=== PATIENT | male | born 1990 | race Caucasian/White ===

== ENCOUNTER 2022-04-08 22:04 | Inpatient (IN) ==
[2022-04-08] MEDS ORDERED: DICYCLOMINE HCL 10 MG/ML 2 ML AMP/VIAL IM ONE (22:18)
[2022-04-08] MEDS ORDERED: FAMOTIDINE 20MG IV PUSH 20 MG/5 ML SYR IV STA (22:18)
[2022-04-08] MEDS ORDERED: ONDANSETRON INJ 2 MG/ML 2 ML VIAL IV STA (22:18)
[2022-04-08] MEDS ORDERED: SODIUM CHLORIDE 0.9% 1000ML 1,000 ML IV STA (22:18)
--- NOTE | 2022-04-08 23:01 | Emergency Department Note ---
History of Present Illness General Chief complaint: Abdominal Pain Stated complaint: ABDOM PAIN, GETTING WORSE Time Seen by Provider: 04/08/22 22:13 History of Present Illness Maximum Pain Intensity: 9 This 31-year-old HIV male presents to the ER complaining of nausea vomiting upset stomach who was seen earlier today Location: Abdomen Quality: Discomfort Severity: Moderate Duration: Today Timing: Today Context: Patient continued to vomit and came back in Modifying factors: better with nothing; worse with activity Patient denies chest pain, dyspnea, fevers, urinary symptoms, flulike illness. Home Medications Medication Instructions Recorded Confirmed Type pantoprazole 40 mg tablet,delayed 40 mg PO QAM 05/07/19 04/08/22 History release (Protonix) bupropion HCl 150 mg tablet,12 hr 150 mg PO BID 10/12/20 04/08/22 History sustained-release dolutegravir 50 mg-lamivudine 300 1 tab PO QAM 10/12/20 04/08/22 History mg tablet (Dovato) betamethasone dipropionate 0.05 % 1 applic topical DAILY 12/10/21 04/08/22 History topical cream cetirizine 10 mg tablet (Zyrtec) 10 mg PO DAILY 12/10/21 04/08/22 History potassium chloride 20 mEq 20 meq PO QAM 12/10/21 04/08/22 History tablet,extended release(part/cryst) famotidine 20 mg tablet 20 mg PO BID #20 tabs 04/08/22 04/08/22 Rx ondansetron 4 mg disintegrating 4 mg PO Q6H PRN nausea and 04/08/22 04/08/22 Rx tablet vomiting #14 tabs sucralfate 100 mg/mL oral 10 ml PO QID #420 mL 04/08/22 04/08/22 Rx suspension (Carafate) Allergies Allergy/AdvReac Type Severity Reaction Status Date / Time latex Allergy Intermediate Rash Verified 04/08/22 23:18 benzonatate AdvReac Intermediate Hypertensio Verified 04/08/22 23:18 [From Justin Benitez] n Past Med/Surg History Medical History (Updated 04/09/22 @ 03:33 by Svetlana Piedra PA-C) Anxiety GERD (gastroesophageal reflux disease) HIV disease Surgical History S/P cholecystectomy Family History Other No pertinent family history in first degree relatives Social History Smoking Status: Current every day smoker Tobacco Type: Cigarettes Hx Alcohol Use: No Hx Substance Use: No Preferred Language: Chinese marital status: current occupational status: employed current occupation: Works at [employer] Safe at Home: Yes Review of Systems A total of 10 systems reviewed and were otherwise negative Physical Exam Vital Signs Vital Signs - 24 hr 04/08/22 22:06 04/08/22 22:19 04/08/22 22:04 Temperature 36.3 C L Temperature Source Temporal Artery Scan Pulse Rate 64 Pulse Rate [Left Finger] Respiratory Rate 18 Respiratory Effort / Characteristics Non-Labored Respiratory Depth Normal Normal Blood Pressure 154/81 H Blood Pressure [Right Arm] Blood Pressure Mean 105 Blood Pressure Mean [Right Arm] Pulse Oximetry 99 98 Oxygen Delivery Method Room Air Room Air Sepsis New/Unexplained Change in Mental Status N/A Sepsis Action Taken by Nursing No Action Required 04/09/22 01:00 04/09/22 03:00 Temperature Temperature Source Pulse Rate Pulse Rate [Left Finger] 74 Respiratory Rate 16 Respiratory Effort / Characteristics Non-Labored Respiratory Depth Normal Blood Pressure Blood Pressure [Right Arm] 124/78 Blood Pressure Mean Blood Pressure Mean [Right Arm] 93 Pulse Oximetry 98 99 Oxygen Delivery Method Sepsis New/Unexplained Change in Mental Status Sepsis Action Taken by Nursing VITALS: Vitals are noted on the nurse's note and reviewed by myself. Vital signs stable. GENERAL: Pleasant male, in no acute distress, nondiaphoretic, well-developed well-nourished. SKIN: The skin was without rashes, erythema, edema, or bruising. There is no tenting of the skin. Capillary reflex less than 2 seconds. HEAD: Normocephalic atraumatic. EARS: External auditory canals clear, EYES: Pupils equal round and reactive to light and accommodation. Conjunctivae without injection, sclerae without icterus. Extraocular movements intact. NOSE: Patent, turbinates without inflammation or discharge. MOUTH: Mucous membranes moist. Pharynx without erythema or exudate. Uvula midline. Airway patent. Tongue does not deviate. NECK: Supple without nuchal rigidity. No lymphadenopathy. No thyromegaly. Cervical spine is nontender. No JVD. HEART: Regular rate and rhythm LUNGS: Clear to auscultation bilaterally without wheezes, rales or rhonchi. No retractions or accessory muscle use. ABDOMEN: Positive bowel sounds x 4. Normal tympanic percussion. Soft, diffusely tender, without masses or organomegaly. Chavarria sign negative. No guarding or rebound tenderness. No CVA tenderness MUSCULOSKELETAL: No muscle atrophy, erythema, or edema noted. NEURO: Patient was alert and oriented to person place and time. Normal sensation to light and sharp touch. No focal neurological deficits. Course Administered Medications Discontinued Medications Dicyclomine HCl (Dicyclomine Hcl 10 Mg/Ml 2 Ml Amp/Vial) 20 mg IM NOW ONE Stop: 04/08/22 22:19 Last Admin: 04/08/22 23:02 Dose: 20 mg Documented By: YURIY Sodium Chloride (Nss 1000ml) 1,000 mls @ 999 mls/hr IV .Q1H1M STA Stop: 04/08/22 23:18 Last Infusion: 04/09/22 00:00 Dose: 0 mls/hr Documented By: Admin: 04/08/22 23:02 Dose: 999 mls/hr Documented By: YURIY Famotidine (Pepcid 20mg Iv Push) 20 mg in 5 mls @ 2.5 mls/min IV NOW STA Stop: 04/08/22 22:19 Last Admin: 04/08/22 23:02 Dose: 2.5 mls/min Documented By: YURIY Sodium Chloride (Nss 1000ml) 1,000 mls @ 999 mls/hr IV .Q1H1M ONE Stop: 04/09/22 02:24 Last Admin: 04/09/22 01:57 Dose: 999 mls/hr Documented By: YURIY Ioversol (Optiray 300 100ml) 93 ml IV ONCE ONE Stop: 04/09/22 00:34 Last Admin: 04/09/22 00:24 Dose: 93 ml Documented By: ZOHAIB Ondansetron HCl (Ondansetron Inj 2 Mg/Ml 2 Ml Vial) 4 mg IV NOW STA Stop: 04/08/22 22:19 Last Admin: 04/08/22 23:02 Dose: 4 mg Documented By: YURIY Medical Decision Making Medical Records Attestation: I reviewed the patient's medical records. Home Medications Current Medication List: was personally reviewed by me Laboratory Data Attestation: I reviewed the patient's lab results. Result diagrams: 04/08/22 22:55 04/08/22 22:55 Lab Results 04/08/22 04/08/22 04/08/22 Range/Units 22:55 22:55 22:55 WBC 9.84 (4.8-10.8) K/ul RBC 3.81 L (4.63-6.08) M/uL Hgb 13.6 L (14.0-18.0) g/dl Hct 37.9 L (40.1-51.0) % MCV 99.5 (80.0-100.0) fL MCH 35.7 H (25.0-34.0) pg MCHC 35.9 (32.0-36.0) g/dL RDW Std Deviation 43.3 (36.4-46.3) fL RDW Coeff of Dio 11.8 (11.5-14.5) % Plt Count 234 (130-400) K/uL MPV 10.0 (9.4-12.4) fL Immature Gran % (Auto) 0.1 % Neut % (Auto) 84.4 % Lymph % (Auto) 8.8 % [place] % (Auto) 6.3 % Eos % (Auto) 0.1 % Baso % (Auto) 0.3 % Neut # (Auto) 8.30 H (1.4-6.5) K/uL Lymph # (Auto) 0.87 L (1.2-3.4) K/uL [place] # (Auto) 0.62 (0.24-0.82) K/uL Eos # (Auto) 0.01 (0-0.50) K/uL Baso # (Auto) 0.03 (0-0.2) K/uL Immature Gran # (Auto) 0.01 (0.00-0.02) K/uL Sodium 134 L (136-145) mmol/L Potassium 3.6 (3.5-5.1) mmol/L Chloride 97 L (98-107) mmol/L Carbon Dioxide 27 (21-32) mmol/L Anion Gap 10 (3-11) BUN 4 L (6-23) mg/dl Creatinine 0.84 (0.6-1.4) mg/dl Est Cr Clr Drug Dosing 107.7 ml/min Est GFR ( Amer) 136.2 ml/min Est GFR (Non-Af Amer) 117.5 ml/min BUN/Creatinine Ratio 4.8 L (10-20) Glucose 101 H (70-99(Fasting)) mg/dl Calcium 9.2 (8.5-10.1) mg/dl Total Bilirubin 1.1 H (0.2-1.0) mg/dl AST 24 (13-39) U/L ALT 20 (7-52) U/L Alkaline Phosphatase 104 (34-104) U/L Total Protein 6.6 (6.0-8.3) gm/dl Albumin 4.1 (3.4-5.0) gm/dl Globulin 2.5 (2.5-4.0) gm/dl Albumin/Globulin Ratio 1.6 (0.9-2) Lipase 1124 H (11-82) U/L Urine Color Dark Yellow Urine Appearance Clear (Clear) Urine pH 5.5 (4.5-7.5) Ur Specific [place] 1.021 (1.000-1.030) Urine Protein 1+ H (Negative) Urine Glucose (UA) Negative (Negative) Urine Ketones 3+ H (Negative) Urine Blood Negative (Negative) Urine Nitrite Negative (Negative) Urine Bilirubin Negative (Negative) Urine Urobilinogen Negative (Negative) Ur Leukocyte Esterase Negative (Negative) Urine WBC (Auto) 1-5 (0-5) /hpf Urine RBC (Auto) 0-4 (0-4) /hpf U Hyaline Cast (Auto) 10-30 H (0-5) /lpf U Epithel Cells (Auto) 20-30 H (0-5) /lpf Urine Bacteria (Auto) Negative (Negative) Urine Opiates Screen (Neg) Ur Methadone, Qual (Neg) Urine Barbiturates (Neg) Ur Phencyclidine (PCP) (Neg) U Amphetamin/Meth Scrn (Neg) MDMA (Ecstasy) Screen (Neg) U Benzodiazepines Scrn (Neg) Ur Cocaine Metabolite (Neg) U Marijuana (THC) Screen (Neg) Ethyl Alcohol mg/dL (<10.0) mg/dl SARS-CoV-2, RNA, NAAT (NEGATIVE) 04/08/22 04/09/22 04/09/22 Range/Units 22:55 01:55 02:22 WBC (4.8-10.8) K/ul RBC (4.63-6.08) M/uL Hgb (14.0-18.0) g/dl Hct (40.1-51.0) % MCV (80.0-100.0) fL MCH (25.0-34.0) pg MCHC (32.0-36.0) g/dL RDW Std Deviation (36.4-46.3) fL RDW Coeff of Dio (11.5-14.5) % Plt Count (130-400) K/uL MPV (9.4-12.4) fL Immature Gran % (Auto) % Neut % (Auto) % Lymph % (Auto) % [place] % (Auto) % Eos % (Auto) % Baso % (Auto) % Neut # (Auto) (1.4-6.5) K/uL Lymph # (Auto) (1.2-3.4) K/uL [place] # (Auto) (0.24-0.82) K/uL Eos # (Auto) (0-0.50) K/uL Baso # (Auto) (0-0.2) K/uL Immature Gran # (Auto) (0.00-0.02) K/uL Sodium (136-145) mmol/L Potassium (3.5-5.1) mmol/L Chloride (98-107) mmol/L Carbon Dioxide (21-32) mmol/L Anion Gap (3-11) BUN (6-23) mg/dl Creatinine (0.6-1.4) mg/dl Est Cr Clr Drug Dosing ml/min Est GFR ( Amer) ml/min Est GFR (Non-Af Amer) ml/min BUN/Creatinine Ratio (10-20) Glucose (70-99(Fasting)) mg/dl Calcium (8.5-10.1) mg/dl Total Bilirubin (0.2-1.0) mg/dl AST (13-39) U/L ALT (7-52) U/L Alkaline Phosphatase (34-104) U/L Total Protein (6.0-8.3) gm/dl Albumin (3.4-5.0) gm/dl Globulin (2.5-4.0) gm/dl Albumin/Globulin Ratio (0.9-2) Lipase (11-82) U/L Urine Color Urine Appearance (Clear) Urine pH (4.5-7.5) Ur Specific [place] (1.000-1.030) Urine Protein (Negative) Urine Glucose (UA) (Negative) Urine Ketones (Negative) Urine Blood (Negative) Urine Nitrite (Negative) Urine Bilirubin (Negative) Urine Urobilinogen (Negative) Ur Leukocyte Esterase (Negative) Urine WBC (Auto) (0-5) /hpf Urine RBC (Auto) (0-4) /hpf U Hyaline Cast (Auto) (0-5) /lpf U Epithel Cells (Auto) (0-5) /lpf Urine Bacteria (Auto) (Negative) Urine Opiates Screen Neg (Neg) Ur Methadone, Qual Neg (Neg) Urine Barbiturates Neg (Neg) Ur Phencyclidine (PCP) Neg (Neg) U Amphetamin/Meth Scrn Neg (Neg) MDMA (Ecstasy) Screen Pos H (Neg) U Benzodiazepines Scrn Neg (Neg) Ur Cocaine Metabolite Neg (Neg) U Marijuana (THC) Screen Pos H (Neg) Ethyl Alcohol mg/dL < 10.0 (<10.0) mg/dl SARS-CoV-2, RNA, NAAT NEGATIVE (NEGATIVE) Imaging Data Attestation: I personally reviewed and interpreted this imaging study as follows: MDM Narrative Prior records/ancillary studies reviewed. Triage Nursing notes reviewed. Additional history obtained from the family. The patient's history was concerning for nausea, vomiting, and abdominal pain. Differential diagnosis: Etiologies such as gastroenteritis, food borne illness, infections, appendicitis, diverticulitis, inflammatory bowel disease, obstruction, GI bleed, biliary pathology, as well as others were entertained. Physical examination findings: As above. Abdominal examination revealed diffuse tenderness. Vital signs reviewed and revealed stable. ER treatment provided: IV hydration 1 L NSS. Zofran Pepcid Bentyl On reassessment the patient felt better. Patient was tolerating p.o. intake. Diagnostics interpretation by me: The labs revealed elevated lipase Imaging studies: Preliminary Findings Only See Final Report For Complete Findings CT ABDOMEN & PELVIS With Contrast: There is inflammatory stranding surrounding the head of the pancreas concerning for acute pancreatitis. No evidence of necrosis. No hemorrhage or organized peripancreatic fluid collection. The adjacent duodenum is thickened with surrou nding inflammatory stranding and this is likely reactive although nonspecific. The ascending and transverse colon are thickened with adjacent inflammatory stranding. There is most likely represents nonspecific colitis. There is a focus of gas adjacent to the transverse colon which appears within the lumen, there is no other free air to suggest perforation. The remaining solid organs are within normal limits. No bowel obstruction. No fracture. Radiologist: Lennie Mclean MD Study ready at 00:54 and initial results transmitted at 01:24 Consultation: A consultation was placed with the hospitalist. The case was discussed and fifi gnostics were reviewed. The patient was evaluated in the ER for further treatment. This appears to be consistent with pancreatitis with colitis. Medicine was consulted. He will be admitted. By the evaluation outlined above emergent etiologies such as appendicitis, diverticulitis, obstruction, cardiac sources, mesenteric ischemia, aortic pathology, inflammatory bowel disease, renal colic, PUD, biliary pathology, UTI, as well as others were deemed relatively unlikely. The pt informed about the findings as listed above. All questions were answered and pleased with the treatment. The chart was completed utilizing [employer] Speech voice recognition software. Grammatical errors, random word insertions, pronoun errors, and incomplete sentences are an occassional consequence of this system due to software limitations, ambient noise, and hardware issues. Any formal questions or rosas rns about the content, text, or information contained within the body of this dictation should be directly addressed to the physician home health assistant for clarification. Impression & Plan Pancreatitis, Colitis Discharge Plan Visit Data Chief Complaint: Abdominal Pain Stated Complaint: ABDOM PAIN, GETTING WORSE ED Provider: Darell Younger ED Midlevel Provider: Svetlana Piedra Discharge Problem: Pancreatitis, Colitis Patient Disposition: Admitted As Inpatient Condition: Fair Discharge Instructions Interventions: ED Discharge Assessment Last Done: 04/09/22 03:29 Forms Stand Alone Forms: [id number] Prescriptions Prescriptions: No Action pantoprazole [Protonix] 40 mg tablet,delayed release (DR/EC) 40 mg PO QAM cetirizine [Zyrtec] 10 mg Tablet 10 mg PO DAILY potassium chloride 20 mEq tablet,ER particles/crystals 20 meq PO QAM betamethasone dipropionate 0.05 % cream 1 applic TOPICAL DAILY sucralfate [Carafate] 100 mg/mL suspension 10 ml PO QID Qty: 420 0RF Rx Instructions: swish in mouth and swallow; use after food/drink: May substitute tablets as a slurry. famotidine 20 mg tablet 20 mg PO BID Qty: 20 0RF ondansetron 4 mg tablet,disintegrating 4 mg PO Q6H PRN (Reason: nausea and vomiting) Qty: 14 0RF bupropion HCl 150 mg Tablet Sustained-Release 12 Hr 150 mg PO BID Dovato 50-300 mg Tablet 1 tab PO QAM Referrals Referrals: Santhosh Kent DO [Primary Care Provider] - : Pancreatitis Qualifiers: Chronicity: acute Pancreatitis type: other Acute pancreatitis complication: unspecified Qualified Code(s): K85.80 - Other acute pancreatitis without necrosis or infection
[2022-04-08 23:07] LABS: Basophils # (auto) 0.03 K/uL (0-0.2); Basophils % (auto) 0.3 %; Eosinophils # (auto) 0.01 K/uL (0-0.50); Eosinophils % (auto) 0.1 %; Hematocrit (blood only) 37.9 % (40.1-51.0); Hemoglobin 13.6 g/dl (14.0-18.0); Immature Granulocytes # (auto) 0.01 K/uL (0.00-0.02); Immature Granulocytes % (auto) 0.1 %; Lymphocytes # (auto) 0.87 K/uL (1.2-3.4); Lymphocytes % (auto) 8.8 %; Mean Corpuscular Hemoglobin 35.7 pg (25.0-34.0); Mean Corpuscular Hgb Conc 35.9 g/dL (32.0-36.0); Mean Corpuscular Volume 99.5 fL (80.0-100.0); Monocytes # (auto) 0.62 K/uL (0.24-0.82); Monocytes % (auto) 6.3 %; Neutrophils % (auto) 84.4 %; Platelet Count 234 K/uL (130-400); RDW Coefficient of Variation 11.8 % (11.5-14.5); RDW Standard Deviation 43.3 fL (36.4-46.3); Red Blood Count 3.81 M/uL (4.63-6.08); White Blood Count 9.84 K/ul (4.8-10.8)
[2022-04-08 23:16] LABS: Appearance Urine Clear (Clear); Bacteria Urine Automated Negative (Negative); Bilirubin Urine Negative (Negative); Blood Urine Negative (Negative); Color Urine Dark Yellow; Epithelial Cell Urine Auto 20-30 /lpf (0-5); Glucose Urine UA Negative (Negative); Ketones Urine 3+ (Negative); Leukocyte Esterase Urine Negative (Negative); Nitrite Urine Negative (Negative); Protein Urine 1+ (Negative); RBC Urine Automated 0-4 /hpf (0-4); Specific Gravity Urine 1.021 (1.000-1.030); Urobilinogen Urine Negative (Negative); pH Urine 5.5 (4.5-7.5)
[2022-04-08 23:26] LABS: BUN Creatinine Ratio 4.8 (10-20); Calcium 9.2 mg/dl (8.5-10.1); Creatinine Clr Calc Pharmacy 107.7 ml/min; Est GFR (African American) 136.2 ml/min; Est GFR (Non-African American) 117.5 ml/min; Potassium 3.6 mmol/L (3.5-5.1)
[2022-04-08 23:40] LABS: Albumin Globulin Ratio 1.6 (0.9-2); Albumin Level 4.1 gm/dl (3.4-5.0); Bilirubin,Total 1.1 mg/dl (0.2-1.0); Globulin 2.5 gm/dl (2.5-4.0); Total Protein 6.6 gm/dl (6.0-8.3)
[2022-04-09] MEDS ORDERED: OPTIRAY 300 100mL IV ONE (00:33)
[2022-04-09] MEDS ORDERED: SODIUM CHLORIDE 0.9% 1000ML 1,000 ML IV ONE (01:24)
--- NOTE | 2022-04-09 01:56 | History & Physical Report ---
Date of Service April 09, 2022 Assessment & Plan (1) Pancreatitis: Plan: Mallory Trevizo is a 31-year-old male with past medical history of HIV on HAART who presented to [facility] due to upper abdominal pain with associated nausea and vomiting since last night. Found to have acute pancreatitis. Pancreatitis Unclear cause potentially related to moderate alcohol intake of 3-4 drinks night before admission CT abdomen/pelvis showing inflammatory stranding surrounding head of pancreas concerning for acute pancreatitis, no evidence of necrosis. See CT A/P results above. Lipase 1124 on admission Alcohol level, UDS ordered N.p.o. plan to restart enteral nutrition as soon as able Received NSS 1 L bolus x2 in ED Continue aggressive IV hydration with LR at 250 cc/h Graduated pain regimen with IV acetaminophen, Dilaudid Admit to med telemetry HIV Diagnosed in 2013, on HAART Hold dolutegravirlamivudine at this time while n.p.o. restart as soon as able Depression Hold home bupropion while n.p.o. restart as soon as able GERD Hold home pantoprazole, famotidine, sucralfate IV pantoprazole while admitted Allergic rhinitis Hold home cetirizine while n.p.o. DVT prophylaxis: SCDs Diet: N.p.o. for now, restart enteral nutrition as soon as able Dispo: Admit to med telemetry CODE STATUS: Full (2) HIV disease: (3) Depression: History of Present Illness Primary Care Provider: Santhosh Kent DO Mallory Trevizo is a 31-year-old male with past medical history of HIV on HAART who presented to [facility] due to upper abdominal pain with associated nausea and vomiting since last night. He had taken a dose of his bupropion and potassium and then accidentally took a second dose of each. At that time he induced vomiting and was unable to stop ever since. He has had no prior history of pancreatitis. Denies illicit drug use. He did have 3 or 4 total drinks last night (1 beer and 2-3 shots of liquor). He states he drinks socially, does not consume significant amounts of alcohol on a regular basis. Earlier tonight he had been evaluated in our emergency department and pain had been somewhat better controlled and nausea was controlled with Pepcid, Zofran, and GI cocktail. He was able to tolerate sips of clear liquids, at which point it was decided that he would try to continue with symptomatic management at home. However, patient states that symptoms seem to get worse at home and he decided to return for reevaluation. CT abdomen and pelvis per stat rad: Inflammatory stranding surrounding the head of the pancreas concerning for acute pancreatitis. No evidence of necrosis. Adjacent duodenum is thickened with surrounding inflammatory stranding and is likely reactive although nonspecific. The ascending and transverse colon are thickened with adjacent inflammatory stranding. Most likely represents nonspecific colitis. There is a focus of gas adjacent to the transverse colon which appears within the lumen, there is no other free air to suggest perforation. Lab work significant for mild anemia with hemoglobin of 13.6, mild hyponatremia with sodium of 134, T bili of 1.1, lipase elevated to 1124. Patient was given NSS 1 L bolus x2, Zofran 4 mg x 1, Pepcid 20 mg x 1, Bentyl 20 mg x 1. At the time of my evaluation, patient states that his nausea is well c ontrolled but he does still have some mild discomfort to the epigastrium. He denies chest pain, palpitations, back pain, shortness of breath, cough, headache, dizziness, weakness, numbness, rashes, urinary symptoms, fever, chills. Allergies Allergy/AdvReac Type Severity Reaction Status Date / Time latex Allergy Intermediate Rash Verified 04/08/22 23:18 benzonatate AdvReac Intermediate Hypertensio Verified 04/08/22 23:18 [From Justin Benitez] n Home Medications Medication Instructions Recorded Confirmed Type pantoprazole 40 mg tablet,delayed 40 mg PO QAM 05/07/19 04/08/22 History release (Protonix) bupropion HCl 150 mg tablet,12 hr 150 mg PO BID 10/12/20 04/08/22 History sustained-release dolutegravir 50 mg-lamivudine 300 1 tab PO QAM 10/12/20 04/08/22 History mg tablet (Dovato) betamethasone dipropionate 0.05 % 1 applic topical DAILY 12/10/21 04/08/22 History topical cream cetirizine 10 mg tablet (Zyrtec) 10 mg PO DAILY 12/10/21 04/08/22 History potassium chloride 20 mEq 20 meq PO QAM 12/10/21 04/08/22 History tablet,extended release(part/cryst) famotidine 20 mg tablet 20 mg PO BID #20 tabs 04/08/22 04/08/22 Rx ondansetron 4 mg disintegrating 4 mg PO Q6H PRN nausea and 04/08/22 04/08/22 Rx tablet vomiting #14 tabs sucralfate 100 mg/mL oral 10 ml PO QID #420 mL 04/08/22 04/08/22 Rx suspension (Carafate) Past Med/Surg History Medical History (Updated 04/09/22 @ 03:33 by Svetlana Piedra PA-C) Anxiety GERD (gastroesophageal reflux disease) HIV disease Surgical History S/P cholecystectomy Family History Other No pertinent family history in first degree relatives Social History Smoking Status: Current every day smoker Tobacco Type: Cigarettes Hx Alcohol Use: Yes Alcohol type: beer and hard liquor Hx Substance Use: Yes Preferred Language: Peruvian Communication Ability: Effective Cake Icer Required: No Beliefs That Will Affect Care: None marital status: Current Living Situation: Spouse Current Living Situation Comment: [place] current occupational status: employed current occupation: Works at [employer] Other Information That Helps Us Care for You: No Feels Safe at Home: Yes Assistive Devices: Glasses Review of Systems Review of Systems: Per HPI Physical Exam Physical Exam: GENERAL: A&Ox3. NAD. HEENT: PERRL, EOMI. Moist mucous membranes. NECK: No JVD. No lymphadenopathy. CHEST/LUNGS: CTAB A/P. No crackles, wheezes, rales, rhonchi. HEART: RRR. No m/g/r. No carotid bruits. ABDOMEN: Tender to palpation in mid epigastric region, nondistended, soft. BS+ x4. EXTREMITIES: No cyanosis, no clubbing, no edema SKIN: Warm and dry. No rashes or lesions. PSYCHIATRIC: Euthymic affect, no SI, no pressured speech, no hallucinations NEUROLOGIC: No FND. Results & Data Results & Data ([facility]) Vital Signs (Past 12 Hours) Vital Signs Temp Pulse Pulse Resp BP BP Pulse Ox 04/09/22 01:00 74 16 124/78 98 04/08/22 22:19 98 04/08/22 22:06 36.3 C L 64 18 154/81 H 99 O2 Del Method 04/09/22 01:00 04/08/22 22:19 Room Air 04/08/22 22:06 Room Air Supervising Physician Co-Signing Physician Notes Attending addendum: I have physically seen this patient, have supervised the medical residents activities, and agree with the H&P unless as otherwise noted. Assessment and Plan: Pancreatitis- Lipase 1124 Idiopathic versus associate with moderate alcohol intake as noted, versus medication related CT abdomen pelvis suggest acute pancreatitis involving head of pancreas, without evidence of necrosis Admit to medical telemetry NPO Status post 2 L NSS bolus in the ED LR at 2050 mils per hour x2 L Acetaminophen 1 g IV every 8 hours as needed pain or fever Dilaudid 0.25 mg IV every 3 hours as needed severe pain Order alcohol and urine drug screen levels MRCP HIV- Diagnosed 2013, on HAART Continue dolutegravir-lamivudine GERD- Pantoprazole 40 mg IV every 12 hours admitted Remaining orders and notations as noted Resident Activity Tracking Resident Involvement: Resident Care Provided Care Provided: Adult Hospital Medicine
[2022-04-09 03:08] LABS: Amphetamines+Metham, Urine Neg (Neg); Barbiturates, Urine Neg (Neg); Benzodiazepine, Urine Neg (Neg); Cocaine, Urine Neg (Neg); MDMA (Ecstacy), Urine Pos (Neg); Methadone, Urine Neg (Neg); Opiate, Urine Neg (Neg); Phencyclidine, Urine Neg (Neg)
[2022-04-09] MEDS ORDERED: ONDANSETRON INJ 2 MG/ML 2 ML VIAL IV PRN (03:46)
[2022-04-09] MEDS ORDERED: ACETAMINOPHEN 1,000 MG/100 ML VIAL IV PRN (03:46)
[2022-04-09] MEDS: HYDROmorphone INJ 0.5 MG/0.5 ML SYR IV PRN ×4 (04:14→21:07)
[2022-04-09] MEDS: LACTATED RINGER'S 1,000 ML IV SCH ×5 (04:51→20:53)
[2022-04-09 07:53] LABS: Basophils # (auto) 0.03 K/uL (0-0.2); Basophils % (auto) 0.3 %; Eosinophils # (auto) 0.01 K/uL (0-0.50); Eosinophils % (auto) 0.1 %; Hematocrit (blood only) 32.7 % (40.1-51.0); Hemoglobin 11.7 g/dl (14.0-18.0); Immature Granulocytes # (auto) 0.02 K/uL (0.00-0.02); Immature Granulocytes % (auto) 0.2 %; Lymphocytes # (auto) 1.32 K/uL (1.2-3.4); Lymphocytes % (auto) 14.1 %; Mean Corpuscular Hemoglobin 35.7 pg (25.0-34.0); Mean Corpuscular Hgb Conc 35.8 g/dL (32.0-36.0); Mean Corpuscular Volume 99.7 fL (80.0-100.0); Mean Platelet Volume 10.2 fL (9.4-12.4); Monocytes # (auto) 0.78 K/uL (0.24-0.82); Monocytes % (auto) 8.3 %; Neutrophils # (auto) 7.22 K/uL (1.4-6.5); Platelet Count 199 K/uL (130-400); RDW Coefficient of Variation 11.8 % (11.5-14.5); RDW Standard Deviation 43.2 fL (36.4-46.3); Red Blood Count 3.28 M/uL (4.63-6.08); White Blood Count 9.38 K/ul (4.8-10.8)
[2022-04-09 08:20] LABS: Albumin Globulin Ratio 1.8 (0.9-2); Albumin Level 3.4 gm/dl (3.4-5.0); BUN Creatinine Ratio 5.7 (10-20); Calcium 8.4 mg/dl (8.5-10.1); Creatinine Clr Calc Pharmacy 129.2 ml/min; Est GFR (African American) 146.8 ml/min; Est GFR (Non-African American) 126.6 ml/min; Globulin 1.9 gm/dl (2.5-4.0); Potassium 3.5 mmol/L (3.5-5.1); Total Protein 5.3 gm/dl (6.0-8.3)
[2022-04-09] MEDS: BETAMETHASONE DIP AUG (DIPROLENE) 0.05% CR 15 GM TUBE EXT SCH (09:18)
[2022-04-09] MEDS: CETIRIZINE HCL 10 MG TABLET PO SCH (09:18)
[2022-04-09] MEDS: PANTOprazole 40 MG in SYRINGE 0 ML IV SCH (11:15)
[2022-04-09] MEDS ORDERED: Nursing to Pharmacy Communication SCH (17:00)
--- NOTE | 2022-04-09 17:03 | Communication Note ---
Date of Service: April 09, 2022 Patient was seen and examined but admitted the same day therefore I will not be billing for this encounter. Alcohol vs. idiopathic pancreatitis. Patient with controlled pain throughout the day and good urine output. Can reduce IV fluids to 150ml/hr and start clear liquids. Go back to NPO if patient has any pain with clear liquids.
--- NOTE | 2022-04-09 18:46 | CT Scan Report ---
CT abd pelvis IV con only CLINICAL HISTORY: mid abd pain TECHNIQUE: Helical axial images of the abdomen and pelvis were obtained and displayed. Automated dose lowering techniques and/or adjustment according to patient size were utilized for this exam. This e xam was performed with intravenous contrast. CT DOSE: 287.54 mGy.cm COMPARISON: Comparison is made to CT abdomen pelvis 09/26/2021 FINDINGS: Lower chest: No acute abnormality Liver: Unremarkable. No focal lesions are seen. Gallbladder and biliary tree: Patient is status post cholecystectomy. Physiologic prominence of the b iliary ducts is noted. Pancreas: The pancreas is edematous and demonstrates surrounding fat stranding. Spleen: Unremarkable. Adrenals: Unremarkable. Kidneys and ureters: Unremarkable. Bladder: Limited evaluation due to underdistention. Reproductive organs: Unremarkable. Bowel: A hiatal hernia is seen. The appendix is normal. There is thickening of the duodenum and trans verse and ascending colon, likely reactive. Lymph nodes Retroperitoneal: Unremarkable. Pelvic: Unremarkable. Mesenteric: Unremarkable. Peritoneum: Normal. Vessels: Unremarkable. Abdominal wall: A fat-containing umbilical hernia is seen. Bones: Unremarkable. IMPRESSION: 1. Pancreatic edema and peripancreatic stranding compatible with acute pancreatitis without evidence of necrosis or well-defined fluid collection. 2. Thickening of the duodenum and transverse and ascending colon likely represents reactive changes. Infectious/inflammatory colitis and/or duodenitis is considered less likely. 3. Status post cholecystomy. There is physiologic dilation of the bile ducts without abnormal ductal dilation. ACT 112: Negative or not required by law. Electronically signed by: El Coughlin M.D. 04/09/2022 6:44 PM
[2022-04-09] MEDS ORDERED: ZOLPIDEM TARTRATE 5 MG TAB PO PRN (19:01)
[2022-04-09] MEDS: FAMOTIDINE 20 MG TAB PO SCH (21:07)
[2022-04-09] MEDS: buPROPion SR 150 MG TABCR PO SCH (21:07)
[2022-04-10] MEDS: LACTATED RINGER'S 1,000 ML IV SCH ×2 (00:59→08:16)
[2022-04-10] MEDS: HYDROmorphone INJ 0.5 MG/0.5 ML SYR IV PRN (01:05)
--- NOTE | 2022-04-10 05:04 | Billing Data ---
Date of Service April 10, 2022 Coding Level of Care Code 44640 Initial Inpt Care Lvl 3
[2022-04-10] MEDS: CETIRIZINE HCL 10 MG TABLET PO SCH (08:15)
[2022-04-10] MEDS: BETAMETHASONE DIP AUG (DIPROLENE) 0.05% CR 15 GM TUBE EXT SCH (08:16)
[2022-04-10] MEDS: FAMOTIDINE 20 MG TAB PO SCH (08:16)
[2022-04-10] MEDS: buPROPion SR 150 MG TABCR PO SCH (08:16)
[2022-04-10] MEDS ORDERED: LAMIVUDINE PO SCH (09:00)
[2022-04-10] MEDS ORDERED: DOLUTEGRAVIR PO SCH (09:00)
[2022-04-10] MEDS: PANTOprazole 40 MG in SYRINGE 0 ML IV SCH (11:11)
--- NOTE | 2022-04-10 13:13 | Discharge Summary ---
Date of Service April 10, 2022 Admission HPI Per Admitting Provider Mallory Trevizo is a 31-year-old male with past medical history of HIV on HAART who presented to [facility] due to upper abdominal pain with associated nausea and vomiting since last night. He had taken a dose of his bupropion and potassium and then accidentally took a second dose of each. At that time he induced vomiting and was unable to stop ever since. He has had no prior history of pancreatitis. Denies illicit drug use. He did have 3 or 4 total drinks last night (1 beer and 2-3 shots of liquor). He states he drinks socially, does not consume significant amounts of alcohol on a regular basis. Earlier tonight he had been evaluated in our emergency department and pain had been somewhat better controlled and nausea was controlled with Pepcid, Zofran, and GI cocktail. He was able to tolerate sips of clear liquids, at which point it was decided that he would try to continue with symptomatic management at home. However, patient states that symptoms seem to get worse at home and he d ecided to return for reevaluation. CT abdomen and pelvis per stat rad: Inflammatory stranding surrounding the head of the pancreas concerning for acute pancreatitis. No evidence of necrosis. Adjacent duodenum is thickened with surrounding inflammatory stranding and is likely reactive although nonspecific. The ascending and transverse colon are thickened with adjacent inflammatory stranding. Most likely represents nonspecific colitis. There is a focus of gas adjacent to the transverse colon which appears within the lumen, there is no other free air to suggest perforation. Lab work significant for mild anemia with hemoglobin of 13.6, mild hyponatremia with sodium of 134, T bili of 1.1, lipase elevated to 1124. Patient was given NSS 1 L bolus x2, Zofran 4 mg x 1, Pepcid 20 mg x 1, Bentyl 20 mg x 1. At the time of my evaluation, patient states that his nausea is well controlled but he does still have some mild discomfort to the epigastrium. He denies chest pain, palpitations, back pain, shortness of breath, cough, headache, dizziness, weakness, numbness, rashes, urinary symptoms, fever, chills. Principal Diagnosis Acute pancreatitis Discharge Exam Constitutional WD/WN, vitals as above Respiratory normal respiratory effort, lungs clear to auscultation Cardiovascular RRR, no murmur, no edema Gastrointestinal (Abdomen) normal bowel sounds, soft, nontender, no hepatosplenomegaly Discharge Data Allergies Allergy/AdvReac Type Severity Reaction Status Date / Time latex Allergy Intermediate Rash Verified 04/08/22 23:18 benzonatate AdvReac Intermediate Hypertensio Verified 04/08/22 23:18 [From Justin Benitez] n Consultations 04/09/22 01:56 ED Decision to Admit Stat Ordered Studies 04/08/22 22:18 CT abd pelvis IV con only Urgent IMPRESSION: 1. Pancreatic edema and peripancreatic stranding compatible with acute pancreatitis without evidence of necrosis or well-defined fluid collection. 2. Thickening of the duodenum and transverse and ascending colon likely represents reactive changes. Infectious/inflammatory colitis and/or duodenitis is considered less likely. 3. Status post cholecystomy. There is physiologic dilation of the bile ducts without abnormal ductal dilation. Hospital Course (1) Pancreatitis: Mallory Trevizo is a 31-year-old male admitted to [facility] from April 092021 due to epigastric pain. He was diagnosed with pancreatitis on CT imaging, epigastric pain and elevated lipase. This resolved overnight with intravenous fluids, pain and nausea medications. Patient is status postcholecystectomy, no CBD dilatation seen on CT abdomen pelvis and LFTs were normal therefore do not suspect gallstones or sludge. He does report moderate alcohol intake and marijuana use. He was recommend cessation of marijuana and alcohol for the next month of these have both been associated with pancreatitis. If pancreatitis recurs in the future recommend complete cessation of marijuana and alcohol to see if it recurs without these. Calcium and triglycerides were within normal limits. He is HIV positive however his CD4 count is greater than 400 and viral load undetectable therefore do not suspect atypical infections. (2) HIV disease: (3) Depression: Total Time Total Time Spent Total Time Spent (In Minutes): 35 Discharge Plan Discharge Items Patient Disposition: Home - Self-Care Reason For Visit: PANCREATITIS Discharge Diagnosis: Acute pancreatitis Condition on Discharge: Fair Activity: Resume your previous activity Non-emergency contact: Primary Care Provider Call non-emergency contact if: you have any medication questions and your symptoms worsen Follow-up/Referrals: Santhosh Kent DO [Primary Care Provider] - Diet: Low Fat Addtl Attending Provider Instructions: You were admitted to [facility] from April 092021 due to epigastric pain. You were diagnosed with pancreatitis on imaging, epigastric pain and elevated lipase. This resolved overnight with intravenous fluids, pain and nausea medication. You will be prescribed nausea medications to use just as needed on discharge. Recommend cessation of marijuana and alcohol for the next month as both of these are associated with pancreatitis. Pending Studies at Discharge: No Stand-Alone Forms: My [facility], Work/School Release, Smoking Cessation Medications and DC Order Prescriptions: New ondansetron 4 mg tablet,disintegrating 4 mg PO Q6H PRN (Reason: nausea and vomiting) Qty: 14 0RF Continued pantoprazole [Protonix] 40 mg tablet,delayed release (DR/EC) 40 mg PO QAM cetirizine [Zyrtec] 10 mg Tablet 10 mg PO DAILY potassium chloride 20 mEq tablet,ER particles/crystals 20 meq PO QAM betamethasone dipropionate 0.05 % cream 1 applic TOPICAL DAILY sucralfate [Carafate] 100 mg/mL suspension 10 ml PO QID Qty: 420 0RF Rx Instructions: swish in mouth and swallow; use after food/drink: May substitute tablets as a slurry. famotidine 20 mg tablet 20 mg PO BID Qty: 20 0RF ondansetron 4 mg tablet,disintegrating 4 mg PO Q6H PRN (Reason: nausea and vomiting) Qty: 14 0RF bupropion HCl 150 mg Tablet Sustained-Release 12 Hr 150 mg PO BID Dovato 50-300 mg Tablet 1 tab PO QAM Discharge Orders: Discharge Order (Routine); Ordered 04/10/22 Ordered By: Carlos Manuel Sanabria/Other Patient Handouts: Pancreatitis Acute Dc Admission Data Admit Date/Time: 04/09/22 02:01 Attending Provider: Carlos Manuel Wagner Admit Provider: Kennedy Price Primary Care Provider: Santhosh Kent Other Providers: Benjamin Mckeon Other Interventions: Discharge Summary Assessment (RN) Last Done: 04/10/22 13:24 Coding Level of Care Code D/C DAY MANAGEMENT >30 MINS Diagnoses Pancreatitis K85.80 Acute pancreatitis complication: unspecified Chronicity: acute Pancreatitis type: other HIV disease B20 Depression F32.A
[2022-04-14 12:56] LABS: MDA negative; MDEA negative; MDMA (Ecstasy) Urine, Confirm negative; Marijuana Quant, GCMS Urine 344 ng/mL (<5)
== END 2022-04-10 14:00 | disposition home or self-care (01) | DRG 439 ==
LOC: ED 22:04 → SUATTDRO 04-09 02:01 → 2W 04-09 02:01

== ENCOUNTER 2022-06-07 13:13 | Observation (INO) ==
[2022-06-07] MEDS ORDERED: MoRPHine SULFATE 4 MG/ML 1 ML CARP\\VIAL IV PRN (15:31)
[2022-06-07] MEDS ORDERED: SODIUM CHLORIDE 0.9% 1000ML 1,000 ML IV STA (15:31)
[2022-06-07] MEDS ORDERED: ONDANSETRON INJ 2 MG/ML 2 ML VIAL IV STA (15:31)
--- NOTE | 2022-06-07 15:42 | Emergency Department Note ---
Impression & Plan Acute upper abdominal pain, Acute pancreatitis ED Provider Note NAME: CHRISTIAN BLAIR AGE: 31 SEX: M : 1990 ARRIVES VIA: Walk-In INFORMANT: Patient, ED PROVIDER(S): Paul Grace DO CHIEF COMPLAINT: Abdominal pain HPI: The patient is a 31-year-old male who presented to the emergency department for upper abdominal pain. He tried to call his primary care physician but was unable to get an appointment. He notices upper abdominal pain nausea vomiting. The pain started yesterday. He has a history of pancreatitis and feels that this is consistent with his previous episode of pancreatitis. Patient denies having any fever. He denies having any hematemesis. He has no black or bloody bowel moods. He states his pain is moderate and worsens with eating. He has been unable to eat for the last few hours as well. ROS: See above HPI for pertinent positives & negatives. A total of 10 systems reviewed and were otherwise negative. PAST MEDICAL HISTORY: See Below PAST SURGICAL HISTORY: See Below FAMILY HISTORY: See Below SOCIAL HISTORY: See Below HOME MEDICATIONS: See Below ALLERGIES: See Below VITALS: See Below PHYSICAL EXAMINATION: GENERAL: Patient is awake alert in no acute distress patient is resting comfortably and showing no signs of anxiety EYES: The conjunctivae are clear. The pupils are round and reactive. EARS, NOSE, MOUTH AND THROAT: The nose is without any evidence of any deformity. Mucous membranes are moist. Tongue is midline. NECK: The neck is nontender and supple. RESPIRATORY: Normal respiratory effort is noted there is no evidence of wheezing rhonchi or rales CARDIOVASCULAR: Regular rate and rhythm noted there no murmurs rubs or gallops normal S1 normal S2. GASTROINTESTINAL: The abdomen was soft and mildly distended. There is diffuse tenderness to palpation but no guarding rigidity. MUSCULOSKELETAL/EXTREMITIES: There is no evidence of gross deformity full range of motion is noted in the hips and shoulders. SKIN: There is no obvious evidence of any rash. There are no petechiae, pallor or cyanosis noted. NEUROLOGIC: Patient is awake alert and oriented x3 strength is symmetric patellar reflexes are 2+ bilaterally MEDICAL DECISION MAKING: The patient is a 31-year-old male who presented to the emergency department for an evaluation of upper abdominal pain. The patient does have a history of pancreatitis. He has been able to go without alcohol for a long period of time but last evening did have some alcohol. He thinks that this is what caused his symptoms. I discussed the patient's laboratory and radiographic studies with him. He was treated with IV fluids and IV pain medication in the emergency department. He was also treated with IV antiemetics. On reevaluation he was not significantly improved. I discussed the patient's condition with the on- call [facility] hospitalist. They have agreed to evaluate the patient in the emergency department for further management and disposition. Triage Nursing notes reviewed. Prior medical records reviewed Vital Signs: reviewed and remarkable for elevated blood pressure. Differential diagnosis: Etiologies such as appendicitis, diverticulitis, obstruction, inflammatory bowel disease, renal colic, PUD, biliary pathology, pancreatitis, mesenteric ischemia, aortic pathology, infections, genitourinary, UTI, perforated viscus, as well as others were entertained. ER treatment provided: See below Diagnostics interpreted by me: ECG: none Cardiac Monitoring: An order was placed for continuous cardiac monitoring. The monitor shows a rate of 58 bpm with sinus bradycardia. Laboratory studies: As stated above and show below. Imaging studies: See below Consultation(s): I discussed this case with Dr. Wagner. Past Med/Surg History Medical History Anxiety GERD (gastroesophageal reflux disease) HIV disease Surgical History S/P cholecystectomy Family History Other No pertinent family history in first degree relatives Social History Smoking Status: Never smoker Tobacco Type: Cigarettes Hx Alcohol Use: Yes Alcohol type: beer and hard liquor Hx Substance Use: Yes Preferred Language: Ethiopian Communication Ability: Effective Slot Editor Required: No Beliefs That Will Affect Care: None marital status: Current Living Situation: Spouse Current Living Situation Comment: [place] current occupational status: employed current occupation: Works at [employer] Feels Safe at Home: Yes Assistive Devices: Glasses Allergies Allergies Allergy/AdvReac Type Severity Reaction Status Date / Time latex Allergy Intermediate Rash Verified 06/07/22 16:37 benzonatate AdvReac Intermediate Hypertensio Verified 06/07/22 16:37 [From Tessalon Perles] n Home Meds Home Medications Medication Instructions Recorded Confirmed pantoprazole 40 mg tablet,delayed 40 mg PO QAM 05/07/19 06/07/22 release (Protonix) bupropion HCl 150 mg tablet,12 hr 150 mg PO BID 10/12/20 06/07/22 sustained-release dolutegravir 50 mg-lamivudine 300 1 tab PO QAM 10/12/20 06/07/22 mg tablet (Dovato) betamethasone dipropionate 0.05 % 1 applic topical DAILY PRN Skin 12/10/21 06/07/22 topical cream Irritation cetirizine 10 mg tablet (Zyrtec) 10 mg PO DAILY 12/10/21 06/07/22 potassium chloride 20 mEq 20 meq PO QAM 12/10/21 06/07/22 tablet,extended release(part/cryst) Previous Rx's Medication Instructions Recorded famotidine 20 mg tablet 20 mg PO BID #20 tabs 04/08/22 ondansetron 4 mg disintegrating 4 mg PO Q6H PRN nausea and 04/10/22 tablet vomiting #14 tabs Results & Data (ED) Vital Signs Vital Signs - 24 hr 06/07/22 13:25 06/07/22 17:53 06/07/22 17:54 Temperature 36.5 C Temperature Source Oral Pulse Rate 67 66 Pulse Rate [Left Finger] 66 Pulse Rhythm Regular Regular Pulse Rhythm [Left Finger] Regular Pulse Strength Normal Pulse Strength [Left Finger] Normal Respiratory Rate 18 20 20 Respiratory Effort / Characteristics Non-Labored Spontaneous Non-Labored Spontaneous Respiratory Depth Normal Normal Respiratory Pattern Regular Regular Blood Pressure 114/75 Blood Pressure [Right Arm] 150/97 H Blood Pressure Mean 88 Blood Pressure Mean [Right Arm] 114 Blood Pressure Position Sitting Blood Pressure Position [Right Arm] Sitting Pulse Oximetry 100 97 97 Oxygen Delivery Method Room Air Room Air Room Air Sepsis Recent Fever Within 48 Hours No Sepsis New/Unexplained Change in Mental Status N/A Sepsis Action Taken by Nursing No Action Required 06/07/22 19:47 Temperature Temperature Source Pulse Rate Pulse Rate [Left Finger] 58 L Pulse Rhythm Pulse Rhythm [Left Finger] Regular Pulse Strength Pulse Strength [Left Finger] Normal Respiratory Rate 16 Respiratory Effort / Characteristics Non-Labored Spontaneous Respiratory Depth Normal Respiratory Pattern Blood Pressure Blood Pressure [Right Arm] 165/91 H Blood Pressure Mean Blood Pressure Mean [Right Arm] 115 Blood Pressure Position Blood Pressure Position [Right Arm] Pulse Oximetry 100 Oxygen Delivery Method Room Air Sepsis Recent Fever Within 48 Hours Sepsis New/Unexplained Change in Mental Status Sepsis Action Taken by [facility] Medications Current Medication List: was personally reviewed by me Laboratory Data Attestation: I reviewed the patient's lab results. Result diagrams: 06/07/22 16:04 06/07/22 16:04 Lab Results 06/07/22 06/07/22 06/07/22 Range/Units 15:00 16:04 16:04 WBC 14.77 H (4.8-10.8) K/ul RBC 4.02 L (4.63-6.08) M/uL Hgb 13.6 L (14.0-18.0) g/dl Hct 37.8 L (40.1-51.0) % MCV 94.0 (80.0-100.0) fL MCH 33.8 (25.0-34.0) pg MCHC 36.0 (32.0-36.0) g/dL RDW Std Deviation 44.5 (36.4-46.3) fL RDW Coeff of Dio 12.8 (11.5-14.5) % Plt Count 226 (130-400) K/uL MPV 10.1 (9.4-12.4) fL Immature Gran % (Auto) 0.5 % Neut % (Auto) 88.5 % Lymph % (Auto) 4.7 % [place] % (Auto) 6.0 % Eos % (Auto) 0.0 % Baso % (Auto) 0.3 % Neut # (Auto) 13.08 H (1.4-6.5) K/uL Lymph # (Auto) 0.70 L (1.2-3.4) K/uL [place] # (Auto) 0.88 H (0.24-0.82) K/uL Eos # (Auto) 0.00 (0-0.50) K/uL Baso # (Auto) 0.04 (0-0.2) K/uL Immature Gran # (Auto) 0.07 H (0.00-0.02) K/uL Sodium 134 L (136-145) mmol/L Potassium 3.7 (3.5-5.1) mmol/L Chloride 103 (98-107) mmol/L Carbon Dioxide 23 (21-32) mmol/L Anion Gap 8 (3-11) BUN 7 (6-23) mg/dl Creatinine 0.70 (0.6-1.4) mg/dl Est Cr Clr Drug Dosing 141.8 ml/min Est GFR ( Amer) 146.8 ml/min Est GFR (Non-Af Amer) 126.6 ml/min BUN/Creatinine Ratio 10.0 (10-20) Glucose 103 H (70-99(Fasting)) mg/dl Calcium 8.2 L (8.5-10.1) mg/dl Total Bilirubin 0.5 (0.2-1.0) mg/dl AST 20 (13-39) U/L ALT 16 (7-52) U/L Alkaline Phosphatase 81 (34-104) U/L Total Protein 6.2 (6.0-8.3) gm/dl Albumin 3.7 (3.4-5.0) gm/dl Globulin 2.5 (2.5-4.0) gm/dl Albumin/Globulin Ratio 1.5 (0.9-2) Lipase 2896 H (11-82) U/L Urine Color Urine Appearance (Clear) Urine pH (4.5-7.5) Ur Specific [place] (1.000-1.030) Urine Protein (Negative) Urine Glucose (UA) (Negative) Urine Ketones (Negative) Urine Blood (Negative) Urine Nitrite (Negative) Urine Bilirubin (Negative) Urine Urobilinogen (Negative) Ur Leukocyte Esterase (Negative) Urine WBC (Auto) (0-5) /hpf Urine RBC (Auto) (0-4) /hpf U Hyaline Cast (Auto) (0-5) /lpf U Epithel Cells (Auto) (0-5) /lpf Urine Bacteria (Auto) (Negative) SARS-CoV-2, RNA, NAAT NEGATIVE (NEGATIVE) 06/07/22 Range/Units 17:45 WBC (4.8-10.8) K/ul RBC (4.63-6.08) M/uL Hgb (14.0-18.0) g/dl Hct (40.1-51.0) % MCV (80.0-100.0) fL MCH (25.0-34.0) pg MCHC (32.0-36.0) g/dL RDW Std Deviation (36.4-46.3) fL RDW Coeff of Dio (11.5-14.5) % Plt Count (130-400) K/uL MPV (9.4-12.4) fL Immature Gran % (Auto) % Neut % (Auto) % Lymph % (Auto) % [place] % (Auto) % Eos % (Auto) % Baso % (Auto) % Neut # (Auto) (1.4-6.5) K/uL Lymph # (Auto) (1.2-3.4) K/uL [place] # (Auto) (0.24-0.82) K/uL Eos # (Auto) (0-0.50) K/uL Baso # (Auto) (0-0.2) K/uL Immature Gran # (Auto) (0.00-0.02) K/uL Sodium (136-145) mmol/L Potassium (3.5-5.1) mmol/L Chloride (98-107) mmol/L Carbon Dioxide (21-32) mmol/L Anion Gap (3-11) BUN (6-23) mg/dl Creatinine (0.6-1.4) mg/dl Est Cr Clr Drug Dosing ml/min Est GFR ( Amer) ml/min Est GFR (Non-Af Amer) ml/min BUN/Creatinine Ratio (10-20) Glucose (70-99(Fasting)) mg/dl Calcium (8.5-10.1) mg/dl Total Bilirubin (0.2-1.0) mg/dl AST (13-39) U/L ALT (7-52) U/L Alkaline Phosphatase (34-104) U/L Total Protein (6.0-8.3) gm/dl Albumin (3.4-5.0) gm/dl Globulin (2.5-4.0) gm/dl Albumin/Globulin Ratio (0.9-2) Lipase (11-82) U/L Urine Color Dark Yellow Urine Appearance Clear (Clear) Urine pH 5.0 (4.5-7.5) Ur Specific [place] > 1.045 H (1.000-1.030) Urine Protein Trace H (Negative) Urine Glucose (UA) Negative (Negative) Urine Ketones 1+ H (Negative) Urine Blood Negative (Negative) Urine Nitrite Negative (Negative) Urine Bilirubin Negative (Negative) Urine Urobilinogen Negative (Negative) Ur Leukocyte Esterase Negative (Negative) Urine WBC (Auto) 1-5 (0-5) /hpf Urine RBC (Auto) 0-4 (0-4) /hpf U Hyaline Cast (Auto) 1-5 (0-5) /lpf U Epithel Cells (Auto) 5-10 H (0-5) /lpf Urine Bacteria (Auto) Negative (Negative) SARS-CoV-2, RNA, NAAT (NEGATIVE) Administered Medications Discontinued Medications Hydromorphone HCl (Hydromorphone Inj 1 Mg/Ml Syringe) 1 mg IV NOW STA Stop: 06/07/22 15:54 Last Admin: 06/07/22 15:59 Dose: 1 mg Documented By: [id number] Hydromorphone HCl (Hydromorphone Inj 1 Mg/Ml Syringe) 1 mg IV NOW STA Stop: 06/07/22 17:34 Last Admin: 06/07/22 17:51 Dose: 1 mg Documented By: IRAM Sodium Chloride (Nss 1000ml) 1,000 mls @ 999 mls/hr IV .Q1H1M STA Stop: 06/07/22 16:31 Last Infusion: 06/07/22 16:49 Dose: 0 mls/hr Documented By: Admin: 06/07/22 15:48 Dose: 999 mls/hr Documented By: [id number] Lactated Ringer's (Lr) 1,000 mls @ 999 mls/hr IV .Q1H1M ONE Stop: 06/07/22 19:19 Last Infusion: 06/07/22 20:02 Dose: 0 mls/hr Documented By: Admin: 06/07/22 18:52 Dose: 999 mls/hr Documented By: [id number] Ioversol (Optiray 350 100ml) 85 ml IV ONCE ONE Stop: 06/07/22 17:18 Last Admin: 06/07/22 17:17 Dose: 85 ml Documented By: DANIELLE Morphine Sulfate (Morphine Sulfate 4 Mg/Ml 1 Ml Carp\Vial) Confirm Administered Dose 4 mg .ROUTE .STK-MED ONE Stop: 06/07/22 19:56 Last Admin: 06/07/22 20:01 Dose: 4 mg Documented By: KATHLEEN Ondansetron HCl (Ondansetron Inj 2 Mg/Ml 2 Ml Vial) 4 mg IV NOW STA Stop: 06/07/22 15:32 Last Admin: 06/07/22 15:48 Dose: 4 mg Documented By: [id number] Ondansetron HCl (Ondansetron Inj 2 Mg/Ml 2 Ml Vial) Confirm Administered Dose 4 mg .ROUTE .STK-MED ONE Stop: 06/07/22 19:59 Last Admin: 06/07/22 19:58 Dose: 4 mg Documented By: KATHLEEN Imaging Data Radiologist's Impression: Abdomen/Pelvis CT 06/07/22 15:[address] WITH IV CONTRAST CT DOSE: 281.90 mGy.cm HISTORY: Upper abdominal pain. TECHNIQUE: Multiaxial CT images of the abdomen and pelvis were performed following the use of intravenous contrast. A dose lowering technique was utilized adhering to the principles of ALARA. COMPARISON STUDY: Abdomen and pelvis CT 04/09/2022. FINDINGS: The lung bases are clear. Bilateral L5 spondylolysis again noted. No pneumoperitoneum. No pneumatosis. Tiny fat-containing umbilical hernia. Prior cholecystectomy. Mild hepatic steatosis. The main portal vein is patent. The spleen, adrenal glands, and kidneys are unremarkable. No hydronephrosis. Extensive peripancreatic inflammatory change and edema/fluid consistent with acute pancreatitis. This has progressed in the interval. Small amount of ascites is present. This has also progressed. No evidence for pancreatic necrosis or loculated fluid collections at this time. No retroperitoneal lymphadenopathy. Normal caliber abdominal aorta. The bladder is unremarkable. No bowel wall thickening or obstruction. The visualized appendix is unremarkable. IMPRESSION: 1. Interval progression of the peripancreatic edema/inflammatory change consistent with acute pancreatitis. There is also a small amount of ascites which has progressed. 2. Prior cholecystectomy. 3. No evidence for pancreatic necrosis at this time. ACT 112: Negative or not required by law. Electronically signed by: Miller Bueno M.D. 06/07/2022 5:39 PM Discharge Plan Visit Data Chief Complaint: Abdominal Pain Stated Complaint: ABD PAIN ED Provider: Paul Grace Discharge Problem: Acute upper abdominal pain, Acute pancreatitis Patient Disposition: Being Evaluated by Hospitalist Forms Stand Alone Forms: My [facility] See[employer] Prescriptions Prescriptions: No Action pantoprazole [Protonix] 40 mg tablet,delayed release (DR/EC) 40 mg PO QAM cetirizine [Zyrtec] 10 mg Tablet 10 mg PO DAILY potassium chloride 20 mEq tablet,ER particles/crystals 20 meq PO QAM betamethasone dipropionate 0.05 % cream 1 applic TOPICAL DAILY PRN (Reason: Skin Irritation) famotidine 20 mg tablet 20 mg PO BID Qty: 20 0RF ondansetron 4 mg tablet,disintegrating 4 mg PO Q6H PRN (Reason: nausea and vomiting) Qty: 14 0RF bupropion HCl 150 mg Tablet Sustained-Release 12 Hr 150 mg PO BID Dovato 50-300 mg Tablet 1 tab PO QAM Referrals Referrals: Santhosh Kent DO [Primary Care Provider] -
[2022-06-07] MEDS ORDERED: HYDROmorphone INJ 1 MG/ML SYRINGE IV STA ×3 (15:53→22:18)
[2022-06-07 16:43] LABS: Basophils # (auto) 0.04 K/uL (0-0.2); Basophils % (auto) 0.3 %; Hematocrit (blood only) 37.8 % (40.1-51.0); Hemoglobin 13.6 g/dl (14.0-18.0); Immature Granulocytes # (auto) 0.07 K/uL (0.00-0.02); Immature Granulocytes % (auto) 0.5 %; Lymphocytes % (auto) 4.7 %; Mean Corpuscular Hemoglobin 33.8 pg (25.0-34.0); Mean Platelet Volume 10.1 fL (9.4-12.4); Monocytes # (auto) 0.88 K/uL (0.24-0.82); Neutrophils # (auto) 13.08 K/uL (1.4-6.5); Neutrophils % (auto) 88.5 %; Platelet Count 226 K/uL (130-400); RDW Coefficient of Variation 12.8 % (11.5-14.5); RDW Standard Deviation 44.5 fL (36.4-46.3); Red Blood Count 4.02 M/uL (4.63-6.08); White Blood Count 14.77 K/ul (4.8-10.8)
[2022-06-07 17:05] LABS: Calcium 8.2 mg/dl (8.5-10.1); Creatinine Clr Calc Pharmacy 141.8 ml/min; Est GFR (African American) 146.8 ml/min; Est GFR (Non-African American) 126.6 ml/min; Potassium 3.7 mmol/L (3.5-5.1)
[2022-06-07] MEDS ORDERED: OPTIRAY 350 100ml IV ONE (17:17)
[2022-06-07 17:23] LABS: Albumin Globulin Ratio 1.5 (0.9-2); Albumin Level 3.7 gm/dl (3.4-5.0); Bilirubin,Total 0.5 mg/dl (0.2-1.0); Globulin 2.5 gm/dl (2.5-4.0); Total Protein 6.2 gm/dl (6.0-8.3)
--- NOTE | 2022-06-07 17:40 | CT Scan Report ---
ABDOMEN AND PELVIS CT WITH IV CONTRAST CT DOSE: 281.90 mGy.cm HISTORY: Upper abdominal pain. TECHNIQUE: Multiaxial CT images of the abdomen and pelvis were performed following the use of intrave nous contrast. A dose lowering technique was utilized adhering to the principles of ALARA. COMPARISON STUDY: Abdomen and pelvis CT 04/09/2022. FINDINGS: The lung bases are clear. Bilateral L5 spondylolysis again noted. No pneumoperitoneum. No p neumatosis. Tiny fat-containing umbilical hernia. Prior cholecystectomy. Mild hepatic steatosis. The main portal vein is patent. The spleen, adrenal glands, and kidneys are unremarkable. No hydronephros is. Extensive peripancreatic inflammatory change and edema/fluid consistent with acute pancreatitis. This has progressed in the interval. Small amount of ascites is present. This has also progressed. No evidence for pancreatic necrosis or loculated fluid collections at this time. No retroperitoneal lym phadenopathy. Normal caliber abdominal aorta. The bladder is unremarkable. No bowel wall thickening o r obstruction. The visualized appendix is unremarkable. IMPRESSION: 1. Interval progression of the peripancreatic edema/inflammatory change consistent with acute pancrea titis. There is also a small amount of ascites which has progressed. 2. Prior cholecystectomy. 3. No evidence for pancreatic necrosis at this time. ACT 112: Negative or not required by law. Electronically signed by: Miller Bueno M.D. 06/07/2022 5:39 PM
[2022-06-07 18:05] LABS: Appearance Urine Clear (Clear); Bacteria Urine Automated Negative (Negative); Bilirubin Urine Negative (Negative); Blood Urine Negative (Negative); Color Urine Dark Yellow; Glucose Urine UA Negative (Negative); Ketones Urine 1+ (Negative); Leukocyte Esterase Urine Negative (Negative); Nitrite Urine Negative (Negative); Protein Urine Trace (Negative); RBC Urine Automated 0-4 /hpf (0-4); Specific Gravity Urine > 1.045 (1.000-1.030); Urobilinogen Urine Negative (Negative)
[2022-06-07] MEDS ORDERED: LACTATED RINGER'S 1,000 ML IV ONE (18:19)
--- NOTE | 2022-06-07 18:35 | History & Physical Report ---
Date of Service June 07, 2022 Assessment & Plan (1) Pancreatitis: Plan: Suspect secondary to alcohol - much clearer correlation on this occasion Recommend complete cessation of alcohol. Triglycerides taken with previous episode, will not repeat Normal saline 1 L bolus given in ER, will give additional lactated Ringer's bolus now LR @ 250ml/hr overnight, consider dropping rate in the morning Acetaminophen and morphine for pain relief Ondansetron for nausea (2) HIV disease: Plan: Continue Dovato 1 tab p.o. every morning Patient has a CD4 count is greater than 400 (3) Depression: Plan: Bupropion 150 mg p.o. twice daily (4) GERD (gastroesophageal reflux disease): Plan: Famotidine 20 mg p.o. twice daily Pantoprazole 40 mg p.o. every morning Plan VTE prophylaxis - deferred due to low risk Diet - clear liquid, advance as tolerated Disposition - observation status to [facility] [place] Admission and Anticipated Discharge Date Admission Date: June 07, 2022 History of Present Illness Chief Complaint: Epigastric pain Primary Care Provider: DO Mallory Feliciano Joseline is a 31 year old male with recent history of pancreatitis who presents to the ER with epigastric pain. He reports this episode is very similar to the episode he was admitted for in April. After this episode he stuck by my discharge instructions and abstained from alcohol for a month. His last episode was not definitively alcohol induced therefore was not advised for complete sensation indefinitely and he started to drink a little bit more without recurrence and pancreatitis. However last night he reports drinking a little more than he should have. Woke up this morning with severity 8 out of 10 epigastric pain, radiating to the back. Associated nausea and vomiting. Worse with eating. No fevers, chills or hematemesis. In the ER CT abdomen pelvis was concerning for pancreatitis with lipase 2896 U/L. He was referred to medicine for admission ongoing management of acute pancreatitis. Allergies Allergy/AdvReac Type Severity Reaction Status Date / Time latex Allergy Intermediate Rash Verified 06/07/22 16:37 benzonatate AdvReac Intermediate Hypertensio Verified 06/07/22 16:37 [From Justin Benitez] n Home Medications Medication Instructions Recorded Confirmed Type pantoprazole 40 mg tablet,delayed 40 mg PO QAM 05/07/19 06/07/22 History release (Protonix) bupropion HCl 150 mg tablet,12 hr 150 mg PO BID 10/12/20 06/07/22 History sustained-release dolutegravir 50 mg-lamivudine 300 1 tab PO QAM 10/12/20 06/07/22 History mg tablet (Dovato) betamethasone dipropionate 0.05 % 1 applic topical DAILY PRN Skin 12/10/2109/27 History topical cream Irritation cetirizine 10 mg tablet (Zyrtec) 10 mg PO DAILY 12/10/21 06/07/22 History potassium chloride 20 mEq 20 meq PO QAM 12/10/21 06/07/22 History tablet,extended release(part/cryst) famotidine 20 mg tablet 20 mg PO BID #20 tabs 04/08/22 06/07/22 Rx ondansetron 4 mg disintegrating 4 mg PO Q6H PRN nausea and 04/10/22 06/07/22 Rx tablet vomiting #14 tabs Past Med/Surg History Medical History Anxiety GERD (gastroesophageal reflux disease) HIV disease Surgical History S/P cholecystectomy Family History Other No pertinent family history in first degree relatives Social History Smoking Status: Never smoker Tobacco Type: Cigarettes Hx Alcohol Use: Yes Alcohol type: beer and hard liquor Hx Substance Use: Yes Preferred Language: Hungarian Communication Ability: Effective Kitchen Clerk Required: No Beliefs That Will Affect Care: None marital status: Current Living Situation: Spouse Current Living Situation Comment: Ramiro current occupational status: employed current occupation: Works at [employer] Safe at Home: Yes Assistive Devices: Glasses Review of Systems Review of Systems: All systems reviewed & are unremarkable except as noted in HPI & below Physical Exam Constitutional: WD/WN, vitals as above Respiratory: normal respiratory effort, lungs clear to auscultation Cardiovascular: RRR, no murmur, no edema Gastrointestinal (Abdomen): Inspection/Auscultation: normal bowel sounds Percussion/Palpation: + abdomen tender (Epigastric) and abdomen soft; no guarding and abdomen not rigid Musculoskeletal: no cyanosis or clubbing, extremities motor strength 5/5 Skin: no rashes, warm and dry Neurologic: moves all extremities and awake; not confused Psychiatric: A+Ox3, euthymic affect Genitourinary: no CVA tenderness Results & Data Results & Data ([facility]) Vital Signs (Past 12 Hours) Vital Signs Temp Pulse Pulse Resp BP BP Pulse Ox 06/07/22 17:54 66 20 97 06/07/22 17:53 66 20 150/97 H 97 06/07/22 13:25 36.5 C 67 18 114/75 100 O2 Del Method 06/07/22 17:54 Room Air 06/07/22 17:53 Room Air 06/07/22 13:25 Room Air Laboratory Results Abnormal lab results 06/07/22 06/07/22 06/07/22 Range/Units 16:04 16:04 17:45 WBC 14.77 H (4.8-10.8) K/ul RBC 4.02 L (4.63-6.08) M/uL Hgb 13.6 L (14.0-18.0) g/dl Hct 37.8 L (40.1-51.0) % Neut # (Auto) 13.08 H (1.4-6.5) K/uL Lymph # (Auto) 0.70 L (1.2-3.4) K/uL [place] # (Auto) 0.88 H (0.24-0.82) K/uL Immature Gran # (Auto) 0.07 H (0.00-0.02) K/uL Sodium 134 L (136-145) mmol/L Glucose 103 H (70-99(Fasting)) mg/dl Calcium 8.2 L (8.5-10.1) mg/dl Lipase 2896 H (11-82) U/L Ur Specific [place] > 1.045 H (1.000-1.030) Urine Protein Trace H (Negative) Urine Ketones 1+ H (Negative) U Epithel Cells (Auto) 5-10 H (0-5) /lpf Diagnostic Findings ABDOMEN AND PELVIS CT WITH IV CONTRAST CT DOSE: 281.90 mGy.cm HISTORY: Upper abdominal pain. TECHNIQUE: Multiaxial CT images of the abdomen and pelvis were performed following the use of intravenous contrast. A dose lowering technique was utilized adhering to the principles of ALARA. COMPARISON STUDY: Abdomen and pelvis CT 04/09/2022. FINDINGS: The lung bases are clear. Bilateral L5 spondylolysis again noted. No pneumoperitoneum. No pneumatosis. Tiny fat-containing umbilical hernia. Prior cholecystectomy. Mild hepatic steatosis. The main portal vein is patent. The spleen, adrenal glands, and kidneys are unremarkable. No hydronephrosis. Extensive peripancreatic inflammatory change and edema/fluid consistent with acute pancreatitis. This has progressed in the interval. Small amount of ascites is present. This has also progressed. No evidence for pancreatic necrosis or loculated fluid collections at this time. No retroperitoneal lymphadenopathy. Normal caliber abdominal aorta. The bladder is unremarkable. No bowel wall t hickening or obstruction. The visualized appendix is unremarkable. IMPRESSION: 1. Interval progression of the peripancreatic edema/inflammatory change consistent with acute pancreatitis. There is also a small amount of ascites which has progressed. 2. Prior cholecystectomy. 3. No evidence for pancreatic necrosis at this time. Medications Administered ER medications given: Normal saline 1L bolus Ondansetron 4 mg IV Dilaudid 1 mg IV x2 Code Status & VTE Plan Code Status Full VTE Prophylaxis Plan VTE Prophylaxis will be ordered: No Reason for no VTE drug order: Treatment not indicated Reason for no VTE mechanical prophylaxis: Treatment not indicated PG Care Time/CCT Total # of Minutes Spent Total Time Spent with Patient: Total time spent is greater than 50% in coordination of care (as documented) at patient's floor/unit and/or counseling patient: Coding Level of Care Code INT OBSERVATION CARE 50M LVL 2 Diagnoses Pancreatitis K85.80 Acute pancreatitis complication: unspecified Chronicity: acute Pancreatitis type: other HIV disease B20 Depression F32.A GERD (gastroesophageal reflux disease) K21.9 (1) Pancreatitis Acute pancreatitis complication: unspecified Chronicity: acute Pancreatitis type: other Qualified Code(s): K85.80 - Other acute pancreatitis without necrosis or infection
[2022-06-07] MEDS ORDERED: MoRPHine SULFATE 4 MG/ML 1 ML CARP\\VIAL ONE (19:55)
[2022-06-07] MEDS ORDERED: ONDANSETRON INJ 2 MG/ML 2 ML VIAL ONE (19:58)
[2022-06-07] MEDS ORDERED: ACETAMINOPHEN 325 MG TAB ONE (20:27)
[2022-06-07] MEDS ORDERED: MoRPHine SULFATE 2 MG/ML CARP IV PRN (21:22)
[2022-06-07] MEDS ORDERED: ONDANSETRON INJ 2 MG/ML 2 ML VIAL IV PRN (21:22)
[2022-06-07] MEDS ORDERED: ACETAMINOPHEN 325 MG TAB PO PRN (21:22)
[2022-06-07] MEDS: LACTATED RINGER'S 1,000 ML IV SCH (22:10)
[2022-06-07] MEDS: buPROPion SR 150 MG TABCR PO SCH (22:29)
[2022-06-07] MEDS: FAMOTIDINE 20 MG TAB PO SCH (22:29)
[2022-06-08] MEDS: MoRPHine SULFATE 4 MG/ML 1 ML CARP\\VIAL IV PRN ×4 (00:53→20:07)
[2022-06-08] MEDS: LACTATED RINGER'S 1,000 ML IV SCH ×4 (02:01→14:11)
[2022-06-08] MEDS ORDERED: FLUARIX QUADRIVALENT 0.5 ML SYR IM ONE (02:21)
[2022-06-08] MEDS: MELATONIN 3 MG TAB PO PRN ×2 (03:38→20:06)
[2022-06-08 08:12] LABS: Basophils # (auto) 0.01 K/uL (0-0.2); Basophils % (auto) 0.1 %; Eosinophils # (auto) 0.01 K/uL (0-0.50); Eosinophils % (auto) 0.1 %; Hematocrit (blood only) 35.4 % (40.1-51.0); Hemoglobin 12.8 g/dl (14.0-18.0); Immature Granulocytes # (auto) 0.04 K/uL (0.00-0.02); Immature Granulocytes % (auto) 0.4 %; Lymphocytes # (auto) 0.82 K/uL (1.2-3.4); Lymphocytes % (auto) 7.2 %; Mean Corpuscular Hemoglobin 33.6 pg (25.0-34.0); Mean Corpuscular Hgb Conc 36.2 g/dL (32.0-36.0); Mean Corpuscular Volume 92.9 fL (80.0-100.0); Mean Platelet Volume 10.3 fL (9.4-12.4); Monocytes # (auto) 0.91 K/uL (0.24-0.82); Neutrophils % (auto) 84.2 %; Platelet Count 173 K/uL (130-400); RDW Coefficient of Variation 12.7 % (11.5-14.5); RDW Standard Deviation 43.3 fL (36.4-46.3); Red Blood Count 3.81 M/uL (4.63-6.08); White Blood Count 11.39 K/ul (4.8-10.8)
[2022-06-08] MEDS: CETIRIZINE HCL 10 MG TABLET PO SCH (08:14)
[2022-06-08] MEDS: POTASSIUM CHLORIDE CRTAB 20 MEQ TABCR PO SCH (08:14)
[2022-06-08] MEDS: FAMOTIDINE 20 MG TAB PO SCH ×2 (08:14→20:07)
[2022-06-08] MEDS: buPROPion SR 150 MG TABCR PO SCH ×2 (08:14→20:07)
[2022-06-08] MEDS: DOLUTEGRAVIR LAMIVUDINE EXT SCH (08:15)
[2022-06-08 08:38] LABS: Alanine Aminotransferase 12 U/L (7-52); Albumin Globulin Ratio 1.5 (0.9-2); Albumin Level 3.2 gm/dl (3.4-5.0); Alkaline Phosphatase 68 U/L (34-104); Anion Gap 5 (3-11); Aspartate Aminotransferase 14 U/L (13-39); BUN Creatinine Ratio 7.6 (10-20); Bilirubin,Total 0.9 mg/dl (0.2-1.0); Blood Urea Nitrogen 5 mg/dl (6-23); Calcium 8.2 mg/dl (8.5-10.1); Carbon Dioxide 27 mmol/L (21-32); Chloride 102 mmol/L (98-107); Creatinine Clr Calc Pharmacy 152.3 ml/min; Est GFR (African American) > 150.0 ml/min; Est GFR (Non-African American) 129.7 ml/min; Globulin 2.2 gm/dl (2.5-4.0); Glucose 95 mg/dl (70-99(Fasting)); Sodium 134 mmol/L (136-145); Total Protein 5.4 gm/dl (6.0-8.3)
--- NOTE | 2022-06-08 08:59 | Hospitalist Progress Note ---
Date of Service June 08, 2022 Assessment & Plan (1) Pancreatitis: Plan: Suspect secondary to alcohol - much clearer correlation on this occasion. Upon review of labs, does have episodic elevations in AST without elevation in ALT in alcoholic pattern Did endorse drinking more than he should, bringing about recurrence of pancreatitis CTAP on admission with interval progression of the peripancreatic edema/inflammatory change consistent with acute pancreatitis. There is also a small amount of ascites which has progressed. No evidence for pancreatic necrosis at this time Triglycerides normal last admission, no need for repeat. Suspect etoh related Lipase 2896 Lipase decreased to 1462 LR @ 250cc/hr ordered on admission, decreased to 150cc/hr for now. WBC 14.7k--> 11.39k. 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 every morning Patient has a CD4 count is greater than 400 (3) Depression: Plan: Bupropion 150 mg p.o. twice daily (4) GERD (gastroesophageal reflux disease): Plan: Famotidine 20 mg p.o. twice daily Pantoprazole 40 mg p.o. every morning --> increased to BID for reflux symptoms -- ? could have component of gastritis from etoh use --> consider adding Carafate empirically Plan VTE prophylaxis - deferred due to low risk Diet - clear liquid, advance as tolerated Disposition - observation status to [facility] Admission and Anticipated Discharge Date Admission Date: June 07, 2022 Supervising Physician Co-Signing Physician Notes PORFIRIO Supervision Note: I did not personally see or examine the patient today, but I verified all dickey points of PORFIRIO Finn's assessment and plan with the following exceptions/additions: None Subjective evaluated this afternoon pain improved slightly but still present to epigastric region, bandlike sensation across epigastric area through the back No nausea/vomiting and has been on clear liquid diet pain controlled with ordered medications, discussed B12/folate and likely link with alcohol use and recommended complete cessation to prevent recurrence. Denies passing gas, no BM. Does have active BS and recommended ambulation and will order stool softener. recommended to increase ambulation, he would like medicated prior to ambulating when arrives this evening Discussed continuing IVF overnight/supportive care and possible advancement of diet in AM. If tolerates, possible dc later tomorrow evening w/ advancement of diet. Did state some shortness of breath with inspiration due to pain in the epigastric region. Not hypotensive or hypoxic. Also with some reflux/discomfort sensation but no chest pain. Is on protonix daily, will increase to BID and monitor response. Incentive spirometer ordered to prevent atelectasis. Questions/concerns addressed at this time. Review of Systems Review of Systems: All systems reviewed & are unremarkable except as noted in HPI & below Physical Exam Physical Exam: General: WD/WN male sitting up in bed, NAD HEENT: head normocephalic, atraumatic, mmm, trachea midline without deviation Resp: CTAB, diminished in the bases due to inspiratory effort, no w/c, 99% on RA CV: RRR, no m/r/g, no pitting edema/calf tenderness GI: +BS, slightly hypoactive, +tenderness to palpation epigastric region, voluntary guarding without rigidity : no amaya MSK/Neuro: moves all extremities, no focal deficit Psych: AOx3, cooperative, quiet, withdrawn affect at times but pleasant Results & Data Results & Data ([facility]) Vital Signs (Past 12 Hours) Vital Signs Temp Pulse Resp BP Pulse Ox O2 Del Method 06/08/22 07:31 36.6 C 93 H 16 141/88 H 99 Room Air 06/07/22 22:41 36.7 C 60 16 148/82 H 98 Room Air 06/07/22 21:14 36.8 C 60 16 155/95 H 99 Room Air Laboratory Results 06/08/22 06/08/22 06/07/22 Range/Units 07:44 07:44 17:45 WBC 11.39 H (4.8-10.8) K/ul RBC 3.81 L (4.63-6.08) M/uL Hgb 12.8 L (14.0-18.0) g/dl Hct 35.4 L (40.1-51.0) % MCV 92.9 (80.0-100.0) fL MCH 33.6 (25.0-34.0) pg MCHC 36.2 H (32.0-36.0) g/dL RDW Std Deviation 43.3 (36.4-46.3) fL RDW Coeff of Dio 12.7 (11.5-14.5) % Plt Count 173 (130-400) K/uL MPV 10.3 (9.4-12.4) fL Immature Gran % (Auto) 0.4 % Neut % (Auto) 84.2 % Lymph % (Auto) 7.2 % [place] % (Auto) 8.0 % Eos % (Auto) 0.1 % Baso % (Auto) 0.1 % Neut # (Auto) 9.60 H (1.4-6.5) K/uL Lymph # (Auto) 0.82 L (1.2-3.4) K/uL [place] # (Auto) 0.91 H (0.24-0.82) K/uL Eos # (Auto) 0.01 (0-0.50) K/uL Baso # (Auto) 0.01 (0-0.2) K/uL Immature Gran # (Auto) 0.04 H (0.00-0.02) K/uL Sodium 134 L (136-145) mmol/L Potassium 4.0 (3.5-5.1) mmol/L Chloride 102 (98-107) mmol/L Carbon Dioxide 27 (21-32) mmol/L Anion Gap 5 (3-11) BUN 5 L (6-23) mg/dl Creatinine 0.66 (0.6-1.4) mg/dl Est Cr Clr Drug Dosing 152.3 ml/min Est GFR ( Amer) > 150.0 ml/min Est GFR (Non-Af Amer) 129.7 ml/min BUN/Creatinine Ratio 7.6 L (10-20) Glucose 95 (70-99(Fasting)) mg/dl Calcium 8.2 L (8.5-10.1) mg/dl Total Bilirubin 0.9 (0.2-1.0) mg/dl AST 14 (13-39) U/L ALT 12 (7-52) U/L Alkaline Phosphatase 68 (34-104) U/L Total Protein 5.4 L (6.0-8.3) gm/dl Albumin 3.2 L (3.4-5.0) gm/dl Globulin 2.2 L (2.5-4.0) gm/dl Albumin/Globulin Ratio 1.5 (0.9-2) Lipase (11-82) U/L Urine Color Dark Yellow Urine Appearance Clear (Clear) Urine pH 5.0 (4.5-7.5) Ur Specific [place] > 1.045 H (1.000-1.030) Urine Protein Trace H (Negative) Urine Glucose (UA) Negative (Negative) Urine Ketones 1+ H (Negative) Urine Blood Negative (Negative) Urine Nitrite Negative (Negative) Urine Bilirubin Negative (Negative) Urine Urobilinogen Negative (Negative) Ur Leukocyte Esterase Negative (Negative) Urine WBC (Auto) 1-5 (0-5) /hpf Urine RBC (Auto) 0-4 (0-4) /hpf U Hyaline Cast (Auto) 1-5 (0-5) /lpf U Epithel Cells (Auto) 5-10 H (0-5) /lpf Urine Bacteria (Auto) Negative (Negative) SARS-CoV-2, RNA, NAAT (NEGATIVE) 06/07/22 06/07/22 06/07/22 Range/Units 16:04 16:04 15:00 WBC 14.77 H (4.8-10.8) K/ul RBC 4.02 L (4.63-6.08) M/uL Hgb 13.6 L (14.0-18.0) g/dl Hct 37.8 L (40.1-51.0) % MCV 94.0 (80.0-100.0) fL MCH 33.8 (25.0-34.0) pg MCHC 36.0 (32.0-36.0) g/dL RDW Std Deviation 44.5 (36.4-46.3) fL RDW Coeff of Dio 12.8 (11.5-14.5) % Plt Count 226 (130-400) K/uL MPV 10.1 (9.4-12.4) fL Immature Gran % (Auto) 0.5 % Neut % (Auto) 88.5 % Lymph % (Auto) 4.7 % [place] % (Auto) 6.0 % Eos % (Auto) 0.0 % Baso % (Auto) 0.3 % Neut # (Auto) 13.08 H (1.4-6.5) K/uL Lymph # (Auto) 0.70 L (1.2-3.4) K/uL [place] # (Auto) 0.88 H (0.24-0.82) K/uL Eos # (Auto) 0.00 (0-0.50) K/uL Baso # (Auto) 0.04 (0-0.2) K/uL Immature Gran # (Auto) 0.07 H (0.00-0.02) K/uL Sodium 134 L (136-145) mmol/L Potassium 3.7 (3.5-5.1) mmol/L Chloride 103 (98-107) mmol/L Carbon Dioxide 23 (21-32) mmol/L Anion Gap 8 (3-11) BUN 7 (6-23) mg/dl Creatinine 0.70 (0.6-1.4) mg/dl Est Cr Clr Drug Dosing 141.8 ml/min Est GFR ( Amer) 146.8 ml/min Est GFR (Non-Af Amer) 126.6 ml/min BUN/Creatinine Ratio 10.0 (10-20) Glucose 103 H (70-99(Fasting)) mg/dl Calcium 8.2 L (8.5-10.1) mg/dl Total Bilirubin 0.5 (0.2-1.0) mg/dl AST 20 (13-39) U/L ALT 16 (7-52) U/L Alkaline Phosphatase 81 (34-104) U/L Total Protein 6.2 (6.0-8.3) gm/dl Albumin 3.7 (3.4-5.0) gm/dl Globulin 2.5 (2.5-4.0) gm/dl Albumin/Globulin Ratio 1.5 (0.9-2) Lipase 2896 H (11-82) U/L Urine Color Urine Appearance (Clear) Urine pH (4.5-7.5) Ur Specific [place] (1.000-1.030) Urine Protein (Negative) Urine Glucose (UA) (Negative) Urine Ketones (Negative) Urine Blood (Negative) Urine Nitrite (Negative) Urine Bilirubin (Negative) Urine Urobilinogen (Negative) Ur Leukocyte Esterase (Negative) Urine WBC (Auto) (0-5) /hpf Urine RBC (Auto) (0-4) /hpf U Hyaline Cast (Auto) (0-5) /lpf U Epithel Cells (Auto) (0-5) /lpf Urine Bacteria (Auto) (Negative) SARS-CoV-2, RNA, NAAT NEGATIVE (NEGATIVE) Diagnostic Findings Abdomen/Pelvis CT 06/07/22 15:[address] WITH IV CONTRAST CT DOSE: 281.90 mGy.cm HISTORY: Upper abdominal pain. TECHNIQUE: Multiaxial CT images of the abdomen and pelvis were performed following the use of intravenous contrast. A dose lowering technique was utili zed adhering to the principles of ALARA. COMPARISON STUDY: Abdomen and pelvis CT 04/09/2022. FINDINGS: The lung bases are clear. Bilateral L5 spondylolysis again noted. No pneumoperitoneum. No pneumatosis. Tiny fat-containing umbilical hernia. Prior cholecystectomy. Mild hepatic steatosis. The main portal vein is patent. The spleen, adrenal glands, and kidneys are unremarkable. No hydronephrosis. Extensive peripancreatic inflammatory change and edema/fluid consistent with acute pancreatitis. This has progressed in the interval. Small amount of ascites is present. This has also progressed. No evidence for pancreatic necrosis or loculated fluid collections at this time. No retroperitoneal lymphadenopathy. Normal caliber abdominal aorta. The bladder is unremarkable. No bowel wall thickening or obstruction. The visualized appendix is unremarkable. IMPRESSION: 1. Interval progression of the peripancreatic edema/inflammatory change consistent with acute pancreatitis. There is also a small amount of ascites which has progressed. 2. Prior cholecystectomy. 3. No evidence for pancreatic necrosis at this time. ACT 112: Negative or not required by law. Electronically signed by: Miller Bueno M.D. 06/07/2022 5:39 PM PG Care Time/CCT Total # of Minutes Spent Total Time Spent with Patient: Total time spent is greater than 50% in coordination of care (as documented) at patient's floor/unit and/or counseling patient: Coding Level of Care Code 46536 Subseq Obs Care Lvl 3 Diagnoses Pancreatitis K85.80 Acute pancreatitis complication: unspecified Chronicity: acute Pancreatitis type: other HIV disease B20 Depression F32.A GERD (gastroesophageal reflux disease) K21.9 (1) Pancreatitis Acute pancreatitis complication: unspecified Chronicity: acute Pancreatitis type: other Qualified Code(s): K85.80 - Other acute pancreatitis without necrosis or infection
[2022-06-08] MEDS ORDERED: PANTOprazole 40 MG TAB PO SCH (09:00)
[2022-06-08] MEDS ORDERED: MULTI-VITAMIN INFUSION 10 ML, THIAMINE HCL 100 MG, FOLIC ACID 1 MG in SODIUM CHLORIDE 0... IV ONE (13:30)
[2022-06-08] MEDS: CYANOCOBALAMIN 1000 MCG/ML VIAL IM SCH (14:52)
[2022-06-08] MEDS: DOCUSATE SODIUM/SENNA 50/8.6MG TAB PO SCH (14:52)
[2022-06-08] MEDS: PANTOprazole 40 MG TAB PO SCH (20:06)
[2022-06-09] MEDS: LACTATED RINGER'S 1,000 ML IV SCH (00:03)
[2022-06-09 06:59] LABS: BUN Creatinine Ratio 3.9 (10-20); Calcium 8.6 mg/dl (8.5-10.1); Creatinine Clr Calc Pharmacy 132.3 ml/min; Est GFR (African American) 141.9 ml/min; Est GFR (Non-African American) 122.4 ml/min; Potassium 3.9 mmol/L (3.5-5.1)
[2022-06-09 07:00] LABS: Magnesium 1.8 mg/dl (1.7-2.4)
[2022-06-09 07:18] LABS: Thyroid Stimulating Hormone 3.547 uIu/ml (0.300-4.500)
[2022-06-09 07:20] LABS: T4 Free Thyroxine 0.96 ng/dl (0.61-1.60)
[2022-06-09 07:40] LABS: Hematocrit (blood only) 34.6 % (40.1-51.0); Hemoglobin 11.8 g/dl (14.0-18.0); Mean Corpuscular Hemoglobin 33.7 pg (25.0-34.0); Mean Corpuscular Hgb Conc 34.1 g/dL (32.0-36.0); Mean Corpuscular Volume 98.6 fL (80.0-100.0); Mean Platelet Volume 10.5 fL (9.4-12.4); Platelet Count 148 K/uL (130-400); RDW Coefficient of Variation 13.2 % (11.5-14.5); RDW Standard Deviation 47.3 fL (36.4-46.3); White Blood Count 7.53 K/ul (4.8-10.8)
--- NOTE | 2022-06-09 08:24 | Hospitalist Progress Note ---
Date of Service June 09, 2022 Assessment & Plan Admission and Anticipated Discharge Date Admission Date: June 07, 2022 Results & Data Results & Data ([facility]) Vital Signs (Past 12 Hours) Vital Signs Temp Pulse Resp BP Pulse Ox O2 Del Method 06/09/22 07:57 37.2 C 76 16 128/76 96 Room Air 06/08/22 22:40 37.5 C 67 16 136/78 96 Room Air PG Care Time/CCT Total # of Minutes Spent Total Time Spent with Patient: Total time spent is greater than 50% in coordination of care (as documented) at patient's floor/unit and/or counseling patient: Coding
[2022-06-09] MEDS: DOCUSATE SODIUM/SENNA 50/8.6MG TAB PO SCH (08:31)
[2022-06-09] MEDS: PANTOprazole 40 MG TAB PO SCH (08:32)
[2022-06-09] MEDS: POTASSIUM CHLORIDE CRTAB 20 MEQ TABCR PO SCH (08:32)
[2022-06-09] MEDS: DOLUTEGRAVIR LAMIVUDINE EXT SCH (08:32)
[2022-06-09] MEDS: buPROPion SR 150 MG TABCR PO SCH (08:32)
[2022-06-09] MEDS: FAMOTIDINE 20 MG TAB PO SCH (08:32)
[2022-06-09] MEDS: CETIRIZINE HCL 10 MG TABLET PO SCH (08:32)
[2022-06-09] MEDS: CYANOCOBALAMIN 1000 MCG/ML VIAL IM SCH (08:34)
[2022-06-09] MEDS ORDERED: FOLIC ACID 400 MCG TAB PO SCH (09:00)
[2022-06-09] MEDS ORDERED: THIAMINE HCL 100 MG TAB PO SCH (09:00)
--- NOTE | 2022-06-09 10:04 | Discharge Summary ---
Date of Service June 09, 2022 Admission HPI Per Admitting Provider Mallory Trevizo is a 31 year old male with recent history of pancreatitis who presents to the ER with epigastric pain. He reports this episode is very similar to the episode he was admitted for in April. After this episode he stuck by my discharge instructions and abstained from alcohol for a month. His last episode was not definitively alcohol induced therefore was not advised for complete sensation indefinitely and he started to drink a little bit more without recurrence and pancreatitis. However last night he reports drinking a little more than he should have. Woke up this morning with severity 8 out of 10 epigastric pain, radiating to the back. Associated nausea and vomiting. Worse with eating. No fevers, chills or hematemesis. In the ER CT abdomen pelvis was concerning for pancreatitis with lipase 2896 U/L. He was referred to medicine for admission ongoing management of acute pancreatitis. Admission Exam Per Admitting Provider GENERAL: A&Ox3. NAD. HEENT: PERRL, EOMI. Moist mucous membranes. NECK: No JVD. No lymphadenopathy. CHEST/LUNGS: CTAB A/P. No crackles, wheezes, rales, rhonchi. HEART: RRR. No m/g/r. No carotid bruits. ABDOMEN: Tender to palpation in mid epigastric region, nondistended, soft. BS+ x4. EXTREMITIES: No cyanosis, no clubbing, no edema SKIN: Warm and dry. No rashes or lesions. PSYCHIATRIC: Euthymic affect, no SI, no pressured speech, no hallucinations NEUROLOGIC: No FND. Principal Diagnosis Pancreatitis, Alcohol Induced Discharge Exam General: WD/WN male sitting up in bed, NAD HEENT: head normocephalic, atraumatic, mmm, trachea midline without deviation Resp: CTAB, diminished in the bases due to inspiratory effort, no w/c, 99% on RA CV: RRR, no m/r/g, no pitting edema/calf tenderness GI: +BS, slightly hypoactive, no tenderness to palpation but reporting cramp iness to epigastric region, no guarding/rigidity, : no amaya MSK/Neuro: moves all extremities, no focal deficit Psych: AOx3, cooperative, quiet, withdrawn affect at times but pleasant Discharge Data Allergies Allergy/AdvReac Type Severity Reaction Status Date / Time latex Allergy Intermediate Rash Verified 06/07/22 16:37 benzonatate AdvReac Intermediate Hypertensio Verified 06/07/22 16:37 [From Justin Benitez] n Consultations 06/07/22 18:07 ED Decision to Admit Stat Ordered Studies Abdomen/Pelvis CT 06/07/22 15:[address] WITH IV CONTRAST CT DOSE: 281.90 mGy.cm HISTORY: Upper abdominal pain. TECHNIQUE: Multiaxial CT images of the abdomen and pelvis were performed following the use of intravenous contrast. A dose lowering technique was utilized adhering to the principles of ALARA. COMPARISON STUDY: Abdomen and pelvis CT 04/09/2022. FINDINGS: The lung bases are clear. Bilateral L5 spondylolysis again noted. No pneumoperitoneum. No pneumatosis. Tiny fat-containing umbilical hernia. Prior cholecystectomy. Mild hepatic steatosis. The main portal vein is patent. The spleen, adrenal glands, and kidneys are unremarkable. No hydronephrosis. Extensive peripancreatic inflammatory change and edema/fluid consistent with acute pancreatitis. This has progressed in the interval. Small amount of ascites is present. This has also progressed. No evidence for pancreatic necrosis or loculated fluid collections at this time. No retroperitoneal lymphadenopathy. Normal caliber abdominal aorta. The bladder is unremarkable. No bowel wall thickening or obstruction. The visualized appendix is unremarkable. IMPRESSION: 1. Interval progression of the peripancreatic edema/inflammatory change consistent with acute pancreatitis. There is also a small amount of ascites which has progressed. 2. Prior cholecystectomy. 3. No evidence for pancreatic necrosis at this time. ACT 112: Negative or not required by law. Electronically signed by: Miller Bueno M.D. 06/07/2022 5:39 PM Hospital Course (1) Pancreatitis: Suspect secondary to alcohol - much clearer correlation on this occasion. Upon review of labs, does have episodic elevations in AST without elevation in ALT in alcoholic pattern. mild hepatic steatosis on imaging (hx HIV as well) Did endorse drinking more than he should, bringing about recurrence of pancreatitis CTAP on admission with interval progression of the peripancreatic edema/inflammatory change consistent with acute pancreatitis. There is also a small amount of ascites which has progressed. No evidence for pancreatic necrosis at this time Triglycerides normal last admission, no need for repeat. Suspect etoh related, and also likely cause of prior admission. B12/folate deficiency on labs Lipase 2986--> 972 prior to discharge IVF/supportive care/electrolyte replacement/pain control/antiemetics prn Given banana bag as well for alcohol use, no evidence for DTs. 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 Did offer to get patient new PCP but he prefers to follow w/ ID specialist Dr Kent for his HIV as not many providers familiar with medications. Encouraged continued discussion for other medical issues (2) HIV disease: Continue Dovato 1 tab p.o. every morning Patient has a CD4 count is greater than 400 continue f/u Dr Kent outpatient (3) Depression: Bupropion 150 mg p.o. twice daily continued (4) GERD (gastroesophageal reflux disease): Famotidine 20 mg p.o. twice daily, protonix once daily --> increased to BID given likely component of gastritis from etoh/n/v and continued at discharge no further issues reported Plan discharged home Total Time Total Time Spent Total Time Spent (In Minutes): 45 Discharge Plan Discharge Items Patient Disposition: Home - Self-Care Reason For Visit: ACUTE PANCREATITIS Discharge Diagnosis: Pancreatitis Goals: You have been hospitalized for an acute medical problem. During your stay at [facility], we have made an effort to correct the problem that brought you to the hospital while keeping you as comfortable as possible. Medications were used to bring your condition under control and your discharge instructions will include directions for any medications you should take after leaving the hospital. Please make sure you see your Primary Care Provider as part of your follow up plan. Activity: As commented below Non-emergency contact: Primary Care Provider Call non-emergency contact if: you have any medication questions, your symptoms worsen and your pain is not controlled Follow-up/Referrals: Santhosh Ketn DO [Primary Care Provider] - 06/13/22 9:30 am Diet: Heart Healthy and Low Fat Addtl Attending Provider Instructions: You have been hospitalized for pancreatitis. This is likely due to alcohol consumption given prior hospitalizations and use with resulting pancreatitis. You were treated with IV fluids, pain control, medications for nausea. Your labs returned to normal, and have remained without a fever. Your diet has been advanced to low fat and you should continue this for two weeks and then advance as tolerated. You should ABSTAIN from ALL ALCOHOL as this will likely cause a recurrence of the pancreatitis. We have increased your Protonix to twice a day to help with reflux symptoms. I also checked a B12 and folate given alcohol use, and these were low. You were started on supplementation and should continue this at discharge. Please follow up with your primary care provider in the next 7-10 days to monitor your progress after discharge. Please return to the ER with any worsening abdominal pain, fever, inability to keep up with oral intake, or for any other symptoms concerning for you. Take care! Pending Studies at Discharge: No Stand-Alone Forms: My [facility], Work/School Release Medications and DC Order Prescriptions: New folic acid 400 mcg Tablet 400 mcg PO QAM Qty: 30 0RF cyanocobalamin (vitamin B-12) 1,000 mcg capsule 1,000 mcg PO DAILY Qty: 30 3RF Continued cetirizine [Zyrtec] 10 mg Tablet 10 mg PO DAILY potassium chloride 20 mEq tablet,ER particles/crystals 20 meq PO QAM betamethasone dipropionate 0.05 % cream 1 applic TOPICAL DAILY PRN (Reason: Skin Irritation) famotidine 20 mg tablet 20 mg PO BID Qty: 20 0RF ondansetron 4 mg tablet,disintegrating 4 mg PO Q6H PRN (Reason: nausea and vomiting) Qty: 14 0RF bupropion HCl 150 mg Tablet Sustained-Release 12 Hr 150 mg PO BID Dovato 50-300 mg Tablet 1 tab PO QAM Changed pantoprazole [Protonix] 40 mg tablet,delayed release (DR/EC) 40 mg PO BID Qty: 60 0RF Discharge Orders: Discharge Order (Routine); Ordered 06/09/22 Ordered By: April Finn Admission Data Admit Date/Time: 06/07/22 18:19 Attending Provider: Alivia Stewart Admit Provider: Carlos Manuel Wagner Primary Care Provider: Santhosh Kent Other Providers: Carlos Manuel Wagner Other Interventions: Discharge Summary Assessment (RN) Last Done: 06/09/22 12:55 Supervising Physician Co-Signing Physician Notes PORFIRIO Supervision Note: I did not personally see or examine the patient today, but I verified all dickey points of PORFIRIO Finn's assessment and plan with the following exceptions/additions: None Coding Level of Care Code 50060 OBS Care - Discharge Diagnoses Pancreatitis K85.80 Acute pancreatitis complication: unspecified Chronicity: acute Pancreatitis type: other HIV disease B20 Depression F32.A GERD (gastroesophageal reflux disease) K21.9
== END 2022-06-09 13:41 | disposition home or self-care (01) ==
LOC: ED 13:13 → 3W 13:13 → SUATTDRO 18:19 → 3W 20:47

== ENCOUNTER 2023-02-21 16:43 | Inpatient (IN) ==
[2023-02-21] MEDS ORDERED: SODIUM CHLORIDE 0.9% 1000ML 2,000 ML IV ONE (16:59)
--- NOTE | 2023-02-21 17:01 | Emergency Department Note ---
Impression & Plan Acute pancreatitis, Alcohol use, Abdominal pain ED Provider Note NAME: CHRISTIAN BLAIR AGE: 32 SEX: M : 1990 ARRIVES VIA: Walk-In INFORMANT: Patient ED PROVIDER(S): Sheng Edmond DO CHIEF COMPLAINT: abdominal pain HPI: Patient is a 32-year-old male with a past medical history of GERD, depression and pancreatitis as well as HIV that presents to the ER for periumbilical abdominal pain. He notes that he has not urinated since 5 AM. He does not feel like he has to. He came in as he is having pain and has not urinated. He admits to nausea with this. He later admits to drinking alcohol last night and notes that this feels somewhat like his pancreatitis. Denies any headache or change in vision. No chest pain or shortness of breath. No dysuria urgency or frequency. No other exacerbating or remitting factors. PAST MEDICAL HISTORY:See Below PAST SURGICAL HISTORY:See Below FAMILY HISTORY:See Below SOCIAL HISTORY:See Below HOME MEDICATIONS:See Below ALLERGIES:See Below VITALS:See Below PHYSICAL EXAMINATION: GENERAL: Sitting up in bed, alert, well appearing, well nourished, no distress, non-toxic EYE EXAM: normal conjunctiva. OROPHARYNX: no exudate, no erythema, lips, buccal mucosa, and tongue normal and mucous membranes are moist NECK: supple, no nuchal rigidity, no adenopathy, non-tender LUNGS: Clear to auscultation. Normal chest wall mechanics HEART: no murmurs, S1 normal and S2 normal ABDOMEN: abdomen soft, non-tender, normo-active bowel sounds, no masses, no rebound or guarding. UPPER EXTREMITIES: upper extremities are grossly normal. LOWER EXTREMITIES: No pitting edema. NEURO EXAM: Normal sensorium, cranial nerves II-XII grossly intact, normal speech, no gross weakness of arms, no gross weakness of legs. MEDICAL DECISION MAKING: Patient is a 32-year-old male who presents ER with a past medical history of alcohol use and pancreatitis as well as HIV with above-stated complaint. IV was established blood work is obtained. External records reviewed. Labs show no significant leukocytosis or anemia. BMP with a metabolic acidosis with a CO2 of 18 and a gap of 19. LFTs bilirubin was unremarkable. Lipase was elevated at nearly 300. Alcohol was negative. COVID-negative. UA was clean. CT abdomen pelvis confirms pancreatitis. Patient was given IV fluids and IV narcotics as well as IV Zofran. Discussed the case with the hospitalist for further management and evaluation Triage Nursing notes reviewed. Limited review of prior medical records performed Vital Signs: reviewed and remarkable for Tachy Differential diagnosis: Differential diagnoses includes but is not limited to gastritis, peptic ulcer disease, GERD, gallbladder disease, pancreatitis, small bowel obstruction, appendicitis, diverticulitis, hernia, urinary tract infection, torsion, perforation, trauma, infectious. ER treatment provided: See below Diagnostics interpreted by me include EKG and cardiac monitoring as listed below: -Cardiac Monitoring: An order was placed for continuous cardiac monitoring. The monitor shows a rate of 80 with sinus rhythm. -ECG: none -Laboratory studies:Interpreted by me as stated above in MDM and shown below. Imaging studies: Xrays: As interpreted by me:none CTs show: CT abdomen pelvis shows no obvious obstruction per my read CT abdomen pelvis per radiology shows acute pancreatitis Consultation(s): As described in MDM Procedures:none Critical Care: None Past Med/Surg History Medical History (Updated 02/21/23 @ 22:53 by Sheng Edmond DO) Acute pancreatitis Anxiety GERD (gastroesophageal reflux disease) HIV disease Surgical History S/P cholecystectomy Family History Other No pertinent family history in first degree relatives Social History Smoking Status: Current every day smoker Tobacco Type: Cigarettes Second Hand Exposure: Yes; Do You Dip or Chew Tobacco: No; Hx Alcohol Use: Yes Alcohol type: beer and hard liquor Hx Substance Use: Yes Last Used Substance: Days (ago) Last Used Substance Other:: not medical but smokes for medical reasons last smoked night 02/20 Preferred Language: Chilean Communication Ability: Effective 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: No Beliefs That Will Affect Care: None marital status: Current Living Situation: Spouse Current Living Situation Comment: [place] current occupational status: employed current occupation: Works at [employer] Other Information That Helps Us Care for You: No Feels Safe at Home: Yes Safety Concerns: Feels Safe At This Time Assistive Devices: Glasses Allergies Allergies Allergy/AdvReac Type Severity Reaction Status Date / Time latex Allergy Intermediate Rash Verified 06/07/22 16:37 benzonatate AdvReac Intermediate Hypertensio Verified 06/07/22 16:37 [From Justin Benitez] n Home Meds Home Medications Medication Instructions Recorded Confirmed bupropion HCl 150 mg tablet,12 hr 150 mg PO BID 10/12/20 02/21/23 sustained-release dolutegravir 50 mg-lamivudine 300 1 tab PO QAM 10/12/20 02/21/23 mg tablet (Dovato) cetirizine 10 mg tablet (Zyrtec) 10 mg PO DAILY 12/10/21 02/21/23 potassium chloride 20 mEq 20 meq PO QAM 12/10/21 02/21/23 tablet,extended release(part/cryst) Vitamin D3 1 cap PO DAILY 02/21/23 02/21/23 pantoprazole 40 mg tablet,delayed 40 mg PO DAILY 02/21/23 02/21/23 release (Protonix) Previous Rx's Medication Instructions Recorded ondansetron 4 mg disintegrating 4 mg PO Q6H PRN nausea and 04/10/22 tablet vomiting #14 tabs cyanocobalamin (vitamin B-12) 1,000 mcg PO DAILY #30 caps 06/09/22 1,000 mcg capsule folic acid 400 mcg tablet 400 mcg PO QAM #30 tabs 06/09/22 Results & Data (ED) Vital Signs Vital Signs - 24 hr 02/21/23 16:47 02/21/23 17:23 02/21/23 17:28 Temperature 36.4 C L Temperature Source Temporal Artery Scan Pulse Rate 102 H 80 Respiratory Rate 18 Respiratory Effort / Characteristics Non-Labored Spontaneous Respiratory Depth Normal Respiratory Pattern Regular Blood Pressure 116/83 Blood Pressure Mean 94 Blood Pressure Position Sitting Pulse Oximetry 99 97 Oxygen Delivery Method Room Air Room Air Sepsis Recent Fever Within 48 Hours No Sepsis New/Unexplained Change in Mental Status No Sepsis Action Taken by Nursing No Action Required 02/21/23 17:26 02/21/23 17:30 02/21/23 17:30 Temperature Temperature Source Pulse Rate 83 84 Respiratory Rate 22 20 Respiratory Effort / Characteristics Respiratory Depth Respiratory Pattern Blood Pressure 118/73 Blood Pressure Mean 88 Blood Pressure Position Pulse Oximetry Oxygen Delivery Method Sepsis Recent Fever Within 48 Hours Sepsis New/Unexplained Change in Mental Status Sepsis Action Taken by Nursing 02/21/23 18:00 02/21/23 18:00 02/21/23 18:30 Temperature Temperature Source Pulse Rate 87 Respiratory Rate 18 Respiratory Effort / Characteristics Respiratory Depth Respiratory Pattern Blood Pressure 135/82 125/74 Blood Pressure Mean 99 91 Blood Pressure Position Pulse Oximetry Oxygen Delivery Method Sepsis Recent Fever Within 48 Hours Sepsis New/Unexplained Change in Mental Status Sepsis Action Taken by Nursing 02/21/23 18:30 02/21/23 19:00 Temperature Temperature Source Pulse Rate 90 91 H Respiratory Rate 17 19 Respiratory Effort / Characteristics Respiratory Depth Respiratory Pattern Blood Pressure 126/79 Blood Pressure Mean 94 Blood Pressure Position Pulse Oximetry 97 Oxygen Delivery Method Room Air Sepsis Recent Fever Within 48 Hours Sepsis New/Unexplained Change in Mental Status Sepsis Action Taken by Nursing Laboratory Data 02/21/23 17:03 02/21/23 17:03 Lab Results 02/21/23 02/21/23 02/21/23 Range/Units 17:03 17:03 18:22 WBC 9.86 (4.8-10.8) K/ul RBC 4.48 L (4.70-6.10) M/uL Hgb 14.5 (14.0-18.0) g/dl Hct 40.3 L (42.0-52.0) % MCV 90.0 (80.0-100.0) fL MCH 32.4 (25.0-34.0) pg MCHC 36.0 (32.0-36.0) g/dL RDW Std Deviation 39.9 (36.4-46.3) fL RDW Coeff of Dio 12.1 (11.5-14.5) % Plt Count 255 (130-400) K/uL MPV 10.1 (9.4-12.4) fL Immature Gran % (Auto) 0.3 % Neut % (Auto) 79.5 % Lymph % (Auto) 13.5 % Briscoe % (Auto) 5.8 % Eos % (Auto) 0.2 % Baso % (Auto) 0.7 % Neut # (Auto) 7.84 H (1.40-6.50) K/uL Lymph # (Auto) 1.33 (1.2-3.4) K/uL Briscoe # (Auto) 0.57 (0.11-0.59) K/uL Eos # (Auto) 0.02 (0-0.50) K/uL Baso # (Auto) 0.07 (0-0.2) K/uL Immature Gran # (Auto) 0.03 (0.01-0.20) K/uL Sodium 135 L (136-145) mmol/L Potassium 3.7 (3.5-5.1) mmol/L Chloride 98 (98-107) mmol/L Carbon Dioxide 18 L (21-32) mmol/L Anion Gap 19 H (3-11) BUN 10 (6-23) mg/dl Creatinine 1.02 (0.6-1.4) mg/dl Est Cr Clr Drug Dosing 87.9 ml/min Est GFR ( Amer) 113.0 ml/min Est GFR (Non-Af Amer) 97.5 ml/min BUN/Creatinine Ratio 9.8 L (10-20) Glucose 94 (70-99(Fasting)) mg/dl Calcium 9.3 (8.6-10.3) mg/dl Total Bilirubin 0.5 (0.2-1.0) mg/dl AST 48 H (13-39) U/L ALT 39 (7-52) U/L Alkaline Phosphatase 92 (34-104) U/L Total Protein 7.3 (6.0-8.3) gm/dl Albumin 4.5 (3.4-5.0) gm/dl Globulin 2.8 (2.5-4.0) gm/dl Albumin/Globulin Ratio 1.6 (0.9-2) Lipase 276 H (11-82) U/L Urine Color Yellow Urine Appearance Clear (Clear) Urine pH 5.0 (4.5-7.5) Ur Specific Maben > 1.045 H (1.000-1.030) Urine Protein Trace H (Negative) Urine Glucose (UA) Negative (Negative) Urine Ketones 1+ H (Negative) Urine Blood Negative (Negative) Urine Nitrite Negative (Negative) Urine Bilirubin Negative (Negative) Urine Urobilinogen Negative (Negative) Ur Leukocyte Esterase Negative (Negative) Urine WBC (Auto) 1-5 (0-5) /hpf Urine RBC (Auto) 0-4 (0-4) /hpf U Hyaline Cast (Auto) 5-10 H (0-5) /lpf U Epithel Cells (Auto) 5-10 H (0-5) /lpf Urine Bacteria (Auto) Negative (Negative) Ethyl Alcohol mg/dL (<10.0) mg/dl SARS-CoV-2, RNA, NAAT (NEGATIVE) 02/21/23 02/21/23 Range/Units 18:41 18:45 WBC (4.8-10.8) K/ul RBC (4.70-6.10) M/uL Hgb (14.0-18.0) g/dl Hct (42.0-52.0) % MCV (80.0-100.0) fL MCH (25.0-34.0) pg MCHC (32.0-36.0) g/dL RDW Std Deviation (36.4-46.3) fL RDW Coeff of Dio (11.5-14.5) % Plt Count (130-400) K/uL MPV (9.4-12.4) fL Immature Gran % (Auto) % Neut % (Auto) % Lymph % (Auto) % Briscoe % (Auto) % Eos % (Auto) % Baso % (Auto) % Neut # (Auto) (1.40-6.50) K/uL Lymph # (Auto) (1.2-3.4) K/uL Briscoe # (Auto) (0.11-0.59) K/uL Eos # (Auto) (0-0.50) K/uL Baso # (Auto) (0-0.2) K/uL Immature Gran # (Auto) (0.01-0.20) K/uL Sodium (136-145) mmol/L Potassium (3.5-5.1) mmol/L Chloride (98-107) mmol/L Carbon Dioxide (21-32) mmol/L Anion Gap (3-11) BUN (6-23) mg/dl Creatinine (0.6-1.4) mg/dl Est Cr Clr Drug Dosing ml/min Est GFR ( Amer) ml/min Est GFR (Non-Af Amer) ml/min BUN/Creatinine Ratio (10-20) Glucose (70-99(Fasting)) mg/dl Calcium (8.6-10.3) mg/dl Total Bilirubin (0.2-1.0) mg/dl AST (13-39) U/L ALT (7-52) U/L Alkaline Phosphatase (34-104) U/L Total Protein (6.0-8.3) gm/dl Albumin (3.4-5.0) gm/dl Globulin (2.5-4.0) gm/dl Albumin/Globulin Ratio (0.9-2) Lipase (11-82) U/L Urine Color Urine Appearance (Clear) Urine pH (4.5-7.5) Ur Specific Mab[place] (1.000-1.030) Urine Protein (Negative) Urine Glucose (UA) (Negative) Urine Ketones (Negative) Urine Blood (Negative) Urine Nitrite (Negative) Urine Bilirubin (Negative) Urine Urobilinogen (Negative) Ur Leukocyte Esterase (Negative) Urine WBC (Auto) (0-5) /hpf Urine RBC (Auto) (0-4) /hpf U Hyaline Cast (Auto) (0-5) /lpf U Epithel Cells (Auto) (0-5) /lpf Urine Bacteria (Auto) (Negative) Ethyl Alcohol mg/dL < 10.0 (<10.0) mg/dl SARS-CoV-2, RNA, NAAT NEGATIVE (NEGATIVE) Administered Medications Hydromorphone HCl (Hydromorphone Inj 1 Mg/Ml Syringe) 1 mg IV Q6H PRN PRN Reason: Severe Pain (Scale 7, 8, 9,10) Stop: 03/07/23 21:07 Last Admin: 02/21/23 21:24 Dose: 1 mg Documented By: AKILAH Lactated Ringer's (Lr) 1,000 mls @ 110 mls/hr IV .Q9H6M RASHEL Stop: 03/23/23 20:55 Last Admin: 02/21/23 21:29 Dose: 110 mls/hr Documented By: AKILAH Discontinued Medications Fentanyl Citrate (Fentanyl Citrate Pf 100 Mcg/2 Ml Vial) 50 mcg IV NOW STA Stop: 02/21/23 19:44 Last Admin: 02/21/23 19:49 Dose: 50 mcg Documented By: POWER Sodium Chloride (Nss 1000ml) 2,000 mls @ 999 mls/hr IV .Q2H1M ONE Stop: 02/21/23 18:59 Last Infusion: 02/21/23 19:54 Dose: 0 mls/hr Documented By: Admin: 02/21/23 17:18 Dose: 999 mls/hr Documented By: ROCIO Ioversol (Optiray 320 100ml) 93 ml IV ONCE ONE Stop: 02/21/23 17:41 Last Admin: 02/21/23 17:40 Dose: 93 ml Documented By: KRISTINE Morphine Sulfate (Morphine Sulfate 4 Mg/Ml 1 Ml Carp\Vial) 4 mg IV NOW STA Stop: 02/21/23 18:27 Last Admin: 02/21/23 18:43 Dose: 4 mg Documented By: ROCIO Ondansetron HCl (Ondansetron Inj 2 Mg/Ml 2 Ml Vial) 4 mg IV NOW STA Stop: 02/21/23 18:50 Last Admin: 02/21/23 18:58 Dose: 4 mg Documented By: ROCIO Imaging Data Radiologist's Impression: Abdomen/Pelvis CT 02/21/23 16:[address] WITH IV CONTRAST CT DOSE: 626.41 mGy.cm HISTORY: abd pain periumbilical TECHNIQUE: Multiaxial CT images of the abdomen and pelvis were performed following the use of intravenous contrast. A dose lowering technique was utilized adhering to the principles of ALARA. COMPARISON STUDY: Abdomen and pelvis CT 06/07/2022. FINDINGS: The lung bases are clear. No pneumoperitoneum. No pneumatosis. 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 Bilateral L5 spondylolysis again noted. Tiny fat-containing umbilical hernia. Prior cholecystectomy. Hepatic steatosis again noted. The main portal vein and splenic vein are patent. The spleen, adrenal glands, and kidneys are unremarkable. Normal caliber abdominal aorta. No retroperitoneal or pelvic lymphadenopathy. No pelvic free fluid. Mild bladder wall thickening. There is edema both within and surrounding the majority the pancreas consistent with acute pancreatitis. No evidence for pancreatic necrosis at this time. No bowel wall thickening or obstruction. Normal appendix. The colon is decompressed. IMPRESSION: 1. Acute pancreatitis. 2. Hepatic steatosis. 3. Cholecystectomy. 4. No bowel wall thickening or obstruction. 5. Bladder wall thickening. This could be due to underdistention. Recommend correlation with urinalysis. ACT 112: Negative or not required by law. Electronically signed by: Miller Bueno M.D. 02/21/2023 6:13 PM Discharge Plan Visit Data Chief Complaint: Unable to Void Stated Complaint: UNABLE TO USE BATHROOM,BLADDER PAIN ED Provider: Sheng Edmond Discharge Problem: Acute pancreatitis, Alcohol use, Abdominal pain Patient Disposition: Admitted As Inpatient Discharge Instructions Interventions: ED Discharge Assessment Last Done: 02/21/23 20:32
[2023-02-21 17:20] LABS: Basophils # (auto) 0.07 K/uL (0-0.2); Basophils % (auto) 0.7 %; Eosinophils # (auto) 0.02 K/uL (0-0.50); Eosinophils % (auto) 0.2 %; Hematocrit (blood only) 40.3 % (42.0-52.0); Hemoglobin 14.5 g/dl (14.0-18.0); Immature Granulocytes # (auto) 0.03 K/uL (0.01-0.20); Immature Granulocytes % (auto) 0.3 %; Lymphocytes # (auto) 1.33 K/uL (1.2-3.4); Lymphocytes % (auto) 13.5 %; Mean Corpuscular Hemoglobin 32.4 pg (25.0-34.0); Mean Platelet Volume 10.1 fL (9.4-12.4); Monocytes # (auto) 0.57 K/uL (0.11-0.59); Monocytes % (auto) 5.8 %; Neutrophils # (auto) 7.84 K/uL (1.40-6.50); Neutrophils % (auto) 79.5 %; Platelet Count 255 K/uL (130-400); RDW Coefficient of Variation 12.1 % (11.5-14.5); RDW Standard Deviation 39.9 fL (36.4-46.3); Red Blood Count 4.48 M/uL (4.70-6.10); White Blood Count 9.86 K/ul (4.8-10.8)
[2023-02-21 17:31] LABS: Albumin Globulin Ratio 1.6 (0.9-2); Albumin Level 4.5 gm/dl (3.4-5.0); BUN Creatinine Ratio 9.8 (10-20); Bilirubin,Total 0.5 mg/dl (0.2-1.0); Calcium 9.3 mg/dl (8.6-10.3); Creatinine Clr Calc Pharmacy 87.9 ml/min; Est GFR (Non-African American) 97.5 ml/min; Globulin 2.8 gm/dl (2.5-4.0); Potassium 3.7 mmol/L (3.5-5.1); Total Protein 7.3 gm/dl (6.0-8.3)
[2023-02-21] MEDS ORDERED: OPTIRAY 320 100ml IV ONE (17:40)
--- NOTE | 2023-02-21 18:15 | CT Scan Report ---
ABDOMEN AND PELVIS CT WITH IV CONTRAST CT DOSE: 626.41 mGy.cm HISTORY: abd pain periumbilical TECHNIQUE: Multiaxial CT images of the abdomen and pelvis were performed following the use of intrave nous contrast. A dose lowering technique was utilized adhering to the principles of ALARA. COMPARISON STUDY: Abdomen and pelvis CT 06/07/2022. FINDINGS: The lung bases are clear. No pneumoperitoneum. No pneumatosis. There is left femoral head a vascular necrosis without articular collapse. Bilateral L5 spondylolysis again noted. Tiny fat-contai galdino umbilical hernia. Prior cholecystectomy. Hepatic steatosis again noted. The main portal vein and splenic vein are patent. The spleen, adrenal glands, and kidneys are unremarkable. Normal caliber ab dominal aorta. No retroperitoneal or pelvic lymphadenopathy. No pelvic free fluid. Mild bladder wall thickening. There is edema both within and surrounding the majority the pancreas consistent with acut e pancreatitis. No evidence for pancreatic necrosis at this time. No bowel wall thickening or obstruc tion. Normal appendix. The colon is decompressed. IMPRESSION: 1. Acute pancreatitis. 2. Hepatic steatosis. 3. Cholecystectomy. 4. No bowel wall thickening or obstruction. 5. Bladder wall thickening. This could be due to underdistention. Recommend correlation with urinalys is. ACT 112: Negative or not required by law. Electronically signed by: Miller Bueno M.D. 02/21/2023 6:13 PM
[2023-02-21] MEDS ORDERED: MoRPHine SULFATE 4 MG/ML 1 ML CARP\\VIAL IV STA (18:26)
[2023-02-21 18:35] LABS: Appearance Urine Clear (Clear); Bacteria Urine Automated Negative (Negative); Bilirubin Urine Negative (Negative); Blood Urine Negative (Negative); Color Urine Yellow; Glucose Urine UA Negative (Negative); Ketones Urine 1+ (Negative); Leukocyte Esterase Urine Negative (Negative); Nitrite Urine Negative (Negative); Protein Urine Trace (Negative); RBC Urine Automated 0-4 /hpf (0-4); Specific Gravity Urine > 1.045 (1.000-1.030); Urobilinogen Urine Negative (Negative)
--- NOTE | 2023-02-21 18:38 | History & Physical Report ---
Date of Service February 21, 2023 Assessment & Plan (1) HIV disease: Plan: Well-controlled at this time. Had labs done on 02/19/2023 which showed an absolute CD4 count of 1038. HIV RNA not detected in the blood. Continue Dovato (2) GERD (gastroesophageal reflux disease): Plan: Hold home pantoprazole. (3) Depression: Plan: Currently takes Bupropion We will hold her meds at this time (4) Acute pancreatitis: Plan: Patient patient with acute pancreatitis with a lipase of [address] abdomen pelvis showing acute pancreatitis. Most likely stemming from drinking the night prior. Has had multiple bouts of acute pancreatitis in the past. Status post 1 L NSS in the ED. LR at 1.5X maintenance given euvolemic appearance of patient on exam. Pain control with IV morphine. Antinausea meds ordered. We will start with clear liquid diet in the a.m. and advance as tolerated. (5) Low urine output: Plan: - PV scan showed no urinary retention. UA showed trace proteins, 1+ ketones. No CVA tenderness on physical exam. Most likely secondary to dehydration in the setting of drinking alcohol and acute pancreatitis. We will monitor I's and O's Admission and Anticipated Discharge Date Admission Date: Fluids: LR at 110 mL/h Nutrition: Clear liquids, advance as tolerated Code status: full code] PT/OT: None Case management: none Dispo: med/surg Thank you for allowing me to participate in the care of your patient. -Dr. Jose Manuel Vázquez PGY2 History of Present Illness Chief Complaint: Acute pancreatitis Primary Care Provider: Santhosh Kent DO Patient is a 32-year-old male with past medical history of HIV, GERD, depression, cholecystectomy, and pancreatitis. Coming to the hospital with c/o epigastric abdominal pain that radiates to the back. The pain started this morning. He also c/o not being able to urinate since this AM at 0500. Patient admits to drinking alcohol last night. 6-7 shots of vodka and 2 beers. Denies any h/o of alcohol withdrawal. Patient states that he uses marijuana regularly, last time being last night. In the ED: Lipase of 276, CBC benign, CMP showed a CO of 18 with an anion gap of 19, as well as elevated AST. UA showing trace protein, 1+ ketones. CT abdomen and pelvis showed acute pancreatitis, hepatic steatosis, and bladder wall thickening. VSS at time of admission. Allergies Allergy/AdvReac Type Severity Reaction Status Date / Time latex Allergy Intermediate Rash Verified 06/07/22 16:37 benzonatate AdvReac Intermediate Hypertensio Verified 06/07/22 16:37 [From Justin Benitez] n Home Medications Medication Instructions Recorded Confirmed Type bupropion HCl 150 mg tablet,12 hr 150 mg PO BID 10/12/20 02/21/23 History sustained-release dolutegravir 50 mg-lamivudine 300 1 tab PO QAM 10/12/20 02/21/23 History mg tablet (Dovato) cetirizine 10 mg tablet (Zyrtec) 10 mg PO DAILY 12/10/21 02/21/23 History potassium chloride 20 mEq 20 meq PO QAM 12/10/21 02/21/23 History tablet,extended release(part/cryst) ondansetron 4 mg disintegrating 4 mg PO Q6H PRN nausea and 04/10/22 02/21/23 Rx tablet vomiting #14 tabs cyanocobalamin (vitamin B-12) 1,000 mcg PO DAILY #30 caps 06/09/22 02/21/23 Rx 1,000 mcg capsule folic acid 400 mcg tablet 400 mcg PO QAM #30 tabs 06/09/22 02/21/23 Rx Vitamin D3 1 cap PO DAILY 02/21/23 02/21/23 History pantoprazole 40 mg tablet,delayed 40 mg PO DAILY 02/21/23 02/21/23 History release (Protonix) Past Med/Surg History Medical History (Updated 02/21/23 @ 19:28 by Jose Manuel Vázquez DO) Acute pancreatitis Anxiety GERD (gastroesophageal reflux disease) HIV disease Surgical History S/P cholecystectomy Family History Other No pertinent family history in first degree relatives Social History Smoking Status: Current every day smoker Tobacco Type: Cigarettes Second Hand Exposure: No; Do You Dip or Chew Tobacco: No; Hx Alcohol Use: Yes Alcohol type: hard liquor Hx Substance Use: No Preferred Language: Indonesian Communication Ability: Effective Screen Writer Required: No Beliefs That Will Affect Care: None marital status: Current Living Situation: Spouse Current Living Situation Comment: , Ramiro current occupational status: employed current occupation: Works at [employer] Feels Safe at Home: Yes Assistive Devices: None Review of Systems Review of Systems: All systems reviewed & are unremarkable except as noted in Subjective Physical Exam Constitutional: WD/WN, vitals as above Eyes: PERRL, conjunctivae normal, anicteric sclerae Respiratory: normal respiratory effort, lungs clear to auscultation Cardiovascular: RRR, no murmur, no edema Gastrointestinal (Abdomen): Inspection/Auscultation: abdomen normal to inspection and normal bowel sounds; abdomen not distended Percussion/Palpation: + abdomen tender (epigastric ) and abdomen soft; no abdominal mass Musculoskeletal: no cyanosis or clubbing, extremities motor strength 5/5 Skin: no rashes, warm and dry Psychiatric: A+Ox3, euthymic affect Results & Data Results & Data Vital Signs (Past 12 Hours) Vital Signs Temp Pulse Resp BP Pulse Ox O2 Del Method 02/21/23 18:00 87 18 02/21/23 18:00 135/82 02/21/23 17:30 84 20 02/21/23 17:30 118/73 02/21/23 17:26 83 22 02/21/23 17:28 80 02/21/23 17:23 97 Room Air 02/21/23 16:47 36.4 C L 102 H 18 116/83 99 Room Air Supervising Physician Co-Signing Physician Notes Patient seen and examined, chart reviewed, case discussed with Jose Manuel Vázquez DO and I agree with the assessment and plan as above except as otherwise noted Labs and images reviewed Mallory Trevizo is a 32-year-old male with GERD, depression, past history of HIV who presents with periumbilical pain. CTA/P shows acute pancreatitis, hepatic steatosis, s/p cholecystectomy. Bladder wall thickening is noted. UA is with ketones but no leukocyte esterase, bacteria, or leukocyte esterase. Creatinine is 1.02 on admission. Patient has past history of pancreatitis in the setting of alcohol use. Current pain after binge alcohol use consistent with ETOH pancreatitis. Ab soft for + periumbilical tenderness on admit. HR RRR. Near euvolemic. CTAB. ETOH Pancreatitis: 2 beers, 6-7 shot last evening and subsequent epigastric pain this morning. Lipase 276. Hx cholecystectomy. Ca normal. Agree w/ tx with fluids, pain control, NPO. Defer aggressive fluids, agree w LR 100-125cc/hr. Med Surg. HIV: Dovato continued, last CD4 count 02/19/2023 1030. HIV not detectable at that time. Urinary retention: Bladder scan, cath for PVR >350. UA uninfected. (4) Acute pancreatitis Acute pancreatitis complication: unspecified Pancreatitis type: unspecified pancreatitis type Qualified Code(s): K85.90 - Acute pancreatitis without necrosis or infection, unspecified
[2023-02-21] MEDS ORDERED: ONDANSETRON INJ 2 MG/ML 2 ML VIAL IV STA (18:49)
[2023-02-21] MEDS ORDERED: fentaNYL citrate PF 100 MCG/2 ML VIAL IV STA (19:43)
[2023-02-21] MEDS ORDERED: MoRPHine SULFATE 2 MG/ML CARP IV PRN (20:56)
[2023-02-21] MEDS ORDERED: PROMETHAZINE HCL 25 MG in SODIUM CHLORIDE 0.9% 50 ML IV PRN (20:56)
[2023-02-21] MEDS ORDERED: ONDANSETRON INJ 2 MG/ML 2 ML VIAL IV PRN (20:56)
[2023-02-21] MEDS ORDERED: MoRPHine SULFATE 4 MG/ML 1 ML CARP\\VIAL IV PRN (20:56)
[2023-02-21] MEDS ORDERED: HYDROmorphone INJ 0.5 MG/0.5 ML SYR IV PRN (21:08)
[2023-02-21] MEDS: HYDROmorphone INJ 1 MG/ML SYRINGE IV PRN (21:24)
[2023-02-21] MEDS: LACTATED RINGER'S 1,000 ML IV SCH (21:29)
[2023-02-21] MEDS: ACETAMINOPHEN 325 MG TAB PO PRN (22:53)
[2023-02-21] MEDS: buPROPion SR 150 MG TABCR PO SCH (22:54)
[2023-02-21] MEDS ORDERED: HYDROmorphone INJ 0.5 MG/0.5 ML SYR IV STA (23:58)
[2023-02-22] MEDS ORDERED: NALOXONE HCL 0.4 MG/1 ML VIAL/CARP IV PRN
[2023-02-22] MEDS: HYDROmorphone INJ 1 MG/ML SYRINGE IV PRN ×6 (03:12→23:00)
[2023-02-22] MEDS: ACETAMINOPHEN 325 MG TAB PO PRN (05:27)
[2023-02-22] MEDS ORDERED: HYDROmorphone INJ 0.5 MG/0.5 ML SYR IV STA (06:10)
[2023-02-22] MEDS: LACTATED RINGER'S 1,000 ML IV SCH ×4 (07:05→22:57)
[2023-02-22 08:05] LABS: Basophils # (auto) 0.04 K/uL (0-0.2); Basophils % (auto) 0.4 %; Eosinophils # (auto) 0.01 K/uL (0-0.50); Eosinophils % (auto) 0.1 %; Hematocrit (blood only) 36.4 % (42.0-52.0); Hemoglobin 13.2 g/dl (14.0-18.0); Immature Granulocytes # (auto) 0.04 K/uL (0.01-0.20); Immature Granulocytes % (auto) 0.4 %; Lymphocytes # (auto) 0.81 K/uL (1.2-3.4); Lymphocytes % (auto) 7.7 %; Mean Corpuscular Hemoglobin 32.3 pg (25.0-34.0); Mean Corpuscular Hgb Conc 36.3 g/dL (32.0-36.0); Mean Platelet Volume 10.4 fL (9.4-12.4); Monocytes # (auto) 0.93 K/uL (0.11-0.59); Monocytes % (auto) 8.9 %; Neutrophils # (auto) 8.66 K/uL (1.40-6.50); Neutrophils % (auto) 82.5 %; Platelet Count 184 K/uL (130-400); RDW Standard Deviation 39.1 fL (36.4-46.3); Red Blood Count 4.09 M/uL (4.70-6.10); White Blood Count 10.49 K/ul (4.8-10.8)
[2023-02-22 08:28] LABS: Albumin Globulin Ratio 1.6 (0.9-2); Albumin Level 3.6 gm/dl (3.4-5.0); BUN Creatinine Ratio 8.2 (10-20); Bilirubin,Total 0.9 mg/dl (0.2-1.0); Calcium 8.3 mg/dl (8.6-10.3); Creatinine Clr Calc Pharmacy 122.8 ml/min; Est GFR (African American) 143.3 ml/min; Est GFR (Non-African American) 123.6 ml/min; Globulin 2.3 gm/dl (2.5-4.0); Potassium 4.1 mmol/L (3.5-5.1); Total Protein 5.9 gm/dl (6.0-8.3)
[2023-02-22] MEDS ORDERED: PANTOprazole 40 MG TAB PO SCH (08:30)
--- NOTE | 2023-02-22 08:30 | Hospitalist Progress Note ---
Date of Service February 22, 2023 Assessment & Plan (1) Acute pancreatitis: Plan: Attending: Dr. Moore Impression: 32-year-old male admitted last evening for acute abdominal pain. CT of the abdomen pelvis showed acute pancreatitis. Patient is currently receiving lactated Ringer's at 110 mL/h. Continues with increased abdominal pain and requesting narcotic pain relief. 1. Acute pancreatitis: * Secondary to binge drinking * No evidence of necrosis * Labs currently are pending this morning * IV fluids increased to 200 mL/h yesterday. Good urine output. * Dilaudid for pain relief was increased yesterday to 1 mg every 3 hours as needed This morning, patient was doing fairly well. He had no complaints of acute pain. Unexpectedly and unprovoked, patient came out of his room and demanded to be discharged. It is reported to me by nursing that he left the nursing henry and was intercepted [facility] where the nurse was able to successfully remove it as indwelling peripheral IV prior to him leaving. Staff attempted to have the patient wait until he could be seen by provider. He said he was not going to wait and left AGAINST MEDICAL ADVICE. (2) GERD (gastroesophageal reflux disease): Plan: Patiently typically takes pantoprazole 40 mg p.o. daily. This will be continued during his inpatient stay (3) Alcohol use: Plan: Currently no evidence of withdrawal Encourage patient to abstain from binge drinking (4) Abdominal pain: Plan: Secondary to acute pancreatitis No other significant abnormalities on CT abdomen pelvis Continue with analgesics and attempt to convert to oral meds for discharge Aggressive bowel regimen including Colace, senna, MiraLAX, fleets enema was initiated as needed (5) HIV disease: Plan: Labs drawn 02/19/2023 which showed an absolute CD4 count of 1038. HIV RNA not detected in the blood. Continue Dovato (6) HTN (hypertension): Plan: Patient denies any prior history of hypertension as an outpatient and reports he is not on any antihypertensives Etiology is most likely secondary to acute pain from pancreatitis Will order as needed hydralazine for systolic blood pressure greater than 180 Change vital signs from every shift to every 4 hours Plan Patient left AGAINST MEDICAL ADVICE. He was not seen by any providers on the day of discharge Admission and Anticipated Discharge Date Admission Date: February 21, 2023 Subjective Attending: Dr. Moore This is a 32-year-old male with GERD, depression, past history of HIV who presents with periumbilical pain. CTA/P shows acute pancreatitis, hepatic steatosis, s/p cholecystectomy. Bladder wall thickening is noted. UA is with ketones but no leukocyte esterase, bacteria, or leukocyte esterase. Creatinine is 1.02 on admission. Patient has past history of pancreatitis in the setting of alcohol use. Current pain after binge alcohol use consistent with ETOH pancreatitis. Patient continues to complain of pain this morning. Nursing reported that he requested that frequency of Dilaudid be increased. In addition to his 1 mg of Dilaudid every 6 hours, patient got 2 additional doses overnight of 0.25 mg IV. Labs are currently pending. Patient is afebrile. Blood pressure slightly elevated with a systolic pressure of 161. Patient is currently receiving lactated Ringer's at 110 mL/h Patient reports persistent abdominal pain. He does report some nausea but no vomiting. No diarrhea. Patient is concerned that he is getting constipated due to narcotics. Denies any fever. No other acute complaints at this time Review of Systems Review of Systems: A total of 10 systems was reviewed and is negative other than as listed in the HPI Physical Exam Physical Exam: GENERAL : No acute distress EYES: No icterus, gaze conjugate NOSE: No evidence of epistaxis MOUTH: No lesions or candidiasis NECK: Supple LUNGS: CTA B/L, no wheezes, rales or rhonchi HEART: Regular, rate controlled ABDOMEN: Soft, ND, BS Present. Mild tenderness with deep palpation. No rebound tenderness EXTREMITIES: No LE edema, pedal pulses intact NEURO: A&OX3 Results & Data Results & Data Vital Signs (Past 12 Hours) Vital Signs Temp Pulse Pulse Resp BP BP Pulse Ox 02/22/23 07:24 36.4 C L 56 L 16 161/91 H 98 02/22/23 06:20 74 18 148/93 H 97 02/22/23 02:25 36.7 C 78 18 149/92 H 98 02/22/23 00:21 80 18 136/87 98 02/21/23 20:40 36.7 C 80 18 151/82 H 100 02/21/23 21:30 36.7 C 80 18 151/82 H 100 02/21/23 20:30 90 19 124/89 97 O2 Del Method 02/22/23 07:24 Room Air 02/22/23 06:20 Room Air 02/22/23 02:25 Room Air 02/22/23 00:21 Room Air 02/21/23 20:40 Room Air 02/21/23 21:30 Room Air 02/21/23 20:30 Room Air Diagnostic Findings PG Care Time/CCT Total # of Minutes Spent Total Time Spent with Patient: Total time spent is greater than 50% in coordination of care (as documented) at patient's floor/unit and/or counseling patient:40 minutes Coding Level of Care Code 21104 SUB INP/OBS CARE 2/35MIN Diagnoses Acute pancreatitis K85.90 GERD (gastroesophageal reflux disease) K21.9 Alcohol use Z78.9 Abdominal pain R10.9 HIV disease B20 HTN (hypertension) I10 Hypertension type: unspecified (6) HTN (hypertension) Hypertension type: unspecified Qualified Code(s): I10 - Essential (primary) hypertension
[2023-02-22] MEDS: buPROPion SR 150 MG TABCR PO SCH ×2 (08:58→20:55)
[2023-02-22] MEDS: DOVATO PO SCH (08:59)
[2023-02-22] MEDS ORDERED: POLYETHYLENE (MIRALAX) 17 GM PACK PO PRN (12:41)
[2023-02-22] MEDS: SENNA 8.6 MG TAB PO SCH (13:40)
[2023-02-22] MEDS: DOCUSATE SODIUM 100 MG CAP PO SCH ×2 (13:40→20:55)
[2023-02-22] MEDS ORDERED: SOD PHOSPHATE/SOD BIPHOSPHATE ENEMA 132 ML BTL PR PRN (16:23)
[2023-02-22] MEDS ORDERED: hydrALAZINE HCL 20 MG/ML VIAL IV PRN (16:32)
[2023-02-22] MEDS ORDERED: bisacodyL 10 MG SUPP PR STA (20:01)
[2023-02-22] MEDS ORDERED: oxyBUTYnin chloride 5 MG TAB PO STA (23:31)
[2023-02-23] MEDS ORDERED: CALCIUM CARBONATE 500 MG CHEWABLE TAB PO PRN (00:54)
[2023-02-23] MEDS: HYDROmorphone INJ 1 MG/ML SYRINGE IV PRN ×3 (01:28→06:22)
[2023-02-23] MEDS: LACTATED RINGER'S 1,000 ML IV SCH (04:07)
[2023-02-23] MEDS ORDERED: PANTOprazole 40 MG TAB PO SCH (06:15)
[2023-02-23 07:43] LABS: Basophils # (auto) 0.02 K/uL (0-0.2); Basophils % (auto) 0.2 %; Eosinophils # (auto) 0.01 K/uL (0-0.50); Eosinophils % (auto) 0.1 %; Hemoglobin 12.6 g/dl (14.0-18.0); Immature Granulocytes # (auto) 0.03 K/uL (0.01-0.20); Immature Granulocytes % (auto) 0.3 %; Lymphocytes # (auto) 0.89 K/uL (1.2-3.4); Lymphocytes % (auto) 8.5 %; Mean Corpuscular Hemoglobin 32.2 pg (25.0-34.0); Mean Corpuscular Volume 89.5 fL (80.0-100.0); Mean Platelet Volume 10.5 fL (9.4-12.4); Monocytes % (auto) 7.7 %; Neutrophils # (auto) 8.69 K/uL (1.40-6.50); Neutrophils % (auto) 83.2 %; Platelet Count 152 K/uL (130-400); RDW Standard Deviation 39.1 fL (36.4-46.3); Red Blood Count 3.91 M/uL (4.70-6.10); White Blood Count 10.44 K/ul (4.8-10.8)
[2023-02-23 07:57] LABS: Anion Gap 7 (3-11); BUN Creatinine Ratio 4.8 (10-20); Blood Urea Nitrogen 3 mg/dl (6-23); Calcium 8.6 mg/dl (8.6-10.3); Carbon Dioxide 26 mmol/L (21-32); Chloride 97 mmol/L (98-107); Creatinine Clr Calc Pharmacy 144.6 ml/min; Est GFR (African American) > 150.0 ml/min; Est GFR (Non-African American) 132.2 ml/min; Glucose 88 mg/dl (70-99(Fasting)); Potassium 3.8 mmol/L (3.5-5.1); Sodium 130 mmol/L (136-145)
[2023-02-23 07:58] LABS: Alanine Aminotransferase 21 U/L (7-52); Albumin Globulin Ratio 1.4 (0.9-2); Albumin Level 3.4 gm/dl (3.4-5.0); Alkaline Phosphatase 73 U/L (34-104); Aspartate Aminotransferase 31 U/L (13-39); Bilirubin,Total 0.6 mg/dl (0.2-1.0); Globulin 2.4 gm/dl (2.5-4.0); Total Protein 5.8 gm/dl (6.0-8.3)
[2023-02-23] MEDS: SENNA 8.6 MG TAB PO SCH (08:00)
[2023-02-23] MEDS: buPROPion SR 150 MG TABCR PO SCH (08:00)
[2023-02-23] MEDS: DOCUSATE SODIUM 100 MG CAP PO SCH (08:00)
[2023-02-23] MEDS: DOVATO PO SCH (08:01)
[2023-02-23] MEDS ORDERED: oxyBUTYnin chloride 5 MG TAB PO SCH (09:00)
--- NOTE | 2023-02-23 12:10 | Hospitalist Progress Note ---
Date of Service February 23, 2023 Assessment & Plan Admission and Anticipated Discharge Date Admission Date: February 21, 2023 Subjective Attending: Dr. Moore He is a Tuckerman text message from the nurse taking care of the patient at 09:37 AM requesting me to report to bedside. She reported that he suddenly without provocation became extremely irritable screaming and yelling in his room. He then moved into the hallway continued the same attitude. She reported that he was very tangential was having difficulty interpreting what his actual complaint was. She indicated that he was adamant about signing himself AMA and did not want to wait for provider. I was progressing to the room when I got a repeat Tuckerman text at 09:42 stating that he had just walked out. I was unable to see or examine the patient. Patient indicated that she would document clearly in the chart what had occurred Dr. Moore notified Results & Data Results & Data Vital Signs (Past 12 Hours) Vital Signs Temp Pulse Resp BP Pulse Ox O2 Del Method 02/23/23 07:47 36.9 C 80 16 136/87 96 Room Air 02/23/23 03:00 36.7 C 61 18 145/82 H 98 Room Air PG Care Time/CCT Total # of Minutes Spent Total Time Spent with Patient: Total time spent is greater than 50% in coordination of care (as documented) at patient's floor/unit and/or counseling patient: Coding Level of Care Code None Diagnoses Comment Patient left AMA before being seen
--- NOTE | 2023-02-23 12:43 | Discharge Summary ---
Date of Service February 23, 2023 Admission HPI Per Admitting Provider Patient is a 32-year-old male with past medical history of HIV, GERD, depression, cholecystectomy, and pancreatitis. Coming to the hospital with c/o epigastric abdominal pain that radiates to the back. The pain started this morning. He also c/o not being able to urinate since this AM at 0500. Patient admits to drinking alcohol last night. 6-7 shots of vodka and 2 beers. Denies any h/o of alcohol withdrawal. Patient states that he uses marijuana regularly, last time being last night. In the ED: Lipase of 276, CBC benign, CMP showed a CO of 18 with an anion gap of 19, as well as elevated AST. UA showing trace protein, 1+ ketones. CT abdomen and pelvis showed acute pancreatitis, hepatic steatosis, and bladder wall thickening. VSS at time of admission. Admission Exam Per Admitting Provider Constitutional: WD/WN, vitals as above Eyes: PERRL, conjunctivae normal, anicteric sclerae Respiratory: normal respiratory effort, lungs clear to auscultation Cardiovascular: RRR, no murmur, no edema Gastrointestinal (Abdomen): Inspection/Auscultation: abdomen normal to inspection and normal bowel sounds; abdomen not distended Percussion/Palpation: + abdomen tender (epigastric ) and abdomen soft; no abdominal mass Musculoskeletal: no cyanosis or clubbing, extremities motor strength 5/5 Skin: no rashes, warm and dry Psychiatric: A+Ox3, euthymic affect Principal Diagnosis pancreatitis Discharge Exam Patient left a gets medical advice before he was able to be seen. No physical examination was performed on the day of discharge Discharge Data Allergies Allergy/AdvReac Type Severity Reaction Status Date / Time latex Allergy Intermediate Rash Verified 06/07/22 16:37 benzonatate AdvReac Intermediate Hypertensio Verified 06/07/22 16:37 [From Justin Benitez] n Consultations 02/21/23 18:33 ED Decision to Admit Stat Ordered Studies 02/21/23 16:59 CT Abd and Pelvis [CT abd pelvis IV con only] Stat ABDOMEN AND PELVIS CT WITH IV CONTRAST CT DOSE: 626.41 mGy.cm HISTORY: abd pain periumbilical TECHNIQUE: Multiaxial CT images of the abdomen and pelvis were performed following the use of intravenous contrast. A dose lowering technique was utilized adhering to the principles of ALARA. COMPARISON STUDY: Abdomen and pelvis CT 06/07/2022. FINDINGS: The lung bases are clear. No pneumoperitoneum. No pneumatosis. 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 Bilateral L5 spondylolysis again noted. Tiny fat-containing umbilical hernia. Prior cholecystectomy. Hepatic steatosis again noted. The main portal vein and splenic vein are patent. The spleen, adrenal glands, and kidneys are unremarkable. Normal caliber abdominal aorta. No retroperitoneal or pelvic lymphadenopathy. No pelvic free fluid. Mild bladder wall thickening. There is edema both within and surrounding the majority the pancreas consistent with acute pancreatitis. No evidence for pancreatic necrosis at this time. No bowel wall thickening or o bstruction. Normal appendix. The colon is decompressed. IMPRESSION: 1. Acute pancreatitis. 2. Hepatic steatosis. 3. Cholecystectomy. 4. No bowel wall thickening or obstruction. 5. Bladder wall thickening. This could be due to underdistention. Recommend correlation with urinalysis. ACT 112: Negative or not required by law. Electronically signed by: Miller Bueno M.D. 02/21/2023 6:13 PM Hospital Course (1) Acute pancreatitis: Attending: Dr. Moore Impression: 32-year-old male admitted last evening for acute abdominal pain. CT of the abdomen pelvis showed acute pancreatitis. Patient is currently receiving lactated Ringer's at 110 mL/h. Continues with increased abdominal pain and requesting narcotic pain relief. 1. Acute pancreatitis: * Secondary to binge drinking * No evidence of necrosis * Labs currently are pending this morning * IV fluids increased to 200 mL/h yesterday. Good urine output. * Dilaudid for pain relief was increased yesterday to 1 mg every 3 hours as needed This morning, patient was doing fairly well. He had no complaints of acute pain. Unexpectedly and unprovoked, patient came out of his room and demanded to be discharged. It is reported to me by nursing that he left the nursing henry and was intercepted at the [facility] where the nurse was able to successfully remove it as indwelling peripheral IV prior to him leaving. Staff attempted to have the patient wait until he could be seen by provider. He said he was not going to wait and left AGAINST MEDICAL ADVICE. (2) GERD (gastroesophageal reflux disease): Patiently typically takes pantoprazole 40 mg p.o. daily. This will be continued during his inpatient stay (3) Alcohol use: Currently no evidence of withdrawal Encourage patient to abstain from binge drinking (4) Abdominal pain: Secondary to acute pancreatitis No other significant abnormalities on CT abdomen pelvis Continue with analgesics and attempt to convert to oral meds for discharge Aggressive bowel regimen including Colace, senna, MiraLAX, fleets enema was initiated as needed (5) HIV disease: Labs drawn 02/19/2023 which showed an absolute CD4 count of 1038. HIV RNA not detected in the blood. Continue Dovato (6) HTN (hypertension): Patient denies any prior history of hypertension as an outpatient and reports he is not on any antihypertensives Etiology is most likely secondary to acute pain from pancreatitis Will order as needed hydralazine for systolic blood pressure greater than 180 Change vital signs from every shift to every 4 hours Plan Patient left AGAINST MEDICAL ADVICE. He was not seen by any providers on the day of discharge Total Time Total Time Spent Total Time Spent (In Minutes): pt left ama but process required less than 30 minutes Discharge Plan Discharge Items Patient Disposition: Against Medical Advice Reason For Visit: ACUTE PANCREATITIS Activity: Resume your previous activity Non-emergency contact: Primary Care Provider Follow-up/Referrals: Santhosh Kent DO [Primary Care Provider] - Pending Studies at Discharge: No Stand-Alone Forms: My [facility] Medications and DC Order Prescriptions: Continued cetirizine [Zyrtec] 10 mg Tablet 10 mg PO DAILY potassium chloride 20 mEq tablet,ER particles/crystals 20 meq PO QAM ondansetron 4 mg tablet,disintegrating 4 mg PO Q6H PRN (Reason: nausea and vomiting) Qty: 14 0RF folic acid 400 mcg Tablet 400 mcg PO QAM Qty: 30 0RF cyanocobalamin (vitamin B-12) 1,000 mcg capsule 1,000 mcg PO DAILY Qty: 30 3RF bupropion HCl 150 mg Tablet Sustained-Release 12 Hr 150 mg PO BID Dovato 50-300 mg Tablet 1 tab PO QAM Vitamin D3 1 cap PO DAILY pantoprazole [Protonix] 40 mg tablet,delayed release (DR/EC) 40 mg PO DAILY Discharge Orders: Left Against Medical Advice (Routine); Ordered 02/23/23 Ordered By: Jose Manuel Marroquin Admission Data Admit Date/Time: 02/21/23 19:09 Attending Provider: Srini Moore Admit Provider: Jose Manuel Vázquez Primary Care Provider: Santhosh Kent Other Providers: Tom Manning Coding Level of Care Code 75063 IN/OBS DISCH 30 MIN/LESS Diagnoses Acute pancreatitis K85.90 GERD (gastroesophageal reflux disease) K21.9 Alcohol use Z78.9 Abdominal pain R10.9 HIV disease B20 HTN (hypertension) I10 Hypertension type: unspecified
== END 2023-02-23 09:45 | disposition left against medical advice (07) | DRG 439 ==
LOC: ED 16:43 → 3W 19:09 → SUATTDRO 19:09 → 3W 20:32
DX: Z20.822 Contact with and (suspected) exposure to COVID-19; B20 Human immunodeficiency virus [HIV] disease; K85.20 Alcohol induced acute pancreatitis without necrosis or infection; Z88.8 Allergy status to other drugs, medicaments and biological substances; R34 Anuria and oliguria; K76.0 Fatty (change of) liver, not elsewhere classified; E87.20 Acidosis, unspecified; Z53.29 Procedure and treatment not carried out because of patient's decision for other reasons; I10 Essential (primary) hypertension; F17.210 Nicotine dependence, cigarettes, uncomplicated; Z91.040 Latex allergy status; Z79.899 Other long term (current) drug therapy; K21.9 Gastro-esophageal reflux disease without esophagitis; F32.A Depression, unspecified; R45.4 Irritability and anger; E86.0 Dehydration

== ENCOUNTER 2023-02-24 15:06 | Inpatient (IN) ==
--- NOTE | 2023-02-24 15:41 | Emergency Department Note ---
Impression & Plan Hallucinations, Hypokalemia, Hypomagnesemia, Alcohol withdrawal ED Provider Note Provider: Jh Mccartney MD DATE OF SERVICE: 02/24/2023 CHIEF COMPLAINT: Hallucinations HISTORY OF PRESENT ILLNESS: Patient is a 32-year-old gentleman history of depression, GERD, HIV on Galvez therapy, and recent episode of pancreatitis hospitalized here presenting today stating that since he left the hospital (from records more clearly eloped) he has been having episodes of auditory hallucinations stating may be a vibrating humming type sound as well as having visual hallucinations. Reports that he has been seeing his friends walk around particular last night and continuing today at work. Denies any significant headache. Denies abdominal pain at this time. States in the evenings maybe he has had a bit of fever. No clear new head injury but states he did fall and scraped his right forearm a little bit. States he had a shot of alcohol last night but denies significant alcohol use. Uses marijuana from a dispensary but denies other drug use. Denies a history of similar hallucinations. Very a nxious and concerned about why he is having these auditory and visual hallucinations now. Again no history of similar in the past by his report. Has some concern that possibly this could be related to the Dilaudid he received for pain here several days ago. Has been working long hours at [employer]. Significant reduction of alcohol use since his previous admission. PAST MEDICAL HISTORY: As noted above MEDICATIONS: Reviewed home medications SOCIAL HISTORY: , smoker, marijuana from a dispensary, denies other drugs, occasional alcohol reported PHYSICAL EXAM: GENERAL: alert and oriented seated on the stretcher appears somewhat anxious and tremulous Head: normocephalic and atraumatic EYES: No injection, discharge or icterus. PERRL, EOMI. NECK: Trachea midline. Supple. ENT: Mucous membranes pink and moist. LUNGS: Airway patent. No retractions or tachycardia HEART: Regular tachycardic rate and rhythm. No chest wall tenderness ABDOMEN: Soft and non-tender, without guarding or rebound. SKIN: Acyanotic, warm, dry EXTREMITIES: Without swelling, tenderness or deformity with a few very superficial faint abrasions to the left forearm. NEUROLOGICAL: No focal deficits. No aphasia. No facial droop or slurred speech. Ambulatory. EK bpm normal sinus rhythm. No PVC or PAC. No acute ST segment elevation or depression with a QTc of 442. CONTINUOUS CARDIAC MONITORING: was ordered and showed a heart rate of 80s-100s bpm in normal sinus rhythm to sinus tachycardia Patient's laboratory studies and imaging reviewed. Differential includes infection, hypoglycemia, electrolyte abnormalities, cardiac sources, intracerebral event/neurologic, toxicologic, trauma, as well as other pathologies. IMPRESSION/MEDICAL DECISION MAKING: Seems to have resolved symptoms of his pancreatitis. Does relay some intake and little bit of alcohol last night but denies to any extreme. Marijuana from dispensary but denies other drugs. Did scrape his arm a little bit but denies significant head trauma. We will complete a CT of the head for any acute cranial abnormality to explain his symptoms. The combination of both auditory and visual hallucinations without any associated headache is somewhat odd. Afebrile here. Reviewed recent blood work and admission here for pancreatitis. Again the symptoms seem to have abated. Is on HAART therapy and recent CD4 count from 5 days ago more than 1000 and doubt opportunistic infection given this. Basic blood work and cultures were sent. We will send toxicologic studies including alcohol UDS to look for any possible adulterant. Would seem atypical for him to be having persistent symptoms days after receiving the Dilaudid. Doubt meningitis he is freely moving his head and again has no significant head or neck pain. Afebrile here. Could have some component of alcohol withdrawal given history of alcohol use from the chart and is somewhat hypertensive and tachycardic here. No seizures reported. Given some IV fluids. Blood work without significant leukocytosis. Stable slight anemia. Some hypokalemia today and hypomagnesemia noted. Repletion ordered. Lipase is somewhat more elevated today at 434 but not having significant symptoms of pancreatitis at this time. No bilirubin elevation. Alcohol undetectable. CT of the head report reassuring per radiology. I again feel that likely given the clinical history of stopping heavy drinking more or less 5 days ago with a visual auditory hallucinations but this is more alcohol withdrawal. Discussed with the patient and recommended we trial some benzodiazepine. Feel he needs further observation given his significant symptoms and hallucinations. DIAGNOSIS: Hallucinations, alcohol withdrawal, hypokalemia, hypomagnesemia DISPOSITION: Hospitalist will evaluate Patient was agreeable with this plan. Past Med/Surg History Medical History Acute pancreatitis Anxiety GERD (gastroesophageal reflux disease) HIV disease Surgical History S/P cholecystectomy Family History Other No pertinent family history in first degree relatives Social History Smoking Status: Current every day smoker Tobacco Type: Cigarettes Second Hand Exposure: Yes; Do You Dip or Chew Tobacco: No; Hx Alcohol Use: Yes Alcohol type: beer and hard liquor Hx Substance Use: Yes Last Used Substance: Days (ago) Last Used Substance Other:: not medical but smokes for medical reasons last smoked night 02/20 Preferred Language: Irish Communication Ability: Effective Regional Telecommunications Specialist Required: No Beliefs That Will Affect Care: None marital status: Current Living Situation: Spouse Current Living Situation Comment: Ramiro current occupational status: employed current occupation: Works at [employer] Feels Safe at Home: Yes Assistive Devices: None Allergies Allergies Allergy/AdvReac Type Severity Reaction Status Date / Time latex Allergy Intermediate Rash Verified 06/07/22 16:37 benzonatate AdvReac Intermediate Hypertensio Verified 06/07/22 16:37 [From Justin Benitez] n Home Meds Home Medications Medication Instructions Recorded Confirmed bupropion HCl 150 mg tablet,12 hr 150 mg PO BID 10/12/20 02/24/23 sustained-release dolutegravir 50 mg-lamivudine 300 1 tab PO QAM 10/12/20 02/24/23 mg tablet (Dovato) cetirizine 10 mg tablet (Zyrtec) 10 mg PO DAILY 12/10/21 02/24/23 potassium chloride 20 mEq 20 meq PO QAM 12/10/21 02/24/23 tablet,extended release(part/cryst) Vitamin D3 1 cap PO DAILY 02/21/23 02/24/23 pantoprazole 40 mg tablet,delayed 40 mg PO DAILY 02/21/23 02/24/23 release (Protonix) Previous Rx's Medication Instructions Recorded ondansetron 4 mg disintegrating 4 mg PO Q6H PRN nausea and 04/10/22 tablet vomiting #14 tabs cyanocobalamin (vitamin B-12) 1,000 mcg PO DAILY #30 caps 06/09/22 1,000 mcg capsule folic acid 400 mcg tablet 400 mcg PO QAM #30 tabs 06/09/22 Results & Data (ED) Vital Signs Vital Signs - 24 hr 02/24/23 15:09 02/24/23 16:35 02/24/23 17:00 Temperature 37.2 C Temperature Source Oral Pulse Rate 105 H 90 99 H Pulse Rate from SpO2 Sensor 99 H Respiratory Rate 18 19 Respiratory Effort / Characteristics Non-Labored Respiratory Depth Normal Respiratory Pattern Regular Blood Pressure 148/94 H 154/89 H Blood Pressure Mean 112 110 Pulse Oximetry 98 99 Oxygen Delivery Method Room Air Sepsis Recent Fever Within 48 Hours No Sepsis New/Unexplained Change in Mental Status N/A Sepsis Action Taken by Nursing No Action Required 02/24/23 17:30 02/24/23 18:00 Temperature Temperature Source Pulse Rate 82 103 H Pulse Rate from SpO2 Sensor 82 98 H Respiratory Rate 22 18 Respiratory Effort / Characteristics Respiratory Depth Respiratory Pattern Blood Pressure 137/73 141/86 H Blood Pressure Mean 94 104 Pulse Oximetry 97 100 Oxygen Delivery Method Sepsis Recent Fever Within 48 Hours Sepsis New/Unexplained Change in Mental Status Sepsis Action Taken by Nursing Laboratory Data 02/24/23 15:54 02/24/23 15:54 Lab Results 02/24/23 02/24/23 02/24/23 Range/Units 15:54 15:54 15:54 WBC 7.04 (4.8-10.8) K/ul RBC 3.79 L (4.70-6.10) M/uL Hgb 12.2 L (14.0-18.0) g/dl Hct 33.8 L (42.0-52.0) % MCV 89.2 (80.0-100.0) fL MCH 32.2 (25.0-34.0) pg MCHC 36.1 H (32.0-36.0) g/dL RDW Std Deviation 38.4 (36.4-46.3) fL RDW Coeff of Dio 11.9 (11.5-14.5) % Plt Count 156 (130-400) K/uL MPV 11.0 (9.4-12.4) fL Immature Gran % (Auto) 0.3 % Neut % (Auto) 75.7 % Lymph % (Auto) 14.8 % [place] % (Auto) 8.8 % Eos % (Auto) 0.1 % Baso % (Auto) 0.3 % Neut # (Auto) 5.33 (1.40-6.50) K/uL Lymph # (Auto) 1.04 L (1.2-3.4) K/uL [place] # (Auto) 0.62 H (0.11-0.59) K/uL Eos # (Auto) 0.01 (0-0.50) K/uL Baso # (Auto) 0.02 (0-0.2) K/uL Immature Gran # (Auto) 0.02 (0.01-0.20) K/uL ESR (0-15) mm/hr Sodium 136 (136-145) mmol/L Potassium 3.0 L D (3.5-5.1) mmol/L Chloride 96 L (98-107) mmol/L Carbon Dioxide 29 (21-32) mmol/L Anion Gap 11 (3-11) BUN 2 L (6-23) mg/dl Creatinine 0.74 (0.6-1.4) mg/dl Est Cr Clr Drug Dosing 130.8 ml/min Est GFR ( Amer) 142.5 ml/min Est GFR (Non-Af Amer) 122.9 ml/min BUN/Creatinine Ratio 2.7 L (10-20) Glucose 86 (70-99(Fasting)) mg/dl Calcium 9.4 (8.6-10.3) mg/dl Magnesium 1.4 L (1.7-2.4) mg/dl Total Bilirubin 0.7 (0.2-1.0) mg/dl AST 57 H (13-39) U/L ALT 27 (7-52) U/L Alkaline Phosphatase 81 (34-104) U/L Troponin I High Sens 4.5 (0-20) pg/ml C-Reactive Protein 14.18 H (0-0.5) mg/dl Total Protein 7.1 D (6.0-8.3) gm/dl Albumin 4.2 (3.4-5.0) gm/dl Globulin 2.9 (2.5-4.0) gm/dl Albumin/Globulin Ratio 1.4 (0.9-2) Lipase 434 H (11-82) U/L Procalcitonin (0-0.5) ng/ml TSH 3.018 (0.300-4.500) uIu/ml Salicylates (3.0-30) mg/dl Acetaminophen (10-30) ug/ml Ethyl Alcohol mg/dL (<10.0) mg/dl 02/24/23 02/24/23 02/24/23 Range/Units 15:54 15:54 15:54 WBC (4.8-10.8) K/ul RBC (4.70-6.10) M/uL Hgb (14.0-18.0) g/dl Hct (42.0-52.0) % MCV (80.0-100.0) fL MCH (25.0-34.0) pg MCHC (32.0-36.0) g/dL RDW Std Deviation (36.4-46.3) fL RDW Coeff of Dio (11.5-14.5) % Plt Count (130-400) K/uL MPV (9.4-12.4) fL Immature Gran % (Auto) % Neut % (Auto) % Lymph % (Auto) % [place] % (Auto) % Eos % (Auto) % Baso % (Auto) % Neut # (Auto) (1.40-6.50) K/uL Lymph # (Auto) (1.2-3.4) K/uL [place] # (Auto) (0.11-0.59) K/uL Eos # (Auto) (0-0.50) K/uL Baso # (Auto) (0-0.2) K/uL Immature Gran # (Auto) (0.01-0.20) K/uL ESR 59 H (0-15) mm/hr Sodium (136-145) mmol/L Potassium (3.5-5.1) mmol/L Chloride (98-107) mmol/L Carbon Dioxide (21-32) mmol/L Anion Gap (3-11) BUN (6-23) mg/dl Creatinine (0.6-1.4) mg/dl Est Cr Clr Drug Dosing ml/min Est GFR ( Amer) ml/min Est GFR (Non-Af Amer) ml/min BUN/Creatinine Ratio (10-20) Glucose (70-99(Fasting)) mg/dl Calcium (8.6-10.3) mg/dl Magnesium (1.7-2.4) mg/dl Total Bilirubin (0.2-1.0) mg/dl AST (13-39) U/L ALT (7-52) U/L Alkaline Phosphatase (34-104) U/L Troponin I High Sens (0-20) pg/ml C-Reactive Protein (0-0.5) mg/dl Total Protein (6.0-8.3) gm/dl Albumin (3.4-5.0) gm/dl Globulin (2.5-4.0) gm/dl Albumin/Globulin Ratio (0.9-2) Lipase (11-82) U/L Procalcitonin 0.06 (0-0.5) ng/ml TSH (0.300-4.500) uIu/ml Salicylates < 3.0 L (3.0-30) mg/dl Acetaminophen < 3 L (10-30) ug/ml Ethyl Alcohol mg/dL (<10.0) mg/dl 02/24/23 Range/Units 16:10 WBC (4.8-10.8) K/ul RBC (4.70-6.10) M/uL Hgb (14.0-18.0) g/dl Hct (42.0-52.0) % MCV (80.0-100.0) fL MCH (25.0-34.0) pg MCHC (32.0-36.0) g/dL RDW Std Deviation (36.4-46.3) fL RDW Coeff of Dio (11.5-14.5) % Plt Count (130-400) K/uL MPV (9.4-12.4) fL Immature Gran % (Auto) % Neut % (Auto) % Lymph % (Auto) % [place] % (Auto) % Eos % (Auto) % Baso % (Auto) % Neut # (Auto) (1.40-6.50) K/uL Lymph # (Auto) (1.2-3.4) K/uL [place] # (Auto) (0.11-0.59) K/uL Eos # (Auto) (0-0.50) K/uL Baso # (Auto) (0-0.2) K/uL Immature Gran # (Auto) (0.01-0.20) K/uL ESR (0-15) mm/hr Sodium (136-145) mmol/L Potassium (3.5-5.1) mmol/L Chloride (98-107) mmol/L Carbon Dioxide (21-32) mmol/L Anion Gap (3-11) BUN (6-23) mg/dl Creatinine (0.6-1.4) mg/dl Est Cr Clr Drug Dosing ml/min Est GFR ( Amer) ml/min Est GFR (Non-Af Amer) ml/min BUN/Creatinine Ratio (10-20) Glucose (70-99(Fasting)) mg/dl Calcium (8.6-10.3) mg/dl Magnesium (1.7-2.4) mg/dl Total Bilirubin (0.2-1.0) mg/dl AST (13-39) U/L ALT (7-52) U/L Alkaline Phosphatase (34-104) U/L Troponin I High Sens (0-20) pg/ml C-Reactive Protein (0-0.5) mg/dl Total Protein (6.0-8.3) gm/dl Albumin (3.4-5.0) gm/dl Globulin (2.5-4.0) gm/dl Albumin/Globulin Ratio (0.9-2) Lipase (11-82) U/L Procalcitonin (0-0.5) ng/ml TSH (0.300-4.500) uIu/ml Salicylates (3.0-30) mg/dl Acetaminophen (10-30) ug/ml Ethyl Alcohol mg/dL < 10.0 (<10.0) mg/dl Administered Medications Acyclovir Sodium 650 mg/ (Dextrose) 263 mls @ 250 mls/hr IV Q8H RASHEL; Protocol Stop: 03/06/23 20:29 Last Admin: 02/24/23 21:19 Dose: 250 mls/hr Documented By: IZZY Ampicillin Sodium 2,000 mg/ (Sodium Chloride) 100 mls @ 200 mls/hr IV Q4H RASHEL Stop: 03/06/23 19:59 Last Infusion: 02/24/23 20:54 Dose: 0 mls/hr Documented By: Admin: 02/24/23 20:23 Dose: 200 mls/hr Documented By: ORTIZ Ceftriaxone Sodium 2,000 mg/ (Dextrose) 70 mls @ 100 mls/hr IV Q12H RASHEL; Protocol Stop: 03/06/23 19:59 Last Admin: 02/24/23 21:19 Dose: 100 mls/hr Documented By: IZZY Discontinued Medications Diazepam (Diazepam 5 Mg/Ml Inj 10ml Vial) 5 mg IV NOW STA Stop: 02/24/23 17:07 Last Admin: 02/24/23 17:19 Dose: 5 mg Documented By: NRB Sodium Chloride (Nss 1000ml) 1,000 mls @ 999 mls/hr IV .Q1H1M ONE Stop: 02/24/23 17:03 Last Infusion: 02/24/23 17:37 Dose: 0 mls/hr Documented By: Admin: 02/24/23 16:35 Dose: 999 mls/hr Documented By: MONIQUE Potassium Chloride (K Artur / Wtr) 10 meq in 100 mls @ 100 mls/hr IV ONE ONE Stop: 02/24/23 17:59 Last Infusion: 02/24/23 19:40 Dose: 0 mls/hr Documented By: Admin: 02/24/23 18:38 Dose: 100 mls/hr Documented By: ANNIE Magnesium Sulfate/Dextrose (Magnesium Sulfate / D5w) 1 gm in 100 mls @ 200 mls/hr IV Q30M RASHEL Stop: 02/24/23 18:00 Last Infusion: 02/24/23 18:37 Dose: 0 mls/hr Documented By: NRVitaliy Admin: 02/24/23 18:02 Dose: 200 mls/hr Documented By: Infusion: 02/24/23 17:48 Dose: 200 mls/hr Documented By: NRVitaliy Admin: 02/24/23 17:18 Dose: 200 mls/hr Documented By: ANNIE Lidocaine HCl (Xylocaine 1%/Sod Bicarb 20 Ml Vial) 20 ml INFIL NOW ONE Stop: 02/24/23 18:34 Last Admin: 02/24/23 19:06 Dose: 20 ml Documented By: PB Potassium Chloride (Potassium Chloride Crtab 20 Meq Tabcr) 40 meq PO NOW STA Stop: 02/24/23 17:01 Last Admin: 02/24/23 17:17 Dose: 40 meq Documented By: NRB Imaging Data Radiologist's Impression: Head CT 02/24/23 15:33 CT OF THE HEAD WITHOUT CONTRAST CLINICAL HISTORY: hallucinations COMPARISON STUDY: Head CT December 10, 2021. CT DOSE: 547.75 mGy.cm TECHNIQUE: Helical axial images of the head were obtained without IV contrast. Automated exposure control was utilized for the study. A dose lowering technique was utilized adhering to the principles of ALARA. FINDINGS: No acute intracranial hemorrhage, midline shift or mass effect is present. The ventricular system is unremarkable. The basal cisterns are patent. No extra-axial collections are present. There are no findings to suggest acute dural sinus thrombosis or acute territorial infarct. No significant calvarial abnormalities are present. Visualized portions of the sinuses and mastoid air cells are clear. IMPRESSION: No acute intracranial findings. ACT 112: Negative or not required by law. Electronically signed by: Bin Whiteside M.D. 02/24/2023 4:32 PM Discharge Plan Visit Data Chief Complaint: Altered Mental Status Stated Complaint: HALLUCINATIONS, FEVER ED Provider: Jh Mccartney Discharge Problem: Hallucinations, Hypokalemia, Hypomagnesemia, Alcohol withdrawal Patient Disposition: Admitted As Inpatient Discharge Instructions Interventions: ED Discharge Assessment Last Done: 02/24/23 20:59
[2023-02-24] MEDS ORDERED: SODIUM CHLORIDE 0.9% 1000ML 1,000 ML IV ONE (16:03)
[2023-02-24 16:31] LABS: Basophils # (auto) 0.02 K/uL (0-0.2); Basophils % (auto) 0.3 %; Eosinophils # (auto) 0.01 K/uL (0-0.50); Eosinophils % (auto) 0.1 %; Hematocrit (blood only) 33.8 % (42.0-52.0); Hemoglobin 12.2 g/dl (14.0-18.0); Immature Granulocytes # (auto) 0.02 K/uL (0.01-0.20); Immature Granulocytes % (auto) 0.3 %; Lymphocytes # (auto) 1.04 K/uL (1.2-3.4); Lymphocytes % (auto) 14.8 %; Mean Corpuscular Hemoglobin 32.2 pg (25.0-34.0); Mean Corpuscular Hgb Conc 36.1 g/dL (32.0-36.0); Mean Corpuscular Volume 89.2 fL (80.0-100.0); Monocytes # (auto) 0.62 K/uL (0.11-0.59); Monocytes % (auto) 8.8 %; Neutrophils # (auto) 5.33 K/uL (1.40-6.50); Neutrophils % (auto) 75.7 %; Platelet Count 156 K/uL (130-400); RDW Coefficient of Variation 11.9 % (11.5-14.5); RDW Standard Deviation 38.4 fL (36.4-46.3); Red Blood Count 3.79 M/uL (4.70-6.10); White Blood Count 7.04 K/ul (4.8-10.8)
--- NOTE | 2023-02-24 16:34 | CT Scan Report ---
CT OF THE HEAD WITHOUT CONTRAST CLINICAL HISTORY: hallucinations COMPARISON STUDY: Head CT December 10, 2021. CT DOSE: 547.75 mGy.cm TECHNIQUE: Helical axial images of the head were obtained without IV contrast. Automated exposure con trol was utilized for the study. A dose lowering technique was utilized adhering to the principles o f ALARA. FINDINGS: No acute intracranial hemorrhage, midline shift or mass effect is present. The ventricular system is unremarkable. The basal cisterns are patent. No extra-axial collections are present. There are no findings to suggest acute dural sinus thrombosis or acute territorial infarct. No significant calvarial abnormalities are present. Visualized portions of the sinuses and mastoid air cells are compa ar. IMPRESSION: No acute intracranial findings. ACT 112: Negative or not required by law. Electronically signed by: Bin Whiteside M.D. 02/24/2023 4:32 PM
[2023-02-24 16:54] LABS: Albumin Globulin Ratio 1.4 (0.9-2); Albumin Level 4.2 gm/dl (3.4-5.0); BUN Creatinine Ratio 2.7 (10-20); Bilirubin,Total 0.7 mg/dl (0.2-1.0); Calcium 9.4 mg/dl (8.6-10.3); Creatinine Clr Calc Pharmacy 130.8 ml/min; Est GFR (African American) 142.5 ml/min; Est GFR (Non-African American) 122.9 ml/min; Globulin 2.9 gm/dl (2.5-4.0); Magnesium 1.4 mg/dl (1.7-2.4); Total Protein 7.1 gm/dl (6.0-8.3)
[2023-02-24 16:58] LABS: Troponin I High Sensitivity 4.5 pg/ml (0-20)
[2023-02-24] MEDS ORDERED: POTASSIUM CHLORIDE / WTR 10 MEQ/100 ML PLCT IV ONE (17:00)
[2023-02-24] MEDS ORDERED: POTASSIUM CHLORIDE CRTAB 20 MEQ TABCR PO STA (17:00)
[2023-02-24] MEDS: MAGNESIUM SULFATE / D5W 1 GM/100 ML BAG IV SCH ×2 (17:18→18:02)
[2023-02-24 17:53] LABS: Acetaminophen < 3 ug/ml (10-30); Salicylate < 3.0 mg/dl (3.0-30)
[2023-02-24 18:07] LABS: C Reactive Protein 14.18 mg/dl (0-0.5)
[2023-02-24] MEDS ORDERED: XYLOCAINE 1%/SOD BICARB 20 ML VIAL INFIL ONE (18:33)
--- NOTE | 2023-02-24 18:55 | History & Physical Report ---
Date of Service February 24, 2023 Assessment & Plan (1) Encephalitis: Plan: Possible, undergoing evaluation, present on admission With auditory and visual hallucinations, and reported fever 101F at home CTH without evidence of acute pathology, Mri brain ordered Blood cultures sent by ER provider Given possible concern for encephalitis, lumbar puncture was performed, see procedure note CSF testing for encephalitis was sent including cephalitis panel, EBV, Lyme, West Nile, CMV, VDRL, Cryptococcus, fungal and bacterial cultures, and cytology were sent Patient was empirically started on Amp/Rocephin/acyclovir Patient is non-toxic appearing, less suspicious of septic encephalitis however given immunocompromised status will continue to monitor on empiric coverage Neurology consulted, appreciate recommendations (2) Alcohol use disorder: Plan: History of, with last regular use around 4 days ago Alcohol level undetectable on admission No nausea, tremors, some anxiety during history taking and LP, but otherwise euthymic AWSS at risk protocol ordered (3) HIV disease: Plan: Last CD4 count 1038 this month On Dovato, can continue (4) Depression: Plan: Continue bupropion (5) GERD (gastroesophageal reflux disease): Plan: Continue PPI (6) Hypokalemia: Plan: K 3.0, received KRiders/KCl by ER provider Repeat BMP in AM (7) Hypomagnesemia: Plan: Mg 1.4, s/p 22g Magnesium Sulfate IV Repeat with AM labs Plan Dispo:tele, elevate HOB, neuro consult AM, regular diet ok, AWSS monitoring as necessary History of Present Illness Chief Complaint: visual and auditory hallucinations, fever Primary Care Provider: Santhosh Kent, DO 32 yo M Hx HIV, alcohol use disorder, depression presented for two days of intermittent auditory and visual hallucinations and fevers. He was recently admitted for alcohol related pancreatitis, and received Iv Fluids and dilaudid. He left [place] due to concerns about missing work and losing his job. He notes fevers at home up to 101F. No known sick contacts. He notes that he drinks as much as 6 to 8 alcoholic beverages on a typical night after work, does not always drink at home, and in last 2 days has only had 2-4 alcoholic drinks. He denies tremors. He denies neck pain, chest pain, Sob, nausea. He endorses, at times, that he is hearing music or voices even if there is no music playing or people talking. He also endorses that he was looking out his windows last night and was sure there were people outside. In Er patient noted to be anxious, tachycardic. Wbc count normal. Ct head without acute pathology. Hospitalist service consulted for admission for Ams. After my interview with patient, ordered inflammatory markers which were noted to be elevated. Patient denies abdominal pain or GI symptoms. Allergies Allergy/AdvReac Type Severity Reaction Status Date / Time latex Allergy Intermediate Rash Verified 06/07/22 16:37 benzonatate AdvReac Intermediate Hypertensio Verified 06/07/22 16:37 [From Justin Benitez] n Home Medications Medication Instructions Recorded Confirmed Type bupropion HCl 150 mg tablet,12 hr 150 mg PO BID 10/12/20 02/24/23 History sustained-release dolutegravir 50 mg-lamivudine 300 1 tab PO QAM 10/12/20 02/24/23 History mg tablet (Dovato) cetirizine 10 mg tablet (Zyrtec) 10 mg PO DAILY 12/10/21 02/24/23 History potassium chloride 20 mEq 20 meq PO QAM 12/10/21 02/24/23 History tablet,extended release(part/cryst) ondansetron 4 mg disintegrating 4 mg PO Q6H PRN nausea and 04/10/22 02/24/23 Rx tablet vomiting #14 tabs cyanocobalamin (vitamin B-12) 1,000 mcg PO DAILY #30 caps 06/09/22 02/24/23 Rx 1,000 mcg capsule folic acid 400 mcg tablet 400 mcg PO QAM #30 tabs 06/09/22 02/24/23 Rx Vitamin D3 1 cap PO DAILY 02/21/23 02/24/23 History pantoprazole 40 mg tablet,delayed 40 mg PO DAILY 02/21/23 02/24/23 History release (Protonix) Past Med/Surg History Medical History Acute pancreatitis Anxiety GERD (gastroesophageal reflux disease) HIV disease Surgical History S/P cholecystectomy Family History Other No pertinent family history in first degree relatives Social History Smoking Status: Current every day smoker Tobacco Type: Cigarettes Second Hand Exposure: Yes; Do You Dip or Chew Tobacco: No; Hx Alcohol Use: Yes Alcohol type: beer and hard liquor Hx Substance Use: Yes Last Used Substance: Days (ago) Last Used Substance Other:: not medical but smokes for medical reasons last smoked night 02/20 Preferred Language: Kiswahili Communication Ability: Effective 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 Beliefs That Will Affect Care: None marital status: Current Living Situation: Spouse Current Living Situation Comment: Ramiro current occupational status: employed current occupation: Works at [employer] Feels Safe at Home: Yes Assistive Devices: None Review of Systems Review of Systems: All systems reviewed & are unremarkable except as noted in Subjective Physical Exam Constitutional: WD/WN, vitals as above Neck: negative Kernig's sign and no nuchal rigidity Respiratory: normal respiratory effort, lungs clear to auscultation Cardiovascular: RRR, no murmur, no edema Gastrointestinal (Abdomen): normal bowel sounds, soft, nontender, no hepatosplenomegaly Skin: no rashes, warm and dry Neurologic: no meningitic signs, gross vision normal. no sensory of motor deficits. Psychiatric: alert and oriented, anxious tearful affect Results & Data Results & Data Vital Signs (Past 12 Hours) Vital Signs Temp Pulse Resp BP Pulse Ox O2 Del Method 02/24/23 16:35 90 02/24/23 15:09 37.2 C 105 H 18 148/94 H 98 Room Air PG Care Time/CCT Total # of Minutes Spent Total Time Spent with Patient: Total time spent is greater than 50% in coordination of care (as documented) at patient's floor/unit and/or counseling patient: Coding Level of Care Code 54856 INT INP/OBS CARE 3/75MIN Diagnoses Encephalitis G04.90 Alcohol use disorder F10.90 HIV disease B20 Depression F32.A GERD (gastroesophageal reflux disease) K21.9 Hypokalemia E87.6 Hypomagnesemia E83.42
--- NOTE | 2023-02-24 19:43 | Procedure Note ---
Procedure Note Date of Service February 24, 2023 Note PROCEDURE SUMMARY: Procedure was performed with supervision of Dr. Tom Manning. A time-out was performed. My hands were washed immediately prior to the procedure. I wore a surgical cap, mask with protective eyewear, sterile gown and sterile gloves throughout the procedure. The patient was placed in the lateral decubitus position with help from Dr. Manning. The area was cleansed and draped in usual sterile fashion using chlorhexidine. Anesthesia was achieved with 1% lidocaine. At time of anesthesia injection, patient was repositioned due to moving during first anesthesia attempt. Following adequate anesthesia, a 20- gauge 3.5-inch spinal needle was placed in the L4-L5 lumbar interspace. On the 2nd attempt, pink tinged cerebral spinal fluid was obtained, which cleared progressively and become champagne-colored through tap. The opening pressure was not measured. CSF was collected into 4 tubes. These were sent for the usual tests. The spinal needle was withdrawn, and pressure was applied for hemostasis. A sterile band-aid was placed over the puncture site. The patient had no immediate complications and tolerated the procedure well. Estimated blood loss was <1cc. Patient did not experience any numbness, paresthesias during procedure or afterward. Coding CPT Codes Lumbar Puncture - Lumbar Puncture, Diagnostic: 51614 Lumbar Puncture, Diagnostic ([id number]) [facility] [place] (Charges) Lumbar Puncture Lumbar Puncture, Diagnostic: 26243 Lumbar Puncture, Diagnostic
[2023-02-24 20:13] LABS: Total Protein CSF 46.9 mg/dl (15-45)
[2023-02-24] MEDS: AMPICILLIN 2,000 MG in SODIUM CHLOR 0.9% AD-VAN 100 ML IV SCH ×2 (20:23→23:35)
[2023-02-24 20:41] LABS: Appearance CSF Clear; CSF Count Tube # 3
[2023-02-24 20:42] LABS: CSF Xanthrochromic No xanthochromia; Color CSF Colorless; Red Blood Cell CSF Auto 2 /uL (0-)
[2023-02-24 20:43] LABS: White Blood Cell CSF Auto 0 /uL (0-5)
[2023-02-24] MEDS ORDERED: ACETAMINOPHEN 325 MG TAB PO PRN (21:16)
[2023-02-24] MEDS ORDERED: LORazepam 2 MG/1 ML VIAL IV PRN ×3 (21:16→22:33)
[2023-02-24] MEDS ORDERED: ONDANSETRON INJ 2 MG/ML 2 ML VIAL IV PRN (21:16)
[2023-02-24] MEDS ORDERED: ONDANSETRON 4 MG OD TAB PO PRN (21:16)
[2023-02-24] MEDS: cefTRIAXone SODIUM 2,000 MG in DEXTROSE 5% 50 ML IV SCH (21:19)
[2023-02-24] MEDS: ACYCLOVIR SOD IV SCH (21:19)
[2023-02-24] MEDS: DEXTROSE 5% IV SCH (21:19)
[2023-02-24 21:39] LABS: Cryptococcus neoformans/ga PCR Not Detected (NotDetected); Cytomegalovirus PCR Not Detected (NotDetected); Enterovirus PCR Not Detected (NotDetected); Escherichia coli K1 PCR Not Detected (NotDetected); Haemophilius influenzae PCR Not Detected (NotDetected); Herpes Simplex Virus 1 PCR Not Detected (NotDetected); Herpes Simplex Virus 2 PCR Not Detected (NotDetected); Human Herpes Virus 6 PCR Not Detected (NotDetected); Human Parechovirus PCR Not Detected (NotDetected); Listeria monocytogenes PCR Not Detected (NotDetected); Neisseria meningitidis PCR Not Detected (NotDetected); Streptococcus agalactiae PCR Not Detected (NotDetected); Streptococcus pneumoniae PCR Not Detected (NotDetected); Varicella Zoster Virus PCR Not Detected (NotDetected)
[2023-02-24] MEDS: buPROPion SR 150 MG TABCR PO SCH (22:10)
[2023-02-24] MEDS ORDERED: Ativan IV Alcohol Withdrawal--Active Protocol IV PRN (22:33)
[2023-02-24] MEDS: LORazepam 2 MG/1 ML VIAL IV PRN (23:23)
[2023-02-25] MEDS: LORazepam 2 MG/1 ML VIAL IV PRN ×3 (01:34→20:13)
[2023-02-25] MEDS: AMPICILLIN 2,000 MG in SODIUM CHLOR 0.9% AD-VAN 100 ML IV SCH ×3 (04:01→11:57)
[2023-02-25] MEDS: ACYCLOVIR SOD IV SCH ×2 (04:02→13:12)
[2023-02-25] MEDS: DEXTROSE 5% IV SCH ×2 (04:02→13:12)
--- NOTE | 2023-02-25 07:12 | Hospitalist Progress Note ---
Date of Service February 25, 2023 Assessment & Plan (1) Hallucinations: Plan: With auditory and visual hallucinations, and reported fever 101F at home, in patient with HIV history Encephalitis less likely given findings below CTH without evidence of acute pathology, MRI brain ordered, unable to be performed so far Neurology consulted, appreciate recommendations, no other offerings post- encephalitis work up Psychiatry consulted, most suspicious of alcohol withdrawal as source of paranoia/hallucinations at this time as opposed to primary psych disorder given age and presentation (2) Alcohol withdrawal: Plan: History of alcohol use disorder, with last regular use around 5 days ago Alcohol level undetectable on admission No nausea, notable for anxiety, tremor, hallucinations AWSS active protocol onboard High dose thiamine 500mg IV given, continue 100mg PO daily tomorrow Folic acid 1mg PO daily With hallucinations and encephalopathy patient lacks decision making capacity to leave AMA. He also expressed SI earlier this admission. Psych to continue following Marijuana-associated psychosis on differential, [facility] marijuana +, has medical card (3) Encephalitis: Plan: Unlikely,still with some evaluation still pending LP fortunately without evidence of bacterial infection, Cryptococcus PCR negative CSF EBV, Lyme, West Nile, CMV, VDRL pending Patient was empirically started on Amp/Rocephin/acyclovir, these have since been discontinued (4) HIV disease: Plan: Last CD4 count 1038 this month On Dovato, can continue HIV psychosis on differential, however more typical in patients with lower CD4 counts (5) Depression: Plan: Continue bupropion (6) GERD (gastroesophageal reflux disease): Plan: Continue PPI (7) Hypokalemia: Plan: K 3.4; KCl ordered for this evening after Mg supplementation Repeat BMP in AM (8) Hypomagnesemia: Plan: Mg 1.4, Mag Sulfate repletion ordered Repeat with AM labs Plan Dispo: tele for close monitoring in acute withdrawal, Psych following along Admission and Anticipated Discharge Date Admission Date: February 24, 2023 Subjective Overnight with some concern from regarding patient expressing SI. Also concerns from overnight staff of patient's worsening mental status and agitatio n. On my interview today patient is more calm than overnight, reports that he is upset about "all of the dust and cobwebs I can see". Per Psych report, patient was reporting that people were coming to his house and then would hide in his attic, having ideas of reference, thinking that he has "been convicted" and the mob is out to get him. He denies chest, abdominal, or low back pain from LP. He denies SOB. He is tearful in the room. Review of Systems Review of Systems: All systems reviewed & are unremarkable except as noted in Subjective Physical Exam Constitutional: WD/WN, vitals as above Respiratory: normal respiratory effort, lungs clear to auscultation Cardiovascular: RRR, no murmur, no edema Gastrointestinal (Abdomen): normal bowel sounds, soft, nontender, no hepatosplenomegaly Skin: no rashes, warm and dry Neurologic: no meningitic signs, gross vision normal. no sensory of motor deficits Psychiatric: alert and oriented to self and location, anxious tearful affect Results & Data Results & Data Vital Signs (Past 12 Hours) Vital Signs Temp Pulse Pulse Resp BP BP Pulse Ox 02/25/23 04:50 36.7 C 88 16 143/91 H 99 02/25/23 02:58 36.8 C 90 20 134/84 98 02/24/23 23:10 87 02/24/23 21:15 86 02/25/23 01:25 37.2 C 93 H 17 147/94 H 98 02/24/23 23:16 37.1 C 85 20 151/90 H 95 02/24/23 21:42 37.1 C 97 H 17 160/99 H 98 02/24/23 20:00 86 20 144/81 H 99 O2 Del Method 02/25/23 04:50 Room Air 02/25/23 02:58 Room Air 02/24/23 23:10 02/24/23 21:15 02/25/23 01:25 Room Air 02/24/23 23:16 Room Air 02/24/23 21:42 Room Air 02/24/23 20:00 Room Air PG Care Time/CCT Total # of Minutes Spent Total Time Spent with Patient: Total time spent is greater than 50% in coordination of care (as documented) at patient's floor/unit and/or counseling patient: Coding Level of Care Code 34008 SUB INP/OBS CARE 3/50MIN Diagnoses Hallucinations R44.3 Alcohol withdrawal F10.939 Encephalitis G04.90 HIV disease B20 Depression F32.A GERD (gastroesophageal reflux disease) K21.9 Hypokalemia E87.6 Hypomagnesemia E83.42
[2023-02-25 08:00] LABS: Basophils # (auto) 0.03 K/uL (0-0.2); Basophils % (auto) 0.7 %; Eosinophils # (auto) 0.09 K/uL (0-0.50); Hematocrit (blood only) 30.4 % (42.0-52.0); Hemoglobin 10.8 g/dl (14.0-18.0); Lymphocytes # (auto) 1.05 K/uL (1.2-3.4); Mean Corpuscular Hemoglobin 32.8 pg (25.0-34.0); Mean Corpuscular Hgb Conc 35.5 g/dL (32.0-36.0); Mean Corpuscular Volume 92.4 fL (80.0-100.0); Mean Platelet Volume 10.7 fL (9.4-12.4); Monocytes % (auto) 13.1 %; Neutrophils % (auto) 61.2 %; Platelet Count 151 K/uL (130-400); RDW Coefficient of Variation 12.1 % (11.5-14.5); Red Blood Count 3.29 M/uL (4.70-6.10); White Blood Count 4.57 K/ul (4.8-10.8)
[2023-02-25] MEDS: PANTOprazole 40 MG TAB PO SCH (08:10)
[2023-02-25] MEDS: POTASSIUM CHLORIDE CRTAB 20 MEQ TABCR PO SCH (08:11)
[2023-02-25] MEDS: buPROPion SR 150 MG TABCR PO SCH (08:11)
[2023-02-25] MEDS: THIAMINE HCL 100 MG TAB PO SCH (08:11)
[2023-02-25] MEDS: CETIRIZINE HCL 10 MG TABLET PO SCH (08:11)
[2023-02-25] MEDS: CYANOCOBALAMIN (B-12) 500 MCG TABLET PO SCH (08:11)
[2023-02-25] MEDS: cefTRIAXone SODIUM 2,000 MG in DEXTROSE 5% 50 ML IV SCH (08:13)
--- NOTE | 2023-02-25 08:14 | Electrocardiogram Report ---
Test Reason : Blood Pressure : / mmHG Vent. Rate : 086 BPM Atrial Rate : 086 BPM P-R Int : 160 ms QRS Dur : 088 ms QT Int : 370 ms P-R-T Axes : 066 019 044 degrees QTc Int : 442 ms Normal sinus rhythm Incomplete right bundle branch block Normal ECG When compared with ECG of 04-FEB-2022 13:50, No significant change Confirmed by Emeka Hcetor ([id number]) on 02/25/2023 8:14:11 AM Referred By: REFERRED SELF Confirmed By:Emeka Hector
[2023-02-25 08:15] LABS: Calcium 8.5 mg/dl (8.6-10.3); Creatinine Clr Calc Pharmacy 133.8 ml/min; Est GFR (African American) 148.4 ml/min; Potassium 3.4 mmol/L (3.5-5.1)
[2023-02-25] MEDS ORDERED: FOLIC ACID 400 MCG TAB PO SCH (09:00)
--- NOTE | 2023-02-25 10:31 | Neurology Consultation ---
Date of Consultation February 25, 2023 Assessment & Plan (1) Alcohol withdrawal: (2) HIV disease: (3) Acute pancreatitis: Plan 32-year-old male with alcohol use disorder, HIV, very recent elopement from the hospital in the context of treatment for acute pancreatitis, now presenting with both visual and auditory hallucinations, no prior history of psychosis although does have a history of depression for which he has been prescribed bupropion. No evidence of meningoencephalitis. Intact neurological examination. I suspect patient's reported hallucinations are at least in part related to alcohol withdrawal, and occurring in the context of acute pancreatitis. There is no evidence of seizure disorder or dementia. A CT of the head completed yesterday was normal. Follow-up with results of brain MRI when available. An EEG is not necessary at this time. I do not have any further recommendations from a neurologic standpoint at this time. Would recommend treatment for alcohol withdrawal. Consider consultation with psychiatry. History of Present Illness Reason for Consultation: Hallucinations, reported fever, concern for encephalitis Requesting Physician: Chuckie Attending Physician: Elysia Noguera, DO History of Present Illness The patient is a 32-year-old male with a history of alcohol use disorder and HIV who recently eloped from the hospital on February 23 in the context of care for pancreatitis. He presented to the emergency department the following afternoon, on February 24 with a complaint of both auditory and visual hallucinations which she describes as incomprehensible sounds and speech as well as seeing people and things in his environment that he knows are not there. He endorses a history of heavy alcohol consumption including both beer and hard liquor with discontinuation about 4 or 5 days ago. He has been afebrile and modestly hypertensive. A CT of the head completed yesterday was negative for hemorrhage or acute process. I independently reviewed these images and agree with the findings as described by radiology. A CT of the abdomen and pelvis completed previously, on February 21 had revealed findings consistent with acute pancreatitis and hepatic steatosis. Labs reviewed. WBC 4.57, hemoglobin 10.8, hematocrit 3 0.4, platelet count 151, ESR 59, sodium 138, potassium 3.4, BUN 2, creatinine 0.67, glucose 90, calcium 8.5, magnesium 1.4, AST 57, ALT 27, troponin 4.5, CRP 14.18, lipase 434, TSH 3.018. A lumbar puncture was completed yesterday, results reviewed. CSF clear, colorless, no xanthochromia, CSF WBC 0, RBC 2, glucose 57, CSF total protein 46.9, [employer] meningoencephalitis panel unremarkable, ethyl alcohol level less than 10.0, SARS-CoV-2 RNA negative. An electrocardiogram completed yesterday revealed a normal sinus rhythm and incomplete right bundle branch block. The patient is currently sitting up in bed, he is on one-to-one observation, he is not grossly agitated or encephalopathic. He appears somewhat inattentive at times. He does not have any specific or focal neurologic complaint. He denies headache, neck stiffness or pain, weakness, muscle pain, or sensory loss. Allergies Allergy/AdvReac Type Severity Reaction Status Date / Time latex Allergy Intermediate Rash Verified 06/07/22 16:37 benzonatate AdvReac Intermediate Hypertensio Verified 06/07/22 16:37 [From Justin Benitez] n Home Medications Medication Instructions Recorded Confirmed Type bupropion HCl 150 mg tablet,12 hr 150 mg PO BID 10/12/20 02/24/23 History sustained-release dolutegravir 50 mg-lamivudine 300 1 tab PO QAM 10/12/20 02/24/23 History mg tablet (Dovato) cetirizine 10 mg tablet (Zyrtec) 10 mg PO DAILY 12/10/21 02/24/23 History potassium chloride 20 mEq 20 meq PO QAM 12/10/21 02/24/23 History tablet,extended release(part/cryst) ondansetron 4 mg disintegrating 4 mg PO Q6H PRN nausea and 04/10/22 02/24/23 Rx tablet vomiting #14 tabs cyanocobalamin (vitamin B-12) 1,000 mcg PO DAILY #30 caps 06/09/22 02/24/23 Rx 1,000 mcg capsule folic acid 400 mcg tablet 400 mcg PO QAM #30 tabs 06/09/22 02/24/23 Rx Vitamin D3 1 cap PO DAILY 02/21/23 02/24/23 History pantoprazole 40 mg tablet,delayed 40 mg PO DAILY 02/21/23 02/24/23 History release (Protonix) Patient History Medical History Acute pancreatitis Anxiety GERD (gastroesophageal reflux disease) HIV disease Surgical History S/P cholecystectomy Family History Other No pertinent family history in first degree relatives Social History Smoking Status: Current some day smoker Tobacco Type: Cigarettes Second Hand Exposure: Yes; Do You Dip or Chew Tobacco: No; Hx Alcohol Use: Yes Alcohol type: beer and hard liquor Hx Substance Use: Yes Last Used Substance: Hours (ago) Last Used Substance Other:: not medical but smokes for medical reasons last smoked night 02/20 Preferred Language: [place] Communication Ability: Effective 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 Beliefs That Will Affect Care: None marital status: Current Living Situation: Spouse Current Living Situation Comment: [place] current occupational status: employed current occupation: Works at [employer] Feels Safe at Home: Yes Assistive Devices: Glasses Review of Systems Constitutional: no fever and no chills Eyes: no blind spots and no diplopia Ear, Nose, Mouth, Throat: no hearing loss Respiratory: no cough and no dyspnea Cardiovascular: no chest pain and no palpitations Gastrointestinal: no nausea and no vomiting Genitourinary: no dysuria Musculoskeletal: no neck pain and no myalgia Integumentary: no rash and no lesions Neurologic: + behavioral changes; no gait abnormality, no localized weakness, no loss of sensation, no tremor(s), no abnormal movements, no seizure-like activity, no syncope and no headache(s) Psychiatric: as per Subjective / HPI and + hallucinations Hematologic / Lymphatic: no easy bleeding and no easy bruising Exam (Neuro) Constitutional: well developed and well nourished; no acute distress Eyes: normal visual vieira by confrontation, PERRL and EOM intact bilaterally Cardiovascular: Vessels: no carotid bruit Neurologic: Oriented to:: Person, Place and Time Memory: Short Term Intact and Remote Intact Attention: Span Intact and Concentration Intact Speech Fluency: negative Dysarthria or Dysfluency Speech Aphasia: negative Aphasia Fund of Knowledge: Current Events, Past History and Vocabulary Cranial Nerves: Normal II, III, IV, , V, VII, VIII, IX, X, XI and XII Motor Strength: Normal Lower Extremities and Normal Upper Extremities Motor Tone: Normal Lower Extremities and Normal Upper Extremities Rigidity: None Spasticity: None Muscle Bulk/Involuntary Movements: No Involuntary Movements; negative Muscle Atrophy Sensation: Light Touch Intact, Pain/Temperature Intact and Proprioception Intact Coordination: Normal; negative Limited Balance, Dysdiadochokinesia, Finger-Nose Abnormal or Heel-Moran Abnormal Deep Tendon Reflexes: Rt Triceps: 2+, Lt Triceps: 2+, Rt Biceps: 2+, Lt Biceps: 2+, Rt Brachioradialis: 2+, Lt Brachioradialis: 2+, Rt Patellar: 2+, Lt Patellar: 2+, Rt Ankle: 1+ and Lt Ankle: 1+ Special Tests: negative Babinski Present Gait: Normal Station and Gait Results & Data Vital Signs (Past 12 Hours) Vital Signs Temp Pulse Pulse Resp BP Pulse Ox O2 Del Method 02/25/23 07:29 36.4 C L 104 H 16 127/85 95 Room Air 02/25/23 07:17 81 02/25/23 04:50 36.7 C 88 16 143/91 H 99 Room Air 02/25/23 02:58 36.8 C 90 20 134/84 98 Room Air 02/24/23 23:10 87 02/25/23 01:25 37.2 C 93 H 17 147/94 H 98 Room Air 02/24/23 23:16 37.1 C 85 20 151/90 H 95 Room Air Coding Level of Care Code 41965 INT INP/OBS CARE 2/55MIN Diagnoses Alcohol withdrawal F10.939 HIV disease B20 Acute pancreatitis K85.90
[2023-02-25 11:49] LABS: Appearance Urine Clear (Clear); Bilirubin Urine Negative (Negative); Blood Urine Negative (Negative); Color Urine Yellow; Glucose Urine UA Negative (Negative); Ketones Urine 1+ (Negative); Leukocyte Esterase Urine Negative (Negative); Nitrite Urine Negative (Negative); Protein Urine Negative (Negative); Specific Gravity Urine 1.011 (1.000-1.030); Urobilinogen Urine Negative (Negative)
--- NOTE | 2023-02-25 12:00 | Psychiatric Consultation ---
Date of Consultation February 25, 2023 Impression / Recommendations Impression Diagnostically consistent with acute delirium, seems most likely driven by alcohol withdrawal given timing of emergence of new onset hallucinations, paranoia, delusions at about 72hours following last consumption of alcohol and significant use over the last 3.5 months (7-10 shots of hard liquor nightly and 1-2 beers per day). Differential including delirium due to alternative causes versus alternative substance-induced psychosis (UDS pending) versus HIV-induced psychosis (but much less likely given good disease control) versus primary psychiatric disorder (but much less likely given vivid-ness of VH, no recent mood symptoms, abrupt onset, and no current signs of acute marco a and no signs of negative symptoms of schizophrenia). Given his delirium and waxing and waning confusion he does not have decision making capacity to leave AMA. For now agree with management of alcohol withdrawal, thiamine and folic acid and use of ativan for agitation/withdrawal symptoms. Discontinued Wellbutrin as this can lower the seizure threshold and dopaminergic activity can worsen delusions/paranoia and hallucinations. (1) Alcohol withdrawal: (2) Hallucinations: (3) Alcohol use disorder: (4) Encephalitis: Plan -Agree with AWSS, thiamine and folic acid -Recommend use of ativan for acute behavioral emergency: ativan 2mg IM or IV q2h prn for acue agitation (would not exceed 12mg total in 24 hours) -Bupropion discontinued -Doesn't have decision making capacity to leave AMA, security should be called if he attempts to leave -While he is now denying SI, given his waxing and waning delirium recommend continuation of suicide precautions and 1-on-1 for now to ensure mood stabilization -Discussed [id number] with Dr. Noguera Psych History Identifying Data 32 yo man who lives in [place] with his with a history of depression, alcohol-induced pancreatitis, alcohol use disorder, HIV, and GERD admitted medically for altered mental status with hallucinations. Psychiatry consulted for recommendations regarding agitation management/behavioral emergencies. Chief Complaint "No just the music they're playing all through the hospital on the speakers". History of Present Illness Mallory was recently admitted medically for pancreatitis, felt to be due to alcohol use, and left AMA on 02/23/2023. He was re-admitted medically on 02/24/2023 after presenting for auditory and visual hallucinations and distress related to this. He was noted to have periods of significant confusion and has been agitated with care intermittently including unable to tolerate brain MRI imaging and overnight was confused, trying to pull out IV lines and with no memory of events leading to his hospitalization. Yesterday he also texted his reporting SI and was placed on suicide precautions. Today Mallory is oriented but initially slightly confused about the date stating "" and then correcting himself to "february 25" after looking at his cell phone. His is at bedside and he is comfortable with him being present during our conversation. Mallory reports regret about leaving the hospital AMA after admission for pancreatitis but that he felt better and felt a need to get to his afternoon shift at work at the day. However after his work shift he felt more physically ill and started to hear music playing and that evening saw his co- workers "come into the house, had a dance republican and then hid in the attic". The next day he saw them at work and felt very confused about how they could have left his home undetected. He also speaks about concerns that the Mob was controlling the MRI machine and that someone whispered they were experimenting on him and they tried to "scratch my eyes" while he was in the machine. He also references concerns that people in the hospital think he committed a crime or could be involved in some type of serial murders. He denies current auditory hallucinations but then references hearing music playing throughout the hospital, his clarifies that the song he references is from a TV show Lucifer. He also expresses concern about the ED running an undercover operation" testing large samples of body tissue and blood from individuals coming into the ED for substance use. Mallory feels his mood has been stable recently, denies any depression nor anxiety. He denies current SI, is tearful in discussing SI yesterday which he attributes to feeling guilty about being back in the hospital after he left AMA. No history of prior psychosis or bipolar disorder. Had one prior suicide attempt when he was around age 22 and was psychiatrically hospitalized following this. Has been on Wellbutrin 150mg BID for the last few years with good effect prescribed by his PCP. No access to guns. No known family psychiatric history. Has been drinking alcohol 7-10 shots of liquor every night in addition to 1-2 beers for the last 3.5 months. 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 Uses cannabis but no recent changes in amount or type of use. Allergies Allergy/AdvReac Type Severity Reaction Status Date / Time latex Allergy Intermediate Rash Verified 06/07/22 16:37 benzonatate AdvReac Intermediate Hypertensio Verified 06/07/22 16:37 [From Justin Benitez] n Home Medications Medication Instructions Recorded Confirmed Type bupropion HCl 150 mg tablet,12 hr 150 mg PO BID 10/12/20 02/24/23 History sustained-release dolutegravir 50 mg-lamivudine 300 1 tab PO QAM 10/12/20 02/24/23 History mg tablet (Dovato) cetirizine 10 mg tablet (Zyrtec) 10 mg PO DAILY 12/10/21 02/24/23 History potassium chloride 20 mEq 20 meq PO QAM 12/10/21 02/24/23 History tablet,extended release(part/cryst) ondansetron 4 mg disintegrating 4 mg PO Q6H PRN nausea and 04/10/22 02/24/23 Rx tablet vomiting #14 tabs cyanocobalamin (vitamin B-12) 1,000 mcg PO DAILY #30 caps 06/09/22 02/24/23 Rx 1,000 mcg capsule folic acid 400 mcg tablet 400 mcg PO QAM #30 tabs 06/09/22 02/24/23 Rx Vitamin D3 1 cap PO DAILY 02/21/23 02/24/23 History pantoprazole 40 mg tablet,delayed 40 mg PO DAILY 02/21/23 02/24/23 History release (Protonix) Patient History Medical History Acute pancreatitis Anxiety GERD (gastroesophageal reflux disease) HIV disease Surgical History S/P cholecystectomy Family History Other No pertinent family history in first degree relatives Social History Smoking Status: Current some day smoker Tobacco Type: Cigarettes Second Hand Exposure: Yes; Do You Dip or Chew Tobacco: No; Hx Alcohol Use: Yes Alcohol type: beer and hard liquor Hx Substance Use: Yes Last Used Substance: Hours (ago) Last Used Substance Other:: not medical but smokes for medical reasons last smoked night 02/20 Preferred Language: Luxembourger Communication Ability: Effective Checker/Stocker Required: No Beliefs That Will Affect Care: None marital status: Current Living Situation: Spouse Current Living Situation Comment: [place] current occupational status: employed current occupation: Works at [employer] Feels Safe at Home: Yes Assistive Devices: Glasses Physical Exam Psychiatric: Orientation: alert and oriented x 3 Eye Contact: good eye contact Motor Behavior: no abnormal motor movements Speech: normal rate/rhythm/volume of speech Affect: + constricted affect Mood: + anxious mood Thought Process: + circumstantial thought process Thought Content: + paranoid, + delusions and + ideas of reference Suicidal Thoughts: denies suicidal thoughts Homicidal Thoughts: denies homicidal thoughts Hallucinations: + auditory hallucinations and + visual hallucinations Insight: + limited insight Judgment: + limited judgement Vital Signs (Past 24 Hours): Last Vital Signs Temp 36.5 C 02/25/23 10:48 Pulse 82 02/25/23 10:48 Resp 16 02/25/23 10:48 BP 145/93 H 02/25/23 10:48 Pulse Ox 100 02/25/23 10:48 O2 Del Method Room Air 02/25/23 10:48 Review of Systems All systems reviewed & are unremarkable except as noted in HPI & below Results & Data (PSY) Laboratory Results low K+ on admission Diagnostic Findings QTc 442 ms on EKG head CT non-contrast showing no acute abnormalities per radiologist read Medications Administered Cetirizine HCl (Cetirizine Hcl 10 Mg Tablet) 10 mg PO DAILY [facility] Stop: 03/27/23 08:59 Last Admin: 02/25/23 08:11 Dose: 10 mg Documented By: DTT Cyanocobalamin (Cyanocobalamin (B-12) 500 Mcg Tablet) 1,000 mcg PO DAILY [facility] Stop: 03/27/23 08:59 Last Admin: 02/25/23 08:11 Dose: 1,000 mcg Documented By: DTT Folic Acid (Folic Acid 400 Mcg Tab) 400 mcg PO QAM [facility] Stop: 03/27/23 08:59 Last Admin: 02/25/23 08:11 Dose: 400 mcg Documented By: DTT Acyclovir Sodium 650 mg/ (Dextrose) 263 mls @ 250 mls/hr IV Q8H [facility]; Protocol Stop: 03/06/23 20:29 Last Infusion: 02/25/23 05:07 Dose: 0 mls/hr Documented By: Admin: 02/25/23 04:02 Dose: 250 mls/hr Documented By: Infusion: 02/24/23 23:32 Dose: 0 mls/hr Documented By: Admin: 02/24/23 21:19 Dose: 250 mls/hr Documented By: IZZY Ampicillin Sodium 2,000 mg/ (Sodium Chloride) 100 mls @ 200 mls/hr IV Q4H [facility] Stop: 03/06/23 19:59 Last Admin: 02/25/23 11:57 Dose: 200 mls/hr Documented By: Infusion: 02/25/23 08:55 Dose: 0 mls/hr Documented By: Admin: 02/25/23 08:13 Dose: 200 mls/hr Documented By: Infusion: 02/25/23 04:33 Dose: 0 mls/hr Documented By: Admin: 02/25/23 04:01 Dose: 200 mls/hr Documented By: Infusion: 02/25/23 00:06 Dose: 0 mls/hr Documented By: Admin: 02/24/23 23:35 Dose: 200 mls/hr Documented By: Infusion: 02/24/23 20:54 Dose: 0 mls/hr Documented By: Admin: 02/24/23 20:23 Dose: 200 mls/hr Documented By: ORTIZ Ceftriaxone Sodium 2,000 mg/ (Dextrose) 70 mls @ 100 mls/hr IV Q12H [facility]; Protocol Stop: 03/06/23 19:59 Last Infusion: 02/25/23 09:12 Dose: 0 mls/hr Documented By: Admin: 02/25/23 08:13 Dose: 100 mls/hr Documented By: Infusion: 02/24/23 22:42 Dose: 0 mls/hr Documented By: Admin: 02/24/23 21:19 Dose: 100 mls/hr Documented By: IZZY Lorazepam (Lorazepam 2 Mg/1 Ml Vial) 2 mg IV UD PRN; Protocol PRN Reason: EtOH Withdrawal AWSS Score 8,9 Stop: 03/26/23 22:32 Last Admin: 02/25/23 01:34 Dose: 2 mg Documented By: Admin: 02/24/23 23:23 Dose: 2 mg Documented By: IZZY Miscellaneous (Dolutegravir-Lamivudine [Dovato] 50-300 Mg - Order Awaiting Action) 1 each N/A QS [facility] Stop: 03/27/23 00:00 Last Admin: 02/25/23 09:12 Dose: Not Given Documented By: Admin: 02/24/23 23:33 Dose: Not Given Documented By: IZZY Pantoprazole Sodium (Pantoprazole 40 Mg Tab) 40 mg PO DAILY [facility] Stop: 03/27/23 08:59 Last Admin: 02/25/23 08:10 Dose: 40 mg Documented By: KILLIAN Potassium Chloride (Potassium Chloride Crtab 20 Meq Tabcr) 20 meq PO QAM [facility] Stop: 03/27/23 08:59 Last Admin: 02/25/23 08:11 Dose: 20 meq Documented By: KILLIAN Thiamine HCl (Thiamine Hcl 100 Mg Tab) 100 mg PO QAM [facility] Stop: 03/27/23 08:59 Last Admin: 02/25/23 08:11 Dose: 100 mg Documented By: KILLIAN Coding Level of Care Code 03665 IN/OBS CONSULT LVL 5,80M Diagnoses Alcohol withdrawal F10.939 Hallucinations R44.3 Alcohol use disorder F10.90 Encephalitis G04.90 Time Spent (min) 90
[2023-02-25 12:11] LABS: Amphetamines+Metham, Urine Neg (Neg); Barbiturates, Urine Neg (Neg); Benzodiazepine, Urine Neg (Neg); Cocaine, Urine Neg (Neg); MDMA (Ecstacy), Urine Neg (Neg); Methadone, Urine Neg (Neg); Opiate, Urine Neg (Neg); Phencyclidine, Urine Neg (Neg)
[2023-02-25] MEDS: NICOTINE 21 MG/24 HR TDSY TD SCH (14:42)
[2023-02-25] MEDS ORDERED: OLANZapine 10 MG/2.1 ML SDV IM PRN (14:48)
[2023-02-25] MEDS ORDERED: HALOPERIDOL LACTATE 5 MG/ML 1 ML VIAL IM PRN (15:01)
[2023-02-25] MEDS ORDERED: LORazepam 2 MG/1 ML VIAL IV PRN (15:02)
[2023-02-25] MEDS ORDERED: Ativan IV Alcohol Withdrawal--Active Protocol IV PRN (15:02)
[2023-02-25] MEDS ORDERED: THIAMINE HCL 500 MG in SODIUM CHLORIDE 0.9% 50 ML IV ONE (15:30)
[2023-02-25] MEDS: MAGNESIUM SULFATE / D5W 1 GM/100 ML BAG IV SCH ×4 (16:05→22:20)
[2023-02-25] MEDS ORDERED: POTASSIUM CHLORIDE CRTAB 20 MEQ TABCR PO ONE (19:00)
[2023-02-26 06:30] LABS: Basophils # (auto) 0.04 K/uL (0-0.2); Basophils % (auto) 1.1 %; Eosinophils # (auto) 0.12 K/uL (0-0.50); Eosinophils % (auto) 3.2 %; Hematocrit (blood only) 31.2 % (42.0-52.0); Hemoglobin 10.9 g/dl (14.0-18.0); Immature Granulocytes # (auto) 0.01 K/uL (0.01-0.20); Immature Granulocytes % (auto) 0.3 %; Lymphocytes # (auto) 1.08 K/uL (1.2-3.4); Lymphocytes % (auto) 28.9 %; Mean Corpuscular Hemoglobin 32.4 pg (25.0-34.0); Mean Corpuscular Hgb Conc 34.9 g/dL (32.0-36.0); Mean Corpuscular Volume 92.9 fL (80.0-100.0); Mean Platelet Volume 9.9 fL (9.4-12.4); Monocytes # (auto) 0.43 K/uL (0.11-0.59); Monocytes % (auto) 11.5 %; Neutrophils # (auto) 2.06 K/uL (1.40-6.50); Platelet Count 161 K/uL (130-400); RDW Coefficient of Variation 12.3 % (11.5-14.5); RDW Standard Deviation 42.2 fL (36.4-46.3); Red Blood Count 3.36 M/uL (4.70-6.10); White Blood Count 3.74 K/ul (4.8-10.8)
[2023-02-26 06:52] LABS: Anion Gap 5 (3-11); BUN Creatinine Ratio 4.8 (10-20); Blood Urea Nitrogen 3 mg/dl (6-23); Calcium 8.2 mg/dl (8.6-10.3); Carbon Dioxide 29 mmol/L (21-32); Chloride 106 mmol/L (98-107); Creatinine Clr Calc Pharmacy 156.7 ml/min; Est GFR (African American) > 150.0 ml/min; Est GFR (Non-African American) 131.3 ml/min; Glucose 86 mg/dl (70-99(Fasting)); Magnesium 2.3 mg/dl (1.7-2.4); Potassium 3.7 mmol/L (3.5-5.1); Sodium 140 mmol/L (136-145)
[2023-02-26] MEDS: CYANOCOBALAMIN (B-12) 500 MCG TABLET PO SCH (07:38)
[2023-02-26] MEDS: FOLIC ACID 1 MG TAB PO SCH (07:38)
[2023-02-26] MEDS: THIAMINE HCL 100 MG TAB PO SCH (07:39)
[2023-02-26] MEDS: POTASSIUM CHLORIDE CRTAB 20 MEQ TABCR PO SCH (07:39)
[2023-02-26] MEDS: NICOTINE 21 MG/24 HR TDSY TD SCH (07:40)
[2023-02-26] MEDS: PANTOprazole 40 MG TAB PO SCH (07:40)
[2023-02-26] MEDS: CETIRIZINE HCL 10 MG TABLET PO SCH (09:18)
[2023-02-26 10:53] LABS: Lipase 425 U/L (11-82)
[2023-02-26] MEDS: DOLUTEGRAVIR SODIUM PO SCH (13:48)
[2023-02-26] MEDS: LAMIVUDINE PO SCH (13:48)
--- NOTE | 2023-02-26 13:53 | Psychiatric Progress Note ---
Date of Service February 26, 2023 Impression / Recommendations Impression Diagnostically consistent with acute delirium, seems most likely driven by alcohol withdrawal given timing of emergence of new onset hallucinations, paranoia, delusions at about 72hours following last consumption of alcohol and significant use over the last 3.5 months (7-10 shots of hard liquor nightly and 1-2 beers per day). Differential including delirium due to alternative causes versus alternative substance-induced psychosis (UDS pending) versus HIV-induced psychosis (but much less likely given good disease control) versus primary psychiatric disorder (but much less likely given vivid-ness of VH, no recent mood symptoms, abrupt onset, and no current signs of acute marco a and no signs of negative symptoms of schizophrenia). Given his delirium and waxing and waning confusion he does not have decision ma tito capacity to leave AMA. For now agree with management of alcohol withdrawal, thiamine and folic acid and use of ativan for agitation/withdrawal symptoms. Discontinued Wellbutrin as this can lower the seizure threshold and dopaminergic activity can worsen delusions/paranoia and hallucinations. 02/26/2023: Ongoing waxing and waning of delirium which was worsened overnight. Responded well to haldol for behavioral emergency as ativan seemed to cause increased agitation yesterday. Still seems most consistent with alcohol withdrawal induced psychosis and delirium. (1) Alcohol withdrawal: (2) Hallucinations: (3) Alcohol use disorder: (4) Encephalitis: Plan -Agree with AWSS, thiamine and folic acid -Recommend use of ativan for acute behavioral emergency: ativan 2mg IM or IV q2h prn for acute agitation (would not exceed 12mg total in 24 hours). If not effective can utilize haldol 5mg IM QID prn (Do not exceed 20mg in 24 hours) and follow QTc closely if IM doses required to ensure QTc remains <500ms. -Bupropion discontinued -Doesn't have decision making capacity to leave AMA, security should be called if he attempts to leave given ongoing waxing and waning delirium -Now denying SI so no longer requires suicide precautions nor 1-on-1 for suicide but 1-on-1 prn recommended at discretion of hospitalist given potential for in creased confusion/agitation/potential elopement attempts should delirium worsen again -MRI brain when he is able to tolerate this (likely could if remains calm and well oriented this afternoon) Interval History Identifying Information 32 yo man who lives in [place] with his with a history of depression, alcohol-induced pancreatitis, alcohol use disorder, HIV, and GERD admitted medically for altered mental status with hallucinations. Psychiatry consulted for recommendations regarding agitation management/behavioral emergencies. Chief Complaint "Much better today". Subjective Subjective Patient was seen & assessed and interval progress reviewed. Last evening became more confused with agitation and attempted to leave. Aggressive toward 1-on-1. Required dose of IM haldol in addition to ativan. Required soft restraints overnight but since this morning has been calm and oriented. On assessment this afternoon reports feeling "much better" and fully oriented. Cannot recall events of overnight. Denies hallucinations today, still unsure if when he came in he was targeted in the ED for "their narcotics division" and if MRI brain at the time was to determine if he was "involved with the Mob". Was able to reality-test around this and agrees that likely beliefs were part of delirium. Motivational interviewing regarding alcohol use. Had extended period of sobriety in the past which he credits to being away from any environment cues. Isn't interested in residential treatment but possibly outpatient substance use resources such as dual diagnosis therapy. Reports his also drinks alcohol daily, but thinks he would be supportive in stopping his use and removing from the home. Denies SI. Physical Exam Psychiatric Orientation: alert and oriented x 3 Eye Contact: good eye contact Motor Behavior: no abnormal motor movements Speech: normal rate/rhythm/volume of speech Affect: + constricted affect (but with a small smile ) Mood: no depressed mood and no anxious mood Thought Process: clear/coherent thought process Thought Content: + paranoid and + delusions Suicidal Thoughts: denies suicidal thoughts Homicidal Thoughts: denies homicidal thoughts Hallucinations: no auditory hallucinations (but overnight responding) and no visual hallucinations Insight: + limited insight Judgment: + limited judgement Vital Signs (Past 24 Hours) Last Vital Signs Temp 36.7 C 02/26/23 11:07 Pulse 87 02/26/23 11:07 Resp 16 02/26/23 11:07 BP 149/88 H 02/26/23 11:07 Pulse Ox 98 02/26/23 11:07 O2 Del Method Room Air 02/26/23 11:07 Results & Data ([facility]) Laboratory Results Laboratory Results - last 24 hr 02/26/23 02/26/23 06:02 06:02 WBC 3.74 L RBC 3.36 L Hgb 10.9 L Hct 31.2 L MCV 92.9 MCH 32.4 MCHC 34.9 RDW Std Deviation 42.2 RDW Coeff of Dio 12.3 Plt Count 161 MPV 9.9 Immature Gran % (Auto) 0.3 Neut % (Auto) 55.0 Lymph % (Auto) 28.9 [place] % (Auto) 11.5 Eos % (Auto) 3.2 Baso % (Auto) 1.1 Neut # (Auto) 2.06 Lymph # (Auto) 1.08 L [place] # (Auto) 0.43 Eos # (Auto) 0.12 Baso # (Auto) 0.04 Immature Gran # (Auto) 0.01 Sodium 140 Potassium 3.7 Chloride 106 Carbon Dioxide 29 Anion Gap 5 BUN 3 L Creatinine 0.63 Est Cr Clr Drug Dosing 156.7 Est GFR ( Amer) > 150.0 Est GFR (Non-Af Amer) 131.3 BUN/Creatinine Ratio 4.8 L Glucose 86 Calcium 8.2 L Magnesium 2.3 Lipase 425 H Current Inpatient Medications Current Inpatient Medications: Current Inpatient Medications Acetaminophen (Acetaminophen 325 Mg Tab) 650 mg PO Q4H PRN PRN Reason: Pain or Fever Stop: 03/26/23 21:15 Cetirizine HCl (Cetirizine Hcl 10 Mg Tablet) 10 mg PO DAILY [facility] Stop: 03/27/23 08:59 Last Admin: 02/26/23 09:18 Dose: 10 mg Cyanocobalamin (Cyanocobalamin (B-12) 500 Mcg Tablet) 1,000 mcg PO DAILY [facility] Stop: 03/27/23 08:59 Last Admin: 02/26/23 07:38 Dose: 1,000 mcg Dolutegravir/Lamivudine (Dolutegravir Sodium/Lamivudine 50-300mg Tab) 1 each PO QAM [facility] Stop: 03/28/23 12:59 Last Admin: 02/26/23 13:48 Dose: 1 each Folic Acid (Folic Acid 1 Mg Tab) 1 mg PO QAM [facility] Stop: 03/28/23 08:59 Last Admin: 02/26/23 07:38 Dose: 1 mg Haloperidol Lactate (Haloperidol Lactate 5 Mg/Ml 1 Ml Vial) 5 mg IM Q6H PRN PRN Reason: severe agitation, risk to self Stop: 03/27/23 15:00 Last Admin: 02/25/23 16:34 Dose: 5 mg Lorazepam (Lorazepam 2 Mg/1 Ml Vial) 2 mg IV UD PRN; Protocol PRN Reason: EtOH Withdrawal AWSS Score 8,9 Stop: 03/26/23 22:32 Last Admin: 02/25/23 20:13 Dose: 2 mg Lorazepam (Lorazepam 2 Mg/1 Ml Vial) 1 mg IV UD PRN; Protocol PRN Reason: EtOH Withdrawal AWSS Score 6,7 Stop: 03/26/23 22:32 Lorazepam (Lorazepam 2 Mg/1 Ml Vial) 3 mg IV ONCE PRN; Protocol PRN Reason: EtOH Withdrawal AWSS Score 10+ Miscellaneous (Remove Nicoderm Patch) 1 each N/A DAILY@0859 [facility] Stop: 03/28/23 08:58 Last Admin: 02/26/23 07:41 Dose: 1 each Nicotine (Nicotine 21 Mg/24 Hr Tdsy) [facility] Stop: 03/27/23 13:59 Last Admin: 02/26/23 07:40 Dose: 21 mg Ondansetron HCl (Ondansetron 4 Mg Od Tab) 4 mg PO Q6H PRN PRN Reason: nausea and vomiting Stop: 03/26/23 21:15 Ondansetron HCl (Ondansetron Inj 2 Mg/Ml 2 Ml Vial) 4 mg IV Q6H PRN PRN Reason: Nausea Stop: 03/26/23 21:15 Pantoprazole Sodium (Pantoprazole 40 Mg Tab) 40 mg PO DAILY [facility] Stop: 03/27/23 08:59 Last Admin: 02/26/23 07:40 Dose: 40 mg Potassium Chloride (Potassium Chloride Crtab 20 Meq Tabcr) 20 meq PO QAM [facility] Stop: 03/27/23 08:59 Last Admin: 02/26/23 07:39 Dose: 20 meq Thiamine HCl (Thiamine Hcl 100 Mg Tab) 100 mg PO QAM [facility] Stop: 03/27/23 08:59 Last Admin: 02/26/23 07:39 Dose: 100 mg
[2023-02-26] MEDS ORDERED: LORazepam 1 MG TAB PO STA (14:14)
--- NOTE | 2023-02-26 15:23 | Hospitalist Progress Note ---
Date of Service February 26, 2023 Assessment & Plan (1) Hallucinations: Plan: Now resolved. Psychiatry consultation and recommendations appreciated. His symptoms appear to be due to alcohol withdrawal. Neurology consultation appreciated. Brain MRI scan is pending with auditory and visual hallucinations, and reported fever 101F at home, in patient with HIV history Encephalitis less likely given findings below CTH without evidence of acute pathology, MRI brain ordered, unable to be performed so far Neurology consulted, appreciate recommendations, no other offerings post- encephalitis work up Psychiatry consulted, most suspicious of alcohol withdrawal as source of paranoia/hallucinations at this time as opposed to primary psych disorder given age and presentation (2) Alcohol withdrawal: Plan: Supportive care. Visual hallucinations have resolved. Alcohol level undetectable on admission. Continue KAVON S protocol, thiamine, folic acid. (3) Encephalitis: Plan: Ruled out. LP fortunately without evidence of bacterial infection, Cryptococcus PCR negative. CSF EBV, Lyme, West Nile, CMV, VDRL pending. Patient was empirically started on Amp/Rocephin/acyclovir, these have since been discontinued (4) HIV disease: Plan: Last CD4 count 1038 this month. Currently on Dovato. (5) Depression: Plan: Stable. Continue bupropion (6) GERD (gastroesophageal reflux disease): Plan: Stable. Continue PPI (7) Hypokalemia: Plan: Corrected. Serial labs (8) Hypomagnesemia: Plan: Corrected. Serial labs Plan Hopeful discharge to home tomorrow, February 27 Admission and Anticipated Discharge Date Admission Date: February 24, 2023 Subjective Alert and pleasant. Psychiatry entry noted. He is agreeable to attempt to the brain MRI scan today. One-on-one observation has been discontinued. Lipase is minimally elevated and stable. He has no acute symptoms of pancreatitis. Psychiatry entry noted. His current symptoms are probably all due to alcohol withdrawal. Hopefully he can go home tomorrow, February 27 Review of Systems Review of Systems: Constitutional-no fever or chills ENT-no blurred vision, no double vision, no epistaxis, no sore throat Respiratory-no cough, no wheezing, no shortness of breath Cardiac-no palpitations, no chest pain, no syncope GI-no nausea, vomiting, diarrhea, melena, hematochezia -no urinary retention, no urinary incontinence, no dysuria, no hematuria Musculoskeletal-no joint pain, no muscle tenderness Skin-no bruising, no rashes, no pruritus Neuro-no isolated weakness, no paresthesia, no weakness Psych-no depression, no anxiety Physical Exam Physical Exam: General-alert and oriented x3, no fevers, no chills HEENT-head atraumatic and normocephalic, pupils equal and reactive to light, extraocular muscles intact Neck-no lymphadenopathy or thyromegaly, trachea midline Chest-clear to auscultation percussion. No rales wheezing or rhonchi Cardiac-regular rate and rhythm, normal S1 and S2 Abdomen-normal bowel sounds, nontender, no hepatosplenomegaly Extremities-no cyanosis, clubbing, or edema Neuro-cranial nerves II through XII intact, motor and sensory function within normal limits, strength symmetrical , no focal deficits Psych-normal affect, normal mood. Alert and oriented x3 Results & Data Results & Data Vital Signs (Past 12 Hours) Vital Signs Temp Pulse Pulse Resp BP Pulse Ox O2 Del Method 02/26/23 11:07 36.7 C 87 16 149/88 H 98 Room Air 02/26/23 07:15 71 02/26/23 07:25 36.5 C 88 16 142/91 H 98 Room Air Laboratory Results 02/26/23 06:02 02/26/23 06:02 PG Care Time/CCT Total # of Minutes Spent Total Time Spent with Patient: Total time spent is greater than 50% in coordination of care (as documented) at patient's floor/unit and/or counseling patient: Coding Level of Care Code 54800 SUB INP/OBS CARE 3/50MIN Diagnoses Hallucinations R44.3 Alcohol withdrawal F10.939 Encephalitis G04.90 HIV disease B20 Depression F32.A GERD (gastroesophageal reflux disease) K21.9 Hypokalemia E87.6 Hypomagnesemia E83.42
[2023-02-26] MEDS ORDERED: MELATONIN 3 MG TAB PO PRN (19:50)
[2023-02-26] MEDS ORDERED: LORazepam 1 MG TAB ONE (21:03)
--- NOTE | 2023-02-26 22:04 | Magnetic Resonance Report ---
Exam(s): MRI HEAD Without Contrast EXAM: MR Head Without Intravenous Contrast CLINICAL HISTORY: Reason for exam: encephalopathy. TECHNIQUE: Magnetic resonance images of the head/brain without intravenous contrast in multiple planes. COMPARISON: No relevant prior studies available. FINDINGS: No acute territorial infarct. No acute intracranial hemorrhage. No midline shift or mass effect. The ventricles and sulci are commensurate with age. The visualized orbits appear grossly unremarkable. The calvarium is intact. The visualized paranasal sinuses and mastoid air cells are grossly clear. IMPRESSION: No acute territorial infarct. No acute intracranial hemorrhage, midline shift, or mass effect. Electronically signed by: Ady Lopes MD 02/26/23 22:03 PM
[2023-02-27] MEDS ORDERED: LORazepam 0.5 MG TAB PO STA (04:14)
[2023-02-27 06:11] LABS: Basophils # (auto) 0.04 K/uL (0-0.2); Basophils % (auto) 0.8 %; Eosinophils # (auto) 0.16 K/uL (0-0.50); Eosinophils % (auto) 3.2 %; Hematocrit (blood only) 31.2 % (42.0-52.0); Hemoglobin 11.1 g/dl (14.0-18.0); Immature Granulocytes # (auto) 0.01 K/uL (0.01-0.20); Immature Granulocytes % (auto) 0.2 %; Lymphocytes # (auto) 1.53 K/uL (1.2-3.4); Lymphocytes % (auto) 30.3 %; Mean Corpuscular Hemoglobin 32.3 pg (25.0-34.0); Mean Corpuscular Hgb Conc 35.6 g/dL (32.0-36.0); Mean Corpuscular Volume 90.7 fL (80.0-100.0); Mean Platelet Volume 10.1 fL (9.4-12.4); Monocytes # (auto) 0.61 K/uL (0.11-0.59); Monocytes % (auto) 12.1 %; Neutrophils % (auto) 53.4 %; Platelet Count 177 K/uL (130-400); RDW Coefficient of Variation 11.9 % (11.5-14.5); RDW Standard Deviation 39.4 fL (36.4-46.3); Red Blood Count 3.44 M/uL (4.70-6.10); White Blood Count 5.05 K/ul (4.8-10.8)
[2023-02-27 06:13] LABS: Albumin Globulin Ratio 1.4 (0.9-2); Albumin Level 3.3 gm/dl (3.4-5.0); BUN Creatinine Ratio 5.9 (10-20); Bilirubin,Total 0.2 mg/dl (0.2-1.0); Calcium 8.6 mg/dl (8.6-10.3); Creatinine Clr Calc Pharmacy 145.2 ml/min; Est GFR (African American) 147.5 ml/min; Est GFR (Non-African American) 127.3 ml/min; Globulin 2.3 gm/dl (2.5-4.0); Potassium 3.5 mmol/L (3.5-5.1); Total Protein 5.6 gm/dl (6.0-8.3)
[2023-02-27] MEDS: CETIRIZINE HCL 10 MG TABLET PO SCH (08:29)
[2023-02-27] MEDS: PANTOprazole 40 MG TAB PO SCH (08:29)
[2023-02-27] MEDS: FOLIC ACID 1 MG TAB PO SCH (08:30)
[2023-02-27] MEDS: CYANOCOBALAMIN (B-12) 500 MCG TABLET PO SCH (08:30)
[2023-02-27] MEDS: DOLUTEGRAVIR SODIUM PO SCH (08:30)
[2023-02-27] MEDS: NICOTINE 21 MG/24 HR TDSY TD SCH (08:30)
[2023-02-27] MEDS: THIAMINE HCL 100 MG TAB PO SCH (08:30)
[2023-02-27] MEDS: POTASSIUM CHLORIDE CRTAB 20 MEQ TABCR PO SCH (08:30)
[2023-02-27] MEDS: LAMIVUDINE PO SCH (08:30)
--- NOTE | 2023-02-27 11:34 | Psychiatric Progress Note ---
Date of Service February 27, 2023 Impression / Recommendations Impression Diagnostically consistent with acute delirium, seems most likely driven by alcohol withdrawal given timing of emergence of new onset hallucinations, paranoia, delusions at about 72hours following last consumption of alcohol and significant use over the last 3.5 months (7-10 shots of hard liquor nightly and 1-2 beers per day). Differential including delirium due to alternative causes versus alternative substance-induced psychosis (UDS pending) versus HIV-induced psychosis (but much less likely given good disease control) versus primary psychiatric disorder (but much less likely given vivid-ness of VH, no recent mood symptoms, abrupt onset, and no current signs of acute marco a and no signs of negative symptoms of schizophrenia). Given his delirium and waxing and waning confusion he does not have decision ma tito capacity to leave AMA. For now agree with management of alcohol withdrawal, thiamine and folic acid and use of ativan for agitation/withdrawal symptoms. Discontinued Wellbutrin as this can lower the seizure threshold and dopaminergic activity can worsen delusions/paranoia and hallucinations. 02/27/2023: Delirium seems to have resolved. Continues to deny SI, acute risk of self-harm is low given improvement in mood, plan to avoid alcohol use, denial of SI and future-oriented. Motivational interviewing regarding alcohol use, he's interested in local therapy resources and has a free therapist through his HIV/AIDS clinic that he can see until health insurance takes effect. Discussed option for naltrexone in future should he find that avoiding alcohol is difficult or cravings emerge. (1) Alcohol withdrawal: (2) Hallucinations: (3) Alcohol use disorder: (4) Encephalitis: Plan -safe for discharge from psychiatric standpoint once medically stable -Reviewed option for naltrexone in the future, would start at 50mg qd if LFTs are normal -Provided with local substance use disorder IOP/therapy resource Interval History Identifying Information 32 yo man who lives in [place] with his with a history of depression, alcohol-induced pancreatitis, alcohol use disorder, HIV, and GERD admitted medically for altered mental status with hallucinations. Psychiatry consulted for recommendations regarding agitation management/behavioral emergencies. Chief Complaint "I feel like myself again". Subjective Subjective Patient was seen & assessed and interval progress reviewed. No episodes of confusion or agitation overnight. This morning reports upbeat mood, smiling, with at bedside. His also represents significant improvement and that Mallory is acting like himself again. He tolerated the brain MRI without any issues. Denies any hallucinations, no paranoia nor delusions. Physical Exam Psychiatric Orientation: alert and oriented x 3 Eye Contact: good eye contact Motor Behavior: no abnormal motor movements Speech: normal rate/rhythm/volume of speech Affect: euthymic affect Mood: no depressed mood and no anxious mood Thought Process: clear/coherent thought process Thought Content: reality based without delusions; not paranoid and no delusions Suicidal Thoughts: denies suicidal thoughts Homicidal Thoughts: denies homicidal thoughts Hallucinations: no auditory hallucinations and no visual hallucinations Insight: + fair insight Judgment: + fair judgement Vital Signs (Past 24 Hours) Last Vital Signs Temp 36.6 C 02/27/23 07:43 Pulse 75 02/27/23 07:43 Resp 18 02/27/23 07:43 BP 151/96 H 02/27/23 07:43 Pulse Ox 97 02/27/23 07:43 O2 Del Method Room Air 02/27/23 07:43 Results & Data ([facility]) Laboratory Results Laboratory Results - last 24 hr 02/27/23 02/27/23 05:44 05:44 WBC 5.05 RBC 3.44 L Hgb 11.1 L Hct 31.2 L MCV 90.7 MCH 32.3 MCHC 35.6 RDW Std Deviation 39.4 RDW Coeff of Dio 11.9 Plt Count 177 MPV 10.1 Immature Gran % (Auto) 0.2 Neut % (Auto) 53.4 Lymph % (Auto) 30.3 Lipscomb % (Auto) 12.1 Eos % (Auto) 3.2 Baso % (Auto) 0.8 Neut # (Auto) 2.70 Lymph # (Auto) 1.53 Lipscomb # (Auto) 0.61 H Eos # (Auto) 0.16 Baso # (Auto) 0.04 Immature Gran # (Auto) 0.01 Sodium 138 Potassium 3.5 Chloride 105 Carbon Dioxide 27 Anion Gap 6 BUN 4 L Creatinine 0.68 Est Cr Clr Drug Dosing 145.2 Est GFR ( Amer) 147.5 Est GFR (Non-Af Amer) 127.3 BUN/Creatinine Ratio 5.9 L Glucose 108 H Calcium 8.6 Total Bilirubin 0.2 AST 25 ALT 20 Alkaline Phosphatase 54 Total Protein 5.6 L Albumin 3.3 L Globulin 2.3 L Albumin/Globulin Ratio 1.4 Lipase 502 H Current Inpatient Medications Current Inpatient Medications: Current Inpatient Medications Acetaminophen (Acetaminophen 325 Mg Tab) 650 mg PO Q4H PRN PRN Reason: Pain or Fever Stop: 03/26/23 21:15 Cetirizine HCl (Cetirizine Hcl 10 Mg Tablet) 10 mg PO DAILY [facility] Stop: 03/27/23 08:59 Last Admin: 02/27/23 08:29 Dose: 10 mg Cyanocobalamin (Cyanocobalamin (B-12) 500 Mcg Tablet) 1,000 mcg PO DAILY [facility] Stop: 03/27/23 08:59 Last Admin: 02/27/23 08:30 Dose: 1,000 mcg Dolutegravir/Lamivudine (Dolutegravir Sodium/Lamivudine 50-300mg Tab) 1 each PO QAM [facility] Stop: 03/28/23 12:59 Last Admin: 02/27/23 08:30 Dose: 1 each Folic Acid (Folic Acid 1 Mg Tab) 1 mg PO QAM [facility] Stop: 03/28/23 08:59 Last Admin: 02/27/23 08:30 Dose: 1 mg Haloperidol Lactate (Haloperidol Lactate 5 Mg/Ml 1 Ml Vial) 5 mg IM Q6H PRN PRN Reason: severe agitation, risk to self Stop: 03/27/23 15:00 Last Admin: 02/25/23 16:34 Dose: 5 mg Lorazepam (Lorazepam 2 Mg/1 Ml Vial) 2 mg IV UD PRN; Protocol PRN Reason: EtOH Withdrawal AWSS Score 8,9 Stop: 03/26/23 22:32 Last Admin: 02/25/23 20:13 Dose: 2 mg Lorazepam (Lorazepam 2 Mg/1 Ml Vial) 1 mg IV UD PRN; Protocol PRN Reason: EtOH Withdrawal AWSS Score 6,7 Stop: 03/26/23 22:32 Lorazepam (Lorazepam 2 Mg/1 Ml Vial) 3 mg IV ONCE PRN; Protocol PRN Reason: EtOH Withdrawal AWSS Score 10+ Melatonin (Melatonin 3 Mg Tab) 3 mg PO HS PRN PRN Reason: Sleep Stop: 03/28/23 19:49 Last Admin: 02/26/23 22:26 Dose: 3 mg Miscellaneous (Remove Nicoderm Patch) 1 each N/A DAILY@0859 [facility] Stop: 03/28/23 08:58 Last Admin: 02/27/23 08:29 Dose: 1 each Nicotine (Nicotine 21 Mg/24 Hr Tdsy) 21 mg TD QAM [facility] Stop: 03/27/23 13:59 Last Admin: 02/27/23 08:30 Dose: 21 mg Ondansetron HCl (Ondansetron 4 Mg Od Tab) 4 mg PO Q6H PRN PRN Reason: nausea and vomiting Stop: 03/26/23 21:15 Ondansetron HCl (Ondansetron Inj 2 Mg/Ml 2 Ml Vial) 4 mg IV Q6H PRN PRN Reason: Nausea Stop: 03/26/23 21:15 Pantoprazole Sodium (Pantoprazole 40 Mg Tab) 40 mg PO DAILY [facility] Stop: 03/27/23 08:59 Last Admin: 02/27/23 08:29 Dose: 40 mg Potassium Chloride (Potassium Chloride Crtab 20 Meq Tabcr) 20 meq PO QAM [facility] Stop: 03/27/23 08:59 Last Admin: 02/27/23 08:30 Dose: 20 meq Thiamine HCl (Thiamine Hcl 100 Mg Tab) 100 mg PO QAM [facility] Stop: 03/27/23 08:59 Last Admin: 02/27/23 08:30 Dose: 100 mg
--- NOTE | 2023-02-27 13:02 | Discharge Summary ---
Date of Service February 27, 2023 Admission HPI Per Admitting Provider 32 yo M Hx HIV, alcohol use disorder, depression presented for two days of intermittent auditory and visual hallucinations and fevers. He was recently admitted for alcohol related pancreatitis, and received Iv Fluids and dilaudid. He left [facility] due to concerns about missing work and losing his job. He notes fevers at home up to 101F. No known sick contacts. He notes that he drinks as much as 6 to 8 alcoholic beverages on a typical night after work, does not always drink at home, and in last 2 days has only had 2-4 alcoholic drinks. He denies tremors. He denies neck pain, chest pain, Sob, nausea. He endorses, at times, that he is hearing music or voices even if there is no music playing or people talking. He also endorses that he was looking out his windows last night and was sure there were people outside. In Er patient noted to be anxious, tachycardic. Wbc count normal. Ct head without acute pathology. Hospitalist service consulted for admission for Ams. After my interview with patient, ordered inflammatory markers which were noted to be elevated. Patient denies abdominal pain or GI symptoms. Principal Diagnosis Encephalopathy due to alcohol withdrawal Discharge Exam General-alert and oriented x3, no fevers, no chills HEENT-head atraumatic and normocephalic, pupils equal and reactive to light, e xtraocular muscles intact Neck-no lymphadenopathy or thyromegaly, trachea midline Chest-clear to auscultation percussion. No rales wheezing or rhonchi Cardiac-regular rate and rhythm, normal S1 and S2 Abdomen-normal bowel sounds, nontender, no hepatosplenomegaly Extremities-no cyanosis, clubbing, or edema Neuro-cranial nerves II through XII intact, motor and sensory function within normal limits, strength symmetrical , no focal deficits Psych-normal affect, normal mood. Alert and oriented x3 Discharge Data Allergies Allergy/AdvReac Type Severity Reaction Status Date / Time latex Allergy Intermediate Rash Verified 06/07/22 16:37 benzonatate AdvReac Intermediate Hypertensio Verified 06/07/22 16:37 [From Justin Benitez] n Consultations 02/24/23 17:29 ED Decision to Admit Stat 02/24/23 19:58 Consult Neurology Routine 02/25/23 07:08 Consult Psychiatry Routine Ordered Studies 02/24/23 15:33 CT head/brain wo con Stat 02/26/23 14:07 MRI Brain [MR brain wo con] Urgent Hospital Course (1) Hallucinations: Now resolved. Psychiatry consultation and recommendations appreciated. His symptoms appear to be due to alcohol withdrawal. Neurology consultation appreciated. Psychiatry consultation appreciated. Brain MRI scan is negative. (2) Alcohol withdrawal: Supportive care. Visual hallucinations have resolved. Alcohol level undetectable on admission. Treated while hospitalized with AWSS protocol, thiamine, folic acid. (3) Encephalitis: Ruled out. LP fortunately without evidence of bacterial or fungal infection. Patient was empirically started on Amp/Rocephin/acyclovir, these have since been discontinued (4) HIV disease: Last CD4 count 1038 this month. Currently on Dovato. (5) Depression: Stable. Continue bupropion (6) GERD (gastroesophageal reflux disease): Stable. Continue PPI (7) Hypokalemia: Corrected. Serial labs (8) Hypomagnesemia: Corrected. Serial labs Plan He has been seen by psychiatry today, February 27, and has been cleared for discharge to home. Total Time Total Time Spent Total Time Spent (In Minutes): 45 minutes Discharge Plan Discharge Items Patient Disposition: Home - Self-Care Reason For Visit: AMS,FEVER Discharge Diagnosis: Acute alcohol withdrawal with encephalopathy and hallucinations Activity: Resume your previous activity Non-emergency contact: Primary Care Provider Call non-emergency contact if: your symptoms worsen Follow-up/Referrals: Santhosh Kent DO [Primary Care Provider] - Diet: Regular Addtl Attending Provider Instructions: No new medications at this time. You may return to work without restriction this March 02. Primary care provider should consider addition of naltrexone 50 mg daily if alcohol craving recurs Pending Studies at Discharge: No Stand-Alone Forms: My [facility] Element ID, Smoking Cessation Medications and DC Order Prescriptions: Continued cetirizine [Zyrtec] 10 mg Tablet 10 mg PO DAILY potassium chloride 20 mEq tablet,ER particles/crystals 20 meq PO QAM ondansetron 4 mg tablet,disintegrating 4 mg PO Q6H PRN (Reason: nausea and vomiting) Qty: 14 0RF folic acid 400 mcg Tablet 400 mcg PO QAM Qty: 30 0RF cyanocobalamin (vitamin B-12) 1,000 mcg capsule 1,000 mcg PO DAILY Qty: 30 3RF bupropion HCl 150 mg Tablet Sustained-Release 12 Hr 150 mg PO BID Dovato 50-300 mg Tablet 1 tab PO QAM Vitamin D3 1 cap PO DAILY pantoprazole [Protonix] 40 mg tablet,delayed release (DR/EC) 40 mg PO DAILY Discharge Orders: Discharge Order (Routine); Ordered 02/27/23 Ordered By: Red uSh Admission Data Admit Date/Time: 02/24/23 18:35 Attending Provider: Red Suh Admit Provider: Elysia Noguera Primary Care Provider: Santhosh Kent Other Providers: Cassius Hancock ; Elysia Noguera ; Stephenie Arnold ; Mora Chinchilla ; Jonel Olivia Coding Level of Care Code 20178 INP/OBS DISCH >30 MIN Diagnoses Hallucinations R44.3 Alcohol withdrawal F10.939 Encephalitis G04.90 HIV disease B20 Depression F32.A GERD (gastroesophageal reflux disease) K21.9 Hypokalemia E87.6 Hypomagnesemia E83.42
--- NOTE | 2023-02-27 13:09 | Discharge Summary ---
Date of Service February 27, 2023 Admission HPI Per Admitting Provider 32 yo M Hx HIV, alcohol use disorder, depression presented for two days of intermittent auditory and visual hallucinations and fevers. He was recently admitted for alcohol related pancreatitis, and received Iv Fluids and dilaudid. He left [facility] due to concerns about missing work and losing his job. He notes fevers at home up to 101F. No known sick contacts. He notes that he drinks as much as 6 to 8 alcoholic beverages on a typical night after work, does not always drink at home, and in last 2 days has only had 2-4 alcoholic drinks. He denies tremors. He denies neck pain, chest pain, Sob, nausea. He endorses, at times, that he is hearing music or voices even if there is no music playing or people talking. He also endorses that he was looking out his windows last night and was sure there were people outside. In Er patient noted to be anxious, tachycardic. Wbc count normal. Ct head without acute pathology. Hospitalist service consulted for admission for Ams. After my interview with patient, ordered inflammatory markers which were noted to be elevated. Patient denies abdominal pain or GI symptoms. Principal Diagnosis Acute alcohol withdrawal with visual hallucinations and encephalopathy Discharge Data Allergies Allergy/AdvReac Type Severity Reaction Status Date / Time latex Allergy Intermediate Rash Verified 06/07/22 16:37 benzonatate AdvReac Intermediate Hypertensio Verified 06/07/22 16:37 [From Justin Benitez] n Consultations 02/24/23 17:29 ED Decision to Admit Stat 02/24/23 19:58 Consult Neurology Routine 02/25/23 07:08 Consult Psychiatry Routine Ordered Studies 02/24/23 15:33 CT head/brain wo con Stat 02/26/23 14:07 MRI Brain [MR brain wo con] Urgent Total Time Total Time Spent Total Time Spent (In Minutes): 45 minutes Discharge Plan Discharge Items Patient Disposition: Home - Self-Care Reason For Visit: AMS,FEVER Discharge Diagnosis: Acute alcohol withdrawal with encephalopathy and hallucinations Activity: Resume your previous activity Non-emergency contact: Primary Care Provider Call non-emergency contact if: your symptoms worsen Follow-up/Referrals: Santhosh Kent DO [Primary Care Provider] - Diet: Regular Addtl Attending Provider Instructions: No new medications at this time. You may return to work without restriction this March 02. Primary care provider should consider addition of naltrexone 50 mg daily if alcohol craving recurs Pending Studies at Discharge: No Stand-Alone Forms: My [facility], Work/School Release, Smoking Cessation Medications and DC Order Prescriptions: Continued cetirizine [Zyrtec] 10 mg Tablet 10 mg PO DAILY potassium chloride 20 mEq tablet,ER particles/crystals 20 meq PO QAM ondansetron 4 mg tablet,disintegrating 4 mg PO Q6H PRN (Reason: nausea and vomiting) Qty: 14 0RF folic acid 400 mcg Tablet 400 mcg PO QAM Qty: 30 0RF cyanocobalamin (vitamin B-12) 1,000 mcg capsule 1,000 mcg PO DAILY Qty: 30 3RF bupropion HCl 150 mg Tablet Sustained-Release 12 Hr 150 mg PO BID Dovato 50-300 mg Tablet 1 tab PO QAM Vitamin D3 1 cap PO DAILY pantoprazole [Protonix] 40 mg tablet,delayed release (DR/EC) 40 mg PO DAILY Discharge Orders: Discharge Order (Routine); Ordered 02/27/23 Ordered By: Red Suh Admission Data Admit Date/Time: 02/24/23 18:35 Attending Provider: Red Suh Admit Provider: Elysia Noguera Primary Care Provider: Santhosh Kent Other Providers: Cassius Hancock ; Elysia Noguera ; Stephenie Arnold ; Mora Chinchilla ; Jonel Olivia Coding Level of Care Code 31708 INP/OBS DISCH >30 MIN Diagnoses
[2023-02-28 09:32] LABS: Marijuana Quant, GCMS Urine 170 ng/mL (<5)
[2023-03-02 20:47] LABS: Cryptococcal Antigen Not Detected (Not Detected); EBV DNA Quant PCR Not Detected copies/mL; EBV DNA Quant Source CSF; Lyme IgG Band Pattern CSF DNR; Lyme IgG CSF NO BANDS DETECTED; Lyme IgM Band Pattern CSF DNR; Lyme IgM CSF NO BANDS DETECTED; Source CSF
[2023-03-03 18:37] LABS: CSF, LDH 37 U/L (<=25); Lyme DNA PCR CSF or Synovial Not Detected (Not Detected); Lyme DNA Source CSF; VDRL Qualitative CSF Nonreactive (Nonreactive)
== END 2023-02-27 13:23 | disposition home or self-care (01) | DRG 896 ==
LOC: ED 15:06 → SUATTDRO 18:35 → 2E 18:35

== ENCOUNTER 2023-04-03 19:05 | Inpatient (IN) ==
[2023-04-03 19:40] LABS: Basophils # (auto) 0.05 K/uL (0.00-0.20); Basophils % (auto) 0.3 %; Hematocrit (blood only) 43.4 % (42.0-52.0); Hemoglobin 15.6 g/dl (14.0-18.0); Immature Granulocytes # (auto) 0.07 K/uL (0.01-0.20); Immature Granulocytes % (auto) 0.4 %; Lymphocytes # (auto) 1.53 K/uL (1.20-3.40); Lymphocytes % (auto) 8.4 %; Mean Corpuscular Hemoglobin 32.2 pg (25.0-34.0); Mean Corpuscular Hgb Conc 35.9 g/dL (32.0-36.0); Mean Corpuscular Volume 89.7 fL (80.0-100.0); Mean Platelet Volume 9.7 fL (9.4-12.4); Monocytes % (auto) 5.5 %; Neutrophils # (auto) 15.65 K/uL (1.40-6.50); Neutrophils % (auto) 85.4 %; Platelet Count 299 K/uL (130-400); RDW Coefficient of Variation 12.4 % (11.5-14.5); RDW Standard Deviation 40.5 fL (36.4-46.3); Red Blood Count 4.84 M/uL (4.70-6.10)
[2023-04-03 19:53] LABS: BUN Creatinine Ratio 13.6 (10-20); Calcium 9.6 mg/dl (8.6-10.3); Creatinine Clr Calc Pharmacy 101.8 ml/min; Est GFR (African American) 132.7 ml/min; Est GFR (Non-African American) 114.5 ml/min; Potassium 3.6 mmol/L (3.5-5.1)
[2023-04-03 20:02] LABS: Troponin I High Sensitivity 3.9 pg/ml (0-20)
--- NOTE | 2023-04-03 20:10 | XRay Report ---
SINGLE VIEW CHEST CLINICAL HISTORY: Atypical chest pain. FINDINGS: A PA chest radiograph is compared to study dated 02/04/2022. The cardiomediastinal silhouette is unremarkable. The lungs and pleural spaces are clear. No pneumothorax is seen. The bony thorax is grossly intact. IMPRESSION: No active disease in the chest. ACT 112: Negative or not required by law. Electronically signed by: Jose Manuel Mello M.D. 04/03/2023 8:08 PM
[2023-04-03 20:12] LABS: Albumin Globulin Ratio 1.9 (0.9-2); Albumin Level 4.5 gm/dl (3.4-5.0); Bilirubin,Total 0.7 mg/dl (0.2-1.0); Globulin 2.4 gm/dl (2.5-4.0); Total Protein 6.9 gm/dl (6.0-8.3)
[2023-04-03 21:14] LABS: Appearance Urine Clear (Clear); Bacteria Urine Automated Negative (Negative); Blood Urine Negative (Negative); Color Urine Dark Yellow; Glucose Urine UA Negative (Negative); Ketones Urine Trace (Negative); Leukocyte Esterase Urine Negative (Negative); Nitrite Urine Negative (Negative); Protein Urine 1+ (Negative); RBC Urine Automated 0-4 /hpf (0-4); Specific Gravity Urine 1.038 (1.000-1.030); Urobilinogen Urine Negative (Negative); pH Urine 5.5 (4.5-7.5)
[2023-04-03 21:15] LABS: Bilirubin Urine 1+ (Negative)
[2023-04-03] MEDS ORDERED: MoRPHine SULFATE 4 MG/ML 1 ML CARP\\VIAL IV STA ×2 (22:13→23:21)
[2023-04-03] MEDS ORDERED: SODIUM CHLORIDE 0.9% 1,000 ML IV ONE (22:13)
[2023-04-03] MEDS ORDERED: ONDANSETRON INJ 2 MG/ML 2 ML VIAL IV STA (22:13)
[2023-04-03] MEDS ORDERED: PANTOprazole 40 MG in SYRINGE 0 ML IV ONE (22:15)
--- NOTE | 2023-04-03 22:15 | Emergency Department Note ---
History of Present Illness General Chief complaint: Chest Pain Stated complaint: CHEST PAIN Time Seen by Provider: 04/03/23 22:04 History of Present Illness Maximum Pain Intensity: 7 Home Medications Medication Instructions Recorded Confirmed Type bupropion HCl 150 mg tablet,12 hr 150 mg PO BID 10/12/20 04/03/23 History sustained-release dolutegravir 50 mg-lamivudine 300 1 tab PO QAM 10/12/20 04/03/23 History mg tablet (Dovato) cetirizine 10 mg tablet (Zyrtec) 10 mg PO DAILY 12/10/21 04/03/23 History potassium chloride 20 mEq 20 meq PO QAM 12/10/21 04/03/23 History tablet,extended release(part/cryst) ondansetron 4 mg disintegrating 4 mg PO Q6H PRN nausea and 04/10/22 04/03/23 Rx tablet vomiting #14 tabs cyanocobalamin (vitamin B-12) 1,000 mcg PO DAILY #30 caps 06/09/22 04/03/23 Rx 1,000 mcg capsule folic acid 400 mcg tablet 400 mcg PO QAM #30 tabs 06/09/22 04/03/23 Rx pantoprazole 40 mg tablet,delayed 40 mg PO DAILY 02/21/23 04/03/23 History release (Protonix) bacitracin 500 unit/gram topical 1 applic topical DIRECTED 04/03/23 04/03/23 History ointment cefdinir 300 mg capsule 300 mg PO Q12H 04/03/23 04/03/23 History cholecalciferol (vitamin D3) 25 0 mcg PO DAILY 04/03/23 04/03/23 History mcg (1,000 unit) capsule (Vitamin D3) Allergies Allergy/AdvReac Type Severity Reaction Status Date / Time latex Allergy Intermediate Rash Verified 04/03/23 22:36 benzonatate AdvReac Intermediate Hypertensio Verified 04/03/23 22:36 [From Justin eBnitez] n Past Med/Surg History Medical History Acute pancreatitis Anxiety GERD (gastroesophageal reflux disease) HIV disease Surgical History S/P cholecystectomy Family History Other No pertinent family history in first degree relatives Social History Smoking Status: Never smoker Tobacco Type: Cigarettes Second Hand Exposure: Yes; Do You Dip or Chew Tobacco: No; Hx Alcohol Use: Yes Alcohol type: beer and hard liquor Hx Substance Use: Yes Last Used Substance: Hours (ago) Last Used Substance Other:: not medical but smokes for medical reasons last smoked night 02/20 Preferred Language: Kazakh Communication Ability: Effective Java Designer Required: No Beliefs That Will Affect Care: None marital status: Current Living Situation: Spouse Current Living Situation Comment: Ramiro current occupational status: employed current occupation: Works at [employer] Feels Safe at Home: Yes Assistive Devices: None Physical Exam Vital Signs Vital Signs - 24 hr 04/03/23 19:09 04/03/23 20:50 04/03/23 20:51 Temperature 36.7 C Temperature Source Oral Pulse Rate 66 Respiratory Rate 16 Blood Pressure 145/92 H Blood Pressure Mean 109 Pulse Oximetry 100 98 98 Oxygen Delivery Method Room Air Room Air Room Air Oxygen Flow Rate 0 Sepsis Recent Fever Within 48 Hours No Sepsis New/Unexplained Change in Mental Status N/A Sepsis Action Taken by Nursing No Action Required 04/03/23 21:21 04/03/23 21:30 04/03/23 21:30 Temperature Temperature Source Pulse Rate 74 63 Respiratory Rate 18 18 Blood Pressure 164/81 H Blood Pressure Mean 108 Pulse Oximetry Oxygen Delivery Method Oxygen Flow Rate Sepsis Recent Fever Within 48 Hours Sepsis New/Unexplained Change in Mental Status Sepsis Action Taken by Nursing 04/03/23 21:40 04/03/23 21:21 04/03/23 21:50 Temperature Temperature Source Pulse Rate 61 65 60 Respiratory Rate 16 16 Blood Pressure Blood Pressure Mean Pulse Oximetry Oxygen Delivery Method Oxygen Flow Rate Sepsis Recent Fever Within 48 Hours Sepsis New/Unexplained Change in Mental Status Sepsis Action Taken by Nursing 04/03/23 22:00 04/03/23 22:00 04/03/23 22:10 Temperature Temperature Source Pulse Rate 62 61 Respiratory Rate 19 15 Blood Pressure 149/95 H Blood Pressure Mean 113 Pulse Oximetry Oxygen Delivery Method Oxygen Flow Rate Sepsis Recent Fever Within 48 Hours Sepsis New/Unexplained Change in Mental Status Sepsis Action Taken by Nursing GENERAL: Patient is awake alert in no acute distress patient is resting comfortably and showing no signs of anxiety EYES: The conjunctivae are clear. The pupils are round and reactive. EARS, NOSE, MOUTH AND THROAT: The nose is without any evidence of any deformity. Mucous membranes are moist. Tongue is midline. NECK: The neck is nontender and supple. RESPIRATORY: Normal respiratory effort is noted there is no evidence of wheezing rhonchi or rales CARDIOVASCULAR: Regular rate and rhythm noted there no murmurs rubs or gallops normal S1 normal S2. GASTROINTESTINAL: The abdomen is soft. Abdomen is tender in the midepigastrium, no rebound rigidity guarding BACK: No midline tenderness or or step-off noted range of motion in flexion extension as well as rotation no signs of muscle spasm noted MUSCULOSKELETAL/EXTREMITIES: There is no evidence of gross deformity full range of motion is noted in the hips and shoulders. SKIN: There is no obvious evidence of any rash. There are no petechiae, pallor or cyanosis noted. NEUROLOGIC: Patient is awake alert and oriented x3 strength is symmetric Course Reevaluation(s) Reevaluation #1: Patient was started on IV fluids IV morphine Zofran Protonix. Patient will be admitted for pancreatitis patient does not have a surgical abdomen at this time Time: 22:31 Consultations Consultation #1: Case was discussed with Dr. Kaiser for admission Time: 22:31 Administered Medications Sodium Chloride (Nss 1000ml) 1,000 mls @ 999 mls/hr IV .Q1H1M ONE Stop: 04/03/23 23:13 Last Admin: 04/03/23 22:17 Dose: 999 mls/hr Documented By: CRYSTAL Discontinued Medications Morphine Sulfate (Morphine Sulfate 4 Mg/Ml 1 Ml Carp\Vial) 4 mg IV NOW STA Stop: 04/03/23 22:14 Last Admin: 04/03/23 22:18 Dose: 4 mg Documented By: CRYSTAL Ondansetron HCl (Ondansetron Inj 2 Mg/Ml 2 Ml Vial) 4 mg IV NOW STA Stop: 04/03/23 22:14 Last Admin: 04/03/23 22:18 Dose: 4 mg Documented By: CRYSTAL Medical Decision Making Medical Records Attestation: I reviewed the patient's medical records. Home Medications Current Medication List: was personally reviewed by me Laboratory Data Attestation: I reviewed the patient's lab results. Lab work shows an elevated white blood cell count, and elevated lipase 04/03/23 19:15 04/03/23 19:15 Lab Results 04/03/23 04/03/23 04/03/23 Range/Units 19:15 19:15 19:16 WBC 18.30 H (4.8-10.8) K/ul RBC 4.84 (4.70-6.10) M/uL Hgb 15.6 (14.0-18.0) g/dl Hct 43.4 (42.0-52.0) % MCV 89.7 (80.0-100.0) fL MCH 32.2 (25.0-34.0) pg MCHC 35.9 (32.0-36.0) g/dL RDW Std Deviation 40.5 (36.4-46.3) fL RDW Coeff of Dio 12.4 (11.5-14.5) % Plt Count 299 (130-400) K/uL MPV 9.7 (9.4-12.4) fL Immature Gran % (Auto) 0.4 % Neut % (Auto) 85.4 % Lymph % (Auto) 8.4 % [place] % (Auto) 5.5 % Eos % (Auto) 0.0 % Baso % (Auto) 0.3 % Neut # (Auto) 15.65 H (1.40-6.50) K/uL Lymph # (Auto) 1.53 (1.20-3.40) K/uL [place] # (Auto) 1.00 H (0.11-0.59) K/uL Eos # (Auto) 0.00 (0.00-0.50) K/uL Baso # (Auto) 0.05 (0.00-0.20) K/uL Immature Gran # (Auto) 0.07 (0.01-0.20) K/uL Sodium 134 L (136-145) mmol/L Potassium 3.6 (3.5-5.1) mmol/L Chloride 96 L (98-107) mmol/L Carbon Dioxide 25 (21-32) mmol/L Anion Gap 13 H (3-11) BUN 12 (6-23) mg/dl Creatinine 0.88 (0.6-1.4) mg/dl Est Cr Clr Drug Dosing 101.8 ml/min Est GFR ( Amer) 132.7 ml/min Est GFR (Non-Af Amer) 114.5 ml/min BUN/Creatinine Ratio 13.6 (10-20) Glucose 123 H (70-99(Fasting)) mg/dl Calcium 9.6 (8.6-10.3) mg/dl Total Bilirubin 0.7 (0.2-1.0) mg/dl AST 37 (13-39) U/L ALT 42 (7-52) U/L Alkaline Phosphatase 88 (34-104) U/L Troponin I High Sens 3.9 (0-20) pg/ml Total Protein 6.9 (6.0-8.3) gm/dl Albumin 4.5 (3.4-5.0) gm/dl Globulin 2.4 L (2.5-4.0) gm/dl Albumin/Globulin Ratio 1.9 (0.9-2) Lipase 724 H (11-82) U/L Urine Color Dark Yellow Urine Appearance Clear (Clear) Urine pH 5.5 (4.5-7.5) Ur Specific [place] 1.038 H (1.000-1.030) Urine Protein 1+ H (Negative) Urine Glucose (UA) Negative (Negative) Urine Ketones Trace H (Negative) Urine Blood Negative (Negative) Urine Nitrite Negative (Negative) Urine Bilirubin 1+ H (Negative) Urine Urobilinogen Negative (Negative) Ur Leukocyte Esterase Negative (Negative) Urine WBC (Auto) 1-5 (0-5) /hpf Urine RBC (Auto) 0-4 (0-4) /hpf U Hyaline Cast (Auto) 5-10 H (0-5) /lpf U Epithel Cells (Auto) 10-20 H (0-5) /lpf Urine Bacteria (Auto) Negative (Negative) Imaging Data Attestation: I personally reviewed and interpreted this imaging study as follows: My Impression: Chest x-ray interpreted by me negative for infiltrate Radiologist's Impression: Chest X-Ray 04/03/23 19:10 SINGLE VIEW CHEST CLINICAL HISTORY: Atypical chest pain. FINDINGS: A PA chest radiograph is compared to study dated 02/04/2022. The cardiomediastinal silhouette is unremarkable. The lungs and pleural spaces are clear. No pneumothorax is seen. The bony thorax is grossly intact. IMPRESSION: No active disease in the chest. ACT 112: Negative or not required by law. Electronically signed by: Jose Manuel Mello M.D. 04/03/2023 8:08 PM ECG Data Attestation: I personally reviewed and interpreted this ECG as follows: Additional Comments: EKG interpreted by me normal sinus rhythm rate of 64 poor R wave progression the precordium no obvious ST segment elevation or depression Telemetry was ordered by me interpreted as normal sinus rhythm rate of 64 MDM Narrative Medical decision making differential diagnosis includes gastritis, gastroenteritis, pancreatitis, colitis, alcohol withdrawal, acute coronary syndrome, metabolic derangement, dehydration, electrolyte abnormality Plan is to check labs which were started in the triage process, give IV fluids IV Zofran IV pain medicine, admit External medical records were reviewed by me Patient's heart score is a 3 Patient will be admitted for acute pancreatitis Patient is not septic at the time of admission Impression & Plan Pancreatitis, Alcohol use Discharge Plan Visit Data Chief Complaint: Chest Pain Stated Complaint: CHEST PAIN ED Provider: Andrés George Discharge Problem: Pancreatitis, Alcohol use Patient Disposition: Admitted As Inpatient Forms Stand Alone Forms: [facility] Prescriptions Prescriptions: No Action cetirizine [Zyrtec] 10 mg Tablet 10 mg PO DAILY potassium chloride 20 mEq tablet,ER particles/crystals 20 meq PO QAM ondansetron 4 mg tablet,disintegrating 4 mg PO Q6H PRN (Reason: nausea and vomiting) Qty: 14 0RF folic acid 400 mcg Tablet 400 mcg PO QAM Qty: 30 0RF cyanocobalamin (vitamin B-12) 1,000 mcg capsule 1,000 mcg PO DAILY Qty: 30 3RF bupropion HCl 150 mg Tablet Sustained-Release 12 Hr 150 mg PO BID Dovato 50-300 mg Tablet 1 tab PO QAM pantoprazole [Protonix] 40 mg tablet,delayed release (DR/EC) 40 mg PO DAILY bacitracin 500 unit/gram Ointment 1 applic TOPICAL DIRECTED Rx Instructions: APPLY TO AREA ON STOMACH DIRECTED. cefdinir 300 mg capsule 300 mg PO Q12H Rx Instructions: STARTED 03/28/23 FOR 7 DAYS. cholecalciferol (vitamin D3) [Vitamin D3] 25 mcg (1,000 unit) Capsule 0 mcg PO DAILY Rx Instructions: PT UNSURE OF STRENGTH Referrals Referrals: Santhosh Kent DO [Primary Care Provider] -
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
[2023-04-04] MEDS ORDERED: KETOROLAC TROMETHAMINE 15 MG/ML VIAL IV PRN ×2 (00:39→02:02)
[2023-04-04] MEDS ORDERED: ACETAMINOPHEN 1,000 MG/100 ML VIAL IV PRN (00:39)
[2023-04-04] MEDS ORDERED: ONDANSETRON INJ 2 MG/ML 2 ML VIAL IV PRN (02:02)
[2023-04-04] MEDS ORDERED: ONDANSETRON 4 MG OD TAB PO PRN (02:02)
[2023-04-04] MEDS ORDERED: BACITRACIN OINT 14 GM TUBE TOP PRN (02:02)
[2023-04-04] MEDS ORDERED: ACETAMINOPHEN 325 MG TAB PO PRN (02:02)
[2023-04-04] MEDS ORDERED: NSS + 20MEQ KCL 20 MEQ/1,000 ML BAG IV SCH (02:30)
[2023-04-04] MEDS: CEFDINIR 300 MG CAP PO SCH ×3 (02:56→15:50)
[2023-04-04] MEDS ORDERED: KETOROLAC TROMETHAMINE 15 MG/ML VIAL IV ONE (02:57)
[2023-04-04] MEDS ORDERED: LIDOCAINE 5% 1 PATCH TD STA (05:21)
[2023-04-04 07:15] LABS: Basophils # (auto) 0.02 K/uL (0.00-0.20); Basophils % (auto) 0.1 %; Hematocrit (blood only) 37.9 % (42.0-52.0); Hemoglobin 13.6 g/dl (14.0-18.0); Immature Granulocytes # (auto) 0.08 K/uL (0.01-0.20); Immature Granulocytes % (auto) 0.5 %; Lymphocytes # (auto) 1.12 K/uL (1.20-3.40); Lymphocytes % (auto) 6.8 %; Mean Corpuscular Hemoglobin 32.4 pg (25.0-34.0); Mean Corpuscular Hgb Conc 35.9 g/dL (32.0-36.0); Mean Corpuscular Volume 90.2 fL (80.0-100.0); Mean Platelet Volume 9.8 fL (9.4-12.4); Monocytes # (auto) 1.25 K/uL (0.11-0.59); Monocytes % (auto) 7.6 %; Neutrophils # (auto) 13.89 K/uL (1.40-6.50); Platelet Count 189 K/uL (130-400); RDW Coefficient of Variation 12.7 % (11.5-14.5); RDW Standard Deviation 41.3 fL (36.4-46.3); White Blood Count 16.36 K/ul (4.8-10.8)
[2023-04-04 07:57] LABS: Albumin Globulin Ratio 1.5 (0.9-2); Albumin Level 3.6 gm/dl (3.4-5.0); BUN Creatinine Ratio 13.4 (10-20); Bilirubin,Total 1.3 mg/dl (0.2-1.0); Calcium 8.5 mg/dl (8.6-10.3); Creatinine Clr Calc Pharmacy 109.3 ml/min; Est GFR (African American) 136.6 ml/min; Est GFR (Non-African American) 117.8 ml/min; Globulin 2.4 gm/dl (2.5-4.0); Magnesium 1.5 mg/dl (1.7-2.4); Potassium 3.9 mmol/L (3.5-5.1)
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
[2023-04-04] MEDS ORDERED: LORazepam 2 MG/1 ML VIAL IV PRN (08:12)
[2023-04-04] MEDS: ACETAMINOPHEN 1,000 MG/100 ML VIAL IV SCH ×2 (08:23→15:46)
[2023-04-04] MEDS: HYDROmorphone INJ 1 MG/ML SYRINGE IV PRN ×3 (08:25→20:22)
[2023-04-04] MEDS: LACTATED RINGER'S 1,000 ML IV SCH ×3 (08:30→19:10)
[2023-04-04] MEDS: KETOROLAC TROMETHAMINE 15 MG/ML VIAL IV PRN ×2 (10:01→17:40)
[2023-04-04] MEDS: FOLIC ACID 400 MCG TAB PO SCH (10:05)
[2023-04-04] MEDS: PANTOprazole 40 MG TAB PO SCH (10:05)
[2023-04-04] MEDS: LAMIVUDINE PO SCH (10:06)
[2023-04-04] MEDS: POTASSIUM CHLORIDE CRTAB 20 MEQ TABCR PO SCH (10:06)
[2023-04-04] MEDS: CYANOCOBALAMIN (B-12) 500 MCG TABLET PO SCH (10:06)
[2023-04-04] MEDS: CHOLECALCIFEROL 1,000 UNITS 25 MCG TAB PO SCH (10:06)
[2023-04-04] MEDS: CETIRIZINE HCL 10 MG TABLET PO SCH (10:06)
[2023-04-04] MEDS: DOLUTEGRAVIR SODIUM PO SCH (10:06)
[2023-04-04] MEDS: buPROPion SR 150 MG TABCR PO SCH ×2 (10:06→20:22)
[2023-04-04] MEDS ORDERED: METOCLOPRAMIDE HCL INJ 5 MG/ML 2 ML VIAL IV PRN (11:51)
[2023-04-05] MEDS: LACTATED RINGER'S 1,000 ML IV SCH ×3 (00:10→08:53)
[2023-04-05] MEDS: ACETAMINOPHEN 1,000 MG/100 ML VIAL IV SCH ×3 (00:11→16:30)
[2023-04-05] MEDS: HYDROmorphone INJ 1 MG/ML SYRINGE IV PRN (02:32)
[2023-04-05] MEDS: KETOROLAC TROMETHAMINE 15 MG/ML VIAL IV PRN ×2 (05:07→11:49)
[2023-04-05] MEDS ORDERED: HYDROmorphone INJ 1 MG/ML SYRINGE IV PRN (08:01)
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
[2023-04-05 08:44] LABS: Basophils # (auto) 0.02 K/uL (0.00-0.20); Basophils % (auto) 0.2 %; Eosinophils # (auto) 0.04 K/uL (0.00-0.50); Eosinophils % (auto) 0.4 %; Hematocrit (blood only) 33.8 % (42.0-52.0); Hemoglobin 12.1 g/dl (14.0-18.0); Immature Granulocytes # (auto) 0.03 K/uL (0.01-0.20); Immature Granulocytes % (auto) 0.3 %; Lymphocytes # (auto) 1.33 K/uL (1.20-3.40); Lymphocytes % (auto) 12.9 %; Mean Corpuscular Hemoglobin 32.4 pg (25.0-34.0); Mean Corpuscular Hgb Conc 35.8 g/dL (32.0-36.0); Mean Corpuscular Volume 90.4 fL (80.0-100.0); Mean Platelet Volume 10.3 fL (9.4-12.4); Monocytes # (auto) 0.76 K/uL (0.11-0.59); Monocytes % (auto) 7.3 %; Neutrophils # (auto) 8.17 K/uL (1.40-6.50); Neutrophils % (auto) 78.9 %; Platelet Count 138 K/uL (130-400); RDW Coefficient of Variation 12.5 % (11.5-14.5); RDW Standard Deviation 41.1 fL (36.4-46.3); Red Blood Count 3.74 M/uL (4.70-6.10); White Blood Count 10.35 K/ul (4.8-10.8)
[2023-04-05] MEDS: CYANOCOBALAMIN (B-12) 500 MCG TABLET PO SCH (08:52)
[2023-04-05] MEDS: FOLIC ACID 400 MCG TAB PO SCH (08:52)
[2023-04-05] MEDS: PANTOprazole 40 MG TAB PO SCH (08:52)
[2023-04-05] MEDS: CHOLECALCIFEROL 1,000 UNITS 25 MCG TAB PO SCH (08:52)
[2023-04-05] MEDS: buPROPion SR 150 MG TABCR PO SCH (08:52)
[2023-04-05] MEDS: POTASSIUM CHLORIDE CRTAB 20 MEQ TABCR PO SCH (08:53)
[2023-04-05] MEDS: DOLUTEGRAVIR SODIUM PO SCH (08:53)
[2023-04-05] MEDS: LAMIVUDINE PO SCH (08:53)
[2023-04-05 09:07] LABS: Alanine Aminotransferase 27 U/L (7-52); Albumin Globulin Ratio 1.3 (0.9-2); Albumin Level 3.1 gm/dl (3.4-5.0); Alkaline Phosphatase 87 U/L (34-104); Anion Gap 7 (3-11); Aspartate Aminotransferase 49 U/L (13-39); BUN Creatinine Ratio 6.7 (10-20); Bilirubin,Total 0.8 mg/dl (0.2-1.0); Blood Urea Nitrogen 4 mg/dl (6-23); Calcium 8.4 mg/dl (8.6-10.3); Carbon Dioxide 26 mmol/L (21-32); Chloride 100 mmol/L (98-107); Creatinine Clr Calc Pharmacy 149.4 ml/min; Est GFR (African American) > 150.0 ml/min; Globulin 2.3 gm/dl (2.5-4.0); Glucose 87 mg/dl (70-99(Fasting)); Lipase 572 U/L (11-82); Magnesium 1.5 mg/dl (1.7-2.4); Potassium 3.7 mmol/L (3.5-5.1); Sodium 133 mmol/L (136-145); Total Protein 5.4 gm/dl (6.0-8.3)
[2023-04-05] MEDS: CETIRIZINE HCL 10 MG TABLET PO SCH (09:21)
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
--- NOTE | 2023-04-07 21:43 | Electrocardiogram Report ---
Test Reason : Blood Pressure : / mmHG Vent. Rate : 064 BPM Atrial Rate : 064 BPM P-R Int : 154 ms QRS Dur : 088 ms QT Int : 430 ms P-R-T Axes : 057 039 049 degrees QTc Int : 443 ms Normal sinus rhythm Possible Septal infarct (cited on or before 03-APR-2023) Abnormal ECG When compared with ECG of 24-FEB-2023 15:44, Questionable change in initial forces of Septal leads Confirmed by Stevo Juárez ([id number]) on 04/07/2023 9:42:37 PM Referred By: REFERRED SELF Confirmed By:Stevo Juárez
== END 2023-04-05 18:28 | disposition home or self-care (01) | DRG 439 ==
LOC: ED 19:05 → 3W 19:05 → SUATTDRO 23:21 → 3W 04-04 01:42

== ENCOUNTER 2023-09-18 18:50 | Inpatient (IN) ==
[2023-09-18 20:22] LABS: Basophils # (auto) 0.06 K/uL (0.00-0.20); Basophils % (auto) 0.8 %; Eosinophils # (auto) 0.05 K/uL (0.00-0.50); Eosinophils % (auto) 0.6 %; Hematocrit (blood only) 40.4 % (42.0-52.0); Hemoglobin 14.4 g/dl (14.0-18.0); Immature Granulocytes # (auto) 0.02 K/uL (0.01-0.20); Immature Granulocytes % (auto) 0.3 %; Lymphocytes % (auto) 15.1 %; Mean Corpuscular Hemoglobin 31.6 pg (25.0-34.0); Mean Corpuscular Hgb Conc 35.6 g/dL (32.0-36.0); Mean Corpuscular Volume 88.6 fL (80.0-100.0); Mean Platelet Volume 10.8 fL (9.4-12.4); Monocytes # (auto) 0.51 K/uL (0.11-0.59); Monocytes % (auto) 6.4 %; Neutrophils # (auto) 6.13 K/uL (1.40-6.50); Neutrophils % (auto) 76.8 %; Platelet Count 213 K/uL (130-400); RDW Coefficient of Variation 12.8 % (11.5-14.5); RDW Standard Deviation 41.5 fL (36.4-46.3); Red Blood Count 4.56 M/uL (4.70-6.10); White Blood Count 7.97 K/ul (4.8-10.8)
[2023-09-18 21:00] LABS: Albumin Globulin Ratio 1.8 (0.9-2); Albumin Level 4.6 gm/dl (3.4-5.0); Bilirubin,Total 0.5 mg/dl (0.2-1.0); Calcium 9.4 mg/dl (8.6-10.3); Creatinine Clr Calc Pharmacy 88.8 ml/min; Est GFR (African American) 114.9 ml/min; Est GFR (Non-African American) 99.1 ml/min; Globulin 2.6 gm/dl (2.5-4.0); Potassium 3.8 mmol/L (3.5-5.1); Total Protein 7.2 gm/dl (6.0-8.3)
--- NOTE | 2023-09-18 21:12 | Emergency Department Note ---
Impression & Plan Acute upper abdominal pain, Acute pancreatitis ED Provider Note NAME: CHRISTIAN BLAIR AGE: 33 SEX: M : 1990 ARRIVES VIA: Walk-In INFORMANT: Patient, ED PROVIDER(S): Nolan Coy MD CHIEF COMPLAINT: Abdominal pain, concern for pancreatitis MEDICAL DECISION MAKING: Patient presents for abdominal pain and concern for pancreatitis. IV was established and blood work was obtained. Patient was provided fluids and IV Zofran. The patient was noted to have an elevated lipase of CT abdomen pelvis was performed. Patient CT does show concern for pancreatitis. As the patient's is an acute pancreatitis flare and has been off his naltrexone with associated pain the patient was ordered IV Dilaudid Zofran and fluids. I did speak with the on-call hospital service Dr. Kimball patient was admitted to medicine service. Discussion w/ other healthcare providers: Dr. Kimball inpatient medicine service Prior /Outside records reviewed: I reviewed a discharge summary from April 05, [address] Miller. Patient was admitted at that time due to concern for pancreatitis Differential diagnosis: Appendicitis, testicular torsion, UTI, diverticulitis, obstruction, renal colic, mesenteric adenitis, enteririts, PUD, pancreatitis, biliary pathology, hernia, volvulus, constipation, as well as other pathologies were considered. Diagnostics, as interpreted by me: ECG: None Cardiac monitoring: An order was placed for continuous cardiac monitoring. The monitor shows a rate of 75 with sinus rhythm. Patient was placed on pulse oximetry Medical decision rules: None Imaging studies: I informally interpreted the patient's CT abdomen pelvis which does not show obvious pneumoperitoneum with formal report to follow. HPI: Patient presents due to concern for abdominal pain and concern for pancreatitis. The patient states that he has been drinking over the last week and does have a known history of alcohol abuse. The patient is typically on naltrexone but has been out of that for about 10 days. Patient did just recently receive his prescription within the last day but is yet to take it. Patient did take 10 shots last evening. The patient had increased amount that he was drinking over the last several days. Patient states that his pain initially began in his left upper quadrant with no more prominent in the epigastrium. Patient denies any falls or trauma. Patient has had nausea but no vomiting. Patient does follow with Dr. Kent. Patient does smoke tobacco but denies any drug use. No changes in diet. Patient denies any blood in urine or stool but does state that his "kidneys are hurting." Patient denies any blood in the urine. PAST MEDICAL HISTORY: See Below PAST SURGICAL HISTORY: See Below SOCIAL HISTORY: See Below HOME MEDICATIONS: See Below ALLERGIES: See Below VITALS: See Below PHYSICAL EXAMINATION: GENERAL: NAD, non-toxic. Wearing glasses. EYE EXAM: Normal conjunctiva. PERRL, no anisocoria and EOM's grossly intact w/o pain. OROPHARYNX: Moist mucus membranes, grossly normal dentition. NECK: Trachea midline, no stridor. Supple, no nuchal rigidity, no adenopathy, non-tender. No signs of meningismus. FROM of the neck with good chin to chest and neck extension. LUNGS: Clear to auscultation. Normal chest wall mechanics. HEART: NSR, no MRG. ABDOMEN: Abdomen soft, n epigastric and left upper quadrant pain, no lower abdominal pain, no masses, no rebound or guarding. BACK: No CVA TTP. SKIN: No rashes and no bruising. UPPER EXTREMITIES: Upper extremities are grossly normal. LOWER EXTREMITIES: Grossly normal, no edema. NEURO EXAM: A&O x3, cranial nerves II-XII grossly intact, normal speech, moves all 4 extremities. Past Med/Surg History Medical History Alcohol withdrawal Acute pancreatitis Pancreatitis Anxiety GERD (gastroesophageal reflux disease) HIV disease Surgical History S/P cholecystectomy Family History Other No pertinent family history in first degree relatives Social History Smoking Status: Current every day smoker Tobacco Type: Cigarettes Cigarettes Per Day: 1/2 to full pack; Second Hand Exposure: Yes (spouse); Do You Dip or Chew Tobacco: No; Hx Alcohol Use: Yes Alcohol type: beer and hard liquor Hx Substance Use: Yes Last Used Substance: Days (ago) Last Used Substance Other:: 04/02 Preferred Language: Korean Communication Ability: Effective Passport Application Examiner Required: No Beliefs That Will Affect Care: None marital status: Current Living Situation: Spouse Current Living Situation Comment: , Ramiro current occupational status: employed current occupation: Works at [employer] Safe at Home: Yes Assistive Devices: None Allergies Allergies Allergy/AdvReac Type Severity Reaction Status Date / Time latex Allergy Intermediate Rash Verified 09/18/23 22:26 benzonatate AdvReac Intermediate Hypertensio Verified 09/18/23 22:26 [From Justin Benitez] n Home Meds Home Medications Medication Instructions Recorded Confirmed bupropion HCl 150 mg tablet,12 hr 150 mg PO BID 10/12/20 09/18/23 sustained-release dolutegravir 50 mg-lamivudine 300 1 tab PO QAM 10/12/20 09/18/23 mg tablet (Dovato) cetirizine 10 mg tablet (Zyrtec) 10 mg PO DAILY 12/10/21 09/18/23 potassium chloride 20 mEq 20 meq PO QAM 12/10/21 09/18/23 tablet,extended release(part/cryst) pantoprazole 40 mg tablet,delayed 40 mg PO DAILY 02/21/23 09/18/23 release (Protonix) bacitracin 500 unit/gram topical 1 applic topical DIRECTED PRN 04/03/23 09/18/23 ointment Skin Irritation cholecalciferol (vitamin D3) 25 1,000 mcg PO DAILY 04/03/23 09/18/23 mcg (1,000 unit) capsule (Vitamin D3) naltrexone 50 mg tablet 50 mg PO DAILY 09/18/23 09/18/23 Results & Data (ED) Vital Signs Vital Signs - 24 hr 09/18/23 19:04 09/18/23 22:15 09/18/23 22:50 Temperature 36.7 C Temperature Source Oral Pulse Rate 78 88 Respiratory Rate 18 Respiratory Effort / Characteristics Non-Labored Spontaneous Non-Labored Respiratory Depth Normal Normal Blood Pressure 121/72 Blood Pressure Mean 88 Pulse Oximetry 99 Oxygen Delivery Method Room Air Sepsis Recent Fever Within 48 Hours No Sepsis New/Unexplained Change in Mental Status No Sepsis Action Taken by Nursing No Action Required Home Medications Current Medication List: was personally reviewed by me Laboratory Data Attestation: I reviewed the patient's lab results. 09/18/23 20:05 09/18/23 20:05 Lab Results 09/18/23 Range/Units 20:05 WBC 7.97 (4.8-10.8) K/ul RBC 4.56 L (4.70-6.10) M/uL Hgb 14.4 (14.0-18.0) g/dl Hct 40.4 L (42.0-52.0) % MCV 88.6 (80.0-100.0) fL MCH 31.6 (25.0-34.0) pg MCHC 35.6 (32.0-36.0) g/dL RDW Std Deviation 41.5 (36.4-46.3) fL RDW Coeff of Dio 12.8 (11.5-14.5) % Plt Count 213 (130-400) K/uL MPV 10.8 (9.4-12.4) fL Immature Gran % (Auto) 0.3 % Neut % (Auto) 76.8 % Lymph % (Auto) 15.1 % [place] % (Auto) 6.4 % Eos % (Auto) 0.6 % Baso % (Auto) 0.8 % Neut # (Auto) 6.13 (1.40-6.50) K/uL Lymph # (Auto) 1.20 (1.20-3.40) K/uL [place] # (Auto) 0.51 (0.11-0.59) K/uL Eos # (Auto) 0.05 (0.00-0.50) K/uL Baso # (Auto) 0.06 (0.00-0.20) K/uL Immature Gran # (Auto) 0.02 (0.01-0.20) K/uL Sodium 137 (136-145) mmol/L Potassium 3.8 (3.5-5.1) mmol/L Chloride 101 (98-107) mmol/L Carbon Dioxide 24 (21-32) mmol/L Anion Gap 12 H (3-11) BUN 6 (6-23) mg/dl Creatinine 1.00 (0.6-1.4) mg/dl Est Cr Clr Drug Dosing 88.8 ml/min Est GFR ( Amer) 114.9 ml/min Est GFR (Non-Af Amer) 99.1 ml/min BUN/Creatinine Ratio 6.0 L (10-20) Glucose 98 (70-99(Fasting)) mg/dl Calcium 9.4 (8.6-10.3) mg/dl Total Bilirubin 0.5 (0.2-1.0) mg/dl AST 34 (13-39) U/L ALT 29 (7-52) U/L Alkaline Phosphatase 69 (34-104) U/L Total Protein 7.2 (6.0-8.3) gm/dl Albumin 4.6 (3.4-5.0) gm/dl Globulin 2.6 (2.5-4.0) gm/dl Albumin/Globulin Ratio 1.8 (0.9-2) Lipase 202 H (11-82) U/L Administered Medications Discontinued Medications Hydromorphone HCl (Hydromorphone Inj 0.5 Mg/0.5 Ml Syr) 0.5 mg IV NOW STA Stop: 09/18/23 22:43 Last Admin: 09/18/23 22:50 Dose: 0.5 mg Documented By: YURIY Hydromorphone HCl (Hydromorphone Inj 1 Mg/Ml Syringe) 1 mg IV NOW STA Stop: 09/18/23 23:45 Last Admin: 09/19/23 00:10 Dose: 1 mg Documented By: YURIY Sodium Chloride (Nss) 1,000 mls @ 999 mls/hr IV .Q1H1M ONE Stop: 09/18/23 23:42 Last Infusion: 09/19/23 00:00 Dose: Infused Documented By: Admin: 09/18/23 22:50 Dose: 999 mls/hr Documented By: YURIY Ioversol (Optiray 320 500ml) 84 ml IV ONCE ONE Stop: 09/18/23 21:42 Last Admin: 09/18/23 21:42 Dose: 84 ml Documented By: DANIELLE Ondansetron HCl (Ondansetron Inj 2 Mg/Ml 2 Ml Vial) 4 mg IV NOW STA Stop: 09/18/23 22:43 Last Admin: 09/18/23 22:50 Dose: 4 mg Documented By: YURIY Imaging Data Radiologist's Impression: Abdomen/Pelvis CT 09/18/23 21:09 Exam(s): CT ABDOMEN + PELVIS With Contrast IV Amt: 84 ml optiray 320 EXAM: CT Abdomen and Pelvis With Intravenous Contrast CLINICAL HISTORY: Reason for exam: ab pain, elevated lipase, h/o pancreatitis. TECHNIQUE: Axial computed tomography images of the abdomen and pelvis with intravenous contrast. CTDI is 13.9 mGy and DLP is 588.6 mGy-cm. Automated exposure control was utilized for the study. A dose lowering technique was utilized adhering to the principles of ALARA. CONTRAST: Patient received 84 ml optiray 320 of IV contrast COMPARISON: No relevant prior studies available. FINDINGS: Lung bases: Unremarkable. No mass. No consolidation. ABDOMEN: Liver: Unremarkable. No mass. Gallbladder and bile ducts: Unremarkable. No calcified stones. No ductal dilation. Pancreas: Edema surrounding the pancreas, consistent with pancreatitis. No ductal dilation. Spleen: Unremarkable. No splenomegaly. Adrenals: Unremarkable. No mass. Kidneys and ureters: Unremarkable. No solid mass. No hydronephrosis. Stomach and bowel: Diverticulosis, without acute diverticulitis. No small bowel obstruction. No free intraperitoneal air. PELVIS: Appendix: No findings to suggest acute appendicitis. Bladder: Unremarkable. No mass. Reproductive: Unremarkable as visualized. ABDOMEN and PELVIS: Intraperitoneal space: Unremarkable. No free air. No significant fluid collection. Bones/joints: Degenerative changes of the spine. No acute fracture. No dislocation. Soft tissues: Unremarkable. Vasculature: Atherosclerotic changes of the aorta. No abdominal aortic aneurysm. Lymph nodes: Unremarkable. No enlarged lymph nodes. IMPRESSION: 1. Edema surrounding the pancreas, consistent with pancreatitis. 2. Diverticulosis, without acute diverticulitis. No small bowel obstruction. No free intraperitoneal air. Electronically signed by: Ady Lopes MD 09/18/23 22:38 PM Discharge Plan Visit Data Chief Complaint: Illness Stated Complaint: PACREATITIS FLAIR UP ED Provider: Nolan Coy Discharge Problem: Acute upper abdominal pain, Acute pancreatitis Patient Disposition: Admitted As Inpatient Discharge Instructions Interventions: ED Discharge Assessment Last Done: 09/19/23 00:58 Discharge Problem: Acute pancreatitis Qualifiers: Pancreatitis type: alcohol induced Acute pancreatitis complication: no infection or necrosis Qualified Code(s): K85.20 - Alcohol induced acute pancreatitis without necrosis or infection
[2023-09-18] MEDS: OPTIRAY 320 500ml IV ONE (21:42)
--- NOTE | 2023-09-18 22:39 | CT Scan Report ---
Exam(s): CT ABDOMEN + PELVIS With Contrast IV Amt: 84 ml optiray 320 EXAM: CT Abdomen and Pelvis With Intravenous Contrast CLINICAL HISTORY: Reason for exam: ab pain, elevated lipase, h/o pancreatitis. TECHNIQUE: Axial computed tomography images of the abdomen and pelvis with intravenous contrast. CTDI is 13.9 mGy and DLP is 588.6 mGy-cm. Automated exposure control was utilized for the study. A dose lowering technique was utilized adhering to the principles of ALARA. CONTRAST: Patient received 84 ml optiray 320 of IV contrast COMPARISON: No relevant prior studies available. FINDINGS: Lung bases: Unremarkable. No mass. No consolidation. ABDOMEN: Liver: Unremarkable. No mass. Gallbladder and bile ducts: Unremarkable. No calcified stones. No ductal dilation. Pancreas: Edema surrounding the pancreas, consistent with pancreatitis. No ductal dilation. Spleen: Unremarkable. No splenomegaly. Adrenals: Unremarkable. No mass. Kidneys and ureters: Unremarkable. No solid mass. No hydronephrosis. Stomach and bowel: Diverticulosis, without acute diverticulitis. No small bowel obstruction. No free intraperitoneal air. PELVIS: Appendix: No findings to suggest acute appendicitis. Bladder: Unremarkable. No mass. Reproductive: Unremarkable as visualized. ABDOMEN and PELVIS: Intraperitoneal space: Unremarkable. No free air. No significant fluid collection. Bones/joints: Degenerative changes of the spine. No acute fracture. No dislocation. Soft tissues: Unremarkable. Vasculature: Atherosclerotic changes of the aorta. No abdominal aortic aneurysm. Lymph nodes: Unremarkable. No enlarged lymph nodes. IMPRESSION: 1. Edema surrounding the pancreas, consistent with pancreatitis. 2. Diverticulosis, without acute diverticulitis. No small bowel obstruction. No free intraperitoneal air. Electronically signed by: Ady Lopes MD 09/18/23 22:38 PM
[2023-09-18] MEDS: ONDANSETRON INJ 2 MG/ML 2 ML VIAL IV STA (22:50)
[2023-09-18] MEDS: SODIUM CHLORIDE 0.9% 1,000 ML IV ONE (22:50)
[2023-09-18] MEDS: HYDROmorphone INJ 0.5 MG/0.5 ML SYR IV STA (22:50)
--- NOTE | 2023-09-18 23:19 | History & Physical Report ---
Date of Service September 18, 2023 Assessment & Plan (1) Recurrent acute pancreatitis: Plan: -CBC and CMP unremarkable. -Lipase of 202, previous episode back in March 2023 had a lipase of 868. This is most consistent with acute on chronic pancreatitis. -Abdominal and pelvis CT showed pancreatitis as well as diverticulosis without diverticulitis. -Most likely etiology stems from alcohol use disorder and having 10 shots the night prior. -LR at 250 mL an hour, Dilaudid IV for pain, diet of clear liquids advance as tolerated -Antiemetics as needed ordered. -Patient is on Dovato which may cause pancreatitis, though given that patient just had alcohol intake prior to this episode makes it more likely that alcohol was the main etiology of patient's pancreatitis. (2) Alcohol use disorder: Plan: -Alcohol withdrawal severity scale ordered -Ativan as needed -Will restart on naltrexone 50 mg daily. (3) HIV disease: Plan: -Continue on Dovato, do not believe main culprit of acute pancreatitis. (4) Depression: Plan: -Continue on Wellbutrin. (5) GERD (gastroesophageal reflux disease): Plan: -Continue on Protonix daily. Plan Fluids: LR @ 250 ml/hr Nutrition: Clear liquids advance as tolerated Code status: Full code DVT ppx: SCDs Dispo: med/surg History of Present Illness Chief Complaint: Acute on chronic pancreatitis Primary Care Provider: Santhosh Kent DO Patient is a 33-year-old male with past medical history of alcohol withdrawal, alcohol use disorder, recurrent pancreatitis, depression, HIV disease, vitamin B12 deficiency, and GERD. Patient presented to the emergency room with epigastric pain as well as nausea and vomiting. Patient admits to drinking 10 shots yesterday. Patient has been recently off his naltrexone due to not being able to get it refilled. Patient also states that he has " kidney pain" which is in his left lower back and the last time he had urine output was 3 PM. Patient denies any dysuria, urinary frequency or urgency. Patient denies chest pain, shortness of breath, or recent illness. In the ED: Lipase 202, CBC unremarkable, CMP unremarkable, abdominal pelvis CT showed pancreatitis and diverticulosis without acute diverticulitis. Allergies Allergy/AdvReac Type Severity Reaction Status Date / Time latex Allergy Intermediate Rash Verified 09/18/23 22:26 benzonatate AdvReac Intermediate Hypertensio Verified 09/18/23 22:26 [From Justin Benitez] n Home Medications Medication Instructions Recorded Confirmed Type bupropion HCl 150 mg tablet,12 hr 150 mg PO BID 10/12/20 09/18/23 History sustained-release dolutegravir 50 mg-lamivudine 300 1 tab PO QAM 10/12/20 09/18/23 History mg tablet (Dovato) cetirizine 10 mg tablet (Zyrtec) 10 mg PO DAILY 12/10/21 09/18/23 History potassium chloride 20 mEq 20 meq PO QAM 12/10/21 09/18/23 History tablet,extended release(part/cryst) pantoprazole 40 mg tablet,delayed 40 mg PO DAILY 02/21/23 09/18/23 History release (Protonix) bacitracin 500 unit/gram topical 1 applic topical DIRECTED PRN 04/03/23 09/18/23 History ointment Skin Irritation cholecalciferol (vitamin D3) 25 1,000 mcg PO DAILY 04/03/23 09/18/23 History mcg (1,000 unit) capsule (Vitamin D3) naltrexone 50 mg tablet 50 mg PO DAILY 09/18/23 09/18/23 History Past Med/Surg History Medical History Alcohol withdrawal Acute pancreatitis Pancreatitis Anxiety GERD (gastroesophageal reflux disease) HIV disease Surgical History S/P cholecystectomy Family History Other No pertinent family history in first degree relatives Social History Smoking Status: Current every day smoker Tobacco Type: Cigarettes Cigarettes Per Day: 10-20; Second Hand Exposure: Yes (); Do You Dip or Chew Tobacco: No; Hx Alcohol Use: Yes Alcohol type: hard liquor Hx Substance Use: Yes Last Used Substance: Days (ago) Last Used Substance Other:: 09/17 Preferred Language: [place] Communication Ability: Effective Associate Curator Required: No Beliefs That Will Affect Care: None marital status: Current Living Situation: Spouse Current Living Situation Comment: Ramiro current occupational status: employed current occupation: Works at [email or web address] Other Information That Helps Us Care for You: No Feels Safe at Home: Yes Safety Concerns: Feels Safe At This Time Assistive Devices: Glasses Review of Systems Review of Systems: All systems reviewed & are unremarkable except as noted in Subjective Physical Exam Physical Exam: Constitutional: well-appearing, no acute distress HEENT: NCAT, no conjunctival injection CV: regular rhythm, no murmur appreciated, extremities well-perfused, no LE edema Resp: CTABL, no wheezes/rales/rhonchi appreciated, no increased work of breathing GI: soft, nondistended, BS normoactive, epigastric tenderness MSK: no gross deformities appreciated, no CVA tenderness Skin: warm, dry, no rash appreciated Neuro: alert, oriented, no focal neurologic deficit appreciated Results & Data Results & Data Vital Signs (Past 12 Hours) Vital Signs Temp Pulse Resp BP Pulse Ox O2 Del Method 09/18/23 22:15 88 09/18/23 19:04 36.7 C 78 18 121/72 99 Room Air Supervising Physician Co-Signing Physician Notes Patient seen and examine, chart reviewed, case discussed with Dr. Vázquez and I agree with the assessment and plan as above. In brief, patient is a 33yo male with history of EtOH use, prior pancreatitis and HIV presenting with abdominal pain. Patient was previously on Naltrexone for his EtOH use. He had been sober since March but unfortunately ran out of his Naltrexone 1.5 weeks ago. He has been drinking fairly steadily over the last 1.5 weeks, had 10 shots yesterday. He woke with abdominal pain today similar to prior episodes of pancreatitis. In the ER he is afebrile, HD stable Gen - non-toxic HEENT - MMM, neck supple, No JVD Heart - +S1/S2, regular, no m/r/g Lungs - CTA, no rales/rhonchi/wheezes Abd - +BS, soft, pain in the epigastric region Ext - warm, well perfused Labs and images reviewed Assessment/Plan Management for acute on chronic pancreatitis as above -IVF -Pain control with Dilaudid PRN -Zofran PRN -AWSS - monitor for EtOH withdrawal -Remainder as above
[2023-09-19] MEDS: HYDROmorphone INJ 1 MG/ML SYRINGE IV STA (00:10)
[2023-09-19] MEDS ORDERED: HYDROmorphone INJ 0.5 MG/0.5 ML SYR IV PRN (01:03)
[2023-09-19] MEDS ORDERED: PROMETHAZINE HCL 25 MG in SODIUM CHLORIDE 0.9% 50 ML IV PRN (01:03)
[2023-09-19] MEDS ORDERED: NALOXONE HCL 0.4 MG/1 ML VIAL/CARP IV PRN (01:03)
[2023-09-19] MEDS ORDERED: Ativan PO Alcohol Withdrawal--Active Protocol PO PRN (01:03)
[2023-09-19] MEDS ORDERED: LORazepam 1 MG TAB PO PRN ×3 (01:03)
[2023-09-19] MEDS: HYDROmorphone INJ 1 MG/ML SYRINGE IV PRN (01:54)
[2023-09-19] MEDS: LACTATED RINGER'S 1,000 ML IV SCH (01:54)
[2023-09-19] MEDS: ONDANSETRON INJ 2 MG/ML 2 ML VIAL IV PRN (01:54)
[2023-09-19] MEDS: KETOROLAC TROMETHAMINE 15 MG/ML VIAL IV ONE (02:53)
--- NOTE | 2023-09-19 04:20 | Billing Data ---
Date of Service September 18, 2023 Coding Level of Care Code 40134 INT INP/OBS CARE
[2023-09-19] MEDS: ACETAMINOPHEN 1,000 MG/100 ML VIAL IV STA (05:51)
[2023-09-19 07:45] LABS: Basophils # (auto) 0.03 K/uL (0.00-0.20); Basophils % (auto) 0.4 %; Eosinophils # (auto) 0.05 K/uL (0.00-0.50); Eosinophils % (auto) 0.7 %; Hematocrit (blood only) 36.3 % (42.0-52.0); Hemoglobin 12.3 g/dl (14.0-18.0); Immature Granulocytes # (auto) 0.02 K/uL (0.01-0.20); Immature Granulocytes % (auto) 0.3 %; Lymphocytes # (auto) 1.78 K/uL (1.20-3.40); Lymphocytes % (auto) 23.6 %; Mean Corpuscular Hemoglobin 30.5 pg (25.0-34.0); Mean Corpuscular Hgb Conc 33.9 g/dL (32.0-36.0); Mean Corpuscular Volume 90.1 fL (80.0-100.0); Mean Platelet Volume 10.9 fL (9.4-12.4); Monocytes # (auto) 0.79 K/uL (0.11-0.59); Monocytes % (auto) 10.5 %; Neutrophils # (auto) 4.86 K/uL (1.40-6.50); Neutrophils % (auto) 64.5 %; Platelet Count 164 K/uL (130-400); RDW Coefficient of Variation 12.9 % (11.5-14.5); RDW Standard Deviation 42.9 fL (36.4-46.3); Red Blood Count 4.03 M/uL (4.70-6.10); White Blood Count 7.53 K/ul (4.8-10.8)
[2023-09-19 08:01] LABS: Albumin Level 3.8 gm/dl (3.4-5.0); Bilirubin,Total 0.7 mg/dl (0.2-1.0); Calcium 8.6 mg/dl (8.6-10.3); Potassium 3.8 mmol/L (3.5-5.1)
[2023-09-19 08:07] LABS: Albumin Globulin Ratio 1.9 (0.9-2); BUN Creatinine Ratio 6.8 (10-20); Creatinine Clr Calc Pharmacy 121.6 ml/min; Est GFR (African American) 142.2 ml/min; Est GFR (Non-African American) 122.7 ml/min; Total Protein 5.8 gm/dl (6.0-8.3)
[2023-09-19] MEDS: PANTOprazole 40 MG TAB PO SCH (08:19)
[2023-09-19] MEDS: POTASSIUM CHLORIDE CRTAB 20 MEQ TABCR PO SCH (08:20)
[2023-09-19] MEDS: buPROPion SR 150 MG TABCR PO SCH (08:20)
[2023-09-19] MEDS: CHOLECALCIFEROL 25 MCG (1000 UNITS) TAB PO SCH (08:20)
[2023-09-19] MEDS: DOLUTEGRAVIR SODIUM PO SCH (08:21)
[2023-09-19] MEDS: LAMIVUDINE PO SCH (08:21)
[2023-09-19] MEDS ORDERED: CHOLECALCIFEROL 25 MCG (1000 UNITS) TAB PO SCH (09:00)
[2023-09-19] MEDS ORDERED: NALTREXONE HCL 50 MG TAB PO SCH (09:00)
[2023-09-19] MEDS: KETOROLAC TROMETHAMINE 15 MG/ML VIAL IV PRN (09:05)
--- NOTE | 2023-09-19 12:22 | Hospitalist Progress Note ---
Date of Service September 19, 2023 Assessment & Plan (1) Recurrent acute pancreatitis: Plan: -Likely alcohol induced, patient had 10 shots of liquor the night prior -Lipase of 202, previous episode back in March 2023 had a lipase of 868. This is most consistent with acute on chronic pancreatitis. -Abdominal and pelvis CT showed pancreatitis as well as diverticulosis without diverticulitis. -LR at 250 mL an hour, -Request IV Tylenol and Toradol instead of Dilaudid -Antiemetics as needed ordered. (2) Alcohol use disorder: Plan: -Alcohol withdrawal severity scale ordered -Ativan as needed -Will restart on naltrexone 50 mg daily. -Minimal tremors on exam (3) HIV disease: Plan: -Continue on Dovato, do not believe main culprit of acute pancreatitis. (4) Depression: Plan: -Continue on Wellbutrin. (5) GERD (gastroesophageal reflux disease): Plan: -Continue on Protonix daily. Plan Fluids: LR @ 250 ml/hr Nutrition: Clear liquids advance as tolerated Code status: Full code DVT ppx: SCDs Dispo: med/surg Admission and Anticipated Discharge Date Admission Date: September 18, 2023 Subjective Patient seen and examined, endorses mild abdominal pain, 5 out of 10 also minimal tremors Review of Systems Review of Systems: All systems reviewed are negative, apart from the ones contained in the history. Physical Exam Physical Exam: The patient is awake, alert and oriented 3, well developed and well nourished, normocephalic and atraumatic, lying in bed and in no acute distress. HEENT--PERRL, EOMI, mucous membranes and oropharynx mildly dry Neck--supple. No JVD. No bruits. Thyroid normal, trachea midline, no adenopathy. Heart--normal S1 and S2. No murmurs, rubs or gallops. Lungs--clear bilaterally, no respiratory distress, no accessory muscle use. Abdomen--normal bowel sounds and soft. Mild epigastric and left sided abdominal pain Extremities--no cyanosis or clubbing. No edema. Dermatologic--normal skin turgor, normal color, no abnormal lymph nodes, no rash. Neurologic--cranial nerves II through XII grossly intact. Rheumatologic--normal range of motion. Psychiatric--normal affect. Results & Data Results & Data Vital Signs (Past 12 Hours) Vital Signs Temp Pulse Resp BP Pulse Ox O2 Del Method 09/19/23 07:31 98.1 F 76 18 143/82 H 99 Room Air 09/19/23 06:09 98.4 F 79 16 141/81 H 99 Room Air 09/19/23 01:00 Room Air 09/19/23 01:00 98.6 F 75 16 167/84 H 100 Room Air 09/19/23 00:58 Room Air PG Care Time/CCT Total # of Minutes Spent Total Time Spent with Patient: Total time spent is greater than 50% in coordination of care (as documented) at patient's floor/unit and/or counseling patient: Coding Level of Care Code 93877 SUB INP/OBS CARE 2/35MIN Diagnoses Recurrent acute pancreatitis K85.90 Alcohol use disorder F10.90 HIV disease B20 Depression F32.A GERD (gastroesophageal reflux disease) K21.9 Time Spent (min) 35
[2023-09-19] MEDS: ACETAMINOPHEN 1,000 MG/100 ML VIAL IV PRN (14:02)
[2023-09-19] MEDS: MELATONIN 3 MG TAB PO PRN (23:47)
[2023-09-20 06:38] LABS: Basophils # (auto) 0.03 K/uL (0.00-0.20); Basophils % (auto) 0.6 %; Eosinophils # (auto) 0.09 K/uL (0.00-0.50); Eosinophils % (auto) 1.8 %; Hemoglobin 11.6 g/dl (14.0-18.0); Immature Granulocytes # (auto) 0.02 K/uL (0.01-0.20); Immature Granulocytes % (auto) 0.4 %; Lymphocytes # (auto) 1.29 K/uL (1.20-3.40); Lymphocytes % (auto) 25.2 %; Mean Corpuscular Hemoglobin 31.4 pg (25.0-34.0); Mean Corpuscular Hgb Conc 34.1 g/dL (32.0-36.0); Mean Corpuscular Volume 92.1 fL (80.0-100.0); Mean Platelet Volume 11.2 fL (9.4-12.4); Monocytes # (auto) 0.56 K/uL (0.11-0.59); Monocytes % (auto) 10.9 %; Neutrophils # (auto) 3.13 K/uL (1.40-6.50); Neutrophils % (auto) 61.1 %; Platelet Count 129 K/uL (130-400); RDW Coefficient of Variation 12.9 % (11.5-14.5); RDW Standard Deviation 43.5 fL (36.4-46.3); Red Blood Count 3.69 M/uL (4.70-6.10); White Blood Count 5.12 K/ul (4.8-10.8)
[2023-09-20 06:52] LABS: Albumin Globulin Ratio 1.8 (0.9-2); Albumin Level 3.3 gm/dl (3.4-5.0); BUN Creatinine Ratio 2.5 (10-20); Bilirubin,Total 0.5 mg/dl (0.2-1.0); Calcium 8.3 mg/dl (8.6-10.3); Est GFR (Non-African American) 118.2 ml/min; Globulin 1.8 gm/dl (2.5-4.0); Potassium 4.2 mmol/L (3.5-5.1); Total Protein 5.1 gm/dl (6.0-8.3)
--- NOTE | 2023-09-20 12:45 | Hospitalist Progress Note ---
Date of Service September 20, 2023 Assessment & Plan (1) Recurrent acute pancreatitis: Plan: -Likely alcohol induced, patient had 10 shots of liquor the night prior -Lipase of 202, previous episode back in March 2023 had a lipase of 868. This is most consistent with acute on chronic pancreatitis. -Abdominal and pelvis CT showed pancreatitis as well as diverticulosis without diverticulitis. -LR at 250 mL an hour, -Request IV Tylenol and Toradol instead of Dilaudid -Antiemetics as needed ordered. -Patient now willing to try regular diet (2) Alcohol use disorder: Plan: -Alcohol withdrawal severity scale ordered -Ativan as needed -Will restart on naltrexone 50 mg daily. -Minimal tremors on exam (3) HIV disease: Plan: -Continue on Dovato, do not believe main culprit of acute pancreatitis. (4) Depression: Plan: -Continue on Wellbutrin. (5) GERD (gastroesophageal reflux disease): Plan: -Continue on Protonix daily. Plan Fluids: LR @ 250 ml/hr Nutrition: Clear liquids advance as tolerated Code status: Full code DVT ppx: SCDs Dispo: Hopefully discharge in the next 24 hours Admission and Anticipated Discharge Date Admission Date: September 18, 2023 Subjective Patient seen and examined, says his abdominal pain is under control, now willing to try full regular diet Review of Systems Review of Systems: All systems reviewed are negative, apart from the ones contained in the history. Physical Exam Physical Exam: The patient is awake, alert and oriented 3, well developed and well nourished, normocephalic and atraumatic, lying in bed and in no acute distress. HEENT--PERRL, EOMI, mucous membranes and oropharynx mildly dry Neck--supple. No JVD. No bruits. Thyroid normal, trachea midline, no adenopathy. Heart--normal S1 and S2. No murmurs, rubs or gallops. Lungs--clear bilaterally, no respiratory distress, no accessory muscle use. Abdomen--normal bowel sounds and soft. Mild epigastric and left sided abdominal pain Extremities--no cyanosis or clubbing. No edema. Dermatologic--normal skin turgor, normal color, no abnormal lymph nodes, no rash. Neurologic--cranial nerves II through XII grossly intact. Rheumatologic--normal range of motion. Psychiatric--normal affect. Results & Data Results & Data Vital Signs (Past 12 Hours) Vital Signs Temp Pulse Resp BP Pulse Ox O2 Del Method 09/20/23 07:49 98.2 F 78 16 127/74 99 Room Air PG Care Time/CCT Total # of Minutes Spent Total Time Spent with Patient: Total time spent is greater than 50% in coordination of care (as documented) at patient's floor/unit and/or counseling patient: Coding Level of Care Code 98358 SUB INP/OBS CARE 2/35MIN Diagnoses Recurrent acute pancreatitis K85.90 Alcohol use disorder F10.90 HIV disease B20 Depression F32.A GERD (gastroesophageal reflux disease) K21.9 Time Spent (min) 35
[2023-09-20] MEDS: POLYETHYLENE (MIRALAX) 17 GM PACK PO PRN (15:44)
[2023-09-20] MEDS: bisacodyL 5 MG TABEC PO ONE (20:32)
[2023-09-20] MEDS: POLYETHYLENE (MIRALAX) 17 GM PACK PO ONE (22:41)
[2023-09-21 07:41] LABS: Basophils # (auto) 0.02 K/uL (0.00-0.20); Basophils % (auto) 0.4 %; Eosinophils # (auto) 0.07 K/uL (0.00-0.50); Eosinophils % (auto) 1.3 %; Hematocrit (blood only) 33.2 % (42.0-52.0); Hemoglobin 11.7 g/dl (14.0-18.0); Immature Granulocytes # (auto) 0.01 K/uL (0.01-0.20); Immature Granulocytes % (auto) 0.2 %; Lymphocytes # (auto) 1.07 K/uL (1.20-3.40); Lymphocytes % (auto) 19.7 %; Mean Corpuscular Hemoglobin 31.8 pg (25.0-34.0); Mean Corpuscular Hgb Conc 35.2 g/dL (32.0-36.0); Mean Corpuscular Volume 90.2 fL (80.0-100.0); Mean Platelet Volume 11.1 fL (9.4-12.4); Monocytes # (auto) 0.49 K/uL (0.11-0.59); Neutrophils # (auto) 3.76 K/uL (1.40-6.50); Neutrophils % (auto) 69.4 %; Platelet Count 134 K/uL (130-400); RDW Coefficient of Variation 12.7 % (11.5-14.5); RDW Standard Deviation 42.1 fL (36.4-46.3); Red Blood Count 3.68 M/uL (4.70-6.10); White Blood Count 5.42 K/ul (4.8-10.8)
[2023-09-21 07:52] LABS: Albumin Globulin Ratio 1.8 (0.9-2); Albumin Level 3.4 gm/dl (3.4-5.0); BUN Creatinine Ratio 4.1 (10-20); Bilirubin,Total 0.3 mg/dl (0.2-1.0); Calcium 8.6 mg/dl (8.6-10.3); Creatinine Clr Calc Pharmacy 121.6 ml/min; Est GFR (African American) 142.2 ml/min; Est GFR (Non-African American) 122.7 ml/min; Globulin 1.9 gm/dl (2.5-4.0); Potassium 3.8 mmol/L (3.5-5.1); Total Protein 5.3 gm/dl (6.0-8.3)
[2023-09-21] MEDS: bisacodyL 10 MG SUPP PR STA (09:31)
--- NOTE | 2023-09-21 10:00 | Hospitalist Progress Note ---
Date of Service September 21, 2023 Assessment & Plan (1) Recurrent acute pancreatitis: Plan: -Likely alcohol induced, patient had 10 shots of liquor the night prior to admission -Lipase of 202, previous episode back in March 2023 had a lipase of 868. This is most consistent with acute on chronic pancreatitis. -Abdominal and pelvis CT showed pancreatitis as well as diverticulosis without diverticulitis. -LR at 250 mL an hour, -Request IV Tylenol and Toradol instead of Dilaudid -Antiemetics as needed ordered. -Patient now willing to try regular diet -Patient asked for a repeat lipase yesterday, which turned up to be 400 (2) Alcohol use disorder: Plan: -Alcohol withdrawal severity scale ordered -Ativan as needed -Will restart on naltrexone 50 mg daily. -Minimal tremors on exam (3) HIV disease: Plan: -Continue on Dovato, do not believe main culprit of acute pancreatitis. (4) Depression: Plan: -Continue on Wellbutrin. (5) GERD (gastroesophageal reflux disease): Plan: -Continue on Protonix daily. (6) Constipation: Plan: Most likely from opiates Has not had a bowel movement since admission Continue MiraLAX I had to collect suppository Encourage ambulation Plan Fluids: LR @ 250 ml/hr Nutrition: Clear liquids advance as tolerated Code status: Full code DVT ppx: SCDs Dispo: Hopefully discharge in the next 24 hours Admission and Anticipated Discharge Date Admission Date: September 18, 2023 Subjective Patient seen and examined, says his abdominal pain is under control, tried regular diet yesterday but vomited, says he feels bloated and constipated, has not had a bowel movement since admission. Review of Systems Review of Systems: All systems reviewed are negative, apart from the ones contained in the history. Physical Exam Physical Exam: The patient is awake, alert and oriented 3, well developed and well nourished, normocephalic and atraumatic, lying in bed and in no acute distress. HEENT--PERRL, EOMI, mucous membranes and oropharynx mildly dry Neck--supple. No JVD. No bruits. Thyroid normal, trachea midline, no adenopathy. Heart--normal S1 and S2. No murmurs, rubs or gallops. Lungs--clear bilaterally, no respiratory distress, no accessory muscle use. Abdomen--normal bowel sounds and soft. Mild epigastric and left sided abdominal pain Extremities--no cyanosis or clubbing. No edema. Dermatologic--normal skin turgor, normal color, no abnormal lymph nodes, no rash. Neurologic--cranial nerves II through XII grossly intact. Rheumatologic--normal range of motion. Psychiatric--normal affect. Results & Data Results & Data Vital Signs (Past 12 Hours) Vital Signs Temp Pulse Resp BP Pulse Ox O2 Del Method 09/21/23 07:01 98.5 F 65 14 135/87 97 Room Air PG Care Time/CCT Total # of Minutes Spent Total Time Spent with Patient: Total time spent is greater than 50% in coordination of care (as documented) at patient's floor/unit and/or counseling patient: Coding Level of Care Code 61902 SUB INP/OBS CARE 2/35MIN Diagnoses Recurrent acute pancreatitis K85.90 Alcohol use disorder F10.90 HIV disease B20 Depression F32.A GERD (gastroesophageal reflux disease) K21.9 Constipation K59.00 Time Spent (min) 35
--- NOTE | 2023-09-21 14:48 | Discharge Summary ---
Date of Service September 21, 2023 Admission HPI Per Admitting Provider Patient is a 33-year-old male with past medical history of alcohol withdrawal, alcohol use disorder, recurrent pancreatitis, depression, HIV disease, vitamin B12 deficiency, and GERD. Patient presented to the emergency room with epigastric pain as well as nausea and vomiting. Patient admits to drinking 10 shots yesterday. Patient has been recently off his naltrexone due to not being able to get it refilled. Patient also states that he has " kidney pain" which is in his left lower back and the last time he had urine output was 3 PM. Patient denies any dysuria, urinary frequency or urgency. Patient denies chest pain, shortness of breath, or recent illness. In the ED: Lipase 202, CBC unremarkable, CMP unremarkable, abdominal pelvis CT showed pancreatitis and diverticulosis without acute diverticulitis. Principal Diagnosis acute on chronic pancreatitis Discharge Exam The patient is awake, alert and oriented 3, well developed and well nourished, normocephalic and atraumatic, lying in bed and in no acute distress. HEENT--PERRL, EOMI, mucous membranes and oropharynx mildly dry Neck--supple. No JVD. No bruits. Thyroid normal, trachea midline, no adenopathy. Heart--normal S1 and S2. No murmurs, rubs or gallops. Lungs--clear bilaterally, no respiratory distress, no accessory muscle use. Abdomen--normal bowel sounds and soft. Mild epigastric and left sided abdominal pain Extremities--no cyanosis or clubbing. No edema. Dermatologic--normal skin turgor, normal color, no abnormal lymph nodes, no rash. Neurologic--cranial nerves II through XII grossly intact. Rheumatologic--normal range of motion. Psychiatric--normal affect. Discharge Data Allergies Allergy/AdvReac Type Severity Reaction Status Date / Time latex Allergy Intermediate Rash Verified 09/18/23 22:26 benzonatate AdvReac Intermediate Hypertensio Verified 09/18/23 22:26 [From Justin Benitez] n Consultations 09/18/23 23:11 ED Decision to Admit Stat Ordered Studies 09/18/23 21:09 CT abd pelvis IV con only Stat Hospital Course (1) Recurrent acute pancreatitis: -Likely alcohol induced, patient had 10 shots of liquor the night prior to admission -Lipase of 202, previous episode back in March 2023 had a lipase of 868. This is most consistent with acute on chronic pancreatitis. -Abdominal and pelvis CT showed pancreatitis as well as diverticulosis without diverticulitis. -LR at 250 mL an hour, -Request IV Tylenol and Toradol instead of Dilaudid -Antiemetics as needed ordered. -Patient now willing to try regular diet -Patient asked for a repeat lipase yesterday, which turned up to be 400 (2) Alcohol use disorder: -Alcohol withdrawal severity scale ordered -Ativan as needed -Will restart on naltrexone 50 mg daily. -Minimal tremors on exam (3) HIV disease: -Continue on Dovato, do not believe main culprit of acute pancreatitis. (4) Depression: -Continue on Wellbutrin. (5) GERD (gastroesophageal reflux disease): -Continue on Protonix daily. (6) Constipation: resolved Plan d/c home Total Time Total Time Spent Total Time Spent (In Minutes): 35 Discharge Plan Discharge Items Patient Disposition: Home - Self-Care Reason For Visit: ACUTE ON CHRONIC PANCREATITIS Discharge Diagnosis: acute on chronic pancraetitis Activity: Resume your previous activity Non-emergency contact: Primary Care Provider Call non-emergency contact if: you have any medication questions Follow-up/Referrals: Santhosh Kent DO [Primary Care Provider] - Diet: Regular Addtl Attending Provider Instructions: please avoid alcohol to help prevent aggravating your pancreatitis. Follow up with your regular PCP as soon as possible Pending Studies at Discharge: No Stand-Alone Forms: [employer], Smoking Cessation Medications and DC Order Prescriptions: Continued cetirizine [Zyrtec] 10 mg Tablet 10 mg PO DAILY potassium chloride 20 mEq tablet,ER particles/crystals 20 meq PO QAM bupropion HCl 150 mg Tablet Sustained-Release 12 Hr 150 mg PO BID Dovato 50-300 mg Tablet 1 tab PO QAM pantoprazole [Protonix] 40 mg tablet,delayed release (DR/EC) 40 mg PO DAILY bacitracin 500 unit/gram Ointment 1 applic TOPICAL DIRECTED PRN (Reason: Skin Irritation) cholecalciferol (vitamin D3) [Vitamin D3] 25 mcg (1,000 unit) Capsule 1,000 mcg PO DAILY naltrexone 50 mg Tablet 50 mg PO DAILY Discharge Orders: Discharge Order (Routine); Ordered 09/21/23 Ordered By: Dave Bergman Admission Data Admit Date/Time: 09/18/23 23:28 Attending Provider: Dave Bergman Admit Provider: Jose Manuel Vázquez Primary Care Provider: Santhosh Kent Other Providers: Courtney Kimball Coding Level of Care Code 49723 INP/OBS DISCH >30 MIN Diagnoses Recurrent acute pancreatitis K85.90 Alcohol use disorder F10.90 HIV disease B20 Depression F32.A GERD (gastroesophageal reflux disease) K21.9 Constipation K59.00 Time Spent (min) 35
== END 2023-09-21 18:10 | disposition home or self-care (01) | DRG 440 ==
LOC: ED 18:50 → SUATTDRO 23:28 → 3N 23:28

== ENCOUNTER 2024-12-13 22:57 | Inpatient (IN) ==
[2024-12-13 23:32] LABS: Basophils # (auto) 0.03 K/uL (0.00-0.20); Basophils % (auto) 0.4 %; Eosinophils # (auto) 0.01 K/uL (0.00-0.50); Eosinophils % (auto) 0.1 %; Hematocrit (blood only) 39.1 % (42.0-52.0); Hemoglobin 13.5 g/dl (14.0-18.0); Immature Granulocytes # (auto) 0.01 K/uL (0.01-0.20); Immature Granulocytes % (auto) 0.1 %; Lymphocytes # (auto) 1.03 K/uL (1.20-3.40); Lymphocytes % (auto) 14.1 %; Mean Corpuscular Hemoglobin 30.6 pg (25.0-34.0); Mean Corpuscular Hgb Conc 34.5 g/dL (32.0-36.0); Mean Corpuscular Volume 88.7 fL (80.0-100.0); Mean Platelet Volume 10.1 fL (9.4-12.4); Monocytes # (auto) 0.63 K/uL (0.11-0.59); Monocytes % (auto) 8.6 %; Neutrophils # (auto) 5.62 K/uL (1.40-6.50); Neutrophils % (auto) 76.7 %; Platelet Count 221 K/uL (130-400); RDW Standard Deviation 42.4 fL (36.4-46.3); Red Blood Count 4.41 M/uL (4.70-6.10); White Blood Count 7.33 K/ul (4.8-10.8)
[2024-12-13 23:47] LABS: Appearance Urine Clear (Clear); Bacteria Urine Automated None Seen (None Seen); Bilirubin Urine Negative (Negative); Blood Urine Negative (Negative); Color Urine Dark Yellow; Glucose Urine UA Negative (Negative); Granular Casts Urine Present /lpf (None Prsent); Hyaline Casts Urine Present /lpf (None Presnt); Ketones Urine 2+ (Negative); Leukocyte Esterase Urine Negative (Negative); Nitrite Urine Negative (Negative); Protein Urine Trace (Negative); RBC Urine Automated 0-2 /hpf (0-2); Specific Gravity Urine 1.034 (1.000-1.030); Urobilinogen Urine Negative (Negative); WBC Urine Automated 0-5 /hpf (0-5); pH Urine 5.5 (4.5-7.5)
[2024-12-13 23:49] LABS: Albumin Globulin Ratio 1.3 (0.9-2); Albumin Level 3.9 gm/dl (3.4-5.0); BUN Creatinine Ratio 9.3 (10-20); Bilirubin,Total 0.7 mg/dl (0.2-1.0); Calcium 8.6 mg/dl (8.6-10.3); Potassium 4.2 mmol/L (3.5-5.1); Total Protein 6.9 gm/dl (6.0-8.3)
--- NOTE | 2024-12-14 00:11 | Emergency Department Note ---
History of Present Illness General Chief complaint: Abdominal Pain Stated complaint: ABD PAIN Time Seen by Provider: 12/13/24 23:53 History of Present Illness Maximum Pain Intensity: 8 This is a 34-year-old male that presents to the emergency department via private vehicle with complaints of "abdominal pain, vomiting, pancreatitis". The patient has history of pancreatitis. He notes he was cutting back on his alcohol use but did increase over the past few weeks. He does note some heavy consumption of liquor and wine. He notes that around 11:30 AM today he noticed epigastric abdominal pain. No trauma. No injury. This does feel similar to previous pancreatitis. He cannot tolerate oral food or fluids secondary to vomiting/nausea. He notes initially he presented to [facility] around 3 PM today and had laboratory studies. He denies having any imaging today. He notes he received some fluids and ultimately was discharged noting he was informed his lipase level was not significantly elevated. He presents to us today noting ongoing symptoms that are now worsening. No fevers. Home Medications Medication Instructions Recorded Confirmed Type bupropion HCl 150 mg tablet,12 hr 150 mg PO BID 10/12/20 12/14/24 History sustained-release dolutegravir 50 mg-lamivudine 300 1 tab PO QAM 10/12/20 12/14/24 History mg tablet (Dovato) cetirizine 10 mg tablet (Zyrtec) 10 mg PO QAM 12/10/21 12/14/24 History potassium chloride 20 mEq 20 meq PO BID 12/10/21 12/14/24 History tablet,extended release(part/cryst) pantoprazole 40 mg tablet,delayed 40 mg PO QAM 02/21/23 12/14/24 History release (Protonix) cholecalciferol (vitamin D3) 25 1,000 unit PO QAM 04/03/23 12/14/24 History mcg (1,000 unit) capsule (Vitamin D3) naltrexone 50 mg tablet 50 mg PO QAM 09/18/23 12/14/24 History fluticasone propionate 50 1 spray intranasal BID 05/21/24 12/14/24 History mcg/actuation nasal spray,suspension (Flonase Allergy Relief) gabapentin 100 mg capsule 100 mg PO TID PRN Pain 12/14/24 12/14/24 History Allergies Allergy/AdvReac Type Severity Reaction Status Date / Time latex Allergy Intermediate Rash Verified 12/14/24 00:55 benzonatate AdvReac Intermediate Hypertensio Verified 12/14/24 00:55 [From Justin Benitez] n Past Med/Surg History Problem List (Updated 12/14/24 @ 03:12 by Mateo Grossman PA-C) Hyponatremia Dysplasia of rectum Constipation Recurrent acute pancreatitis Hypomagnesemia (Acute) Hypokalemia (Acute) Hallucinations (Acute) Hypomagnesemia Hypokalemia Alcohol use disorder Encephalitis Abdominal pain (Acute) Low urine output Urinary retention Acute pancreatitis (Acute) Acute upper abdominal pain (Acute) Colitis (Acute) Depression HIV disease GERD (gastroesophageal reflux disease) Medical History History of lumbar puncture (02/2023) at [facility] 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 History of alcohol abuse History of hypertension r/t pancreatitis and pain. no medications at this time. Depression GERD (gastroesophageal reflux disease) History of colitis per imaging - no surgery needed Hx of pancreatitis March 2024, treated at [facility] and sent home with pain medication. doing well currently. treated at [facility] in 2021 Anxiety HIV disease dx 2013 - controlled with Dovato Surgical History History of colonoscopy S/P endoscopy anascopy with removal of precancerous cells at [facility] ~2009 S/P cholecystectomy Family History Other No family history of adverse response to anesthesia No pertinent family history in first degree relatives Social History Smoking Status: Current every day smoker Tobacco Type: Cigarettes Cigarettes Per Day: 10-20; Second Hand Exposure: Yes (); Do You Dip or Chew Tobacco: No; Hx Alcohol Use: Yes (hx heavy alcohol abuse) Alcohol type: wine and hard liquor Hx Substance Use: Yes (medicinal THC daily, does not have card) Last Used Substance: Days (ago) Last Used Substance Other:: 05/20/24 (advised on policy) Preferred Language: Latvian Communication Ability: Effective Night Baker Required: No Beliefs That Will Affect Care: None marital status: Current Living Situation: Spouse Current Living Situation Comment: [place] current occupational status: employed current occupation: Works at [employer] Feels Safe at Home: Yes Assistive Devices: Contacts and Glasses Review of Systems A total of 10 systems reviewed and were otherwise negative Physical Exam Vital Signs Vital Signs - 24 hr 12/13/24 23:00 12/13/24 23:26 12/13/24 23:27 Temperature 36.2 C L Temperature Source Temporal Artery Scan Pulse Rate 82 65 Pulse Rate [Apical] 74 Pulse Rate from SpO2 Sensor Respiratory Rate 18 18 Respiratory Effort / Characteristics Non-Labored Spontaneous Non-Labored Spontaneous Respiratory Depth Normal Normal Respiratory Pattern Regular Blood Pressure 156/103 H Blood Pressure [Left Arm] 156/95 H Blood Pressure Mean 120 Blood Pressure Mean [Left Arm] 115 Pulse Oximetry 99 Oxygen Delivery Method Room Air Sepsis Recent Fever Within 48 Hours No Sepsis New/Unexplained Change in Mental Status N/A Sepsis Action Taken by Nursing No Action Required 12/14/24 00:03 12/14/24 00:42 12/14/24 02:30 Temperature Temperature Source Pulse Rate 64 73 60 Pulse Rate [Apical] Pulse Rate from SpO2 Sensor 75 60 Respiratory Rate 20 17 16 Respiratory Effort / Characteristics Respiratory Depth Respiratory Pattern Blood Pressure 157/92 H 149/100 H Blood Pressure [Left Arm] Blood Pressure Mean 113 116 Blood Pressure Mean [Left Arm] Pulse Oximetry 96 99 97 Oxygen Delivery Method Room Air Room Air Room Air Sepsis Recent Fever Within 48 Hours Sepsis New/Unexplained Change in Mental Status Sepsis Action Taken by Nursing VITAL SIGNS - Vital signs and nursing notes were reviewed. Stable, afebrile. GENERAL -34-year-old male appearing his stated age who is in no acute distress. Patient is diaphoretic. Communicates well with provider and answers questions appropriately. SKIN - Without rashes. No meningeal or petechial rash. HEAD - NC/AT. EYES - PERRL with EOMI bilaterally. Sclera anicteric. LUNGS - CTA CARDIAC - RRR ABDOMEN - Abdominal contour normal without pulsations or visible masses. BS normoactive all four quadrants. There is epigastric abdominal tenderness. No palpable masses. EXTREMITIES - No clubbing or peripheral cyanosis. +5/5 strength noted in UE/LE bilaterally. NEUROLOGIC - Cranial nerves II through XII grossly intact. PSYCH -alert, oriented and pleasant on exam Course Administered Medications Sodium Chloride (Nss) 1,000 mls @ 150 mls/hr IV .Q6H40M RASHEL Stop: 12/17/24 01:59 Last Admin: 12/14/24 02:14 Dose: 150 mls/hr Documented By: LAVON Discontinued Medications Hydromorphone HCl (Hydromorphone Inj 0.5 Mg/0.5 Ml Syr) 0.5 mg IV NOW STA Stop: 12/14/24 00:02 Last Admin: 12/14/24 00:19 Dose: 0.5 mg Documented By: LAVON Hydromorphone HCl (Hydromorphone Inj 0.5 Mg/0.5 Ml Syr) 0.5 mg IV NOW STA Stop: 12/14/24 01:20 Last Admin: 12/14/24 01:23 Dose: 0.5 mg Documented By: LAVON Thiamine HCl 100 mg/ Syringe 10 mls @ 2 mls/min IV NOW STA Stop: 12/14/24 00:05 Last Admin: 12/14/24 00:34 Dose: 2 mls/min Documented By: LAVON Folic Acid 1 mg/ Syringe 10 mls @ 5 mls/min IV NOW STA Stop: 12/14/24 00:02 Last Admin: 12/14/24 00:35 Dose: 5 mls/min Documented By: LAVON Sodium Chloride (Nss) 1,000 mls @ 999 mls/hr IV .Q1H1M ONE Stop: 12/14/24 01:01 Last Infusion: 12/14/24 01:27 Dose: Infused Documented By: Admin: 12/14/24 00:19 Dose: 999 mls/hr Documented By: LAVON Acetaminophen (Ofirmev) 1,000 mg in 100 mls @ 400 mls/hr IV NOW STA Stop: 12/14/24 02:23 Last Infusion: 12/14/24 03:00 Dose: Infused Documented By: Admin: 12/14/24 02:16 Dose: 400 mls/hr Documented By: LAVON Ioversol (Optiray 320 100ml) 94 ml IV ONCE ONE Stop: 12/14/24 00:16 Last Admin: 12/14/24 00:15 Dose: 94 ml Documented By: LIUDMILA Ketorolac Tromethamine (Ketorolac Tromethamine 15 Mg/Ml Vial) 10 mg IV NOW STA Stop: 12/14/24 02:10 Last Admin: 12/14/24 02:19 Dose: 10 mg Documented By: LAVON Ondansetron HCl (Ondansetron Inj 2 Mg/Ml 2 Ml Vial) 4 mg IV NOW STA Stop: 12/14/24 00:02 Last Admin: 12/14/24 00:19 Dose: 4 mg Documented By: LAVON Ondansetron HCl (Ondansetron Inj 2 Mg/Ml 2 Ml Vial) 4 mg IV NOW STA Stop: 12/14/24 02:10 Last Admin: 12/14/24 02:19 Dose: 4 mg Documented By: LAVON Medical Decision Making Laboratory Data 12/13/24 23:05 12/13/24 23:05 Lab Results 12/13/24 12/13/24 12/13/24 Range/Units 23:05 23:10 23:18 WBC 7.33 (4.8-10.8) K/ul RBC 4.41 L (4.70-6.10) M/uL Hgb 13.5 L (14.0-18.0) g/dl Hct 39.1 L (42.0-52.0) % MCV 88.7 (80.0-100.0) fL MCH 30.6 (25.0-34.0) pg MCHC 34.5 (32.0-36.0) g/dL RDW Std Deviation 42.4 (36.4-46.3) fL RDW Coeff of Dio 13.0 (11.5-14.5) % Plt Count 221 (130-400) K/uL MPV 10.1 (9.4-12.4) fL Immature Gran % (Auto) 0.1 % Neut % (Auto) 76.7 % Lymph % (Auto) 14.1 % [place] % (Auto) 8.6 % Eos % (Auto) 0.1 % Baso % (Auto) 0.4 % Neut # (Auto) 5.62 (1.40-6.50) K/uL Lymph # (Auto) 1.03 L (1.20-3.40) K/uL [place] # (Auto) 0.63 H (0.11-0.59) K/uL Eos # (Auto) 0.01 (0.00-0.50) K/uL Baso # (Auto) 0.03 (0.00-0.20) K/uL Immature Gran # (Auto) 0.01 (0.01-0.20) K/uL Sodium 134 L (136-145) mmol/L Potassium 4.2 (3.5-5.1) mmol/L Chloride 101 (98-107) mmol/L Carbon Dioxide 22 (21-32) mmol/L Anion Gap 11 (3-11) BUN 9 (6-23) mg/dl Creatinine 0.97 (0.6-1.4) mg/dl Est Cr Clr Drug Dosing 102.0 ml/min eGFR 105.71 BUN/Creatinine Ratio 9.3 L (10-20) Glucose 98 (70-99(Fasting)) mg/dl Lactate 0.7 (0.4-2.0) mmol/L Calcium 8.6 (8.6-10.3) mg/dl Total Bilirubin 0.7 (0.2-1.0) mg/dl AST 35 (13-39) U/L ALT 23 (7-52) U/L Alkaline Phosphatase 80 (34-104) U/L Total Protein 6.9 (6.0-8.3) gm/dl Albumin 3.9 (3.4-5.0) gm/dl Globulin 3.0 (2.5-4.0) gm/dl Albumin/Globulin Ratio 1.3 (0.9-2) Lipase 282 H (11-82) U/L Urine Color Dark Yellow Urine Appearance Clear (Clear) Urine pH 5.5 (4.5-7.5) Ur Specific Mayer 1.034 H (1.000-1.030) Urine Protein Trace H (Negative) Urine Glucose (UA) Negative (Negative) Urine Ketones 2+ H (Negative) Urine Blood Negative (Negative) Urine Nitrite Negative (Negative) Urine Bilirubin Negative (Negative) Urine Urobilinogen Negative (Negative) Ur Leukocyte Esterase Negative (Negative) Urine WBC (Auto) 0-5 (0-5) /hpf Urine RBC (Auto) 0-2 (0-2) /hpf U Hyaline Cast (Auto) 11-20 H (0-2) /lpf U Epithel Cells (Auto) 3-5 H (0-2) /hpf Urine Bacteria (Auto) None Seen (None Seen) Hyaline Casts Present A (None Presnt) /lpf Granular Casts Present A (None Prsent) /lpf Imaging Data Radiologist's Impression: Abdomen/Pelvis CT 12/14/24 00:01 EXAM: CT abd pelvis IV con only CLINICAL HISTORY: upper abd pain, hx pancreatitis TECHNIQUE: Multiple contiguous axial images were obtained from the level of diaphragm to the pubis symphysis. This study was acquired after the IV administration of iodinated contrast material, given the patient's indications for the examination. If IV contrast material had not been administered, the likelihood of detecting abnormalities relevant to the patient's condition would have been substantially decreased. Coronal and sagittal reformatted images were generated and reviewed to improve anatomic localization and optimize lesion detection. CT scan was performed according to ALARA (as low as reasonably achievable). COMPARISON: 18 September 2023 FINDINGS: Hepatomegaly is noted measuring 16.8 cm in craniocaudal extent. Diffuse hepatic steatosis seen. Gallbladder is not visualized, cholecystectomy status. Pancreas appears mildly bulky and edematous. Diffuse peripancreatic fat stranding and mild fluid is noted. Mild perisplenic fluid is also seen. No evidence of pseudocyst or walled off necrosis detected. Reactive thickening of bilateral anterior renal fascia, lateral Conal fascia is noted. No evidence of portal vein or splenic vein thrombosis seen. No evidence of any pseudoaneurysm detected. Small omental fat containing umbilical hernia is detected. Few hyperdense foci seen in third part of duodenum- could be ingested particles. There is no intra or extrahepatic biliary ductal dilatation. Hepatic vasculature is patent. The spleen is unremarkable. The pancreas is unremarkable. Both adrenal glands are unremarkable. The kidneys are normal in size and attenuation. There is no hydronephrosis. The ureters are normal in caliber and no ureteral calculi are seen. The bladder is normal in contour. No evidence of focal or diffuse bowel wall thickening or evidence of bowel obstruction is seen. The aorta is normal in caliber. No aggressive appearing osseous lesions are identified. Sponylolysis at L5 level bilaterally. IMPRESSION: 1. Hepatomegaly is noted measuring 16.8 cm in craniocaudal extent. No significant interval change. 2. Diffuse hepatic steatosis seen. Relatively stable. 3. Pancreas appears mildly bulky and edematous. Diffuse peripancreatic fat stranding and mild fluid is noted. Mild perisplenic fluid is also seen. Findings suggestive of acute pancreatitis. Suggested serum amylase/lipase correlation. The peripancreatic inflammatory changes are more in the current study as compared to the previous. 4. No evidence of pseudocyst or walled off necrosis detected. 5. No evidence of portal vein or splenic vein thrombosis seen. No evidence of any pseudoaneurysm detected. 6. Small omental fat containing umbilical hernia is detected. Stable. 7. Few hyperdense foci seen in third part of duodenum- could be ingested particles. New finding. Advised clinical correlation. Rest of the findings are unchanged. Electronically signed by Ricardo Monsalve 12-14-2024 01:58 AM MDM Narrative Patient was seen and evaluated as above in room A10. Review was performed of triage nursing notes and vital signs. I did review pertinent previous visits and patient history. After obtaining a thorough history and physical examination the above work up was performed. Patient presents to us today for evaluation of abdominal pain, nausea and vomiting. He notes this feels similar to previous episodes of acute pancreatitis. He does note increased alcohol consumption over the past few weeks. Options of care were discussed with the patient. IV access was established labs were drawn. No leukocytosis. There is anemia with hemoglobin of 13.5. Hyponatremia 134. Lipase elevation at 282 consistent with acute pancreatitis. Urinalysis reveals some skin cells and hyaline casts but no evidence of UTI. Noting the patient's reported heavy alcohol use over the past several weeks, I did order the patient IV folic acid, IV thiamine in addition to IV analgesics and IV antiemetics plus IV fluids. I did recommend a CT scan of the abdomen/pelvis to further assess. It was felt that the benefit outweighed risk. Patient denies having any imaging today while at [facility]. Results of the imaging as above. Acute pancreatitis noted. Case discussed with the hospitalist service. Please refer to further documentation regarding his stay. GCS: 15 In the evaluation and treatment of this patient the following differential diagnoses were entertained: Pancreatitis, MT, dissection, bowel obstruction, perforation, among others Impression & Plan Acute upper abdominal pain, Acute pancreatitis Discharge Plan Visit Data Chief Complaint: Abdominal Pain Stated Complaint: ABD PAIN ED Provider: Naina Allison ED Midlevel Provider: Mateo Grossman Discharge Problem: Acute upper abdominal pain, Acute pancreatitis Patient Disposition: Admitted As Inpatient Condition: Good Discharge Instructions Interventions: ED Discharge Assessment Last Done: 12/14/24 03:02 Forms Stand Alone Forms: My [facility] Prescriptions Prescriptions: No Action cetirizine [Zyrtec] 10 mg Tablet 10 mg PO QAM potassium chloride 20 mEq tablet,ER particles/crystals 20 meq PO BID bupropion HCl 150 mg Tablet Sustained-Release 12 Hr 150 mg PO BID Dovato 50-300 mg Tablet 1 tab PO QAM pantoprazole [Protonix] 40 mg tablet,delayed release (DR/EC) 40 mg PO QAM cholecalciferol (vitamin D3) [Vitamin D3] 25 mcg (1,000 unit) Capsule 1,000 unit PO QAM naltrexone 50 mg Tablet 50 mg PO QAM fluticasone propionate [Flonase Allergy Relief] 50 mcg/actuation [place],Suspension 1 spray INTRANASAL BID Rx Instructions: administer into each nostril gabapentin 100 mg capsule 100 mg PO TID PRN (Reason: Pain) Referrals Referrals: Santhosh Kent DO [Primary Care Provider] -
[2024-12-14] MEDS: OPTIRAY 320 100ml IV ONE (00:15)
[2024-12-14] MEDS: SODIUM CHLORIDE 0.9% 1,000 ML IV ONE (00:19)
[2024-12-14] MEDS: HYDROmorphone INJ 0.5 MG/0.5 ML SYR IV STA ×2 (00:19→01:23)
[2024-12-14] MEDS: ONDANSETRON INJ 2 MG/ML 2 ML VIAL IV STA ×2 (00:19→02:19)
[2024-12-14] MEDS: THIAMINE HCL 100 MG in SYRINGE 9 ML IV STA (00:34)
[2024-12-14] MEDS: FOLIC ACID 1 MG in SYRINGE 9.8 ML IV STA (00:35)
--- NOTE | 2024-12-14 01:57 | History & Physical Report ---
Date of Service December 14, 2024 Assessment & Plan (1) Acute pancreatitis: (2) Alcohol use disorder: (3) Hyponatremia: (4) HIV disease: Plan Patient is a 34-year-old male with past medical history of alcohol use disorder, pancreatitis, anemia, GERD, HIV, anxiety. Patient went to [facility] today for abdominal pain and was diagnosed with pancreatitis, given IV fluids, discharged home as his lipase was not elevated enough for admission. He presented to the ED this evening with ongoing abdominal pain, lipase found to be 282. Being admitted for pancreatitis requiring IV pain control and IV fluids. #pancreatitis - history of recurrent pancreatitis 2/2 alcohol use. No leukocytosis, VSS. Lipase 282. CTAP shows mild acute pancreatitis, hepatomegaly. History of cholecystectomy. - continue with gentle fluid resuscitation with NSS @ 150ml/hr; 1L NSS bolus in ED - clear liquid diet, advance as tolerated - nausea control with Zofran prn - pain control with IV Tylenol 1G avis, Toradol 10mg Iv prn, Dilaudid 0.5/1mg for breakthrough pain #alcohol use disorder - Typically drinks 10 shots + 2-3 glasses of wine daily; last drink 2300 12/12. Recently relapsed 1-3 weeks ago. No symptoms of withdrawal on admission - AWSS protocol with Ativan IV - Thiamine IV 100mg and folic acid 1mg IV QAM; 1st doses given in ED - Defer checking B1 or folic acid labs this is already received IV doses in ED - daily multivitamin - hold Naltrexone with IV opioid use above #Hyponatremia - chronic. Na 134. - NSS as above - trend BMP #HIV - stable - continue Dovato; has been on for 5 years #Anxiety/depression stable Continue bupropion #GERD stable - transition PO PPI to IV #Anemia - Hgb 13.5, baseline. - b12 with AM labs VTE ppx: SCDs, low risk Dispo: med surg obs Admission and Anticipated Discharge Date Admission Date: 12/14/24 History of Present Illness Chief Complaint: abd pain Primary Care Provider: Santhosh Kent DO Patient is a 34-year-old male with past medical history of alcohol use disorder, pancreatitis, anemia, GERD, HIV, anxiety. Patient went to [facility] today for abdominal pain and was diagnosed with pancreatitis, given IV fluids, discharged home as his lipase was not elevated enough for admission. He presented to the ED this evening with ongoing abdominal pain, lipase found to be 282 CT shows mild pancreatitis. Being admitted for pancreatitis requiring IV pain control and IV fluids. Patient seen at bedside. he endorses the above. He stated his lipase was 147 at [facility] this morning. His abdominal pain started this morning and he feels it in his epigastric region which radiates to his back, similar to previous episodes of pancreatitis. He also endorses nausea and vomiting since this morning; denies any hematic emesis. Pain is still 8/10 and patient is still nauseous at bedside even after 1 Mg IV Dilaudid and Zofran 4 Mg IV. Patient stated he has felt feverish however temperature normal in ED. He also endorses what feels like chest pain due to the abdominal pain radiation. He denies any anxiety, diaphoresis, tremors that would indicate alcohol withdrawal at this time. Patient recently relapsed 1 to 3 weeks ago and has been drinking approximately 10 shots a day and a couple of glasses of wine. His last drink was at 11 PM 12/12. He also endorses smoking cigarettes, 1 pack/day, however declines nicotine patch at this time. He does not use any oxygen at baseline. He did take his medications yesterday. He wishes to be full code. Allergies Allergy/AdvReac Type Severity Reaction Status Date / Time latex Allergy Intermediate Rash Verified 12/14/24 00:55 benzonatate AdvReac Intermediate Hypertensio Verified 12/14/24 00:55 [From Justin Benitez] n Home Medications Medication Instructions Recorded Confirmed Type bupropion HCl 150 mg tablet,12 hr 150 mg PO BID 10/12/20 12/14/24 History sustained-release dolutegravir 50 mg-lamivudine 300 1 tab PO QAM 10/12/20 12/14/24 History mg tablet (Dovato) cetirizine 10 mg tablet (Zyrtec) 10 mg PO QAM 12/10/21 12/14/24 History potassium chloride 20 mEq 20 meq PO BID 12/10/21 12/14/24 History tablet,extended release(part/cryst) pantoprazole 40 mg tablet,delayed 40 mg PO QAM 02/21/23 12/14/24 History release (Protonix) cholecalciferol (vitamin D3) 25 1,000 unit PO QAM 04/03/23 12/14/24 History mcg (1,000 unit) capsule (Vitamin D3) naltrexone 50 mg tablet 50 mg PO QAM 09/18/23 12/14/24 History fluticasone propionate 50 1 spray intranasal BID 05/21/24 12/14/24 History mcg/actuation nasal spray,suspension (Flonase Allergy Relief) gabapentin 100 mg capsule 100 mg PO TID PRN Pain 12/14/24 12/14/24 History Past Med/Surg History Problem List (Updated 12/14/24 @ 03:12 by Mateo Grossman PA-C) Hyponatremia Dysplasia of rectum Constipation Recurrent acute pancreatitis Hypomagnesemia (Acute) Hypokalemia (Acute) Hallucinations (Acute) Hypomagnesemia Hypokalemia Alcohol use disorder Encephalitis Abdominal pain (Acute) Low urine output Urinary retention Acute pancreatitis (Acute) Acute upper abdominal pain (Acute) Colitis (Acute) Depression HIV disease GERD (gastroesophageal reflux disease) Medical History History of lumbar puncture (02/2023) at [facility] 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 History of alcohol abuse History of hypertension r/t pancreatitis and pain. no medications at this time. Depression GERD (gastroesophageal reflux disease) History of colitis per imaging - no surgery needed Hx of pancreatitis March 2024, treated at [facility] and sent home with pain medication. doing well currently. treated at [facility] in 2021 Anxiety HIV disease dx 2013 - controlled with Dovato Surgical History History of colonoscopy S/P endoscopy anascopy with removal of precancerous cells at [facility] ~2009 S/P cholecystectomy Family History Other No family history of adverse response to anesthesia No pertinent family history in first degree relatives Social History Smoking Status: Current every day smoker Tobacco Type: Cigarettes Cigarettes Per Day: 10-20; Second Hand Exposure: Yes (); Do You Dip or Chew Tobacco: No; Hx Alcohol Use: Yes (hx heavy alcohol abuse) Alcohol type: wine and hard liquor Hx Substance Use: Yes (medicinal THC daily, does not have card) Last Used Substance: Days (ago) Last Used Substance Other:: 05/20/24 (advised on policy) Preferred Language: Upper Sorbian Communication Ability: Effective House Admin Required: No Beliefs That Will Affect Care: None marital status: Current Living Situation: Spouse Current Living Situation Comment: [place] current occupational status: employed current occupation: Works at [employer] Feels Safe at Home: Yes Assistive Devices: Contacts and Glasses Review of Systems Review of Systems: see HPI Physical Exam Physical Exam: The patient is awake, alert and oriented 3, well developed and well nourished, normocephalic and atraumatic, in no acute distress. Non-toxic appearing. HEENT- EOMI, mucous membranes moist. Hearing grossly intact. Heart-normal S1 and S2. No murmurs, rubs or gallops. Lungs-clear bilaterally, no respiratory distress, no accessory muscle use. Abdomen-normal bowel sounds and soft. No ascites noted. Tender to epigastric region and left upper quadrant. Extremities- no clubbing, cyanosis, or edema. Rheumatologic-normal range of motion. Psychiatric-anxious affect. Results & Data Results & Data Vital Signs (Past 12 Hours) Vital Signs Temp Pulse Pulse Resp BP BP Pulse Ox 12/14/24 00:42 73 17 99 12/14/24 00:03 64 20 157/92 H 96 12/13/24 23:27 65 12/13/24 23:26 74 18 156/95 H 12/13/24 23:00 36.2 C L 82 18 156/103 H 99 O2 Del Method 12/14/24 00:42 Room Air 12/14/24 00:03 Room Air 12/13/24 23:27 12/13/24 23:26 12/13/24 23:00 Room Air Laboratory Results CBC, CMP, lipase, lactate, UA Diagnostic Findings reviewed AP CT Medications Administered ED1L NSS, thiamine plus folic acid IV, Dilaudid 1Mg IV, Zofran 4 Mg IV ECG Additional Comments: Ordered Code Status & VTE Plan Code Status full VTE Prophylaxis Plan VTE Prophylaxis will be ordered: Yes Supervising Physician Co-Signing Physician Notes Patient seen examined, chart reviewed, case discussed with FRANKLIN Clarke and agree with assessment plan second above. In brief, patient is a 34-year-old male presenting with acute pancreatitis secondary to alcohol use. Patient with history of similar in the past. On physical exam patient is resting comfortably, no acute distress Skin warm, dry, no rashes HEENTmoist mucous membranes, neck supple Heart+ S1, S2, regular, no murmur/rub/gallops LungsCTA anteriorly Abdomentenderness in the epigastric area with some voluntary guarding Extremitieswarm, well-perfused Lipase = 282 CT of the abdomen with mildly bulky and edematous pancreas with diffuse peripancreatic fat stranding and mild fluid. Assessment/planacute alcohol pancreatitis IV fluids Pain control and antiemetics as needed Management of alcohol withdrawal per protocol Remainder as above PG Care Time/CCT Total # of Minutes Spent Total Time Spent with Patient: Total time spent is greater than 50% in coordination of care (as documented) at patient's floor/unit and/or counseling patient: Coding Level of Care Code 44062 INT INP/OBS CARE 3/75MIN Diagnoses Acute pancreatitis K85.20 Acute pancreatitis complication: no infection or necrosis Pancreatitis type: alcohol induced Alcohol use disorder F10.90 Hyponatremia E87.1 HIV disease B20 (1) Acute pancreatitis Acute pancreatitis complication: no infection or necrosis Pancreatitis type: alcohol induced Qualified Code(s): K85.20 - Alcohol induced acute pancreatitis without necrosis or infection
--- NOTE | 2024-12-14 01:58 | CT Scan Report ---
EXAM: CT abd pelvis IV con only CLINICAL HISTORY: upper abd pain, hx pancreatitis TECHNIQUE: Multiple contiguous axial images were obtained from the level of diaphragm to the pubis symphysis. This study was acquired after the IV administration of iodinated contrast material, given the patient's indications for the examination. If IV contrast material had not been administered, the likelihood of detecting abnormalities relevant to the patient's condition would have been substantially decreased. Coronal and sagittal reformatted images were generated and reviewed to improve anatomic localization and optimize lesion detection. CT scan was performed according to ALARA (as low as reasonably achievable). COMPARISON: 18 September 2023 FINDINGS: Hepatomegaly is noted measuring 16.8 cm in craniocaudal extent. Diffuse hepatic steatosis seen. Gallbladder is not visualized, cholecystectomy status. Pancreas appears mildly bulky and edematous. Diffuse peripancreatic fat stranding and mild fluid is noted. Mild perisplenic fluid is also seen. No evidence of pseudocyst or walled off necrosis detected. Reactive thickening of bilateral anterior renal fascia, lateral Conal fascia is noted. No evidence of portal vein or splenic vein thrombosis seen. No evidence of any pseudoaneurysm detected. Small omental fat containing umbilical hernia is detected. Few hyperdense foci seen in third part of duodenum- could be ingested particles. There is no intra or extrahepatic biliary ductal dilatation. Hepatic vasculature is patent. The spleen is unremarkable. The pancreas is unremarkable. Both adrenal glands are unremarkable. The kidneys are normal in size and attenuation. There is no hydronephrosis. The ureters are normal in caliber and no ureteral calculi are seen. The bladder is normal in contour. No evidence of focal or diffuse bowel wall thickening or evidence of bowel obstruction is seen. The aorta is normal in caliber. No aggressive appearing osseous lesions are identified. Sponylolysis at L5 level bilaterally. IMPRESSION: 1. Hepatomegaly is noted measuring 16.8 cm in craniocaudal extent. No significant interval change. 2. Diffuse hepatic steatosis seen. Relatively stable. 3. Pancreas appears mildly bulky and edematous. Diffuse peripancreatic fat stranding and mild fluid is noted. Mild perisplenic fluid is also seen. Findings suggestive of acute pancreatitis. Suggested serum amylase/lipase correlation. The peripancreatic inflammatory changes are more in the current study as compared to the previous. 4. No evidence of pseudocyst or walled off necrosis detected. 5. No evidence of portal vein or splenic vein thrombosis seen. No evidence of any pseudoaneurysm detected. 6. Small omental fat containing umbilical hernia is detected. Stable. 7. Few hyperdense foci seen in third part of duodenum- could be ingested particles. New finding. Advised clinical correlation. Rest of the findings are unchanged. Electronically signed by Ricardo Monsalve 12-14-2024 01:58 AM
[2024-12-14] MEDS: SODIUM CHLORIDE 0.9% 1,000 ML IV SCH (02:14)
[2024-12-14] MEDS: ACETAMINOPHEN 1,000 MG/100 ML VIAL IV STA (02:16)
[2024-12-14] MEDS: KETOROLAC TROMETHAMINE 15 MG/ML VIAL IV STA (02:19)
[2024-12-14] MEDS ORDERED: DOCUSATE SODIUM 100 MG CAP PO PRN (03:27)
[2024-12-14] MEDS ORDERED: NALOXONE HCL 0.4 MG/1 ML VIAL/CARP IV PRN (03:27)
[2024-12-14] MEDS ORDERED: HYDROmorphone INJ 1 MG/ML SYRINGE IV PRN (03:27)
[2024-12-14] MEDS ORDERED: Ativan IV Alcohol Withdrawal--Active Protocol IV PRN (03:27)
[2024-12-14] MEDS ORDERED: LORazepam 2 MG/1 ML VIAL IV PRN ×3 (03:27)
[2024-12-14] MEDS: HYDROmorphone INJ 0.5 MG/0.5 ML SYR IV PRN ×2 (04:31→23:19)
[2024-12-14] MEDS: KETOROLAC TROMETHAMINE 15 MG/ML VIAL IV PRN (05:30)
[2024-12-14 07:00] LABS: Basophils # (auto) 0.02 K/uL (0.00-0.20); Basophils % (auto) 0.3 %; Eosinophils # (auto) 0.02 K/uL (0.00-0.50); Eosinophils % (auto) 0.3 %; Hematocrit (blood only) 37.1 % (42.0-52.0); Hemoglobin 12.8 g/dl (14.0-18.0); Immature Granulocytes # (auto) 0.01 K/uL (0.01-0.20); Immature Granulocytes % (auto) 0.2 %; Lymphocytes # (auto) 1.03 K/uL (1.20-3.40); Lymphocytes % (auto) 15.6 %; Mean Corpuscular Hgb Conc 34.5 g/dL (32.0-36.0); Mean Corpuscular Volume 89.8 fL (80.0-100.0); Mean Platelet Volume 10.4 fL (9.4-12.4); Monocytes # (auto) 0.71 K/uL (0.11-0.59); Monocytes % (auto) 10.8 %; Neutrophils % (auto) 72.8 %; Platelet Count 183 K/uL (130-400); RDW Standard Deviation 43.1 fL (36.4-46.3); Red Blood Count 4.13 M/uL (4.70-6.10); White Blood Count 6.59 K/ul (4.8-10.8)
[2024-12-14 07:22] LABS: Albumin Globulin Ratio 1.3 (0.9-2); Albumin Level 3.5 gm/dl (3.4-5.0); BUN Creatinine Ratio 6.8 (10-20); Bilirubin,Total 0.7 mg/dl (0.2-1.0); Calcium 8.2 mg/dl (8.6-10.3); Globulin 2.7 gm/dl (2.5-4.0); Magnesium 1.8 mg/dl (1.7-2.4); Potassium 4.1 mmol/L (3.5-5.1); Total Protein 6.2 gm/dl (6.0-8.3)
[2024-12-14] MEDS: ONDANSETRON INJ 2 MG/ML 2 ML VIAL IV PRN (08:27)
[2024-12-14] MEDS ORDERED: LAMIVUDINE PO SCH (09:00)
[2024-12-14] MEDS ORDERED: DOLUTEGRAVIR SODIUM PO SCH (09:00)
[2024-12-14 09:24] LABS: Phosphorus 2.5 mg/dl (2.5-4.9)
[2024-12-14] MEDS: ACETAMINOPHEN 1,000 MG/100 ML VIAL IV SCH (09:24)
[2024-12-14] MEDS: PANTOprazole 40 MG/10 ML SYR IV SCH (09:30)
[2024-12-14] MEDS: FLUTICASONE PROPIONATE NA SPR 16 GM BTL SCH (09:54)
[2024-12-14] MEDS: THIAMINE HCL 100 MG in SYRINGE 9 ML IV SCH (09:59)
[2024-12-14] MEDS: FOLIC ACID 1 MG in SYRINGE 9.8 ML IV SCH (09:59)
[2024-12-14] MEDS: MULTIVITAMIN TAB PO SCH (10:07)
[2024-12-14] MEDS: buPROPion SR 150 MG TABCR PO SCH (10:07)
[2024-12-14] MEDS: KETOROLAC 30 MG/ML VIAL IV ONE (10:11)
[2024-12-14] MEDS: POTASSIUM CHLORIDE CRTAB 20 MEQ TABCR PO SCH (11:24)
[2024-12-14] MEDS: METOCLOPRAMIDE HCL INJ 5 MG/ML 2 ML VIAL IV PRN (12:33)
[2024-12-14] MEDS: KETOROLAC TROMETHAMINE 15 MG/ML VIAL IV ONE (20:01)
--- NOTE | 2024-12-14 20:36 | Hospitalist Progress Note ---
Date of Service December 14, 2024 Assessment & Plan (1) Acute pancreatitis: Plan: Acute ETOH-mediated pancreatitis, superimposed on chronic ETOH-mediated pancreatitis. Lipase level is trending up from 282 U/L (12/13/2024, 11:05pm) to 472 U/L (12/14/2024, 8:45am), but low amplitude elevation in lipase levels is consistent with parenchymal scarring of pancreatic tissues capable of producing lipase, and hence, with repeated bouts of chronic ETOH-mediated pancreatitis, [employer]'s pancreas is less capable of producing significantly higher levels of lipase. cf., lipase 1,124 U/L (04/08/2022, 10:55pm), lipase 2,896 U/L (06/07/2025, 4:04pm) when patient first was diagnosed with acute ETOH-mediated pancreatitis. Continue conservative treatment with clear liquid diet, tylenol 1000mg IV q8 and toradol 10mg IV q6 prn pain. (2) Alcohol use disorder: Plan: No signs of acute ETOH intoxication or acute ETOH withdrawal on 12/14/2024. Continue conservative treatment with CIWA scale, lorazepam 1mg IV UD prn CIWA score 6-7, lorazepam 2mg IV UD prn CIWA score 8-9, lorazepam 3mg IV once prn CIWA score 10+, folic acid 1mg IV qam, thiamine 100mg IV qam, and MVI 1 tab PO qam. (3) Hyponatremia: Plan: Mild, acute hypovolemic hyponatremia with Na level increasing from 134 mmol/L (12/13/2024, 11:05pm) to 135 mmol/L (12/14/2024, 6:32am). Etiology of acute hypovolemic hyponatremia is due to ETOH-mediated natri-uresis. Patient remains asymptomatic with this mild degree of acute hypovolemic hyponatremia, and hence, conservative treatment with clear liquid diet for rehydration will suffice. Await repeat Na level testing in the 12/15/2024 am. (4) HIV disease: Plan: Diagnosed approximately 5 years ago with viral load undetectable and CD4 count > 1100 as per patient's report last month. Patient reports compliance with Dovato (dolutegravir 50mg / lamivudine 300mg) PO daily over the past 5 years. Either/both dolutegravir and/or lamivudine have been associated with acute pancreatitis. Hence, I surmise that patient's current bout of [id number] ETOH-mediated pancreatitis, may actually be exacerbated by Dovato (dolutegravir 50mg / lamivudine 300mg) PO daily. Hence, I have opted to hold off Dovato (dolutegravir 50mg / lamivudine 300mg) PO daily while patient remains hospitalized at [facility] and will resume Dovato (dolutegravir 50mg / lamivudine 300mg) PO daily on hospital discharge back to home. Plan Patient is a 34-year-old male with past medical history of alcohol use disorder, pancreatitis, anemia, GERD, HIV, anxiety. Patient went to [facility] today for abdominal pain and was diagnosed with pancreatitis, given IV fluids, discharged home as his lipase was not elevated enough for admission. He presented to the ED this evening with ongoing abdominal pain, lipase found to be 282. Being admitted for pancreatitis requiring IV pain control and IV fluids. #pancreatitis - history of recurrent pancreatitis 2/2 alcohol use. No leukocytosis, VSS. Lipase 282. CTAP shows mild acute pancreatitis, hepatomegaly. History of cholecystectomy. - continue with gentle fluid resuscitation with NSS @ 150ml/hr; 1L NSS bolus in ED - clear liquid diet, advance as tolerated - nausea control with Zofran prn - pain control with IV Tylenol 1G avis, Toradol 10mg Iv prn, Dilaudid 0.5/1mg for breakthrough pain #alcohol use disorder - Typically drinks 10 shots + 2-3 glasses of wine daily; last drink 2300 /. Recently relapsed 1-3 weeks ago. No symptoms of withdrawal on admission - AWSS protocol with Ativan IV - Thiamine IV 100mg and folic acid 1mg IV QAM; 1st doses given in ED - Defer checking B1 or folic acid labs this is already received IV doses in ED - daily multivitamin - hold Naltrexone with IV opioid use above #Hyponatremia - chronic. Na 134. - NSS as above - trend BMP #HIV - stable - continue Dovato; has been on for 5 years #Anxiety/depression stable Continue bupropion #GERD stable - transition PO PPI to IV #Anemia - Hgb 13.5, baseline. - b12 with AM labs VTE ppx: SCDs, low risk Dispo: med surg obs Admission and Anticipated Discharge Date Admission Date: December 14, 2024 Subjective "My belly hurts. I was nauseated and vomited once this morning. No blood. No diarrhea, no bowel movement, but then again, I haven't eaten for 2 days. The only thing I had was 10-12 shots of [place] Ne[place] vodka 2 days ago. The dilaudid doesn't make my belly pain go away; the toradol and tylenol combo brought my belly pain down from a 9 to a 2 quickly. So, I prefer toradol." Review of Systems Constitutional: Patient denies antecedent/coincident fevers, chills, diaphoresis, shortness of breath, cough, wheeze, sore throat, hemoptysis, chest pains, palpitations, pleurisy, diarrhea, pelvic pain, hematemesis, hematochezia, melena, hematuria, dysuria, frequency, urgency, headaches, dizziness, lightheadedness, visual changes, hearing changes, weakness, syncope, travel history, sick contacts, or food/drug ingestions novel or new. All other review of systems are reported as negative by the patient on 12/14/2024. Physical Exam Constitutional: General: Uncomfortable with patient pointing to his abdomen (all 4 quadrants), yet coherent and cooperative. Wide awake and alert. Not confused, lethargic, or obtunded. Patient speaks in complete, fluent, and articulate sentences without pause, interruption, cough, or wheeze. HEENT: Normocephalic, atraumatic. No nystagmus, gaze paresis, anisocoria, miosis, mydriasis, hyphema, scleral injection, conjunctivitis, or pterygium. No otorrhea or rhinorrhea. No pharyngeal erythema, edema, or discharge. Neck: Supple, no stridor, bruit, goiter, or hepato-jugular reflux. Jugular venous pressure is estimated to be 3 cm above the sternal angle of Tera, which in turn, is 5 cm above the level of the right atrium; with jugular venous pressure estimated to be 8 cm, then, there is no jugular venous distention on 12/14/2024. Lymphatics: No cervical (anterior/posterior), supraclavicular, infraclavicular, axillary, epitrochlear, or inguinal adenopathy. Chest: Symmetric rise and fall with respirations. Non-tender to palpation. Lungs: Clear to auscultation and percussion. Heart: Regular rate and rhythm. S1 and S2 noted. No S3 or S4 summation gallop. No tripartite friction rub. Grade II/ early systolic murmur @ LLSB without radiation to the carotids, axilla, or back, and which remains invariant in regards to the respiratory cycle. Abdomen: Soft, generalized tenderness in all 4 quadrants, non-distended. No rebound, guarding, Chavarria's sign, or organomegaly. Bowel sounds auscultated in all 4 quadrants. Extremities: No clubbing, cyanosis, or edema. 2+ pedal pulses bilaterally. Skin: No decubitus ulcer, exanthem, or enanthem. Genito-urinary: No urethral discharge. No amaya catheter. Patient utilizes urinal independently. Neurology: Alert and oriented in regards to person, place, time, and s ituation. DTR+ and symmetric. 5/5 motor strength in all 4 extremities, both proximally and distally. No pronator drift. No facial droop. No dysarthria. Psychiatry: No homicidal ideation. No suicidal ideation. No flat affect; smiles appropriately. Results & Data Results & Data Vital Signs (Past 12 Hours) Vital Signs Temp Pulse Resp BP Pulse Ox O2 Del Method 12/14/24 19:34 36.7 C 51 L 15 167/90 H 100 Room Air 12/14/24 15:25 36.7 C 48 L 18 162/82 H 100 Room Air Laboratory Results Abnormal lab results 12/13/24 12/13/24 12/14/24 Range/Units 23:05 23:10 06:32 RBC 4.41 L 4.13 L (4.70-6.10) M/uL Hgb 13.5 L 12.8 L (14.0-18.0) g/dl Hct 39.1 L 37.1 L (42.0-52.0) % Lymph # (Auto) 1.03 L 1.03 L (1.20-3.40) K/uL [place] # (Auto) 0.63 H 0.71 H (0.11-0.59) K/uL Sodium 134 L 135 L (136-145) mmol/L BUN/Creatinine Ratio 9.3 L 6.8 L (10-20) Calcium 8.2 L (8.6-10.3) mg/dl Lipase 282 H (11-82) U/L Ur Specific [place] 1.034 H (1.000-1.030) Urine Protein Trace H (Negative) Urine Ketones 2+ H (Negative) U Hyaline Cast (Auto) 11-20 H (0-2) /lpf U Epithel Cells (Auto) 3-5 H (0-2) /hpf Hyaline Casts Present A (None Presnt) /lpf Granular Casts Present A (None Prsent) /lpf 12/14/24 Range/Units 08:45 RBC (4.70-6.10) M/uL Hgb (14.0-18.0) g/dl Hct (42.0-52.0) % Lymph # (Auto) (1.20-3.40) K/uL [place] # (Auto) (0.11-0.59) K/uL Sodium (136-145) mmol/L BUN/Creatinine Ratio (10-20) Calcium (8.6-10.3) mg/dl Lipase 472 H (11-82) U/L Ur Specific [place] (1.000-1.030) Urine Protein (Negative) Urine Ketones (Negative) U Hyaline Cast (Auto) (0-2) /lpf U Epithel Cells (Auto) (0-2) /hpf Hyaline Casts (None Presnt) /lpf Granular Casts (None Prsent) /lpf Diagnostic Findings Abdomen/Pelvis CT 12/14/24 00:01 EXAM: CT abd pelvis IV con only CLINICAL HISTORY: upper abd pain, hx pancreatitis TECHNIQUE: Multiple contiguous axial images were obtained from the level of diaphragm to the pubis symphysis. This study was acquired after the IV administration of iodinated contrast material, given the patient's indications for the examination. If IV contrast material had not been administered, the likelihood of detecting abnormalities relevant to the patient's condition would have been substantially decreased. Coronal and sagittal reformatted images were generated and reviewed to improve anatomic localization and optimize lesion detection. CT scan was performed according to ALARA (as low as reasonably achievable). COMPARISON: 18 September 2023 FINDINGS: Hepatomegaly is noted measuring 16.8 cm in craniocaudal extent. Diffuse hepatic steatosis seen. Gallbladder is not visualized, cholecystectomy status. Pancreas appears mildly bulky and edematous. Diffuse peripancreatic fat stranding and mild fluid is noted. Mild perisplenic fluid is also seen. No evidence of pseudocyst or walled off necrosis detected. Reactive thickening of bilateral anterior renal fascia, lateral Conal fascia is noted. No evidence of portal vein or splenic vein thrombosis seen. No evidence of any pseudoaneurysm detected. Small omental fat containing umbilical hernia is detected. Few hyperdense foci seen in third part of duodenum- could be ingested particles. There is no intra or extrahepatic biliary ductal dilatation. Hepatic vasculature is patent. The spleen is unremarkable. The pancreas is unremarkable. Both adrenal glands are unremarkable. The kidneys are normal in size and attenuation. There is no hydronephrosis. The ureters are normal in caliber and no ureteral calculi are seen. The bladder is normal in contour. No evidence of focal or diffuse bowel wall thickening or evidence of bowel obstruction is seen. The aorta is normal in caliber. No aggressive appearing osseous lesions are identified. Sponylolysis at L5 level bilaterally. IMPRESSION: 1. Hepatomegaly is noted measuring 16.8 cm in craniocaudal extent. No significant interval change. 2. Diffuse hepatic steatosis seen. Relatively stable. 3. Pancreas appears mildly bulky and edematous. Diffuse peripancreatic fat stranding and mild fluid is noted. Mild perisplenic fluid is also seen. Findings suggestive of acute pancreatitis. Suggested serum amylase/lipase correlation. The peripancreatic inflammatory changes are more in the current study as compared to the previous. 4. No evidence of pseudocyst or walled off necrosis detected. 5. No evidence of portal vein or splenic vein thrombosis seen. No evidence of any pseudoaneurysm detected. 6. Small omental fat containing umbilical hernia is detected. Stable. 7. Few hyperdense foci seen in third part of duodenum- could be ingested particles. New finding. Advised clinical correlation. Rest of the findings are unchanged. Electronically signed by Ricardo Monsalve 12-14-2024 01:58 AM PG Care Time/CCT Total # of Minutes Spent Total Time Spent with Patient: Total time spent is greater than 50% in coordination of care (as documented) at patient's floor/unit and/or counseling patient: Coding Level of Care Code 20719 SUB INP/OBS CARE 2/35MIN Diagnoses Acute pancreatitis K85.90 Alcohol use disorder F10.90 Hyponatremia E87.1 HIV disease B20
[2024-12-15] MEDS: KETOROLAC TROMETHAMINE 15 MG/ML VIAL IV PRN (00:35)
[2024-12-15] MEDS: HYDROmorphone INJ 1 MG/ML SYRINGE IV PRN (05:03)
[2024-12-15 06:58] LABS: Basophils # (auto) 0.02 K/uL (0.00-0.20); Basophils % (auto) 0.3 %; Eosinophils # (auto) 0.01 K/uL (0.00-0.50); Eosinophils % (auto) 0.1 %; Hematocrit (blood only) 37.6 % (42.0-52.0); Hemoglobin 12.7 g/dl (14.0-18.0); Immature Granulocytes # (auto) 0.03 K/uL (0.01-0.20); Immature Granulocytes % (auto) 0.4 %; Lymphocytes # (auto) 0.73 K/uL (1.20-3.40); Lymphocytes % (auto) 9.5 %; Mean Corpuscular Hemoglobin 30.8 pg (25.0-34.0); Mean Corpuscular Hgb Conc 33.8 g/dL (32.0-36.0); Mean Corpuscular Volume 91.3 fL (80.0-100.0); Mean Platelet Volume 10.1 fL (9.4-12.4); Monocytes # (auto) 0.87 K/uL (0.11-0.59); Monocytes % (auto) 11.3 %; Neutrophils # (auto) 6.06 K/uL (1.40-6.50); Neutrophils % (auto) 78.4 %; Platelet Count 156 K/uL (130-400); RDW Coefficient of Variation 13.1 % (11.5-14.5); RDW Standard Deviation 44.1 fL (36.4-46.3); Red Blood Count 4.12 M/uL (4.70-6.10); White Blood Count 7.72 K/ul (4.8-10.8)
[2024-12-15 07:28] LABS: Albumin Globulin Ratio 1.2 (0.9-2); Albumin Level 3.4 gm/dl (3.4-5.0); BUN Creatinine Ratio 4.3 (10-20); Bilirubin,Total 0.7 mg/dl (0.2-1.0); Calcium 8.2 mg/dl (8.6-10.3); Creatinine Clr Calc Pharmacy 140.8 ml/min; Globulin 2.8 gm/dl (2.5-4.0); Potassium 4.1 mmol/L (3.5-5.1); Total Protein 6.2 gm/dl (6.0-8.3)
--- NOTE | 2024-12-15 18:49 | Hospitalist Progress Note ---
Date of Service December 15, 2024 Assessment & Plan (1) Acute pancreatitis: Plan: Acute ETOH-mediated pancreatitis, superimposed on chronic ETOH-mediated pancreatitis. Lipase level is trending up from 282 U/L (12/13/2024, 11:05pm) to 472 U/L (12/14/2024, 8:45am) to 665 U/L (12/15/2024, 6:35am), but low amplitude elevation in lipase levels is consistent with parenchymal scarring of pancreatic tissues capable of producing lipase, and hence, with repeated bouts of chronic ETOH-mediated pancreatitis, patient's pancreas is less capable of producing significantly higher levels of lipase. cf., lipase 1,124 U/L (04/08/2022, 10:55pm), lipase 2,896 U/L (06/07/2025, 4:04pm) when patient first was diagnosed with acute ETOH-mediated pancreatitis. Await repeat lipase level in the 12/16/2024 am. In the interim, continue conservative treatment with clear liquid diet while holding off IV fluid rehydration therapy given normal renal function; continue tylenol 1000mg IV q8, toradol 10mg IV q6 prn pain, dilaudid 1mg IV q3 prn pain 7=10, and dilaudid 0.5mg IV q2 prn breakthrough pain. (2) Alcohol use disorder: Plan: No signs of acute ETOH intoxication or acute ETOH withdrawal on 12/14/2024 or on 12/15/2024. Continue conservative treatment with CIWA scale, lorazepam 1mg IV UD prn CIWA score 6-7, lorazepam 2mg IV UD prn CIWA score 8-9, lorazepam 3mg IV once prn CIWA score 10+, folic acid 1mg IV qam, thiamine 100mg IV qam, and MVI 1 tab PO qam. (3) Hyponatremia: Plan: Mild, acute hypovolemic hyponatremia with Na level increasing from 134 mmol/L (12/13/2024, 11:05pm) to 135 mmol/L (12/14/2024, 6:32am) to 134 mmol/L (12/15/2024, 6:35am). Etiology of acute hypovolemic hyponatremia is due to ETOH-mediated natri-uresis. Patient remains asymptomatic with this mild degree of acute hypovolemic hyponatremia, and hence, conservative treatment with clear liquid diet for rehydration will suffice. Await repeat Na level testing in the 12/16/2024 am. (4) HIV disease: Plan: Diagnosed approximately 5 years ago with viral load undetectable and CD4 count > 1100 as per patient's report last month. Patient reports compliance with Dovato (dolutegravir 50mg / lamivudine 300mg) PO daily over the past 5 years. Either/both dolutegravir and/or lamivudine have been associated with acute pancreatitis. Hence, I surmise that patient's current bout of [id number] ETOH-mediated pancreatitis, may actually be exacerbated by Dovato (dolutegravir 50mg / lamivudine 300mg) PO daily. Hence, I have opted to hold off Dovato (dolutegravir 50mg / lamivudine 300mg) PO daily while patient remains hospitalized at [facility] and will resume Dovato (dolutegravir 50mg / lamivudine 300mg) PO daily on hospital discharge back to home. Plan Patient is a 34-year-old male with past medical history of alcohol use disorder, pancreatitis, anemia, GERD, HIV, anxiety. Patient went to [facility] [address] today for abdominal pain and was diagnosed with pancreatitis, given IV fluids, discharged home as his lipase was not elevated enough for admission. He presented to the ED this evening with ongoing abdominal pain, lipase found to be 282. Being admitted for pancreatitis requiring IV pain control and IV fluids. #pancreatitis - history of recurrent pancreatitis 2/2 alcohol use. No leukocytosis, VSS. Lipase 282. CTAP shows mild acute pancreatitis, hepatomegaly. History of cholecystectomy. - continue with gentle fluid resuscitation with NSS @ 150ml/hr; 1L NSS bolus in ED - clear liquid diet, advance as tolerated - nausea control with Zofran prn - pain control with IV Tylenol 1G avis, Toradol 10mg Iv prn, Dilaudid 0.5/1mg for breakthrough pain #alcohol use disorder - Typically drinks 10 shots + 2-3 glasses of wine daily; last drink 2300 12/12. Recently relapsed 1-3 weeks ago. No symptoms of withdrawal on admission - AWSS protocol with Ativan IV - Thiamine IV 100mg and folic acid 1mg IV QAM; 1st doses given in ED - Defer checking B1 or folic acid labs this is already received IV doses in ED - daily multivitamin - hold Naltrexone with IV opioid use above #Hyponatremia - chronic. Na 134. - NSS as above - trend BMP #HIV - stable - continue Dovato; has been on for 5 years #Anxiety/depression stable Continue bupropion #GERD stable - transition PO PPI to IV #Anemia - Hgb 13.5, baseline. - b12 with AM labs VTE ppx: SCDs, low risk Dispo: med surg obs Admission and Anticipated Discharge Date Admission Date: December 14, 2024 Subjective "My belly still hurts; it's a little less than yesterday (12/14/2024). Today (12/15/2024), the pain is like a 7 (out of 10 point intensity). Yesterday, the pain was like a 9 (out of 10 point intensity). I was nauseated and vomited last night and again this morning; anything that I drink comes back up. No blood. No diarrhea, no bowel movement, but then again, I haven't eaten for 3 days. The only thing I had was 10-12 shots of [place] Neida vodka 3 days ago. The toradol, tylenol, and dilaudid combo helps me, and the dilaudid shot at night lets me sleep maybe one hour at night." Review of Systems Constitutional: Patient reports persistent, but decreased abdominal pain (generalized) on 12/15/2024. Patient reports persistent nausea and non-bilious emesis without hematemesis on 12/14/2024 pm and on 12/15/2024 am. Patient denies antecedent/coincident fevers, chills, diaphoresis, shortness of breath, cough, wheeze, sore throat, hemoptysis, chest pains, palpitations, pleurisy, diarrhea, pelvic pain, hematemesis, hematochezia, melena, hematuria, dysuria, frequency, urgency, headaches, dizziness, lightheadedness, visual changes, hearing changes, weakness, syncope, travel history, sick contacts, or food/drug ingestions novel or new. All other review of systems are reported as negative by the patient on 12/15/2024. Physical Exam Constitutional: General: Uncomfortable with patient pointing to his abdomen (all 4 quadrants) on 12/15/2024, yet coherent and cooperative. Wide awake and alert. Not confused, lethargic, or obtunded. Patient speaks in complete, fluent, and articulate sentences without pause, interruption, cough, or wheeze. HEENT: Normocephalic, atraumatic. No nystagmus, gaze paresis, anisocoria, miosis, mydriasis, hyphema, scleral injection, conjunctivitis, or pterygium. No otorrhea or rhinorrhea. No pharyngeal erythema, edema, or discharge. Neck: Supple, no stridor, bruit, goiter, or hepato-jugular reflux. Jugular venous pressure is estimated to be 3 cm above the sternal angle of Tera, which in turn, is 5 cm above the level of the right atrium; with jugular venous pressure estimated to be 8 cm, then, there is no jugular venous distention on 12/15/2024. Lymphatics: No cervical (anterior/posterior), supraclavicular, infraclavicular, axillary, epitrochlear, or inguinal adenopathy. Chest: Symmetric rise and fall with respirations. Non-tender to palpation. Lungs: Clear to auscultation and percussion. Heart: Regular rate and rhythm. S1 and S2 noted. No S3 or S4 summation gallop. No tripartite friction rub. Grade II/ early systolic murmur @ LLSB without radiation to the carotids, axilla, or back, and which remains invariant in regards to the respiratory cycle. Abdomen: Soft, generalized tenderness (MILD) in all 4 quadrants, non- distended. No rebound, guarding, Chavarria's sign, or organomegaly. Bowel sounds auscultated in all 4 quadrants. Extremities: No clubbing, cyanosis, or edema. 2+ pedal pulses bilaterally. Skin: No decubitus ulcer, exanthem, or enanthem. Genito-urinary: No urethral discharge. No amaya catheter. Patient utilizes urinal independently. Neurology: Alert and oriented in regards to person, place, time, and situation. DTR+ and symmetric. 5/5 motor strength in all 4 extremities, both proximally and distally. No pronator drift. No facial droop. No dysarthria. Psychiatry: No homicidal ideation. No suicidal ideation. No flat affect; smiles appropriately. Results & Data Results & Data Vital Signs (Past 12 Hours) Vital Signs Temp Pulse Pulse Resp BP Pulse Ox O2 Del Method 12/15/24 17:30 36.8 C 71 16 149/79 H 98 Room Air 12/15/24 13:19 36.7 C 63 63 16 151/86 H 97 Room Air 12/15/24 07:33 36.7 C 65 16 138/83 98 Room Air Laboratory Results Lipase 282 U/L (12/13/2024, 11:05pm). Lipase 472 U/L (12/14/2024, 8:45am). Lipase 665 U/L (12/15/2024, 6:35am). Na 134 mmol/L (12/13/2024, 11:05pm). Na 135 mmol/L (12/14/2024, 6:32am). Na 134 mmol/L (12/15/2024, 6:35am). BUN/core dipper 9/0.97 (12/13/2024, 11:05pm). BUN/core dipper 6/0.88 (12/14/2024, 6:32am). BUN/core dipper 3/0.70 (12/15/2024, 6:35am). WBC 7.33, N77 L14 M 9, Hb 13.5, MCV 88.7, MCHC 34.5, platelet 221 (12/13/2024, 11:05pm). WBC 6.59, N73 L16 M11, Hb 12.8, MCV 89.8, MCHC 34.5, platelet 183 (12/14/2024, 6:32am). WBC 7.72, N78 L10 M11, Hb 12.7, MCV 91.3, MCHC 33.8, platelet 156 (12/15/2024, 6:35am). Diagnostic Findings CT abd/pelvis with IV contrast (12/14/2024, 12:01am): 1. Hepatomegaly is noted measuring 16.8 cm in craniocaudal extent. No significant interval change. 2. Diffuse hepatic steatosis seen. Relatively stable. 3. Pancreas appears mildly bulky and edematous. Diffuse peripancreatic fat stranding and mild fluid is noted. Mild perisplenic fluid is also seen. Findings suggestive of acute pancreatitis. Suggested serum amylase/lipase correlation. The peripancreatic inflammatory changes are more in the current study as compared to the previous. 4. No evidence of pseudocyst or walled off necrosis detected. 5. No evidence of portal vein or splenic vein thrombosis seen. No evidence of any pseudoaneurysm detected. 6. Small omental fat containing umbilical hernia is detected. Stable. 7. Few hyperdense foci seen in third part of duodenum- could be ingested particles. PG Care Time/CCT Total # of Minutes Spent Total Time Spent with Patient: Total time spent is greater than 50% in coordination of care (as documented) at patient's floor/unit and/or counseling patient: Coding Level of Care Code 60479 SUB INP/OBS CARE 2/35MIN Diagnoses Acute pancreatitis K85.90 Alcohol use disorder F10.90 Hyponatremia E87.1 HIV disease B20
[2024-12-15] MEDS: MELATONIN 3 MG TAB PO PRN (20:39)
[2024-12-15] MEDS: PHENAZOPYRIDINE HCL 200 MG TAB PO STA (23:40)
[2024-12-16] MEDS: PHENAZOPYRIDINE HCL 200 MG TAB PO PRN (00:14)
[2024-12-16 08:03] LABS: Calcium 8.1 mg/dl (8.6-10.3); Potassium 3.5 mmol/L (3.5-5.1)
[2024-12-16 08:09] LABS: BUN Creatinine Ratio 3.3 (10-20); Creatinine Clr Calc Pharmacy 161.6 ml/min
--- NOTE | 2024-12-16 10:44 | Hospitalist Progress Note ---
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 Lipase level is trending up from 282 U/L (12/13/2024, 11:05pm) to 472 U/L (12/14/2024, 8:45am) to 665 U/L (12/15/2024, 6:35am), but low amplitude elevation in lipase levels is consistent with parenchymal scarring of pancreatic tissues capable of producing lipase, and hence, with repeated bouts of chronic ETOH-mediated pancreatitis, patient's pancreas is less capable of producing significantly higher levels of lipase. cf., lipase 1,124 U/L (04/08/2022, 10:55pm), lipase 2,896 U/L (06/07/2025, 4:04pm) when patient first was diagnosed with acute ETOH-mediated pancreatitis. Acute ETOH Recurrent Pancreatitis - Lipase elevated - CT-A/P w/ evidence of acute pancreatitis - Onset by ETOH use - Improving. +pain on exam 12/16, but tolerable without rebound guarding. No worsening w/ clears. If feeling OK advance to fulls tonight. If worsened pain with meals, will continue clears - Zofran nausea - APAP, Toradol, scaled hydromorphone for pain. No transaminitis - LR 125cc/hr until PO improved, dilaudid 1mg IV q3 prn pain 7=10, and dilaudid 0.5mg IV q2 prn breakthrough pain. ETOH Abuse, w/ history of Delerium Tremens - Hx DTs >1yr ago at ~day 4-5 of withdrawal. Required admission. Had prolonged daily drinking at that time - No signs of acute ETOH intoxication or acute ETOH withdrawal on 12/14/2024 or on 12/15/2024. - Continue conservative treatment with CIWA scale + ativan - Pt shows no signs of active withdrawal now on day ~4 since last ETOH. He is very high risk for complciated withdrawal due to prior history of admission with delirium tremens, but foruntately shows no signs of this at this time and has been drinking daily for ~3 weeks prior to this. In the future if prolonged daily use with relapse would consider phenobarb protocol for him, but will hold on this for now. Hyponatremia - Resolved HIV - Diagnosed approximately 5 years ago with viral load undetectable and CD4 count > 1100 as per patient's report last month. - Dovato (dolutegravir 50mg / lamivudine 300mg) PO daily over the past 5 years. Either/both dolutegravir and/or lamivudine have been associated with acute pancreatitis. - Nkvxs-jx-ytozxen ETOH-mediated pancreatitis may be exacerbated by Dovato (dolutegravir 50mg / lamivudine 300mg) PO daily. This was held on admit pending improvement. If doing well, resume 12/17 or on dc #Anxiety/depression stable Continue bupropion #GERD stable - transition PO PPI to IV #Anemia - Hgb 13.5, baseline. - b12 with AM labs VTE ppx: SCDs, low risk Dispo: med surg. Improving but still with increased pain on exam. has a hx of DTs. Will advanc ediet to fulls tonight, and if doing wlel hopefully dc 12/17 (2) Alcohol use disorder: (3) Hyponatremia: (4) HIV disease: Admission and Anticipated Discharge Date Admission Date: December 16, 2024 Subjective +passing gas Improving RUQ pain today, although not resolved. Tolerable at rest. No pain with clears Voiding regularly BM without blood Denies tremors, sweating, restlessness. Denies chest pain/pressure/dyspnea Notes he started drinking 3 weeks ago. Plans to restart naltrexone on dc. Feels confident in his current etoh cessation resources, declines additional referalls. Has had DTs in the past, was drinking for many months >1 year ago an dwas hospitalized for etoh withdrawal. Signed out AMA after 2 days, but subsequently came back with hallucinations and DTs, does not remember much of this. Thinks he was treated with ativan at the time. No hx seizures Physical Exam Physical Exam: General: A&Ox3. NAD. Cooperative. Skin warm, dry HEENT: Atraumatic, normocephalic. Vision/hearing intact Pulm: CTAB A&P. -wheezes, -rales, -rhonchi. Symmetrical chest rise. No increased work of breathing. No respiratory distress. Cardiac: RRR, -mrg. Radial pulses intact and symmetrical. Abdominal: +RUQ/epigastric TTP. No rebound/guarding/rigidity Results & Data Results & Data Vital Signs (Past 12 Hours) Vital Signs Temp Pulse Resp BP Pulse Ox O2 Del Method 12/16/24 07:37 36.7 C 77 16 165/97 H 96 Room Air PG Care Time/CCT Total # of Minutes Spent Total Time Spent with Patient: Total time spent is greater than 50% in coordination of care (as documented) at patient's floor/unit and/or counseling patient: Coding Level of Care Code 44544 SUB INP/OBS CARE 3/50MIN Diagnoses Acute pancreatitis K85.90 Alcohol use disorder F10.90 Hyponatremia E87.1 HIV disease B20
[2024-12-16] MEDS: LACTATED RINGER'S 1,000 ML IV SCH (11:25)
[2024-12-16 23:22] VITALS: O2SAT 97
[2024-12-17 07:27] VITALS: RESP 18; TEMP 98.1
[2024-12-17 08:48] LABS: BUN Creatinine Ratio 2.9 (10-20); Calcium 8.4 mg/dl (8.6-10.3); Creatinine Clr Calc Pharmacy 142.8 ml/min; Potassium 3.2 mmol/L (3.5-5.1)
[2024-12-17] MEDS: POTASSIUM CHLORIDE / WTR 10 MEQ/100 ML PLCT IV SCH (09:38)
[2024-12-17 14:19] VITALS: BP 149/79; PULSE 63
--- NOTE | 2024-12-17 19:36 | Discharge Summary ---
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 Lipase level is trending up from 282 U/L (12/13/2024, 11:05pm) to 472 U/L (12/14/2024, 8:45am) to 665 U/L (12/15/2024, 6:35am), but low amplitude elevation in lipase levels is consistent with parenchymal scarring of pancreatic tissues capable of producing lipase, and hence, with repeated bouts of chronic ETOH-mediated pancreatitis, patient's pancreas is less capable of producing significantly higher levels of lipase. cf., lipase 1,124 U/L (04/08/2022, 10:55pm), lipase 2,896 U/L (06/07/2025, 4:04pm) when patient first was diagnosed with acute ETOH-mediated pancreatitis. Acute ETOH Recurrent Pancreatitis - Lipase elevated - CT-A/P w/ evidence of acute pancreatitis - Onset by ETOH use - RESOLVING very well on discharge date 12/17/2024 with NO abdominal tenderness on discharge date 12/17/2024 with patient tolerating a full liquid diet on discharge date 12/17/2024. Patient was advised to adhere to a bland diet of bread and water for the next 3 days (12/20/2024 - 12/22/2024) at patient's home. - Of note, lipase level trended up from 282 U/L (12/13/2024, 11:05pm) to 472 U/L (12/14/2024, 8:45am) to 665 U/L (12/15/2024, 6:35am), before declining to 257 U/L (12/16/2024, 6:56am), and then increasing nominally to 290 U/L (12/17/2024, 7:49am), but low amplitude elevation in lipase levels remains consistent with parenchymal scarring of pancreatic tissues capable of producing lipase, and hence, with repeated bouts of chronic ETOH-mediated pancreatitis, patient's pancreas is less capable of producing significantly higher levels of lipase. cf., lipase 1,124 U/L (04/08/2022, 10:55pm), lipase 2,896 U/L (06/07/2025, 4:04pm) when patient first was diagnosed with acute ETOH-mediated pancreatitis. - Zofran prn nausea - APAP, Toradol, scaled down hydromorphone dose for pain. No transaminitis. - LR 125cc/hr until PO improved, dilaudid 1mg IV q3 prn pain 7=10, and dilaudid 0.5mg IV q2 prn breakthrough pain. ETOH Abuse, w/ history of Delerium Tremens - Hx of delirium tremens > 1yr ago at ~day 4-5 of withdrawal. Required admission. Had prolonged daily drinking at that time - No signs of acute ETOH intoxication or acute ETOH withdrawal on 12/14/2024 or on 12/15/2024. - Continue conservative treatment with CIWA scale + ativan - Patient shows no signs of active withdrawal now on day ~5 since last ETOH. He is very high risk for complicated ETOH withdrawal due to prior history of admission with delirium tremens, but fortunately, patient showed/shows no signs of delirium tremens while in [facility], and had been drinking daily for ~3 weeks prior to admission date 12/16/2024. In future hospitalizations, hospitalist may consider phenobarbital protocol for this patient. Hyponatremia RESOLVED - Mild, acute hypovolemic hyponatremia with Na level increasing from 134 mmol/L (12/13/2024, 11:05pm) to 135 mmol/L (12/14/2024, 6:32am) to 134 mmol/L (0 12/15/2024, 6:35am) to 136 mmol/L (12/16/2024, 6:56am) to 139 mmol/L (12/17/2024, 7:49am). Etiology of acute hypovolemic hyponatremia was due to ETOH-mediated natri-uresis. Patient remains asymptomatic with this mild degree of acute hypovolemic hyponatremia, and hence, conservative treatment with clear liquid diet for rehydration will suffice. HIV - Diagnosed approximately 5 years ago with viral load undetectable and CD4 count > 1100 as per patient's report last month. Patient reports compliance with Dovato (dolutegravir 50mg / lamivudine 300mg) PO daily over the past 5 years. Either/both dolutegravir and/or lamivudine have been associated with acute pancreatitis. Hence, I surmise that patient's current bout of ovunw-df-ojfjfmy ETOH-mediated pancreatitis, may actually be exacerbated by Dovato (dolutegravir 50mg / lamivudine 300mg) PO daily. Hence, I have opted to hold off Dovato (dolutegravir 50mg / lamivudine 300mg) PO daily while patient remains hospita lized at [facility] and will resume Dovato (dolutegravir 50mg / lamivudine 300mg) PO daily on hospital discharge back to home. #Anxiety/depression stable Continue patient's home-scheduled bupropion 150mg PO bid while in [facility] and on hospital discharge back to home on 12/17/2024. #GERD stable - Patient received protonix 40mg IV daily while in [facility]; patient will resume his home-scheduled protonix 40mg PO daliy on hospital discharge back to home on 12/17/2024. #Anemia - Chronic normocytic, normochromic anemia with baseline Hb range, 12.2 - 13.6 g/dL (03/14/2022, 11:25am; 10/02/2023, 10:06am). cf., admission Hb 13.5 g/dL, MCV 88.7, MCHC 34.5 (12/13/2024, 11:05pm). cf., repeat Hb 12.8 g/dL, MCV 89.8, MCHC 34.5 (12/14/2024, 6:32am). cf., last recorded Hb 12.7 g/dL, MCV 91.3, MCHC 33.8 (12/15/2024, 6:35am). Patient reported no mucosal bleeding and remained hemodynamically stable while in [facility]. Patient did not require or receive any packed RBC transfusions while in [facility]. Etiology of chronic normocytic, normochromic anemia remains unclear, but is most probably due to a combination of chronic ETOH abuse leading to bone marrow suppression and chronic HIV infection on Dovato (dolutegravir 50mg / lamivudine 300mg) PO daily over the past 5 years. VTE ppx: SCDs, low risk Dispo: med surg. (2) Alcohol use disorder: (3) Hyponatremia: (4) HIV disease: Admission HPI Per Admitting Provider Patient is a 34-year-old male with past medical history of alcohol use disorder, pancreatitis, anemia, GERD, HIV, anxiety. Patient went to [facility] today for abdominal pain and was diagnosed with pancreatitis, given IV fluids, discharged home as his lipase was not elevated enough for admission. He presented to the ED this evening with ongoing abdominal pain, lipase found to be 282 CT shows mild pancreatitis. Being admitted for pancreatitis requiring IV pain control and IV fluids. Patient seen at bedside. he endorses the above. He stated his lipase was 147 at [facility] this morning. His abdominal pain started this morning and he feels it in his epigastric region which radiates to his back, similar to previous episodes of pancreatitis. He also endorses nausea and vomiting since this morning; denies any hematic emesis. Pain is still 8/10 and patient is still nauseous at bedside even after 1 Mg IV Dilaudid and Zofran 4 Mg IV. Patient stated he has felt feverish however temperature normal in ED. He also endorses what feels like chest pain due to the abdominal pain radiation. He denies any anxiety, diaphoresis, tremors that would indicate alcohol withdrawal at this time. Patient recently relapsed 1 to 3 weeks ago and has been drinking approximately 10 shots a day and a couple of glasses of wine. His last drink was at 11 PM 12/12. He also endorses smoking cigarettes, 1 pack/day, however declines nicotine patch at this time. He does not use any oxygen at baseline. He did take his medications yesterday. He wishes to be full code. Discharge Exam Constitutional General: Comfortable, coherent and cooperative. Wide awake and alert. Not confused, lethargic, or obtunded. Patient speaks in complete, fluent, and articulate sentences without pause, interruption, cough, or wheeze. HEENT: Normocephalic, atraumatic. No nystagmus, gaze paresis, anisocoria, miosis, mydriasis, hyphema, scleral injection, conjunctivitis, or pterygium. No otorrhea or rhinorrhea. No pharyngeal erythema, edema, or discharge. Neck: Supple, no stridor, bruit, goiter, or hepato-jugular reflux. Jugular venous pressure is estimated to be 3 cm above the sternal angle of Tera, which in turn, is 5 cm above the level of the right atrium; with jugular venous pressure estimated to be 8 cm, then, there is no jugular venous distention on 12/17/2024. Lymphatics: No cervical (anterior/posterior), supraclavicular, infraclavicular, axillary, epitrochlear, or inguinal adenopathy. Chest: Symmetric rise and fall with respirations. Non-tender to palpation. Lungs: Clear to auscultation and percussion. Heart: Regular rate and rhythm. S1 and S2 noted. No S3 or S4 summation gallop. No tripartite friction rub. Grade II/ early systolic murmur @ LLSB without radiation to the carotids, axilla, or back, and which remains invariant in regards to the respiratory cycle. Abdomen: Soft, non-tender, non-distended. No rebound, guarding, Chavarria's sign, or organomegaly. Bowel sounds auscultated in all 4 quadrants. Extremities: No clubbing, cyanosis, or edema. 2+ pedal pulses bilaterally. Skin: No decubitus ulcer, exanthem, or enanthem. Genito-urinary: No urethral discharge. No amaya catheter. Patient utilizes urinal independently. Neurology: Alert and oriented in regards to person, place, time, and situation. DTR+ and symmetric. 5/5 motor strength in all 4 extremities, both proximally and distally. No pronator drift. No facial droop. No dysarthria. Psychiatry: No homicidal ideation. No suicidal ideation. No flat affect; smiles appropriately. Discharge Plan Discharge Items Patient Disposition: Home - Self-Care Reason For Visit: PANCREATITIS Discharge Diagnosis: Fmbkx-ro-[id number] ETOH-associated pancreatitis Condition on Discharge: Good Activity: Resume your previous activity Lifting: Gradually increase as tolerated Bathing: No limitations Sexual Activity: When tolerated Exercise/Sports: Gradually increase as tolerated Driving/Machine Use: No limitations Weightbearing: Full weightbearing Non-emergency contact: Primary Care Provider Call non-emergency contact if: you have any medication questions Follow-up/Referrals: Santhosh Kent, [Primary Care Provider] - Diet: Other - See Diet Comment Diet Comment: Bread and water for 3 days Addtl Attending Provider Instructions: See your PCP Dr. Santhosh Kent within 5 days. Pending Studies at Discharge: No Stand-Alone Forms: My [facility], Work/School Release, Smoking Cessation Medications and DC Order Prescriptions: New hydromorphone [Dilaudid] 4 mg tablet 4 mg PO Q6H PRN (Reason: pain) Qty: 20 0RF ketorolac 10 mg tablet 10 mg PO Q4H 5 Days Qty: 30 0RF Rx Instructions: while awake; do not exceed 4 doses per day Continued cetirizine [Zyrtec] 10 mg Tablet 10 mg PO QAM potassium chloride 20 mEq tablet,ER particles/crystals 20 meq PO BID bupropion HCl 150 mg Tablet Sustained-Release 12 Hr 150 mg PO BID Dovato 50-300 mg Tablet 1 tab PO QAM pantoprazole [Protonix] 40 mg tablet,delayed release (DR/EC) 40 mg PO QAM cholecalciferol (vitamin D3) [Vitamin D3] 25 mcg (1,000 unit) Capsule 1,000 unit PO QAM naltrexone 50 mg Tablet 50 mg PO QAM fluticasone propionate [Flonase Allergy Relief] 50 mcg/actuation [place],Suspension 1 spray INTRANASAL BID Rx Instructions: administer into each nostril gabapentin 100 mg capsule 100 mg PO TID PRN (Reason: Pain) Discharge Orders: Discharge Order (Routine); Ordered 12/17/24 Ordered By: Irwin Graham Admission Data Admit Date/Time: 12/16/24 00:24 Attending Provider: Irwin Graham Admit Provider: Courtney Kimball Primary Care Provider: Santhosh Kent Other Providers: Courtney Kimball Other Interventions: Discharge Summary Assessment (RN) Last Done: 12/17/24 14:17 Hospital Stay Data Consultations 12/14/24 01:55 ED Decision to Admit Stat Diagnostic Imagining Performed 12/14/24 00:01 CT abd pelvis IV con only Stat Pending Results Patient Have Any Pending Studies at Discharge: No Discharge Instructions Given to Patient (Per Discharging Provider) See your PCP Dr. Santhosh Kent within 5 days. Total Time Total Time Spent Total Time Spent (In Minutes): 35 minutes. Of this time period, 19 minutes were spent in coordinating patient's discharge. Coding Level of Care Code 44256 INP/OBS DISCH >30 MIN Diagnoses Acute pancreatitis K85.90 Alcohol use disorder F10.90 Hyponatremia E87.1 HIV disease B20
== END 2024-12-17 14:31 | disposition home or self-care (01) | DRG 439 ==
LOC: SUATTDRO → 3W 22:57 → ED 22:57 → SUATTDRO 12-14 02:17 → 3W 12-14 03:02 → SUATTDRO 12-16 00:24
DX: Z79.899 Other long term (current) drug therapy; Z79.51 Long term (current) use of inhaled steroids; F17.210 Nicotine dependence, cigarettes, uncomplicated; D64.89 Other specified anemias; Z88.8 Allergy status to other drugs, medicaments and biological substances; K85.20 Alcohol induced acute pancreatitis without necrosis or infection; F10.10 Alcohol abuse, uncomplicated; K21.9 Gastro-esophageal reflux disease without esophagitis; K86.0 Alcohol-induced chronic pancreatitis; F32.A Depression, unspecified; F41.9 Anxiety disorder, unspecified; T37.5X5A Adverse effect of antiviral drugs, initial encounter; Z91.040 Latex allergy status; B20 Human immunodeficiency virus [HIV] disease; E87.1 Hypo-osmolality and hyponatremia

== ENCOUNTER 2025-05-11 02:30 | Observation (INO) ==
[2025-05-11] MEDS: SODIUM CHLORIDE 0.9% 1,000 ML IV STA (02:46)
[2025-05-11] MEDS: ONDANSETRON INJ 2 MG/ML 2 ML VIAL IV STA (02:47)
[2025-05-11] MEDS: FAMOTIDINE 20MG IV PUSH 20 MG/5 ML SYR IV STA (02:47)
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
[2025-05-11] MEDS: OPTIRAY 320 100ml IV ONE (02:59)
[2025-05-11 03:02] LABS: Appearance Urine Clear (Clear); Glucose Urine UA Negative (Negative)
[2025-05-11 03:04] LABS: Hematocrit (blood only) 39.4 % (42.0-52.0); Hemoglobin 13.8 g/dl (14.0-18.0); Immature Granulocytes # (auto) 0.01 K/uL (0.01-0.20); Immature Granulocytes % (auto) 0.2 %; Mean Corpuscular Hemoglobin 30.6 pg (25.0-34.0); Mean Corpuscular Volume 87.4 fL (80.0-100.0); Platelet Count 256 K/uL (130-400); RDW Standard Deviation 38.6 fL (36.4-46.3); Red Blood Count 4.51 M/uL (4.70-6.10); White Blood Count 5.50 K/ul (4.8-10.8)
[2025-05-11 03:23] LABS: Alanine Aminotransferase 38.0 U/L (7-52); Albumin Globulin Ratio 1.2 (0.9-2); Albumin Level 4.0 gm/dl (3.4-5.0); Alkaline Phosphatase 96.0 U/L (34-104); Anion Gap 11.0 (3-11); Bilirubin,Total 0.7 mg/dl (0.2-1.0); Blood Urea Nitrogen 9.0 mg/dl (6-23); Calcium 8.9 mg/dl (8.6-10.3); Carbon Dioxide 23.0 mmol/L (21-32); Chloride 98.0 mmol/L (98-107); Creatinine Clr Calc Pharmacy 102.4 ml/min; Globulin 3.3 gm/dl (2.5-4.0); Glucose 108.0 mg/dl (70-99(Fasting)); Lipase 93.0 U/L (11-82); Magnesium 1.7 mg/dl (1.7-2.4); Potassium 4.2 mmol/L (3.5-5.1); Sodium 132.0 mmol/L (136-145); Total Protein 7.3 gm/dl (6.0-8.3)
--- NOTE | 2025-05-11 03:43 | CT Scan Report ---
EXAM: CT abd pelvis IV con only CLINICAL HISTORY: severe mid abd pain, hx pancreatitis TECHNIQUE: Contiguous axial images were obtained from the level of the diaphragm to the pubic symphysis with intravenous contrast. Coronal and sagittal reconstructions were likewise performed and indicated to increase the sensitivity for detecting clinically relevant pathology. If IV contrast material had not been administered, the likelihood of detecting abnormalities relevant to the patient's condition would have been substantially decreased. The CT scan was performed according to ALARA (as low as reasonably achievable). COMPARISON: 23:19:00 VP SECURITY. FINDINGS: The visualized lung bases are clear. The liver is enlarged in size and demonstrates reduced attenuation. No focal liver lesions are seen. There is no intrahepatic or extrahepatic biliary ductal dilatation. The hepatic vasculature is patent. The gallbladder is not seen- post op. The pancreas is normal in bulk and demonstrates subtle peripancreatic fat stranding. The spleen and adrenal glands are unremarkable. The kidneys are normal in size and attenuation. There is no hydronephrosis or perinephric fat stranding. No renal calculi or renal masses are identified. The ureters are normal in caliber, and no ureteral calculi are seen. The bladder is normal in contour. The pelvic viscera are unremarkable. No focal or diffuse bowel wall thickening or evidence of bowel obstruction is identified. There is no imaging evidence of appendicitis. The abdominal and pelvic vasculature is patent. No adenopathy or fluid collections are seen. No aggressive-appearing osseous lesions are identified. Stable fat-containing umbilical hernia. IMPRESSION: The pancreas is normal in bulk and and demonstrates subtle peripancreatic fat stranding. No other evidence of pancreatitis. There is reduced bulk and inflammation as compared to the prior study. Hepatomegaly with hepatic steatosis, stable. No obvious peripancreatic collection or pseudocyst formation. No obvious vascular marrow abnormality. Stable fat-containing umbilical hernia. Electronically signed by Ricardo Monsalve 05-11-2025 03:42 AM
[2025-05-11] MEDS: MoRPHine SULFATE 4 MG/ML 1 ML CARP\\VIAL IV STA (04:13)
[2025-05-11] MEDS: PANTOprazole 40 MG/10 ML SYR IV ONE (04:20)
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
[2025-05-11] MEDS ORDERED: LORazepam Inj 2 MG in SYRINGE 1 ML IV PRN ×2 (06:00→19:15)
[2025-05-11] MEDS ORDERED: MoRPHine SULFATE 2 MG/ML CARP IV PRN ×2 (06:00→10:36)
[2025-05-11] MEDS ORDERED: LORazepam Inj 3 MG in SYRINGE 1.5 ML IV PRN (06:00)
[2025-05-11] MEDS ORDERED: NALOXONE HCL 0.4 MG/1 ML VIAL/CARP IV PRN (06:00)
[2025-05-11] MEDS ORDERED: LORazepam Inj 1 MG in SYRINGE 0.5 ML IV PRN ×2 (06:00→10:36)
[2025-05-11] MEDS: MoRPHine SULFATE 4 MG/ML 1 ML CARP\\VIAL IV PRN ×2 (06:24→12:27)
[2025-05-11] MEDS: LACTATED RINGER'S 1,000 ML IV SCH (06:24)
[2025-05-11] MEDS: ENOXAPARIN INJ 40 MG/0.4 ML SYR SQ SCH ×2 (06:39→09:16)
[2025-05-11] MEDS: KETOROLAC TROMETHAMINE 15 MG/ML VIAL IV PRN (07:38)
[2025-05-11] MEDS: ONDANSETRON INJ 2 MG/ML 2 ML VIAL IV PRN (07:44)
[2025-05-11] MEDS: FLUTICASONE PROPIONATE NA SPR 16 GM BTL SCH (09:15)
[2025-05-11] MEDS: FOLIC ACID 1 MG in SYRINGE 9.8 ML IV SCH (09:15)
[2025-05-11] MEDS: PANTOprazole 40 MG/10 ML SYR IV SCH (09:15)
[2025-05-11] MEDS: CETIRIZINE HCL 10 MG TABLET PO SCH (09:16)
[2025-05-11] MEDS: THIAMINE HCL 100 MG in SYRINGE 9 ML IV SCH (09:16)
[2025-05-11] MEDS: POTASSIUM CHLORIDE CRTAB 20 MEQ TABCR PO SCH (09:23)
[2025-05-11] MEDS: LAMIVUDINE PO SCH (09:35)
[2025-05-11] MEDS: DOLUTEGRAVIR SODIUM PO SCH (09:35)
--- NOTE | 2025-05-11 10:38 | Hospitalist Progress Note ---
Date of Service May 11, 2025 Assessment & Plan (1) Recurrent acute pancreatitis: (2) Alcohol use disorder: (3) Alcohol intoxication: Plan Patient is a 34-year-old with a past medical history of alcohol use disorder, recurrent. Pancreatitis, delirium tremens, GERD, HIV, anxiety. Patient presented to the ED due to abdominal pain, nausea, vomiting, and diarrhea similar to previous episodes of pancreatitis. Lipase was elevated to [address] showed subtle fat stranding of pancreas however inflammation is reduced from previous. Patient is being admitted for pancreatitis requiring IV pain control, IV fluids and alcohol detox requiring IV Ativan. #pancreatitis - history of recurrent pancreatitis 2/2 alcohol use. No leukocytosis, VSS. Lipase 93. CT AP shows subtle peripancreatic fat stranding reduced from previous, hepatic steatosis. - continue with gentle fluid resuscitation with LR @ 125 ml/hr x3L; 1L NSS bolus in ED - clear liquid diet, advance as tolerated - nausea control with Zofran prn, Pepcid 40mg IV daily - pain control with IV morphine 2/4mg prn; avoiding Tylenol with hepatomegaly and mild elevation of AST - Hold Dovato as can contribute to pancreatitis - could consider trial of Creon with recurrent episodes of pancreatitis - trend cbc and CMP #alcohol use disorder - Typically drinks 8-10 shots of liquor + 1 glass wine daily; last drink 05/10. Recently relapsed several weeks ago after life stressors/being home from work with recent right hand surgery. Hx of DT. - AWSS protocol with Ativan IV - Thiamine IV 100mg and folic acid 1mg IV QAM - continue to hold Naltrexone with IV opioid use above and has been off for 2 weeks in preparation for hand surgery - seizure precautions #HIV - Hold Dovato as can contribute to pancreatitis #Anxiety/depression Continue bupropion #GERD - transition PO PPI to IV VTE ppx: Lovenox Dispo: PCU Admission and Anticipated Discharge Date Admission Date: May 11, 2025 Subjective Ongoing Results & Data Results & Data Vital Signs (Past 12 Hours) Vital Signs Temp Pulse Pulse Resp BP BP Pulse Ox 05/11/25 07:55 36.3 C L 62 17 121/77 97 05/11/25 06:51 54 L 05/11/25 06:01 36.8 C 62 18 137/87 98 05/11/25 05:30 67 17 118/75 97 05/11/25 05:12 60 17 111/68 97 05/11/25 04:27 68 17 111/70 94 05/11/25 03:30 66 18 134/93 98 05/11/25 03:15 131/89 96 05/11/25 03:03 70 05/11/25 02:42 71 21 139/96 98 05/11/25 02:34 36.6 C 84 18 122/84 98 O2 Del Method 05/11/25 07:55 Room Air 05/11/25 06:51 05/11/25 06:01 Room Air 05/11/25 05:30 Room Air 05/11/25 05:12 Room Air 05/11/25 04:27 Room Air 05/11/25 03:30 Room Air 05/11/25 03:15 Room Air 05/11/25 03:03 05/11/25 02:42 05/11/25 02:34 Room Air PG Care Time/CCT Total # of Minutes Spent Total Time Spent with Patient: Total time spent is greater than 50% in coordination of care (as documented) at patient's floor/unit and/or counseling patient: Coding Diagnoses Recurrent acute pancreatitis K85.90 Alcohol use disorder F10.90 Alcohol intoxication F10.929
--- NOTE | 2025-05-11 10:41 | Communication Note ---
Date of Service: May 11, 2025 Patient was seen and examined but admitted the same day therefore I will not be billing for this encounter. Patient not actively withdrawing and did not w ithdraw last admission therefore will switch to at risk lorazepam protocol. Ongoing pain tolerating minimal oral intake therefore will add scheduled acetaminophen and increase frequency of morphine to q4h. Pancreatitis is alcohol induced therefore benefit > risk of restarting his HIV medication. Will continue this. Prior HIV viral load undetectable. CD4 882.
[2025-05-11] MEDS: ACETAMINOPHEN 1,000 MG/100 ML VIAL IV SCH (10:56)
[2025-05-11] MEDS ORDERED: HYDROmorphone INJ 0.5 MG/0.5 ML SYR IV PRN ×2 (15:17→19:15)
[2025-05-11] MEDS: HYDROmorphone INJ 0.5 MG/0.5 ML SYR IV PRN ×2 (16:34→19:32)
--- NOTE | 2025-05-11 20:07 | Communication Note ---
Date of Service: May 11, 2025 Worsening pain throughout the day. Looking back on last admission he was requiring Dilaudid 1mg q3h regularly therefore will increase his pain medications. However he also started having diaphoresis and more tremors without fever therefore suspect he started to go through withdrawal and will place him back on lorazepam 1-3mg PRN active withdrawal protocol. Troponin negative for coronary ischemia.
[2025-05-11] MEDS: MELATONIN 3 MG TAB PO PRN (22:31)
[2025-05-11] MEDS: PROMETHAZINE 12.5 MG/50.5 ML BAG IV PRN (22:37)
[2025-05-12] MEDS: LORazepam Inj 1 MG in SYRINGE 0.5 ML IV PRN (00:25)
[2025-05-12 06:31] LABS: Hematocrit (blood only) 36.0 % (42.0-52.0); Hemoglobin 12.5 g/dl (14.0-18.0); Immature Granulocytes # (auto) 0.02 K/uL (0.01-0.20); Immature Granulocytes % (auto) 0.2 %; Mean Corpuscular Hemoglobin 30.6 pg (25.0-34.0); Mean Corpuscular Volume 88.2 fL (80.0-100.0); Platelet Count 181 K/uL (130-400); RDW Standard Deviation 37.8 fL (36.4-46.3); Red Blood Count 4.08 M/uL (4.70-6.10); White Blood Count 8.32 K/ul (4.8-10.8)
[2025-05-12 07:40] LABS: Alanine Aminotransferase 45.0 U/L (7-52); Albumin Globulin Ratio 1.5 (0.9-2); Albumin Level 3.4 gm/dl (3.4-5.0); Alkaline Phosphatase 92.0 U/L (34-104); Anion Gap 9.0 (3-11); Bilirubin,Total 1.1 mg/dl (0.2-1.0); Blood Urea Nitrogen 6.0 mg/dl (6-23); Calcium 8.6 mg/dl (8.6-10.3); Carbon Dioxide 24.0 mmol/L (21-32); Chloride 100.0 mmol/L (98-107); Creatinine Clr Calc Pharmacy 126.6 ml/min; Globulin 2.3 gm/dl (2.5-4.0); Glucose 102.0 mg/dl (70-99(Fasting)); Magnesium 1.4 mg/dl (1.7-2.4); Potassium 4.4 mmol/L (3.5-5.1); Sodium 133.0 mmol/L (136-145); Total Protein 5.7 gm/dl (6.0-8.3)
[2025-05-12] MEDS: MAGNESIUM SULFATE / D5W 1 GM/100 ML BAG IV SCH (08:34)
--- NOTE | 2025-05-12 09:53 | Electrocardiogram Report ---
Test Reason : Blood Pressure : */* mmHG Vent. Rate : 51 BPM Atrial Rate : 51 BPM P-R Int : 166 ms QRS Dur : 98 ms QT Int : 490 ms P-R-T Axes : 66 16 49 degrees QTcB Int : 451 ms Sinus bradycardia Otherwise normal ECG When compared with ECG of 29-Apr-2025 22:35, Vent. rate has decreased by 39 bpm Confirmed by Paul Alegria ([id number]) on 05/12/2025 9:53:35 AM Referred By: REFERRED SELF Confirmed By: Paul Alegria
--- NOTE | 2025-05-12 14:36 | Hospitalist Progress Note ---
Date of Service May 12, 2025 Assessment & Plan (1) Recurrent acute pancreatitis: (2) Alcohol use disorder: (3) Alcohol intoxication: Plan Patient is a 34-year-old with a past medical history of alcohol use disorder, recurrent. Pancreatitis, delirium tremens, GERD, HIV, anxiety. Patient presented to the ED due to abdominal pain, nausea, vomiting, and diarrhea similar to previous episodes of pancreatitis. Lipase was elevated to [address] showed subtle fat stranding of pancreas however inflammation is reduced from previous. #Acute alcoholic pancreatitis Improved today on higher dose of Dilaudid that he required last admission Advance to clear liquid - advance diet as tolerated Continue LR until oral intake increases (currently only able to take sips) Pain management with Acetaminophen 1g IV q8h, Toradol 15mg q6h PRN 2nd line, Dilaudid 0.5 - 1mg q3h PRN Nausea management with ondansetron 1st line, Phenergan 2nd line Continue pantoprazole 40mg IV BID for possible gastritis #alcohol use disorder - Typically drinks 8-10 shots of liquor + 1 glass wine daily; last drink 05/10. Recently relapsed several weeks ago after life stressors/being home from work with recent right hand surgery. Hx of DT. - AWSS protocol with Ativan IV - Thiamine IV 100mg and folic acid 1mg IV QAM, switch to PO whenever intake improves - seizure precautions #HIV - Continue Dovato benefit > risk #Anxiety/depression Continue bupropion #GERD - transition PO PPI to IV VTE Prophylaxis - Lovenox 40mg SQ daily Disposition - stable for downgrade to med/surg Admission and Anticipated Discharge Date Admission Date: May 11, 2025 Subjective Much improved after increasing Dilaudid dosing yesterday. No longer diaphoretic. Physical Exam Constitutional: WD/WN, vitals as above Respiratory: normal respiratory effort, lungs clear to auscultation Cardiovascular: RRR, no murmur, no edema Gastrointestinal (Abdomen): Inspection/Auscultation: abdomen normal to inspection; abdomen not distended Percussion/Palpation: + abdomen tender (RUQ and epigastric, much improve) and abdomen soft Results & Data Results & Data Vital Signs (Past 12 Hours) Vital Signs Temp Pulse Pulse Resp BP Pulse Ox O2 Del Method 05/12/25 10:57 36.8 C 60 21 154/93 H 97 Room Air 05/12/25 08:20 36.8 C 59 L 18 155/97 H 98 Room Air 05/12/25 08:00 57 L 05/12/25 03:43 36.7 C 51 L 18 150/94 H 98 Room Air PG Care Time/CCT Total # of Minutes Spent Total Time Spent with Patient: Total time spent is greater than 50% in coordination of care (as documented) at patient's floor/unit and/or counseling patient: Coding Level of Care Code 39948 SUB INP/OBS CARE 2/35MIN Diagnoses Recurrent acute pancreatitis K85.90 Alcohol use disorder F10.90 Alcohol intoxication F10.929
[2025-05-13] MEDS ORDERED: LORazepam 1 MG/1 ML SYR ED Inj Use IV STA (00:20)
[2025-05-13] MEDS: LORazepam Inj 1 MG in SYRINGE 0.5 ML IV STA (00:31)
[2025-05-13 06:29] LABS: Alanine Aminotransferase 46.0 U/L (7-52); Albumin Globulin Ratio 1.5 (0.9-2); Albumin Level 3.5 gm/dl (3.4-5.0); Alkaline Phosphatase 116.0 U/L (34-104); Anion Gap 6.0 (3-11); Bilirubin,Total 0.6 mg/dl (0.2-1.0); Blood Urea Nitrogen 3.0 mg/dl (6-23); Calcium 8.4 mg/dl (8.6-10.3); Carbon Dioxide 27.0 mmol/L (21-32); Chloride 100.0 mmol/L (98-107); Creatinine Clr Calc Pharmacy 117.5 ml/min; Globulin 2.4 gm/dl (2.5-4.0); Glucose 105.0 mg/dl (70-99(Fasting)); Lipase 167.0 U/L (11-82); Magnesium 1.8 mg/dl (1.7-2.4); Potassium 3.7 mmol/L (3.5-5.1); Sodium 133.0 mmol/L (136-145); Total Protein 5.9 gm/dl (6.0-8.3)
--- NOTE | 2025-05-13 07:06 | Hospitalist Progress Note ---
Date of Service May 13, 2025 Assessment & Plan (1) Alcohol withdrawal syndrome with complication: (2) Alcohol use disorder, severe, dependence: (3) Chronic pancreatitis due to chronic alcoholism: (4) Corneal abrasion: (5) HIV (human immunodeficiency virus) infection: (6) Major depressive disorder in partial remission: Plan In summary this is a 34-year-old male admitted for alcohol withdrawal found to have questionable findings consistent with mild acute pancreatitis #Alcohol withdrawal // Alcohol use disorder with dependenceB PA WSS score of 4; continue current benzodiazepine treatment regimen; last alcoholic drink was on 05/11 in the mid afternoon Uncomplicated withdrawal at this time, if remains uncomplicated through 05/14, anticipate de-escalation to MedSurg floor Continue Ativan injection as needed for symptomatic withdrawal Continue folic acid and thiamine supplementation as previously ordered #Mild acute pancreatitis secondary to alcohol use Patient presented with a mildly elevated lipase of 167, subtle peripancreatic fat stranding per the radiologist report, and clinical findings consistent with pancreatitis; with these criteria, the patient did present with a mild acute pancreatitis, likely superimposed on chronic pancreatitis considering the recurrent presentations though it is mentioned that the pancreas does not exhibit any atrophic findings on imaging Advance diet to regular on 05/13, adjust as needed per patient's reported symptomatology Continue acetaminophen 1000 mg every 8 hours scheduled Continue Toradol 30 mg IV every 6 hours through 05/15 or at discharge, whichever occurs first Continue hydromorphone 0.5 mg IV every 3 hours as needed #HIV type I, asymptomatic Continue home suppressive therapy at this time Admission and Anticipated Discharge Date Admission Date: May 11, 2025 Anticipated date of discharge: 05/15/25 Subjective Mr. Trevizo is a 34-year-old male whose active medical conditions include alcohol use disorder with dependence, chronic pancreatitis, HIV type I with active s uppression therapy who presented to the [facility] on 05/11 due to acute onset abdominal pain subsequently admitted for mild acute pancreatitis and alcohol withdrawal. No acute overnight events; patient feels well this morning, tolerating clear liquids. They are passing minimal gas, no bowel movement. He denies any visual or auditory hallucinations. Review of Systems Review of Systems: Review of constitutional, cardiovascular, pulmonary, neurologic, genitourinary systems was unremarkable with pertinent positives and negatives detailed above Physical Exam Physical Exam: General: Adult male in no acute distress Vital Signs: Reviewed HEENT: Pupils equally round and reactive to light, extraocular motion intact; moist mucous membranes Pulmonary: Symmetric chest wall excursion without restriction; clear to auscultation bilaterally Cardiovascular: Regular rate and rhythm without murmurs, rubs, or gallops; S1 and S2 normal; left radial pulse 2+ with brisk capillary refill Gastrointestinal: Soft, nondistended; low-frequency normal pitch bowel sounds present throughout the abdomen; mild tenderness to palpation in the right upper quadrant Musculoskeletal: Right wrist is in a soft splint, postoperative per the patient's report Neurologic: Cranial nerves II through XII grossly intact; no discernible focal weakness nor paresthesias Psychiatric: Denies visual or auditory hallucinations; denies any heightened sense of anxiety; alert and oriented to self, place, time, circumstances Results & Data Results & Data Vital Signs (Past 12 Hours) Vital Signs Temp Pulse Resp BP BP Pulse Ox O2 Del Method 05/13/25 03:12 37.0 C 89 16 114/67 98 Room Air 05/12/25 23:04 37 C 95 H 16 130/75 97 Room Air 05/12/25 19:15 36.9 C 74 18 150/95 H 99 Room Air PG Care Time/CCT Total # of Minutes Spent Total Time Spent with Patient: Total time spent is greater than 50% in coordination of care (as documented) at patient's floor/unit and/or counseling patient: Coding Level of Care Code 23061 SUB INP/OBS CARE 2/35MIN Diagnoses Alcohol withdrawal syndrome with complication F10.939 Alcohol use disorder, severe, dependence F10.20 Chronic pancreatitis due to chronic alcoholism K86.0; F10.20 Corneal abrasion, unspecified laterality, subsequent encounter S05.00XD Laterality: unspecified laterality Encounter type: subsequent encounter Asymptomatic HIV infection, with no history of HIV-related illness Z21 HIV symptom status: asymptomatic, with no history of HIV-related illness Recurrent major depressive disorder, in partial remission F33.41 Major depression recurrence: recurrent (4) Corneal abrasion Laterality: unspecified laterality Encounter type: subsequent encounter Qualified Code(s): S05.00XD - Injury of conjunctiva and corneal abrasion without foreign body, unspecified eye, subsequent encounter (5) HIV (human immunodeficiency virus) infection HIV symptom status: asymptomatic, with no history of HIV-related illness Qualified Code(s): Z21 - Asymptomatic human immunodeficiency virus [HIV] infection status (6) Major depressive disorder in partial remission Major depression recurrence: recurrent Qualified Code(s): F33.41 - Major depressive disorder, recurrent, in partial remission
[2025-05-13] MEDS: KETOROLAC TROMETHAMINE 15 MG/ML VIAL IV SCH (08:31)
[2025-05-13] MEDS: ACETAMINOPHEN 500 MG TAB PO SCH (11:27)
[2025-05-13] MEDS: LORazepam Inj 3 MG in SYRINGE 1.5 ML IV PRN (13:52)
[2025-05-13] MEDS: HYDROmorphone INJ 0.5 MG/0.5 ML SYR IV PRN (17:40)
[2025-05-13] MEDS ORDERED: NICOTINE POLACRILEX 2 MG GUM MT PRN (19:22)
[2025-05-13] MEDS ORDERED: LORazepam Inj 3 MG in SYRINGE 1.5 ML IV PRN (19:28)
[2025-05-13] MEDS ORDERED: LORazepam Inj 2 MG in SYRINGE 1 ML IV PRN (19:28)
[2025-05-13] MEDS: NICOTINE 14 MG/24 HR PATCH TD SCH (20:19)
[2025-05-13 22:49] VITALS: RESP 16; O2SAT 97
[2025-05-13] MEDS: LORazepam Inj 1 MG in SYRINGE 0.5 ML IV PRN (23:53)
[2025-05-14 02:49] VITALS: BP 124/78; PULSE 99; TEMP 98.1
--- NOTE | 2025-05-14 05:49 | Communication Note ---
Date of Service: May 14, 2025 Notify by nursing that patient expressed desired to leave against medical advice. Patient currently being treated for acute pancreatitis secondary to alc ohol abuse and alcohol withdrawal ( on Awss protocol ) Patient was to start Librium treatment overnight, however patient declined. At time of discussion patient was alert, oriented x3, coherent and able to articulate understanding of current medical condition and treatment plan. Discussed risk of leaving that include possible, seizures, delirium termers, , progression of pancreatitis and dehydration. Patient acknowledges understanding of the risk if leaving now. Patient consistently maintains decision to leave. No evidence of delirium, or current hallucinations. Determined to have decision - making capacity at this time. was notify by nursing. AMA form reviewed, signed by patient and witnessed RN
[2025-05-14] MEDS ORDERED: REMOVE NICODERM PATCH SCH (08:59)
[2025-05-14] MEDS ORDERED: THIAMINE HCL 100 MG TAB PO SCH (09:00)
[2025-05-14] MEDS ORDERED: FOLIC ACID 1 MG TAB PO SCH (09:00)
--- NOTE | 2025-05-14 11:19 | Discharge Summary ---
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 #Alcohol withdrawal // Alcohol use disorder with dependence PAWSS score of 4; continue current benzodiazepine treatment regimen; last alcoholic drink was on 05/11 in the mid afternoon - Required scheduled librium from 05/13 through morning of 05/14 when the patient ultimately left against medical advice Continue folic acid and thiamine supplementation as previously ordered #Mild acute pancreatitis secondary to alcohol use Resolved #HIV type I, asymptomatic Continue home suppressive therapy at this time Admission HPI Per Admitting Provider Patient is a 34-year-old with a past medical history of alcohol use disorder, recurrent. Pancreatitis, delirium tremens, GERD, HIV, anxiety. Patient presented to the ED due to abdominal pain, nausea, vomiting, and diarrhea similar to previous episodes of pancreatitis. Lipase was elevated to [address] showed subtle fat stranding of pancreas however inflammation is reduced from previous. Patient is being admitted for pancreatitis requiring IV pain control, IV fluids and alcohol detox requiring IV Ativan. Patient seen at bedside. He stated this morning he developed sudden onset epigastric pain that worsened throughout the day and does radiate to his back similar to previous episodes so he came in right away before it got to severe. He also endorses nausea and vomiting in a yellow bile material, denies any hematemesis. He also endorses several episodes of diarrhea. He denies any chest pain or shortness of breath, pain is well-controlled after morphine in the ED. Patient stated he started drinking again several weeks ago as he has been off of work after having surgery of his right hand which is his dominant hand. He has been slowly cutting back and is currently drinking 8-10 shots of liquor per day and a glass of wine in the evening. This evening he had 7 shots and his last drink was at 1930; EtOH level 204.8. He is agreeable to detox while he is here. It is noted that he stopped his naltrexone prior to his surgery 04/24 as requested and has not yet restarted. He endorses nicotine use however declines need for nicotine patch at this time. He wishes to be full code. Discharge Exam General: Adult male in no acute distress Vital Signs: Reviewed HEENT: Pupils equally round and reactive to light, extraocular motion intact; moist mucous membranes Pulmonary: Symmetric chest wall excursion without restriction; clear to auscultation bilaterally Cardiovascular: Regular rate and rhythm without murmurs, rubs, or gallops; S1 and S2 normal; left radial pulse 2+ with brisk capillary refill Gastrointestinal: Soft, nondistended; low-frequency normal pitch bowel sounds present throughout the abdomen; mild tenderness to palpation in the right upper quadrant Musculoskeletal: Right wrist is in a soft splint, postoperative per the patient's report Neurologic: Cranial nerves II through XII grossly intact; no discernible focal weakness nor paresthesias Psychiatric: Denies visual or auditory hallucinations; denies any heightened sense of anxiety; alert and oriented to self, place, time, circumstances Discharge Plan Discharge Items Patient Disposition: Against Medical Advice Reason For Visit: ACUTE PANCREATITIS, ALCOHOL DETOX Condition on Discharge: Fair Activity: Resume your previous activity Non-emergency contact: Primary Care Provider Follow-up/Referrals: Jh Falcon [Primary Care Provider] - Pending Studies at Discharge: No Stand-Alone Forms: [facility], Smoking Cessation Medications and DC Order Prescriptions: Continued cetirizine [Zyrtec] 10 mg Tablet 10 mg PO QAM potassium chloride 20 mEq tablet,ER particles/crystals 20 meq PO BID bupropion HCl 150 mg Tablet Sustained-Release 12 Hr 150 mg PO BID Dovato 50-300 mg Tablet 1 tab PO QAM pantoprazole [Protonix] 40 mg tablet,delayed release (DR/EC) 40 mg PO QAM cholecalciferol (vitamin D3) [Vitamin D3] 25 mcg (1,000 unit) Capsule 1,000 unit PO QAM naltrexone 50 mg Tablet 50 mg PO QAM fluticasone propionate [Flonase Allergy Relief] 50 mcg/actuation [place],Suspension 1 spray INTRANASAL BID Rx Instructions: administer into each nostril trazodone 50 mg tablet 50 mg PO HS ofloxacin 0.3 % drops See Rx Instructions .ROUTE .COMPLEX Qty: 5 0RF Rx Instructions: PER PT "HAVEN'T USED THEM THE WAY THEY WERE PERSCRIBED" put 1-2 drps into affected eye(s) every 2-4 h x 2 days, then 1-2 drps 4 times/day days 3-7 Discharge Orders: Left Against Medical Advice (Routine); Ordered 05/14/25 Ordered By: Kylee Doe Admission Data Admit Date/Time: 05/11/25 04:48 Attending Provider: El Holder Admit Provider: Courtney Kimball Primary Care Provider: Jh Falcon Other Providers: Courtney Kimball Hospital Stay Data Consultations 05/11/25 04:34 ED Decision to Admit Stat Diagnostic Imagining Performed 05/11/25 02:43 CT abd pelvis IV con only Stat Pending Results Patient Have Any Pending Studies at Discharge: No Total Time Total Time Spent Total Time Spent (In Minutes): I spent greater than 30 minutes in the coordination of the patient's discharge including reviewing risks with the patient of leaving AMA Coding Level of Care Code 89833 INP/OBS DISCH >30 MIN Diagnoses Alcohol withdrawal syndrome with complication F10.939 Alcohol use disorder, severe, dependence F10.20 Chronic pancreatitis due to chronic alcoholism K86.0; F10.20 Corneal abrasion, unspecified laterality, subsequent encounter S05.00XD Encounter type: subsequent encounter Laterality: unspecified laterality Asymptomatic HIV infection, with no history of HIV-related illness Z21 HIV symptom status: asymptomatic, with no history of HIV-related illness Recurrent major depressive disorder, in partial remission F33.41 Major depression recurrence: recurrent
== END 2025-05-14 05:55 | disposition left against medical advice (07) | DRG 439 ==
LOC: SUATTDRO → ED 02:30 → INTOOBSV 04:48 → 2E 04:48 → SUATTDRO 04:48 → 2E 05:38 → 3W 05-13 21:08 → 2E 05-13 22:21

== ENCOUNTER 2025-05-14 14:34 | Inpatient (IN) ==
--- NOTE | 2025-05-14 14:45 | Emergency Department Note ---
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 Patient is accompanied by police who provide additional history. Patient states that he left the hospital this morning because he did not trust the team that was taking care of him. Patient states when he arrived home his partner had a bunch of people at the house and this caused increased stress. He notes that he went to the liquor store and then noticed that there were people sitting in his car and called EMS. Patient states that they were not actually there. He reports both auditory and visual hallucinations. Reports ongoing mild abdominal pain. Patient reports sharp and stabbing pain within the right hand. He does report tremulousness. Patient states that he feels this is both his acute alcohol withdrawal, pancreatitis and his mental health. He denies any homicidal or suicidal ideations.. They deny fever or chills. No cough or congestion. Denies chest pain or palpitations. No shortness of breath. They deny abdominal pain, nausea and vomiting. No urinary complaints. No recent changes in bowel movements. Patient denies recent changes in medications or OTC supplements. Patient offers no other complaints, today. ADDITIONAL HISTORY OBTAINED: Per HPI Chronic Medical/Social Conditions Affecting Care: Per HPI PAST MEDICAL HISTORY: See Below PAST SURGICAL HISTORY: See Below FAMILY HISTORY: See Below SOCIAL HISTORY: See Below HOME MEDICATIONS: See Below ALLERGIES: See Below VITALS: See Below PHYSICAL EXAMINATION: GENERAL: Sitting up in bed, alert, well appearing, well nourished, no distress, non-toxic EYE EXAM: normal conjunctiva. PERRL and EOM's grossly intact. OROPHARYNX: no exudate, no erythema, lips, buccal mucosa, and tongue normal and mucous membranes are moist. tongue fasciculations NECK: supple, no nuchal rigidity, no adenopathy, non-tender LUNGS: Clear to auscultation. Normal chest wall mechanics HEART: no murmurs, regular rate, regular rhythm ABDOMEN: abdomen soft, epigastric TTP, no masses, no rebound or guarding. BACK: Back is symmetrical on inspection and there is no deformity, no midline tenderness, no CVA tenderness. SKIN: no rashes and no bruising UPPER EXTREMITIES: upper extremities are grossly normal. LOWER EXTREMITIES: No pitting edema. NEURO EXAM: Normal sensorium, GCS 15, normal speech, no gross weakness of arms, no gross weakness of legs. tremors of the extremities PSYCH: tearful. anxious. organized thought. MEDICAL DECISION MAKING: Differential diagnoses includes but not limited to acute alcohol withdrawal, delirium, depression, anxiety, psychosis, electrolyte derangements, dehydration, pancreatitis, polysubstance use disorder In summary, this is a 34 year old male who presented with visual hallucinations. Differential as above. Nursing notes and pertinent past medical records reviewed. Vital signs reviewed and the patient is mildly hypertensive and borderline tachycardic but otherwise afebrile and hemodynamically stable. History and presentation revealed Patient was in the hospital overnight. I reviewed medical record and notes. It appears from documentation that the patient left AMA. He was on a Librium taper with as needed Ativan. Does have a history of complicated withdrawal. Do feel the patient would likely benefit from medical admission again. Do not believe the patient necessarily meets inpatient criteria for psychiatric evaluation. I did discuss this with the patient. Patient is agreeable to inpatient management again. Physical examination revealed as above. As a result of my initial evaluation, will provide IV fluid resuscitation and as needed Ativan. Will likely need to continue Librium taper. Could also consider load of phenobarbital. Diagnostics interpreted by me include EKG and cardiac monitoring as listed below: -Cardiac Monitoring: An order was placed for continuous cardiac monitoring. The monitor shows a rate of 80-100s with regular rhythm. -ECG: normal sinus rhythm at a ventricular rate of [address] segment changes to suggest STEMI. Intervals are within normal limits. Patient completed laboratory studies and imaging. Results independently interpreted by me are mild leukopenia from baseline. Chronic anemia present. No UTI on urinalysis. Does have ketonuria. Likely starvation ketosis. Multiple electrolyte derangements including hypomagnesemia and hypophosphatemia noted. IV replenishment ordered. I do feel the patient likely has delirium in the setting of acute alcohol withdrawal. I recommended inpatient management and he was agreeable to this. Ultimately, the decision was made to admit the patient for acute alcohol withdrawal with likely delirium and multiple electrolyte derangements. I discussed the case with the hospitalist service via telephone/Tiger[employer] and they are agreeable to admit the patient to their services. Based on the above, including the patient's age, coexisting illnesses, labs, imaging, and exam findings the decision to treat as an inpatient. I discussed the patient with the hospitalist team who recommended admission to their services. They received the medications, treatments, interventions indicated above and their condition remained guarded. I discussed my findings with the patient and their family and they understand and agree with the treatment plan. All patient / family questions were answered to their satisfaction. Consults/Care Managements Discussions: Per MDM ER treatment provided: See above Procedures:none Critical Care: None The chart was completed utilizing [employer] Speech voice recognition software. Grammatical errors, random word insertions, pronoun errors, and incomplete sentences are an occasional consequence of this system due to software limitations, ambient noise, and hardware issues. Any formal questions or concerns about the content, text, or information contained within the body of this dictation should be directly addressed to the physician for clarification. Past Med/Surg History Problem List (Updated 05/15/25 @ 14:44 by Yuri Mata DO) Delirium (Acute) Finger pain, right Hypomagnesemia (Acute) Hypophosphatemia (Acute) HIV (human immunodeficiency virus) infection (Chronic) Major depressive disorder in partial remission (Chronic) Chronic pancreatitis due to chronic alcoholism (Chronic) Alcohol withdrawal syndrome with complication (Acute) Alcohol use disorder, severe, dependence (Acute) Dysplasia of rectum Constipation GERD (gastroesophageal reflux disease) Medical History Colitis Hyponatremia Acute pancreatitis Acute upper abdominal pain HIV disease History of lumbar puncture (02/2023) at [facility] 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 History of alcohol abuse History of hypertension r/t pancreatitis and pain. no medications at this time. GERD (gastroesophageal reflux disease) History of colitis per imaging - no surgery needed Hx of pancreatitis March 2024, treated at [facility] and sent home with pain medication. doing well currently. treated at [facility] in 2021 Anxiety HIV disease dx 2014 - controlled with Dovato Surgical History History of colonoscopy S/P endoscopy anascopy with removal of precancerous cells at [facility] [address] ~2009 S/P cholecystectomy Family History Other No family history of adverse response to anesthesia No pertinent family history in first degree relatives Social History Smoking Status: Current every day smoker Tobacco Type: Cigarettes Cigarettes Per Day: 20; Second Hand Exposure: No; Do You Dip or Chew Tobacco: No; Tobacco Cessation Education Requested by Patient: No Hx Alcohol Use: Yes Alcohol type: beer and wine Hx Substance Use: No Preferred Language: Romanian Communication Ability: Effective 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 Beliefs That Will Affect Care: None marital status: Current Living Situation: Spouse Current Living Situation Comment: R[place] current occupational status: employed current occupation: Works at [employer] Other Information That Helps Us Care for You: No Feels Safe at Home: Yes Safety Concerns: Feels Safe At This Time Assistive Devices: None Allergies Allergies Allergy/AdvReac Type Severity Reaction Status Date / Time latex Allergy Intermediate Rash Verified 05/14/25 17:14 benzonatate AdvReac Intermediate Hypertensio Verified 05/14/25 17:14 [From Justin Benitez] n Home Meds Home Medications Medication Instructions Recorded Confirmed bupropion HCl 150 mg tablet,12 hr 150 mg PO BID 10/12/20 05/11/25 sustained-release dolutegravir 50 mg-lamivudine 300 1 tab PO QAM 10/12/20 05/11/25 mg tablet (Dovato) cetirizine 10 mg tablet (Zyrtec) 10 mg PO QAM 12/10/21 05/11/25 potassium chloride 20 mEq 20 meq PO BID 12/10/21 05/11/25 tablet,extended release(part/cryst) pantoprazole 40 mg tablet,delayed 40 mg PO QAM 02/21/23 05/11/25 release (Protonix) cholecalciferol (vitamin D3) 25 1,000 unit PO QAM 04/03/23 05/11/25 mcg (1,000 unit) capsule (Vitamin D3) naltrexone 50 mg tablet 50 mg PO QAM 09/18/23 05/11/25 fluticasone propionate 50 1 spray intranasal BID 05/21/24 05/11/25 mcg/actuation nasal spray,suspension (Flonase Allergy Relief) trazodone 50 mg tablet 50 mg PO HS 04/30/25 05/11/25 Previous Rx's Medication Instructions Recorded ofloxacin 0.3 % eye drops See Rx Instructions ophthalmic 04/30/25 (eye) .COMPLEX #5 mL Results & Data (ED) Vital Signs Vital Signs - 24 hr 05/14/25 14:47 05/14/25 14:47 05/14/25 15:01 Temperature 36.9 C Temperature Source Oral Pulse Rate 95 H 96 H Pulse Rate [Right Finger] 95 H Pulse Rhythm Regular Pulse Rhythm [Right Finger] Regular Pulse Strength Normal Pulse Strength [Right Finger] Normal Respiratory Rate 20 20 Respiratory Effort / Characteristics Non-Labored Spontaneous Non-Labored Spontaneous Respiratory Depth Normal Normal Respiratory Pattern Regular Regular Blood Pressure 151/95 H Blood Pressure [Left Arm] 151/95 H Blood Pressure Mean 113 Blood Pressure Mean [Left Arm] 113 Blood Pressure Position Lying Blood Pressure Position [Left Arm] Sitting Pulse Oximetry 99 99 Oxygen Delivery Method Room Air Room Air Sepsis Recent Fever Within 48 Hours No Sepsis New/Unexplained Change in Mental Status No Sepsis Action Taken by Nursing No Action Required Laboratory Data 05/15/25 07:49 05/15/25 07:49 Lab Results 05/14/25 Range/Units 14:51 WBC 4.42 L (4.8-10.8) K/ul RBC 3.64 L (4.70-6.10) M/uL Hgb 11.3 L (14.0-18.0) g/dl Hct 33.4 L (42.0-52.0) % MCV 91.8 (80.0-100.0) fL MCH 31.0 (25.0-34.0) pg MCHC 33.8 (32.0-36.0) g/dL RDW Std Deviation 42.3 (36.4-46.3) fL RDW Coeff of Dio 12.5 (11.5-14.5) % Plt Count 151 (130-400) K/uL MPV 10.5 (9.4-12.4) fL Immature Gran % (Auto) 0.5 % Neut % (Auto) 70.8 % Lymph % (Auto) 17.6 % [place] % (Auto) 8.8 % Eos % (Auto) 1.8 % Baso % (Auto) 0.5 % Neut # (Auto) 3.13 (1.40-6.50) K/uL Lymph # (Auto) 0.78 L (1.20-3.40) K/uL [place] # (Auto) 0.39 (0.11-0.59) K/uL Eos # (Auto) 0.08 (0.00-0.50) K/uL Baso # (Auto) 0.02 (0.00-0.20) K/uL Immature Gran # (Auto) 0.02 (0.01-0.20) K/uL PT Cancelled INR Cancelled APTT Cancelled PTT Ratio Cancelled Sodium 136 (136-145) mmol/L Potassium 3.5 (3.5-5.1) mmol/L Chloride 100 (98-107) mmol/L Carbon Dioxide 28 (21-32) mmol/L Anion Gap 8 (3-11) BUN 4 L (6-23) mg/dl Creatinine 0.79 (0.6-1.4) mg/dl Est Cr Clr Drug Dosing 122.5 ml/min eGFR 120.30 BUN/Creatinine Ratio 5.1 L (10-20) Glucose 95 (70-99(Fasting)) mg/dl Calcium 9.0 (8.6-10.3) mg/dl Phosphorus 2.0 L (2.5-4.9) mg/dl Magnesium 1.6 L (1.7-2.4) mg/dl Total Bilirubin 0.4 (0.2-1.0) mg/dl AST 34 (13-39) U/L ALT 36 (7-52) U/L Alkaline Phosphatase 125 H (34-104) U/L Total Protein 6.7 (6.0-8.3) gm/dl Albumin 3.5 (3.4-5.0) gm/dl Globulin 3.2 (2.5-4.0) gm/dl Albumin/Globulin Ratio 1.1 (0.9-2) Lipase 130 H (11-82) U/L Ethyl Alcohol mg/dL < 10.0 (<10.0) mg/dl Administered Medications Enoxaparin Sodium (Enoxaparin Inj 40 Mg/0.4 Ml Syr) 40 mg SQ Q24H [facility] Stop: 06/13/25 18:29 Last Admin: 05/14/25 21:14 Dose: 40 mg Documented By: SUSU Folic Acid (Folic Acid 1 Mg Tab) 1 mg PO QAM [facility] Stop: 06/14/25 08:59 Last Admin: 05/15/25 09:36 Dose: 1 mg Documented By: Lactated Ringer's (Lr) 1,000 mls @ 115 mls/hr IV .Q8H42M [facility] Stop: 05/17/25 18:29 Last Admin: 05/15/25 13:25 Dose: Not Given Documented By: Infusion: 05/15/25 11:01 Dose: Infused Documented By: Admin: 05/15/25 02:06 Dose: 115 mls/hr Documented By: Infusion: 05/15/25 02:06 Dose: Infused Documented By: Admin: 05/14/25 18:46 Dose: 115 mls/hr Documented By: ELIZABETH Thiamine HCl 500 mg/ Sodium (Chloride) 55 mls @ 210 mls/hr IV Q8H [facility] Stop: 05/17/25 18:59 Last Infusion: 05/15/25 12:21 Dose: Infused Documented By: Admin: 05/15/25 11:45 Dose: 210 mls/hr Documented By: Infusion: 05/15/25 04:23 Dose: Infused Documented By: Admin: 05/15/25 03:26 Dose: 210 mls/hr Documented By: Infusion: 05/14/25 19:18 Dose: Infused Documented By: Admin: 05/14/25 18:45 Dose: 210 mls/hr Documented By: ELIZABETH Pantoprazole Sodium (Pantoprazole 40 Mg Tab) [facility] [place]: 06/14/25 08:59 Last Admin: 05/15/25 09:36 Dose: 40 mg Documented By: Phenobarbital (Phenobarbital 30 Mg Tab) 60 mg PO Q12H [facility] Stop: 05/15/25 22:46 Last Admin: 05/15/25 11:07 Dose: 60 mg Documented By: Phenobarbital Sodium (Phenobarbital Sodium 65 Mg/Ml Vial) 65 mg IV Q6H PRN PRN Reason: AWSS greater than 8 Stop: 05/18/25 23:59 Last Admin: 05/14/25 21:12 Dose: 65 mg Documented By: SUSU Vitamin D (Cholecalciferol 25 Mcg (1000 Units) Tab) 25 mcg PO QAM [facility] Stop: 06/14/25 08:59 Last Admin: 05/15/25 09:36 Dose: 25 mcg Documented By: Discontinued Medications Chlordiazepoxide HCl (Chlordiazepoxide Hcl 25 Mg Cap) 25 mg PO NOW ONE Stop: 05/14/25 15:29 Last Admin: 05/14/25 15:51 Dose: 25 mg Documented By: ORTIZ Lactated Ringer's (Lr) 1,000 mls @ 125 mls/hr IV .Q8H [facility] Stop: 05/17/25 14:59 Last Infusion: 05/14/25 19:18 Dose: Infused Documented By: Infusion: 05/14/25 18:14 Dose: 125 mls/hr Documented By: Infusion: 05/14/25 16:53 Dose: 0 mls/hr Documented By: Admin: 05/14/25 15:17 Dose: 125 mls/hr Documented By: ORTIZ Magnesium Sulfate/Dextrose (Magnesium Sulfate / D5w) 1 gm in 100 mls @ 100 mls/hr IV Q1H [facility] Stop: 05/14/25 17:56 Last Infusion: 05/14/25 19:57 Dose: Infused Documented By: Admin: 05/14/25 18:45 Dose: 100 mls/hr Documented By: Infusion: 05/14/25 18:45 Dose: Infused Documented By: Infusion: 05/14/25 18:14 Dose: 100 mls/hr Documented By: Infusion: 05/14/25 16:53 Dose: 0 mls/hr Documented By: Admin: 05/14/25 16:16 Dose: 100 mls/hr Documented By: ORTIZ Potassium Phosphate 15 mmol/ (Sodium Chloride) 255 mls @ 88 mls/hr IV ONE ONE Stop: 05/14/25 19:23 Last Infusion: 05/14/25 21:16 Dose: Infused Documented By: Infusion: 05/14/25 18:14 Dose: 88 mls/hr Documented By: Infusion: 05/14/25 16:53 Dose: 0 mls/hr Documented By: Admin: 05/14/25 16:31 Dose: 88 mls/hr Documented By: ORTIZ Lorazepam (Lorazepam 1 Mg Tab) 1 mg PO ONE PRN; Protocol PRN Reason: EtoH Withdrawal AWSS 6,7,8,9,10 Last Admin: 05/14/25 16:16 Dose: 1 mg Documented By: ORTIZ Phenobarbital Sodium (Phenobarbital Sodium 130 Mg/Ml Vial) 130 mg IM NOW STA Stop: 05/14/25 16:29 Last Admin: 05/14/25 17:29 Dose: 130 mg Documented By: ORTIZ Phenobarbital Sodium (Phenobarbital Sodium 130 Mg/Ml Vial) 130 mg IM NOW STA Stop: 05/14/25 22:47 Last Admin: 05/14/25 23:09 Dose: Not Given Documented By: SUSU Phenobarbital Sodium (Phenobarbital Sodium 130 Mg/Ml Vial) Confirm Administered Dose 130 mg .ROUTE .STK-MED ONE Stop: 05/14/25 22:50 Last Admin: 05/14/25 23:07 Dose: 130 mg Documented By: SUSU Potassium Phosphate (Potassium Phos 3 Mmol/1 Ml Infusion) 15 mmol IV NOW STA Stop: 05/14/25 15:58 Last Admin: 05/14/25 16:14 Dose: Not Given Documented By: ORTIZ Discharge Plan Visit Data Chief Complaint: Alcohol Withdrawal Stated Complaint: 201 ED Provider: Yuri Mata Discharge Problem: Alcohol withdrawal syndrome with complication, Hypomagnesemia, Alcohol use disorder, severe, dependence, Hypophosphatemia, Delirium Patient Disposition: Admitted As Inpatient Condition: Serious Discharge Instructions Interventions: ED Discharge Assessment Last Done: 05/14/25 18:22
[2025-05-14] MEDS ORDERED: LORazepam Inj 1 MG in SYRINGE 0.5 ML IV PRN (14:58)
[2025-05-14] MEDS: LACTATED RINGER'S 1,000 ML IV SCH ×2 (15:17→18:46)
[2025-05-14 15:21] LABS: Hematocrit (blood only) 33.4 % (42.0-52.0); Hemoglobin 11.3 g/dl (14.0-18.0); Immature Granulocytes # (auto) 0.02 K/uL (0.01-0.20); Immature Granulocytes % (auto) 0.5 %; Mean Corpuscular Hemoglobin 31.0 pg (25.0-34.0); Mean Corpuscular Volume 91.8 fL (80.0-100.0); Platelet Count 151 K/uL (130-400); RDW Standard Deviation 42.3 fL (36.4-46.3); Red Blood Count 3.64 M/uL (4.70-6.10); White Blood Count 4.42 K/ul (4.8-10.8)
[2025-05-14 15:25] LABS: Appearance Urine Clear (Clear); Glucose Urine UA Negative (Negative)
[2025-05-14 15:37] LABS: Alanine Aminotransferase 36.0 U/L (7-52); Albumin Globulin Ratio 1.1 (0.9-2); Albumin Level 3.5 gm/dl (3.4-5.0); Alkaline Phosphatase 125.0 U/L (34-104); Anion Gap 8.0 (3-11); Bilirubin,Total 0.4 mg/dl (0.2-1.0); Blood Urea Nitrogen 4.0 mg/dl (6-23); Calcium 9.0 mg/dl (8.6-10.3); Carbon Dioxide 28.0 mmol/L (21-32); Chloride 100.0 mmol/L (98-107); Creatinine Clr Calc Pharmacy 122.5 ml/min; Globulin 3.2 gm/dl (2.5-4.0); Glucose 95.0 mg/dl (70-99(Fasting)); Lipase 130.0 U/L (11-82); Magnesium 1.6 mg/dl (1.7-2.4); Potassium 3.5 mmol/L (3.5-5.1); Sodium 136.0 mmol/L (136-145); Total Protein 6.7 gm/dl (6.0-8.3)
--- NOTE | 2025-05-14 15:58 | Electrocardiogram Report ---
Test Reason : Blood Pressure : */* mmHG Vent. Rate : 95 BPM Atrial Rate : 95 BPM P-R Int : 182 ms QRS Dur : 86 ms QT Int : 370 ms P-R-T Axes : 72 23 61 degrees QTcB Int : 464 ms Normal sinus rhythm Normal ECG When compared with ECG of 11-May-2025 16:27, Vent. rate has increased by 44 bpm Confirmed by Paul Alegria ([id number]) on 05/14/2025 3:57:56 PM Referred By: Confirmed By: Paul Alegria
[2025-05-14] MEDS: POTASSIUM PHOS 3 MMOL/1 ML INFUSION IV STA (16:14)
[2025-05-14] MEDS: MAGNESIUM SULFATE / D5W 1 GM/100 ML BAG IV SCH (16:16)
[2025-05-14] MEDS: LORazepam 1 MG TAB PO PRN (16:16)
[2025-05-14 16:19] LABS: Amphetamines+Metham, Urine Neg (Neg); MDMA (Ecstacy), Urine Pos (Neg); Marijuana, Urine Pos (Neg)
[2025-05-14] MEDS: POTASSIUM PHOSPHATE 15 MMOL in SODIUM CHLORIDE 0.9% 250 ML IV ONE (16:31)
--- NOTE | 2025-05-14 17:13 | History & Physical Report ---
Date of Service May 14, 2025 Assessment & Plan (1) HIV (human immunodeficiency virus) infection: (2) Alcohol withdrawal syndrome with complication: (3) Alcohol use disorder, severe, dependence: (4) Hypophosphatemia: (5) Hypomagnesemia: Plan In summary this is a 34-year-old male who presents for progressive alcohol withdraw #Alcohol withdrawal // Alcohol use disorder, severe, with dependence // Stimulant use disorder PA WSS score of 8; the patient's delayed symptomatology related to alcohol withdrawal may be consequential of the previous presentation still having a blood alcohol level greater than 200, as the patient metabolized her alcohol, depending on their level of tolerance, this may have slightly shifted the onset of symptoms related to alcohol withdraw; nonetheless, we will pursue phenobarbital based treatment during his current hospitalization as detailed below; furthermore, his UDS at presentation is notably positive for MDMA, THC, and oipoids which are likely playing a role in his current presentation, especially MDMA given the vividity of his hallucinations Administer bolus phenobarbital 130 mg IV one-time, followed by protocol Continue lactated ringer at 115 mL/h Start thiamine 5 mg IV every 8 hours for 3 days Start folic acid 1 mg p.o. daily Maintain seizure precautions At this time, based on current clinical assessment, the patient is not capable of making medical decisions to leave the hospital AGAINST MEDICAL ADVICE; this may change during patient's hospitalization as he recovers from his current acute illness #Hypophosphatemia // Hypomagnesemia Notably with diminished phosphorus and magnesium, replaced by ED provider; to be reassessed daily Follow daily renal function panel and serum magnesium #HIV, sustained suppression // Leukopenia The patient is notably leukopenic at presentation, significantly changed from earlier laboratory assessment; he states that he is adherent with his antiretroviral therapy; his presentation at this point time is not consistent with an HIV related syndrome, nor is it consistent with encephalitis though, close monitoring will be necessary to determine if there is needed further diagnostic testing to ensure his condition has remained well-controlled History of Present Illness Chief Complaint: Acute visual and auditory hallucinations in the setting of alcohol withdrawal Primary Care Provider: Jh Falcon Mr. Trevizo is a 34-year-old male whose active medical conditions include alcohol use disorder with severe dependence, major depressive disorder in partial remission, HIV type I infection with maintained suppression who presented to the [facility] on 05/14 due to progressive worsening hallucinations, both visual and auditory, anxiety, and tremulousness after leaving the same Medical Center on the same day at approximately 0500 hrs. AGAINST MEDICAL ADVICE. After departure from this hospital, the patient says that there is an event that "triggered" him, he is not comfortable sharing with what this event was at this point in time however this led to him purchasing alcohol, which he did not consume due to subsequent hallucinations. As he left the store, he describes seeing multiple juveniles in his vehicle which led to him calling the police, on arrival (and confirmed upon arrival to the emergency department, the police department state that there were no individuals in the patient's car. He was brought to the emergency department for further evaluation. At the time my assessment the patient is tearful, feels "defeated", expresses great frustration with respect to his recurrent episodes of withdrawal and de pendence on alcohol. He denies any chest pain, shortness of breath, orthopnea, cough, congestion. He does note some difficulty with oral intake upon returning home, but denies any hematemesis. He endorses some mild abdominal pain, primarily epigastric with associated mid thoracic discomfort though this is not worsened since his departure from the hospital nor worsened with consumption earlier today. Allergies Allergy/AdvReac Type Severity Reaction Status Date / Time latex Allergy Intermediate Rash Verified 05/14/25 17:14 benzonatate AdvReac Intermediate Hypertensio Verified 05/14/25 17:14 [From Justin Benitez] n Home Medications Medication Instructions Recorded Confirmed Type bupropion HCl 150 mg tablet,12 hr 150 mg PO BID 10/12/20 05/11/25 History sustained-release dolutegravir 50 mg-lamivudine 300 1 tab PO QAM 10/12/20 05/11/25 History mg tablet (Dovato) cetirizine 10 mg tablet (Zyrtec) 10 mg PO QAM 12/10/21 05/11/25 History potassium chloride 20 mEq 20 meq PO BID 12/10/21 05/11/25 History tablet,extended release(part/cryst) pantoprazole 40 mg tablet,delayed 40 mg PO QAM 02/21/23 05/11/25 History release (Protonix) cholecalciferol (vitamin D3) 25 1,000 unit PO QAM 04/03/23 05/11/25 History mcg (1,000 unit) capsule (Vitamin D3) naltrexone 50 mg tablet 50 mg PO QAM 09/18/23 05/11/25 History fluticasone propionate 50 1 spray intranasal BID 05/21/24 05/11/25 History mcg/actuation nasal spray,suspension (Flonase Allergy Relief) ofloxacin 0.3 % eye drops See Rx Instructions ophthalmic 04/30/25 05/11/25 Rx (eye) .COMPLEX #5 mL trazodone 50 mg tablet 50 mg PO HS 04/30/25 05/11/25 History Past Med/Surg History Problem List (Updated 05/14/25 @ 17:20 by El Holder DO) Hypomagnesemia (Acute) Hypophosphatemia HIV (human immunodeficiency virus) infection (Chronic) Major depressive disorder in partial remission (Chronic) Chronic pancreatitis due to chronic alcoholism (Chronic) Alcohol withdrawal syndrome with complication (Acute) Alcohol use disorder, severe, dependence (Acute) Dysplasia of rectum Constipation GERD (gastroesophageal reflux disease) Medical History Corneal abrasion Colitis Alcohol intoxication Hyponatremia Acute pancreatitis Acute upper abdominal pain HIV disease History of lumbar puncture (02/2023) at [facility] 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 History of alcohol abuse History of hypertension r/t pancreatitis and pain. no medications at this time. GERD (gastroesophageal reflux disease) History of colitis per imaging - no surgery needed Hx of pancreatitis March 2024, treated at [facility] and sent home with pain medication. doing well currently. treated at [facility] in 2021 Anxiety HIV disease dx 2013 - controlled with Dovato Surgical History History of colonoscopy S/P endoscopy anascopy with removal of precancerous cells at [facility] ~2009 S/P cholecystectomy Family History Other No family history of adverse response to anesthesia No pertinent family history in first degree relatives Social History (Updated 05/14/25 @ 17:15 by El Holder DO) Smoking Status: Current every day smoker Tobacco Type: Cigarettes Cigarettes Per Day: 20; Second Hand Exposure: Yes ( smokes.); Do You Dip or Chew Tobacco: No; Hx Alcohol Use: Yes Alcohol type: beer and wine Hx Substance Use: Yes Last Used Substance: Days (ago) Last Used Substance Other:: 1 Week ago. 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 Beliefs That Will Affect Care: None marital status: Current Living Situation: Spouse Current Living Situation Comment: [place] current occupational status: employed current occupation: Works at [employer] Feels Safe at Home: Yes Assistive Devices: Cane Review of Systems Review of Systems: Review of constitutional, cardiovascular, pulmonary, gastrointestinal, genitourinary, psychiatric, neurologic systems was unremarkable except for pertinent positives and negatives found in the HPI above Physical Exam Physical Exam: General: Adult male in no acute distress Vital Signs: Reviewed HEENT: Tacky mucous membranes; pupils equally round and reactive to light, extraocular motion intact Pulmonary: Symmetric chest wall excursion without restriction; lungs clear to auscultation bilaterally Cardiovascular: Regular rate and rhythm without murmurs, rubs, or gallops; S1 and S2 normal; right radial pulse 2+ Gastrointestinal: Soft, nondistended; nontender to superficial and deep palpation throughout the abdomen Neurologic: Cranial nerves II through XII grossly intact; no discernible focal weakness no paresthesias; high-frequency low amplitude tremulousness of the bilateral upper extremities at rest distal of the elbow Psychiatric: Tearful and remorseful affect; appears to be responding to internal stimuli during exam with reactions to hearing things that are not physically present in the room during our exam; at 1 point during the assessment, the patient suddenly stopped speaking and stated they no longer felt comfortable talking as if someone was present in the room listening outside of the provider and the patient Results & Data Results & Data Vital Signs (Past 12 Hours) Vital Signs Temp Pulse Pulse Resp BP BP Pulse Ox 05/14/25 14:47 95 H 20 151/95 H 99 05/14/25 14:47 36.9 C 95 H 20 151/95 H 99 O2 Del Method 05/14/25 14:47 Room Air 05/14/25 14:47 Room Air Laboratory Results Leukopenic measure of 4.4 to; hypophosphatemic and hypomagnesemic at 2 and 1.6, respectively Lipase measured 130, improving from previous measure Urine drug screen notable for opiates, MDMA, THC, benzodiazepines (of note the patient was prescribed these during his hospitalization within the past 24 hours) Alcohol level was unmeasurable Code Status & VTE Plan Code Status Full code VTE Prophylaxis Plan VTE Prophylaxis will be ordered: Yes PG Care Time/CCT Total # of Minutes Spent Total Time Spent with Patient: Total time spent is greater than 50% in coordination of care (as documented) at patient's floor/unit and/or counseling patient: Coding Level of Care Code 89413 INT INP/OBS CARE 3/75MIN Diagnoses Asymptomatic HIV infection, with no history of HIV-related illness Z21 HIV symptom status: asymptomatic, with no history of HIV-related illness Alcohol withdrawal syndrome with complication F10.939 Alcohol use disorder, severe, dependence F10.20 Hypophosphatemia E83.39 Hypomagnesemia E83.42 (1) HIV (human immunodeficiency virus) infection HIV symptom status: asymptomatic, with no history of HIV-related illness Qualified Code(s): Z21 - Asymptomatic human immunodeficiency virus [HIV] infection status
[2025-05-14] MEDS ORDERED: PHENobarbital PO Alcohol Withdrawal PO STA (18:30)
[2025-05-14] MEDS: THIAMINE HCL 500 MG in SODIUM CHLORIDE 0.9% 50 ML IV SCH (18:45)
[2025-05-14] MEDS: ENOXAPARIN INJ 40 MG/0.4 ML SYR SQ SCH (21:14)
--- NOTE | 2025-05-15 06:55 | Hospitalist Progress Note ---
Date of Service May 15, 2025 Assessment & Plan (1) HIV (human immunodeficiency virus) infection: (2) Alcohol withdrawal syndrome with complication: (3) Alcohol use disorder, severe, dependence: (4) Hypophosphatemia: (5) Hypomagnesemia: (6) Finger pain, right: Plan In summary this is a 34-year-old male who presents for progressive alcohol withdraw #Alcohol withdrawal // Alcohol use disorder, severe, with dependence // Stimulant use disorder PA WSS score of 8; the patient's delayed symptomatology related to alcohol withdrawal may be consequential of the previous presentation still having a blood alcohol level greater than 200, as the patient metabolized alcohol, depending on their level of tolerance, this may have slightly shifted the onset of symptoms related to alcohol withdraw; continue phenobarbital based treatment during his current hospitalization as detailed below; furthermore, his UDS at presentation is notably positive for MDMA, THC, and oipoids which are likely playing a role in his current presentation, especially MDMA given the vividity of his hallucinations; we discussed today if the patient would be interested in psychiatric consultation during his stay, at this time he declines; if the patient's hallucinations persist past what is typically expected for AWD, then psychiatric consultation would be recommended for further determination of causes other than influence/withdrawal of these substances Continue phenobarbital protocol Continue lactated ringer at 115 mL/h until regular p.o. hydration is establishe Continue thiamine 5 mg IV every 8 hours for 3 days, then continue with daily oral supplementation Continue folic acid 1 mg p.o. daily Maintain seizure precautions - Recommend withholding home buproprion at this time given it can lower seizure threshold and influence the patient's hallucinations; if they begin to develop signs or symptoms of acute withdrawal from this, would recommend resuming it with close clinical monitoring At this time, based on current clinical assessment, the patient is not capable of making medical decisions to leave the hospital AGAINST MEDICAL ADVICE; this may change during patient's hospitalization as he recovers from his current acute illness #HIV, sustained suppression // Leukopenia The patient was notably leukopenic at presentation; he states that he is adherent with his antiretroviral therapy; his presentation at this point time is not consistent with an HIV related syndrome, nor is it consistent with encephalitis -Pending CD4 count and quantitative RNA level #Right second DIP pain Recently underwent an unspecified right wrist surgery at [facility] without records to review at this time; his current pain is without a specified trauma, though the events from his departure AMA on the morning of 05/14 to his return the same day are somewhat foggy; the patient denies any traumatic injuries or falls - Pending right hand plain films for further evaluation #Hypophosphatemia // Hypomagnesemia Resolved, continue to monitor until regular p.o. intake is established Admission and Anticipated Discharge Date Admission Date: May 14, 2025 Subjective Mr. Trevizo is a 34-year-old male whose active medical conditions include alcohol use disorder with severe dependence, major depressive disorder in partial remission, HIV type I infection with maintained suppression who presented to the [facility] on 05/14 due to progressive worsening hallucinations, both visual and auditory, anxiety, and tremulousness after leaving the same Medical Center on the same day at approximately 0500 hrs. AGAINST MEDICAL ADVICE. After departure from this hospital, the patient says that there is an event that "triggered" him, he is not comfortable sharing with what this event was at this point in time however this led to him purchasing alcohol, which he did not consume due to subsequent hallucinations. As he left the store, he describes seeing multiple juveniles in his vehicle which led to him calling the police, on arrival (and confirmed upon arrival to the emergency department, the police department state that there were no individuals in the patient's car. He was brought to the emergency department for further evaluation. Overnight a [facility] was called due to the degree of patient's agitation, unfortunately there is little documented regarding the details of this event. This morning, the patient is comfortable in bed though reports continued auditory and visual hallucinations. They deny these being persecutory or self- deprecating in any way, nor are they providing instructions; describes these as just "noise". He does note right second DIP pain that has been persistent since admission, though he does not recall any injury prior to his presentation to the ED. Notes difficulty with full extension, with pain localized beneath the nailbed on the dorsal aspect. Review of Systems Review of Systems: Review of constitutional, cardiovascular, pulmonary, gastrointestinal, genitourinary, psychiatric, neurologic systems was unremarkable except for pertinent positives and negatives found in the HPI above Physical Exam Physical Exam: General: Adult male in no acute distress Vital Signs: Reviewed HEENT: Tacky mucous membranes; pupils equally round and reactive to light, extraocular motion intact Pulmonary: Symmetric chest wall excursion without restriction Cardiovascular: Regular rate and rhythm with right radial pulse 2+ MSK: reproducible discomfort at the distal-most aspect of the right second DIP; limited active range of motion in phalangeal extension due to pain, not significantly limited in active flexion; passive range of motion is not significantly impaired Neurologic: Cranial nerves II through XII grossly intact; no discernible focal weakness no paresthesias; high-frequency low amplitude tremulousness of the bilateral upper extremities at rest distal of the elbow Psychiatric: Flat affect; no longer responding to internal stimuli as he had previously, though endorses visual and auditory hallucinations Results & Data Results & Data Vital Signs (Past 12 Hours) Vital Signs Temp Pulse Pulse Resp BP BP Pulse Ox 05/15/25 06:00 141/90 H 05/15/25 06:00 77 17 05/15/25 05:18 79 18 05/15/25 05:00 142/92 H 05/15/25 04:54 73 17 05/15/25 04:06 76 17 97 05/15/25 04:00 125/73 05/15/25 03:48 75 17 97 05/15/25 03:14 76 18 97 05/15/25 03:00 136/87 05/15/25 03:00 36.6 C 78 18 136/87 97 05/15/25 02:26 77 20 97 05/15/25 02:08 78 20 97 05/15/25 02:00 133/82 05/15/25 01:30 79 18 96 05/15/25 01:09 81 17 96 05/15/25 01:07 119/80 05/15/25 01:06 81 19 96 05/15/25 01:00 81 19 96 05/15/25 00:25 130/73 05/15/25 00:24 86 22 05/15/25 00:22 37.1 C 89 18 130/73 98 05/15/25 00:03 97 H 17 05/14/25 23:08 89 16 05/14/25 23:08 145/100 H 05/14/25 23:07 92 H 20 145/100 H 05/14/25 22:26 109 H 05/14/25 22:12 83 21 05/14/25 21:12 84 21 141/88 H 05/14/25 21:09 76 20 05/14/25 21:09 141/88 H 05/14/25 21:00 36.8 C 78 21 141/88 H 100 05/14/25 20:00 86 21 05/14/25 19:51 89 21 05/14/25 19:51 146/82 H 05/14/25 19:43 85 O2 Del Method 05/15/25 06:00 05/15/25 06:00 05/15/25 05:18 05/15/25 05:00 05/15/25 04:54 05/15/25 04:06 05/15/25 04:00 05/15/25 03:48 05/15/25 03:14 05/15/25 03:00 05/15/25 03:00 Room Air 05/15/25 02:26 05/15/25 02:08 05/15/25 02:00 05/15/25 01:30 05/15/25 01:09 05/15/25 01:07 05/15/25 01:06 05/15/25 01:00 05/15/25 00:25 05/15/25 00:24 05/15/25 00:22 Room Air 05/15/25 00:03 05/14/25 23:08 05/14/25 23:08 05/14/25 23:07 05/14/25 22:26 05/14/25 22:12 05/14/25 21:12 05/14/25 21:09 05/14/25 21:09 05/14/25 21:00 Room Air 05/14/25 20:00 05/14/25 19:51 05/14/25 19:51 05/14/25 19:43 Laboratory Results Improved electrolytes from prior PG Care Time/CCT Total # of Minutes Spent Total Time Spent with Patient: Total time spent is greater than 50% in coordination of care (as documented) at patient's floor/unit and/or counseling patient: Coding Level of Care Code 49917 SUB INP/OBS CARE 3/50MIN Diagnoses Asymptomatic HIV infection, with no history of HIV-related illness Z21 HIV symptom status: asymptomatic, with no history of HIV-related illness Alcohol withdrawal syndrome with complication F10.939 Alcohol use disorder, severe, dependence F10.20 Hypophosphatemia E83.39 Hypomagnesemia E83.42 Finger pain, right M79.644 (1) HIV (human immunodeficiency virus) infection HIV symptom status: asymptomatic, with no history of HIV-related illness Qualified Code(s): Z21 - Asymptomatic human immunodeficiency virus [HIV] infection status
[2025-05-15 08:09] LABS: Hematocrit (blood only) 33.3 % (42.0-52.0); Hemoglobin 10.9 g/dl (14.0-18.0); Mean Corpuscular Hemoglobin 30.8 pg (25.0-34.0); Mean Corpuscular Volume 94.1 fL (80.0-100.0); Platelet Count 168 K/uL (130-400); RDW Standard Deviation 43.1 fL (36.4-46.3); Red Blood Count 3.54 M/uL (4.70-6.10); White Blood Count 3.91 K/ul (4.8-10.8)
[2025-05-15 08:36] LABS: Albumin Level 3.3 gm/dl (3.4-5.0); Anion Gap 10.0 (3-11); Blood Urea Nitrogen 4.0 mg/dl (6-23); Calcium 8.4 mg/dl (8.6-10.3); Carbon Dioxide 25.0 mmol/L (21-32); Chloride 102.0 mmol/L (98-107); Creatinine Clr Calc Pharmacy 154.0 ml/min; Glucose 77.0 mg/dl (70-99(Fasting)); Magnesium 1.9 mg/dl (1.7-2.4); Potassium 3.6 mmol/L (3.5-5.1); Sodium 137.0 mmol/L (136-145)
[2025-05-15] MEDS: CHOLECALCIFEROL 25 MCG (1000 UNITS) TAB PO SCH (09:36)
[2025-05-15] MEDS: FOLIC ACID 1 MG TAB PO SCH (09:36)
--- NOTE | 2025-05-15 12:03 | XRay Report ---
XR hand RT min 3V routine CLINICAL HISTORY: suspected right second phalange avulsion fx COMPARISON: None FINDINGS: Evaluation of the fingers is mildly limited by overlap on the lateral views. No fracture o r dislocation seen. No erosion or significant degenerative change. IMPRESSION: Mildly limited exam with no fracture seen. If there is persistent concern for fracture at the second finger, suggest dedicated finger views. ACT 112: Negative or not required by law. Electronically signed by: Andrés Rankin M.D. 05/15/2025 12:00 PM
[2025-05-15] MEDS: KETOROLAC 30 MG/ML VIAL IV SCH (17:30)
[2025-05-16 06:48] LABS: Albumin Level 3.0 gm/dl (3.4-5.0); Anion Gap 6.0 (3-11); Blood Urea Nitrogen 3.0 mg/dl (6-23); Calcium 8.2 mg/dl (8.6-10.3); Carbon Dioxide 27.0 mmol/L (21-32); Chloride 106.0 mmol/L (98-107); Creatinine Clr Calc Pharmacy 149.9 ml/min; Glucose 105.0 mg/dl (70-99(Fasting)); Magnesium 1.8 mg/dl (1.7-2.4); Potassium 3.2 mmol/L (3.5-5.1); Sodium 139.0 mmol/L (136-145)
--- NOTE | 2025-05-16 07:09 | Hospitalist Progress Note ---
Date of Service May 16, 2025 Assessment & Plan (1) Alcohol withdrawal syndrome with complication: (2) Alcohol use disorder, severe, dependence: (3) Hypophosphatemia: (4) Hypomagnesemia: (5) HIV (human immunodeficiency virus) infection: (6) Finger pain, right: Plan In summary this is a 34-year-old male who presents for progressive alcohol withdraw #Alcohol withdrawal // Alcohol use disorder, severe, with dependence // Stimulant use disorder PA WSS score of 8; the patient's delayed symptomatology related to alcohol withdrawal may be consequential of the previous presentation still having a blood alcohol level greater than 200, as the patient metabolized alcohol, depending on their level of tolerance, this may have slightly shifted the onset of symptoms related to alcohol withdraw; continue phenobarbital based treatment during his current hospitalization as detailed below; furthermore, his UDS at presentation is notably positive for MDMA, THC, and oipoids which are likely playing a role in his current presentation, especially MDMA given the vividity of his hallucinations; psychiatry was consulted on 05/15 at the patient's request, noted they suspect the MDMA may be a false positive given the patient's prescribed buproprion; late in the evening on 05/15 the patient's hallucinations were persistent and progressive, making veiled threats of "taking action if [the patient] is kept around these machines". Zyprexa 10 mg IM was administered without complication, and seems to have improved his symptoms. Given the persistence of the patient's hallucinations, and their severity, well past the typical timeline for alcohol withdrawal and DTs there is concern that an additional condition is active Continue phenobarbital protocol Discontinue IVF Continue thiamine 5 mg IV every 8 hours for 3 days, then continue with daily oral supplementation Continue folic acid 1 mg p.o. daily Maintain seizure precautions - Recommend withholding home buproprion at this time given it can lower seizure threshold and influence the patient's hallucinations; if they begin to develop signs or symptoms of acute withdrawal from this, would recommend resuming it with close clinical monitoring At this time, based on current clinical assessment, the patient is not capable of making medical decisions to leave the hospital against medical advice; this may change during patient's hospitalization as he recovers from his current acute illness - Psychiatry consulted #HIV, sustained suppression // Leukopenia The patient was notably leukopenic at presentation; he states that he is adherent with his antiretroviral therapy; his presentation at this point time is not consistent with an HIV related syndrome, nor is it consistent with encephalitis -Pending CD4 count and quantitative RNA level #Right second DIP pain Recently underwent an unspecified right wrist surgery at [facility] without records to review at this time; his current pain is without a specified trauma, though the events from his departure AMA on the morning of 05/14 to his return the same day are somewhat foggy; the patient denies any traumatic injuries or falls - Continue APAP and NSAID analgesia - Plain film of right fingers pending #Hypophosphatemia // Hypomagnesemia Diminished potassium on 05/15; continue to monitor until regular p.o. intake is established - Administer potassium chloride 40 mEq p.o. one time Admission and Anticipated Discharge Date Admission Date: May 14, 2025 Subjective Mr. Tervizo is a 34-year-old male whose active medical conditions include alcohol use disorder with severe dependence, major depressive disorder in partial remission, HIV type I infection with maintained suppression who presented to [facility] on 05/14 due to progressive worsening hallucinations, both visual and auditory, anxiety, and tremulousness after leaving the same Medical Center on the same day at approximately 0500 hrs. AGAINST MEDICAL ADVICE. After departure from this hospital, the patient says that there is an event that "triggered" him, he is not comfortable sharing with what this event was at this point in time however this led to him purchasing alcohol, which he did not consume due to subsequent hallucinations. As he left the store, he describes seeing multiple juveniles in his vehicle which led to him calling the police, on arrival (and confirmed upon arrival to the emergency department, the police department state that there were no individuals in the patient's car. He was brought to the emergency department for further evaluation. Overnight a Code [place]agan was called due to the degree of patient's agitation, unfor tunately there is little documented regarding the details of this event. This morning, the patient is comfortable in bed though reports continued auditory and visual hallucinations. They deny these being persecutory or self-deprecating in any way, nor are they providing instructions; describes these as just "noise". Persistent hallucinations late into the evening of 05/15, administered one time dose of Zyprexa which, per the patient's report, improved symptoms drastically. Pain involving his right wrist and the right second DIP is well controlled with the patient's current regimen. Review of Systems Review of Systems: Review of constitutional, cardiovascular, pulmonary, gastrointestinal, genitou rinary, psychiatric, neurologic, musculoskeletal systems was unremarkable except for pertinent positives and negatives found in the HPI above Physical Exam Physical Exam: General: Adult male in no acute distress Vital Signs: Reviewed HEENT: Tacky mucous membranes; pupils equally round and reactive to light, extraocular motion intact Pulmonary: Symmetric chest wall excursion without restriction Cardiovascular: Regular rate and rhythm with right radial pulse 2+ MSK: reproducible discomfort at the distal-most aspect of the right second DIP; limited active range of motion in phalangeal extension due to pain, not significantly limited in active flexion; passive range of motion is not significantly impaired Neurologic: Cranial nerves II through XII grossly intact; no discernible focal weakness no paresthesias; minimal high-frequency low amplitude tremulousness of the bilateral hands Psychiatric: Flat affect; no longer responding to internal stimuli as he had previously, though endorses primarily auditory hallucinations this morning Results & Data Results & Data Vital Signs (Past 12 Hours) Vital Signs Temp Pulse Pulse Resp BP Pulse Ox O2 Del Method 05/16/25 04:00 36.7 C 71 16 109/68 98 Room Air 05/15/25 23:29 36.8 C 72 18 131/83 99 Room Air 05/15/25 22:00 66 05/15/25 19:47 36.7 C 70 16 124/78 98 Room Air Laboratory Results Diminished potassium of 3.2 Diagnostic Findings Plain films of the right hand on 05/15 were without notable abnormality, recommended consideration of dedicated finger films if concerned for pathology PG Care Time/CCT Total # of Minutes Spent Total Time Spent with Patient: Total time spent is greater than 50% in coordination of care (as documented) at patient's floor/unit and/or counseling patient: Coding Level of Care Code 30303 SUB INP/OBS CARE 2/35MIN Diagnoses Alcohol withdrawal syndrome with complication F10.939 Alcohol use disorder, severe, dependence F10.20 Hypophosphatemia E83.39 Hypomagnesemia E83.42 Asymptomatic HIV infection, with no history of HIV-related illness Z21 HIV symptom status: asymptomatic, with no history of HIV-related illness Finger pain, right M79.644 (5) HIV (human immunodeficiency virus) infection HIV symptom status: asymptomatic, with no history of HIV-related illness Qualified Code(s): Z21 - Asymptomatic human immunodeficiency virus [HIV] infection status
[2025-05-16] MEDS: ACETAMINOPHEN 500 MG TAB PO PRN (09:07)
[2025-05-16] MEDS ORDERED: Nursing to Pharmacy Communication SCH (09:15)
[2025-05-16] MEDS: POTASSIUM CHLORIDE CRTAB 20 MEQ TABCR PO STA ×2 (09:32→09:48)
[2025-05-16] MEDS: ACETAMINOPHEN 500 MG TAB PO SCH (10:08)
--- NOTE | 2025-05-16 10:40 | XRay Report ---
3 views of the right index finger are submitted for review. Findings: No fracture or dislocation is seen. No significant arthritic changes are noted. No other osseous abnormality is identified. There are no radiopaque foreign bodies. Impression: Unremarkable radiographs of the right index finger Electronically signed by Zackery Newman 05-16-2025 10:40 AM
--- NOTE | 2025-05-16 16:03 | Psychiatric Consultation ---
Date of Consultation May 16, 2025 Impression / Recommendations Impression Diagnostically consistent with complicated alcohol withdrawal with hallucinations and possible component of agitated/hyperactive delirium that seems to worsen in the evenings as well as alcohol use disorder severe and unspecified anxiety and depression (likely a combination of substance-induced mood changes and possible ELI and MDD). Acute risk of self-harm is low given denial of SI and no longer with in toxication. Chronic risk of self-harm and harm to others is slightly increased due to substance use with substance use treatment being the most significant modifiable risk factor to reduce acute and chronic risk. He does not meet involuntary criteria nor does he desire inpatient psychiatric treatment at this time rather recommendation is for dual diagnosis or residential substance use treatment. He is not interested in residential treatment at this time but potentially agreeable to outpatient services to help with substance use and medication assisted treatment. Overall, I spent a total of 60 minutes with this case including review of chart records, review of labwork, review of EKG QTc, direct evaluation of the patient at bedside, counseling the patient, discussion of the patient with the Nurse and with the hospitalist provider, discussion with the psychiatric liason during clinical rounds and documentation in the electronic health record. (1) Delirium: (2) Alcohol use disorder, severe, dependence: (3) Alcohol-induced mood disorder with depressive symptoms: (4) Alcohol withdrawal syndrome with complication: (5) Depression: (6) Anxiety: Plan -He was provided with resources on local mental health services and substance use services and encouraged to call to enroll in [facility] IOP -Patient is not an imminent danger to self or others and does not meet criteria for involuntary psychiatric commitment -Agree with discontinuation of Wellbutrin given his report of significant anxiety and insomnia -Start sertraline 50mg daily -Increase trazodone to 100mg HS -Olanzapine 5 or 10mg po BID prn for psychosis For behavioral emergency: haldol 5mg IM and ativan 2mg IM OR olanzapine 10 mg IM x 1 (DO NOT exceed 20mg via IM sources per 24 hours, check EKG if IM dose required, NEVER co-administer with IM or IV benzodiazepines). Psych History Identifying Data Mallory is a 34 yo man with a history of depression, anxiety, alcohol use disorder severe, HIV and recurrent pancreatitis admitted medically for complicated alcohol withdrawal. Psychiatry was consulted for hallucinations. Chief Complaint "As of today there's not been any". History of Present Illness Mallory describes seeing bugs flying around, seeing people "who were not there" and hearing people talk negatively about him "who were not there" in recent days after being hospitalized for pancreatitis and briefly discharging before returning to the hospital. Last night received olanzapine 5 mg IM for this with good effect stating he then slept well. He denies experiencing any halluci nations so far today. States he has been drinking 13 shots of liquor and 2 to 3 glasses of wine daily over the last 5 to 6 months. He feels some of his alcohol use is driven by stress particularly financial as he has been out of work after breaking his thumb and hurting his arm after he fell on a glass. He has a long history of depression and anxiety and feels that alcohol use is sometimes his way of self- medicating for this. He denies any thoughts of suicide. His longest period of sobriety was 1 to 3 months. He has been on Wellbutrin recently but still struggles with a lot of anxiety and does not sleep well. He was recently started on trazodone to help with sleep by his primary care doctor though he has not found this very helpful. Previous trials of naltrexone and gabapentin have been ineffective for helping with his alcohol use. He is not interested in residential substance use treatment at this time, may be willing to consider local IOP though he is not sure. He cannot recall any prior antidepressant trials other than Wellbutrin and Celexa. He is interested in trying sertraline. He has no psychiatric history of marco a nor psychosis except hallucinations as part of a prolonged complicated alcohol withdrawal in 2022 with vivid visual hallucinations and paranoia that resolved about 96 hours after stopping alcohol. Allergies Allergy/AdvReac Type Severity Reaction Status Date / Time latex Allergy Intermediate Rash Verified 05/14/25 17:14 benzonatate AdvReac Intermediate Hypertensio Verified 05/14/25 17:14 [From Justin Benitez] n Home Medications Medication Instructions Recorded Confirmed Type bupropion HCl 150 mg tablet,12 hr 150 mg PO BID 10/12/20 05/11/25 History sustained-release dolutegravir 50 mg-lamivudine 300 1 tab PO QAM 10/12/20 05/11/25 History mg tablet (Dovato) cetirizine 10 mg tablet (Zyrtec) 10 mg PO QAM 12/10/21 05/11/25 History potassium chloride 20 mEq 20 meq PO BID 12/10/21 05/11/25 History tablet,extended release(part/cryst) pantoprazole 40 mg tablet,delayed 40 mg PO QAM 02/21/23 05/11/25 History release (Protonix) cholecalciferol (vitamin D3) 25 1,000 unit PO QAM 04/03/23 05/11/25 History mcg (1,000 unit) capsule (Vitamin D3) naltrexone 50 mg tablet 50 mg PO QAM 09/18/23 05/11/25 History fluticasone propionate 50 1 spray intranasal BID 05/21/24 05/11/25 History mcg/actuation nasal spray,suspension (Flonase Allergy Relief) ofloxacin 0.3 % eye drops See Rx Instructions ophthalmic 04/30/25 05/11/25 Rx (eye) .COMPLEX #5 mL trazodone 50 mg tablet 50 mg PO HS 04/30/25 05/11/25 History Patient History Medical History Colitis Hyponatremia Acute pancreatitis Acute upper abdominal pain HIV disease History of lumbar puncture (02/2023) at [facility] 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 History of alcohol abuse History of hypertension r/t pancreatitis and pain. no medications at this time. GERD (gastroesophageal reflux disease) History of colitis per imaging - no surgery needed Hx of pancreatitis March 2024, treated at [facility] and sent home with pain medication. doing well currently. treated at [facility] in 2021 Anxiety HIV disease dx 2013 - controlled with Dovato Surgical History History of colonoscopy S/P endoscopy anascopy with removal of precancerous cells at [facility] ~2009 S/P cholecystectomy Family History Other No family history of adverse response to anesthesia No pertinent family history in first degree relatives Social History Smoking Status: Current every day smoker Tobacco Type: Cigarettes Cigarettes Per Day: 20; Second Hand Exposure: No; Do You Dip or Chew Tobacco: No; Tobacco Cessation Education Requested by Patient: No Hx Alcohol Use: Yes Alcohol type: beer and wine Hx Substance Use: No Preferred Language: Irish Communication Ability: Effective 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: No Beliefs That Will Affect Care: None marital status: Current Living Situation: Spouse Current Living Situation Comment: [place] current occupational status: employed current occupation: Works at [employer] Other Information That Helps Us Care for You: No Feels Safe at Home: Yes Safety Concerns: Feels Safe At This Time Assistive Devices: None Physical Exam Psychiatric: Orientation: alert and oriented x 3 Apperance: appropriately dressed and appropriately groomed Eye Contact: good eye contact Motor Behavior: no abnormal motor movements Speech: normal rate/rhythm/volume of speech Affect: + constricted affect Mood: + depressed mood and + anxious mood Thought Process: linear/logical thought process Thought Content: reality based without delusions Suicidal Thoughts: denies suicidal thoughts Homicidal Thoughts: denies homicidal thoughts Hallucinations: no auditory hallucinations and no visual hallucinations Cognition: recent memory grossly intact, remote memory grossly intact, attention grossly intact and language grossly intact Estimated Intelligence: consistent with education level Insight: + limited insight Judgment: + fair judgement Vital Signs (Past 24 Hours): Last Vital Signs Temp 36.9 C 05/16/25 12:26 Pulse 70 05/16/25 12:26 Resp 18 05/16/25 12:26 BP 109/71 05/16/25 12:26 Pulse Ox 98 05/16/25 12:26 O2 Del Method Room Air 05/16/25 12:26 Results & Data (PSY) Medications Administered Acetaminophen (Acetaminophen 500 Mg Tab) 1,000 mg PO Q8H [facility] Stop: 06/15/25 09:59 Last Admin: 05/16/25 10:08 Dose: Not Given Documented By: Enoxaparin Sodium (Enoxaparin Inj 40 Mg/0.4 Ml Syr) 40 mg SQ Q24H RASHEL Stop: 06/13/25 18:29 Last Admin: 05/15/25 17:33 Dose: Not Given Documented By: Admin: 05/14/25 21:14 Dose: 40 mg Documented By: ESG Folic Acid (Folic Acid 1 Mg Tab) 1 mg PO QAM RASHEL Stop: 06/14/25 08:59 Last Admin: 05/16/25 09:32 Dose: 1 mg Documented By: Admin: 05/15/25 09:36 Dose: 1 mg Documented By: Thiamine HCl 500 mg/ Sodium (Chloride) 55 mls @ 210 mls/hr IV Q8H RASHEL Stop: 05/17/25 18:59 Last Infusion: 05/16/25 11:29 Dose: Infused Documented By: Admin: 05/16/25 11:12 Dose: 210 mls/hr Documented By: Infusion: 05/16/25 04:30 Dose: Infused Documented By: Admin: 05/16/25 04:12 Dose: 210 mls/hr Documented By: Infusion: 05/15/25 18:52 Dose: Infused Documented By: Admin: 05/15/25 18:32 Dose: 210 mls/hr Documented By: Infusion: 05/15/25 12:21 Dose: Infused Documented By: Admin: 05/15/25 11:45 Dose: 210 mls/hr Documented By: Infusion: 05/15/25 04:23 Dose: Infused Documented By: Admin: 05/15/25 03:26 Dose: 210 mls/hr Documented By: Infusion: 05/14/25 19:18 Dose: Infused Documented By: Admin: 05/14/25 18:45 Dose: 210 mls/hr Documented By: ELIZABETH Ketorolac Tromethamine (Ketorolac 30 Mg/Ml Vial) 30 mg IV Q6H RASHEL Stop: 05/20/25 17:29 Last Admin: 05/16/25 11:12 Dose: 30 mg Documented By: Admin: 05/16/25 05:30 Dose: 30 mg Documented By: Admin: 05/16/25 00:32 Dose: 30 mg Documented By: Admin: 05/15/25 17:30 Dose: 30 mg Documented By: Pantoprazole Sodium (Pantoprazole 40 Mg Tab) 40 mg PO QAM RASHEL Stop: 06/14/25 08:59 Last Admin: 05/16/25 09:04 Dose: 40 mg Documented By: Admin: 05/15/25 09:36 Dose: 40 mg Documented By: Phenobarbital (Phenobarbital 30 Mg Tab) 30 mg PO Q12H RASHEL Stop: 05/16/25 22:46 Last Admin: 05/16/25 11:12 Dose: 30 mg Documented By: Phenobarbital Sodium (Phenobarbital Sodium 65 Mg/Ml Vial) 65 mg IV Q6H PRN PRN Reason: AWSS greater than 8 Stop: 05/18/25 23:59 Last Admin: 05/14/25 21:12 Dose: 65 mg Documented By: SUSU Trazodone HCl (Trazodone Hcl 50 Mg Tab) 50 mg PO HS [facility] Stop: 06/14/25 20:59 Last Admin: 05/15/25 21:47 Dose: 50 mg Documented By: DIETER Vitamin D (Cholecalciferol 25 Mcg (1000 Units) Tab) 25 mcg PO QAM [facility] Stop: 06/14/25 08:59 Last Admin: 05/16/25 09:04 Dose: 25 mcg Documented By: Admin: 05/15/25 09:36 Dose: 25 mcg Documented By: Coding Level of Care Code 93217 IN/OBS CONSULT LVL 4,60M Diagnoses Delirium R41.0 Alcohol use disorder, severe, dependence F10.20 Alcohol-induced mood disorder with depressive symptoms F10.94 Alcohol withdrawal syndrome with complication F10.939 Depression F32.A Anxiety F41.9
--- NOTE | 2025-05-17 07:20 | Hospitalist Progress Note ---
Date of Service May 17, 2025 Assessment & Plan (1) Alcohol withdrawal syndrome with complication: (2) Alcohol use disorder, severe, dependence: (3) Alcohol-induced mood disorder with depressive symptoms: (4) Major depressive disorder, recurrent episode with anxious distress: (5) Hypophosphatemia: (6) Hypomagnesemia: (7) HIV (human immunodeficiency virus) infection: (8) Finger pain, right: Plan In summary this is a 34-year-old male who presents for progressive alcohol wi thdraw #Alcohol withdrawal // Alcohol use disorder, severe, with dependence // Stimulant use disorder // Alcohol-induced mood disorder superimposed on MDD with anxiety PA WSS score of 8; the patient's delayed symptomatology related to alcohol withdrawal may be consequential of the previous presentation still having a blood alcohol level greater than 200, as the patient metabolized alcohol, depending on their level of tolerance, this may have slightly shifted the onset of symptoms related to alcohol withdraw; continue phenobarbital based treatment during his current hospitalization as detailed below; furthermore, his UDS at presentation is notably positive for MDMA, THC, and oipoids which are likely playing a role in his current presentation, especially MDMA given the vividity of his hallucinations; psychiatry was consulted on 05/15 at the patient's request, noted they suspect the MDMA may be a false positive given the patient's prescribed buproprion; late in the evening on 05/15 the patient's hallucinations were persistent and progressive, making veiled threats of "taking action if [the patient] is kept around these machines". Zyprexa 10 mg IM was administered without complication, and seems to have improved his symptoms. Given the persistence of the patient's hallucinations, and their severity, well past the typical timeline for alcohol withdrawal and DTs there is concern that an additional condition is active Continue phenobarbital protocol Continue thiamine 5 mg IV every 8 hours for 3 days, then continue with daily oral supplementation Continue folic acid 1 mg p.o. daily Maintain seizure precautions At this time, based on current clinical assessment, the patient is not capable of making medical decisions to leave the hospital against medical advice; this may change during patient's hospitalization as he recovers from his current acute illness - Psychiatry consulted; recommend discontinuation of buproprion, starting sertraline, increasing trazodone #HIV, sustained suppression // Leukopenia The patient was notably leukopenic at presentation; he states that he is adherent with his antiretroviral therapy; his presentation at this point time is not consistent with an HIV related syndrome, nor is it consistent with encephalitis -Pending CD4 count and quantitative RNA level #Right second DIP pain Recently underwent an unspecified right wrist surgery at [facility] without records to review at this time; his current pain is without a specified trauma, though the events from his departure AMA on the morning of 05/14 to his return the same day are somewhat foggy; the patient denies any traumatic injuries or falls; plain films unrevealing of any osseous injury - Continue APAP and NSAID analgesia #Hypophosphatemia // Hypomagnesemia Resolved Deescalate care from PCU to Med/Surg Admission and Anticipated Discharge Date Admission Date: May 14, 2025 Subjective Mr. Trevizo is a 34-year-old male whose active medical conditions include alcohol use disorder with severe dependence, major depressive disorder in partial remission, HIV type I infection with maintained suppression who presented to the [facility] on 05/14 due to progressive worsening hallucinations, both visual and auditory, anxiety, and tremulousness after leaving the same Medical Center on the same day at approximately [address] [facility]. After departure from this hospital, the patient says that there is an event that "triggered" him, he is not comfortable sharing with what this event was at this point in time however this led to him purchasing alcohol, which he did not consume due to subsequent hallucinations. As he left the store, he describes seeing multiple juveniles in his vehicle which led to him calling the police, on arrival (and confirmed upon arrival to the emergency department, the police department state that there were no individuals in the patient's car. He was brought to the emergency department for further evaluation. No acute overnight events; hallucinations have been absent for ~18 hours Review of Systems Review of Systems: Review of constitutional, cardiovascular, pulmonary, gastrointestinal, genitourinary, psychiatric, neurologic, musculoskeletal systems was unremarkable except for pertinent positives and negatives found in the HPI above Physical Exam Physical Exam: General: Adult male in no acute distress Vital Signs: Reviewed HEENT: Tacky mucous membranes; pupils equally round and reactive to light, extraocular motion intact Pulmonary: Symmetric chest wall excursion without restriction Cardiovascular: Regular rate and rhythm with right radial pulse 2+ MSK: reproducible discomfort at the distal-most aspect of the right second DIP; limited active range of motion in phalangeal extension due to pain, not significantly limited in active flexion; passive range of motion is not significantly impaired Neurologic: Cranial nerves II through XII grossly intact; no discernible focal weakness no paresthesias; minimal high-frequency low amplitude tremulousness of the bilateral hands Psychiatric: Flat affect; denies any auditory or visual hallucinations this morning Results & Data Results & Data Vital Signs (Past 12 Hours) Vital Signs Temp Pulse Pulse Resp BP Pulse Ox O2 Del Method 05/17/25 07:14 65 05/17/25 03:12 36.5 C 65 18 113/60 98 Room Air 05/16/25 23:15 37 C 75 18 120/72 97 Room Air 05/16/25 21:55 76 05/16/25 19:19 36.5 C 73 18 126/76 99 Room Air Laboratory Results Reviewed PG Care Time/CCT Total # of Minutes Spent Total Time Spent with Patient: Total time spent is greater than 50% in coordination of care (as documented) at patient's floor/unit and/or counseling patient: Coding Level of Care Code 40480 SUB INP/OBS CARE 2/35MIN Diagnoses Alcohol withdrawal syndrome with complication F10.939 Alcohol use disorder, severe, dependence F10.20 Alcohol-induced mood disorder with depressive symptoms F10.94 Major depressive disorder, recurrent episode with anxious distress F33.9 Hypophosphatemia E83.39 Hypomagnesemia E83.42 Asymptomatic HIV infection, with no history of HIV-related illness Z21 HIV symptom status: asymptomatic, with no history of HIV-related illness Finger pain, right M79.644 (7) HIV (human immunodeficiency virus) infection HIV symptom status: asymptomatic, with no history of HIV-related illness Qualified Code(s): Z21 - Asymptomatic human immunodeficiency virus [HIV] infection status
[2025-05-17 07:50] LABS: Albumin Level 3.1 gm/dl (3.4-5.0); Anion Gap 6.0 (3-11); Blood Urea Nitrogen 6.0 mg/dl (6-23); Calcium 8.3 mg/dl (8.6-10.3); Carbon Dioxide 27.0 mmol/L (21-32); Chloride 107.0 mmol/L (98-107); Creatinine Clr Calc Pharmacy 137.1 ml/min; Glucose 92.0 mg/dl (70-99(Fasting)); Magnesium 1.7 mg/dl (1.7-2.4); Potassium 3.7 mmol/L (3.5-5.1); Sodium 140.0 mmol/L (136-145)
[2025-05-17] MEDS: SERTRALINE HCL 50 MG TABLET PO SCH (08:26)
[2025-05-17] MEDS: POLYETHYLENE (MIRALAX) 17 GM PACK PO SCH (16:14)
[2025-05-17] MEDS: LAMIVUDINE PO SCH (16:39)
[2025-05-17] MEDS: DOLUTEGRAVIR SODIUM PO SCH (16:39)
[2025-05-17 23:29] VITALS: O2SAT 97
[2025-05-18 00:27] LABS: HIV 1 RNA PCR Copies/ML NOT DETECTED copies/mL (NOT DETECTED)
--- NOTE | 2025-05-18 07:33 | Hospitalist Progress Note ---
Date of Service May 18, 2025 Assessment & Plan (1) Alcohol withdrawal syndrome with complication: (2) Alcohol use disorder, severe, dependence: (3) Alcohol-induced mood disorder with depressive symptoms: (4) Major depressive disorder, recurrent episode with anxious distress: (5) Hypophosphatemia: (6) Hypomagnesemia: (7) HIV (human immunodeficiency virus) infection: (8) Finger pain, right: Plan In summary this is a 34-year-old male who presents for progressive alcohol wi thdraw #Alcohol withdrawal // Alcohol use disorder, severe, with dependence // Stimulant use disorder // Alcohol-induced mood disorder superimposed on MDD with anxiety PA WSS score of 8; the patient's delayed symptomatology related to alcohol withdrawal may be consequential of the previous presentation still having a blood alcohol level greater than 200, as the patient metabolized alcohol, depending on their level of tolerance, this may have slightly shifted the onset of symptoms related to alcohol withdraw; continue phenobarbital based treatment during his current hospitalization as detailed below; furthermore, his UDS at presentation is notably positive for MDMA, THC, and oipoids which are likely playing a role in his current presentation, especially MDMA given the vividity of his hallucinations; psychiatry was consulted on 05/15 at the patient's request, noted they suspect the MDMA may be a false positive given the patient's prescribed buproprion; late in the evening on 05/15 the patient's hallucinations were persistent and progressive, making veiled threats of "taking action if [the patient] is kept around these machines". Zyprexa 10 mg IM was administered without complication, and seems to have improved his symptoms. Given the persistence of the patient's hallucinations, and their severity, well past the typical timeline for alcohol withdrawal and DTs there is concern that an additional condition is active Continue phenobarbital protocol Continue thiamine 5 mg IV every 8 hours for 3 days, then continue with daily oral supplementation Continue folic acid 1 mg p.o. daily Maintain seizure precautions At this time, based on current clinical assessment, the patient is not capable of making medical decisions to leave the hospital against medical advice; this may change during patient's hospitalization as he recovers from his current acute illness - Psychiatry consulted; recommend discontinuation of buproprion, starting sertraline, increasing trazodone #HIV, sustained suppression // Leukopenia The patient was notably leukopenic at presentation; he states that he is adherent with his antiretroviral therapy; his presentation at this point time is not consistent with an HIV related syndrome, nor is it consistent with encephalitis -HIV level is undetectable -CD4 count pending, suspect it will be normal considering undetectable HIV RNA #Right second DIP pain Recently underwent an unspecified right wrist surgery at [facility] without records to review at this time; his current pain is without a specified trauma, though the events from his departure AMA on the morning of 05/14 to his return the same day are somewhat foggy; the patient denies any traumatic injuries or falls; plain films unrevealing of any osseous injury - Continue APAP and NSAID analgesia Admission and Anticipated Discharge Date Admission Date: May 14, 2025 Subjective Mr. Trevizo is a 34-year-old male whose active medical conditions include alcohol use disorder with severe dependence, major depressive disorder in partial remission, HIV type I infection with maintained suppression who presented to the [facility] on 05/14 due to progressive worsening [place] lucinations, both visual and auditory, anxiety, and tremulousness after leaving the same Medical Center on the same day at approximately 0500 hrs. AGAINST MEDICAL ADVICE. After departure from this hospital, the patient says that there is an event that "triggered" him, he is not comfortable sharing with what this event was at this point in time however this led to him purchasing alcohol, which he did not consume due to subsequent hallucinations. As he left the store, he describes seeing multiple juveniles in his vehicle which led to him calling the police, on arrival (and confirmed upon arrival to the emergency department, the police department state that there were no individuals in the patient's car. He was brought to the emergency department for further evaluation. No acute overnight events; hallucinations have been absent for over 24 hours Review of Systems Review of Systems: Review of constitutional, cardiovascular, pulmonary, gastrointestinal, genitourinary, psychiatric, neurologic, musculoskeletal systems was unremarkable except for pertinent positives and negatives found in the HPI above Physical Exam Physical Exam: General: Adult male in no acute distress Vital Signs: Reviewed HEENT: Tacky mucous membranes; pupils equally round and reactive to light, extraocular motion intact Pulmonary: Symmetric chest wall excursion without restriction Cardiovascular: Regular rate and rhythm with right radial pulse 2+ MSK: reproducible discomfort at the distal-most aspect of the right second DIP; limited active range of motion in phalangeal extension due to pain, not significantly limited in active flexion; passive range of motion is not significantly impaired Neurologic: Cranial nerves II through XII grossly intact; no discernible focal weakness no paresthesias; minimal high-frequency low amplitude tremulousness of the bilateral hands Psychiatric: Flat affect; denies any auditory or visual hallucinations this morning Results & Data Results & Data Vital Signs (Past 12 Hours) Vital Signs Temp Pulse Resp BP Pulse Ox O2 Del Method 05/17/25 23:24 36.5 C 65 16 116/72 97 Room Air PG Care Time/CCT Total # of Minutes Spent Total Time Spent with Patient: Total time spent is greater than 50% in coordination of care (as documented) at patient's floor/unit and/or counseling patient: Coding Diagnoses Alcohol withdrawal syndrome with complication F10.939 Alcohol use disorder, severe, dependence F10.20 Alcohol-induced mood disorder with depressive symptoms F10.94 Major depressive disorder, recurrent episode with anxious distress F33.9 Hypophosphatemia E83.39 Hypomagnesemia E83.42 Asymptomatic HIV infection, with no history of HIV-related illness Z21 HIV symptom status: asymptomatic, with no history of HIV-related illness Finger pain, right M79.644 (7) HIV (human immunodeficiency virus) infection HIV symptom status: asymptomatic, with no history of HIV-related illness Qualified Code(s): Z21 - Asymptomatic human immunodeficiency virus [HIV] infection status
[2025-05-18 07:44] VITALS: PULSE 60; RESP 20; TEMP 97.9
[2025-05-18 09:28] VITALS: BP 144/88
[2025-05-18] MEDS: THIAMINE HCL 100 MG TAB PO SCH (09:52)
--- NOTE | 2025-05-18 14:31 | Discharge Summary ---
Discharge Summary Date of Service May 18, 2025 Principal Dx & Hospital Course #1 = Principal Diagnosis (1) Alcohol withdrawal syndrome with complication: (2) Alcohol use disorder, severe, dependence: (3) Alcohol-induced mood disorder with depressive symptoms: (4) Major depressive disorder, recurrent episode with anxious distress: (5) Hypophosphatemia: (6) Hypomagnesemia: (7) HIV (human immunodeficiency virus) infection: (8) Finger pain, right: Plan Plan In summary this is a 34-year-old male who presents for progressive alcohol withdraw #Alcohol withdrawal // Alcohol use disorder, severe, with dependence // Stimulant use disorder // Alcohol-induced mood disorder superimposed on MDD with anxiety PAWSS score of 8; the patient's delayed symptomatology related to alcohol with drawal may be consequential of the previous presentation still having a blood alcohol level greater than 200, as the patient metabolized alcohol, depending on their level of tolerance, this may have slightly shifted the onset of symptoms related to alcohol withdraw; completed phenobarbital based treatment during his current hospitalization without complication; furthermore, his UDS at presentation is notably positive for MDMA, THC, and oipoids which are likely playing a role in his current presentation, especially MDMA given the vividity of his hallucinations; psychiatry was consulted on 05/15 at the patient's request, noted they suspect the MDMA may be a false positive given the patient's prescribed buproprion; late in the evening on 05/15 the patient's hallucinations were persistent and progressive, making veiled threats of "taking action if [the patient] is kept around these machines". Zyprexa 10 mg IM was administered without complication, and seems to have improved his symptoms. Given the persistence of the patient's hallucinations, and their severity, well past the typical timeline for alcohol withdrawal and DTs there was concern of additional psychiatric or intoxication/withdrawal syndromes at play, but psychiatry advised this is most likely consequential of alcohol withdrawal Continue thiamine 100 mg p.o. daily Continue folic acid 1 mg p.o. daily Maintain seizure precautions - Psychiatry consulted; recommend discontinuation of buproprion, starting sertraline, increasing trazodone which were executed at discharge #HIV, sustained suppression // Leukopenia The patient was notably leukopenic at presentation; he states that he is adherent with his antiretroviral therapy; his presentation at this point time is not consistent with an HIV related syndrome, nor is it consistent with encephalitis -HIV level is undetectable #Right second DIP pain Recently underwent an unspecified right wrist surgery at [facility] without records to review at this time; his current pain is without a specified trauma, though the events from his departure AMA on the morning of 05/14 to his return the same day are somewhat foggy; the patient denies any traumatic injuries or falls; plain films unrevealing of any osseous injury - Continue APAP and NSAID analgesia Admission HPI Per Admitting Provider Mr. Trevizo is a 34-year-old male whose active medical conditions include alcohol use disorder with severe dependence, major depressive disorder in partial remission, HIV type I infection with maintained suppression who presented to the [facility] on 05/14 due to progressive worsening hallucinations, both visual and auditory, anxiety, and tremulousness after leaving the same Medical Center on the same day at approximately 0500 hrs. AGAINST MEDICAL ADVICE. After departure from this hospital, the patient says that there is an event that "triggered" him, he is not comfortable sharing with what this event was at this point in time however this led to him purchasing alcohol, which he did not consume due to subsequent hallucinations. As he left the store, he describes seeing multiple juveniles in his vehicle which led to him calling the police, on arrival (and confirmed upon arrival to the emergency department, the police department state that there were no individuals in the patient's car. He was brought to the emergency department for further evaluation. At the time my assessment the patient is tearful, feels "defeated", expresses great frustration with respect to his recurrent episodes of withdrawal and dependence on alcohol. He denies any chest pain, shortness of breath, orthopnea, cough, congestion. He does note some difficulty with oral intake upon returning home, but denies any hematemesis. He endorses some mild abdominal pain, primarily epigastric with associated mid thoracic discomfort though this is not worsened since his departure from the hospital nor worsened with consumption earlier today. Discharge Exam General: Adult male in no acute distress Vital Signs: Reviewed HEENT: Tacky mucous membranes; pupils equally round and reactive to light, extraocular motion intact Pulmonary: Symmetric chest wall excursion without restriction Cardiovascular: Regular rate and rhythm with right radial pulse 2+ MSK: reproducible discomfort at the distal-most aspect of the right second DIP; limited active range of motion in phalangeal extension due to pain, not significantly limited in active flexion; passive range of motion is not significantly impaired Neurologic: Cranial nerves II through XII grossly intact; no discernible focal weakness no paresthesias; resolved tremulousness Psychiatric: Flat affect; denies any auditory or visual hallucinations this morning Discharge Plan Discharge Items Patient Disposition: Home - Self-Care Reason For Visit: SYMPTOMATIC ALCOHOL WITHDRAWAL Discharge Diagnosis: Severe alcohol withdrawal with delirium tremens Condition on Discharge: Fair Activity: Per Instructions section Non-emergency contact: Primary Care Provider and [employer] Receiver Call non-emergency contact if: you have any medication questions Follow-up/Referrals: Jh Falcon [Primary Care Provider] - (PLEASE CALL YOUR PCP AND MAKE A HOSPITAL FOLLOW UP VISIT IN 7-10 DAYS.) Diet: Regular Fluids: 2000ml (8 cups) Neeraj Attending Provider Instructions: You were admitted to [facility] for alcohol withdrawal complicated by delirium tremens and multiple electrolyte abnormalities. During your hospitalization, you were treated with a combination of phenobarbital and as needed antipsychotics given severity and vividness of your hallucinations. At your request, psychiatry was consulted for further recommendations regarding your plan of care and coordination of care upon discharge; these recommendations are summarized further below. Thank you for choosing [facility] as your healthcare provider. 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 daily, increasing trazodone to 100 mg at bedtime. They further recommended, and we also encourage, establishing care with local mental health services and substance use services, especially to enroll with [facility]. Pending Studies at Discharge: No Stand-Alone Forms: My [facility] Medications and DC Order Prescriptions: New polyethylene glycol 3350 [Miralax] 17 gram Powder In Packet 17 g PO DAILY 30 Days Qty: 30 0RF sertraline 50 mg Tablet 50 mg PO QAM 30 Days Qty: 30 0RF thiamine HCl (vitamin B1) 100 mg Tablet 100 mg PO QAM 30 Days Qty: 30 0RF folic acid 1 mg Tablet 1 mg PO QAM 30 Days Qty: 30 0RF Continued cetirizine [Zyrtec] 10 mg Tablet 10 mg PO QAM potassium chloride 20 mEq tablet,ER particles/crystals 20 meq PO BID Dovato 50-300 mg Tablet 1 tab PO QAM pantoprazole [Protonix] 40 mg tablet,delayed release (DR/EC) 40 mg PO QAM cholecalciferol (vitamin D3) [Vitamin D3] 25 mcg (1,000 unit) Capsule 1,000 unit PO QAM naltrexone 50 mg Tablet 50 mg PO QAM fluticasone propionate [Flonase Allergy Relief] 50 mcg/actuation Howe,Suspension 1 spray INTRANASAL BID Rx Instructions: administer into each nostril Changed trazodone 50 mg tablet 100 mg PO HS Qty: 0 0RF Discontinued bupropion HCl 150 mg Tablet Sustained-Release 12 Hr 150 mg PO BID ofloxacin 0.3 % drops See Rx Instructions .ROUTE .COMPLEX Qty: 5 0RF Rx Instructions: PER PT "HAVEN'T USED THEM THE WAY THEY WERE PERSCRIBED" put 1-2 drps into affected eye(s) every 2-4 h x 2 days, then 1-2 drps 4 times/day days 3-7 Discharge Orders: Discharge Order (Routine); Ordered 05/18/25 Ordered By: El Sanabria/Other Patient Handouts: Manage Stress Healthy Lifestyle Admission Data Admit Date/Time: 05/14/25 16:33 Attending Provider: El Holder Admit Provider: El Holder Primary Care Provider: Jh Falcon Other Providers: El Holder; Stephenie Arnold; Andrés Springer; Mary Garay; Yana Moran; Xavier Mccann; Karissa Rollins; Caleb Castle; Eliane Fuentes Other Interventions: Discharge Summary Assessment (RN) Last Done: 05/18/25 09:26 Hospital Stay Data Consultations 05/14/25 16:28 ED Decision to Admit Stat 05/15/25 13:18 Consult Psychiatry Routine Pending Results Patient Have Any Pending Studies at Discharge: No Discharge Instructions Given to Patient (Per Discharging Provider) You were admitted to [facility] for alcohol withdrawal complicated by delirium tremens and multiple electrolyte abnormalities. During your hospitalization, you were treated with a combination of phe nobarbital and as needed antipsychotics given severity and vividness of your hallucinations. At your request, psychiatry was consulted for further recommendations regarding your plan of care and coordination of care upon discharge; these recommendations are summarized further below. Thank you for choosing [facility] as your healthcare provider. Total Time Total Time Spent Total Time Spent (In Minutes): I personally spent 55 minutes in the coordination of discharge including bedside counseling, physical exam, review of consultations, medication reconciliation, and coordination of outpatient resources Coding Level of Care Code 23588 INP/OBS DISCH >30 MIN Diagnoses Alcohol withdrawal syndrome with complication F10.939 Alcohol use disorder, severe, dependence F10.20 Alcohol-induced mood disorder with depressive symptoms F10.94 Major depressive disorder, recurrent episode with anxious distress F33.9 Hypophosphatemia E83.39 Hypomagnesemia E83.42 Asymptomatic HIV infection, with no history of HIV-related illness Z21 HIV symptom status: asymptomatic, with no history of HIV-related illness Finger pain, right M79.644
[2025-05-21 02:58] LABS: 7-Aminoclonaz, Confirm NEGATIVE ng/mL (<25); Hydro-Alp Ur, GC/MS NEGATIVE ng/mL (<25); Hydrocodone Urine NEGATIVE ng/mL (<50); Hydromor Urine 383 ng/mL (<50); Hydroxyethylflurazepam, Conf NEGATIVE ng/mL (<50); Hydroxymidazolam Ur, GC/MS NEGATIVE ng/mL (<50); Lorazepam, Ur GC/MS 1984 ng/mL (<50); MDA negative; MDEA negative; MDMA (Ecstasy) Urine, Confirm negative; Marijuana Quant, GCMS Urine 45 ng/mL (<5); Nordiazepam, Confirm NEGATIVE ng/mL (<50); Noroxycodone Urine NEGATIVE ng/mL (<50); Oxazepam Ur, GC/MS NEGATIVE ng/mL (<50); Oxymorph Urine NEGATIVE ng/mL (<50); Temazepam, Confirm NEGATIVE ng/mL (<50)
== END 2025-05-18 10:02 | disposition home or self-care (01) | DRG 897 ==
LOC: ED 14:34 → 2S 16:33 → 2E 18:22 → 3E 05-17 14:12